=== PATIENT | female | born 1950 | race Caucasian/White ===

== ENCOUNTER 2019-11-20 08:30 | Outpatient (CLI) | payer MEDICARE, SELFPAY | END 2019-11-20 08:31 | disposition home or self-care (01) | PROVIDERS: PCP Internal Medicine; Visit Provider Internal Medicine Gastroenterology | DX: Z01.818 Encounter for other preprocedural examination (principal); Z53.8 Procedure and treatment not carried out for other reasons | CPT/HCPCS: 87635; U0003 ==

== ENCOUNTER 2019-11-28 00:18 | Outpatient (CLI) | payer MEDICARE, SELFPAY ==
[2019-11-28 17:31] LABS: SARS-CoV-2 RNA PCR Negative
== END 2019-11-28 00:19 | disposition home or self-care (01) ==
LOC: ANHCOVIDDT 00:19
PROVIDERS: PCP Internal Medicine; Visit Provider Internal Medicine Gastroenterology
DX: Z01.818 Encounter for other preprocedural examination (principal); Z11.59 Encounter for screening for other viral diseases
CPT/HCPCS: 87635; C9803; U0003

== ENCOUNTER 2019-11-30 00:54 | Day surgery (SDC) | payer MEDICARE, SELFPAY ==
[2019-11-20 09:09] VITALS: BMI 40.8
[2019-11-30 08:16] VITALS: BP 135/81; PULSE 76; RESP 12; TEMP 36.5; O2SAT 98
--- NOTE | 2019-11-30 08:28 | WPDANESEPPF ---
Anes - Initial Pre Proc Eval Procedure: Operation Date: 11/30/19 09:00 Proposed Procedures p Screening Colonoscopy - Gerardo Fontanez MD Date/Time: 11/30/19 08:28 Surgeon: Gerardo Fontanez MD Pre Op Diagnosis: Hx of Colon Polyps Patient Data Age: 69 Gender: F Height: 5 ft 3 in Weight: 105.8 kg Last Vital Signs Temp 36.5 C 11/30/19 08:16 Pulse 76 11/30/19 08:16 Resp 12 11/30/19 08:16 BP 135/81 11/30/19 08:16 Pulse Ox 98 11/30/19 08:16 Allergies Allergy/AdvReac Type Severity Reaction Status Date / Time No Known Allergies Allergy Verified 11/30/19 07:52 Home Medications Medication Instructions Recorded Confirmed Type alprazolam 0.5 mg PO TID PRN 11/20/19 11/20/19 History cyclobenzaprine 10 mg PO TID PRN 11/20/19 11/20/19 History duloxetine 60 mg PO DAILY 11/20/19 11/20/19 History ergocalciferol (vitamin D2) 50,000 unit PO WEEKLY 11/20/19 11/20/19 History esomeprazole magnesium 40 mg PO DAILY 11/20/19 11/20/19 History fentanyl 50 mcg TRANSDERMAL DIRECTED 11/20/19 11/30/19 History ferrous sulfate 325 mg PO DAILY 11/20/19 11/20/19 History folic acid 1 mg PO DAILY 11/20/19 11/20/19 History hydrocodone-acetaminophen 1 tablet PO USEASDIRECTD PRN 11/20/19 11/20/19 History hydroxychloroquine 200 mg PO DAILY 11/20/19 11/20/19 History hyoscyamine sulfate 0.125 mg PO DAILY 11/20/19 11/20/19 History ketoconazole 1 applic TOPICAL DIRECTED 11/20/19 11/20/19 History levothyroxine 300 mcg PO DAILY 11/20/19 11/20/19 History lisinopril 2.5 mg PO DAILY 11/20/19 11/20/19 History sulfasalazine 500 mg PO DAILY 11/20/19 11/30/19 History Patient hx anesthesia problems: none Family hx anesthesia problems: none PMFSH Past Medical History Medical History (Updated 11/30/19 @ 08:32 by Mich Winter MD) Charcot ankle Fibromyalgia HTN (hypertension) Hyperlipidemia Hypothyroidism Obesity Surgical History Surgical History (Updated 11/30/19 @ 08:32 by Mich Winter MD) H/O gastric bypass Anes - Eval Final PreProcedure Day of Procedure 11/30/19 08:28 Patient weight: morbidly obese Heart: regular rate and rhythm Lungs: clear to auscultation Airway: Mallampati scale class II Neurological: alert and oriented Last oral intake: >/= 8 hours ASA classification: III Emergent: no Anesthetic plan: proceed Anesthesia type and monitoring: general GIVS and standard monitoring Informed Consent: The patient's anesthetic plan and its attendant risks and benefits were discussed with the patient/family/POA. Questions were solicited and answers provided to the satisfaction of the patient/family/POA.
[2019-11-30] MEDS: LACTATED RINGERS 1,000 ML 150 ML IV CONT (08:31)
--- NOTE | 2019-11-30 08:33 | WPDGICN ---
Assessment and Plan Assessment and plan (1) History of colon polyps: Code(s): Z86.010 - Personal history of colonic polyps Status: Acute Assessment and Plan: Because of prior colon polyp surveillance colonoscopy is recommended now and should be considered at 5 year intervals. Particularly with family history of colon polyps in her father. (2) Family history of colonic polyps: Code(s): Z83.71 - Family history of colonic polyps Status: Acute (3) Charcot ankle: Code(s): M14.679 - Charcot's joint, unspecified ankle and foot Status: Acute GI Consult Note Consult date/time: 11/30/19 08:33 HPI: Priscilla Hollins is a 69 year old female Seen in evaluation at the request of Dr. Negrete. Patient presents for surveillance colonoscopy. Patient does report a prior history of colon polyps in 2012. Her current weight appetite bowel movements are normal. She denies abdominal pain. She denies bleeding. She denies any change in bowel habits. Family history is significant that her father had colon polyps. Patient reports having had a perianal fistula requiring surgical repair more than 20 years ago. Review of Systems Review of Systems: All systems reviewed & are unremarkable except as noted in HPI and below PMFSH Past Medical History Medical History Charcot ankle Fibromyalgia HTN (hypertension) Hyperlipidemia Hypothyroidism Obesity Surgical History Surgical History H/O gastric bypass Meds Home Medications and Allergies Home Medications Medication Instructions Recorded Confirmed Type alprazolam 0.5 mg PO TID PRN 11/20/19 11/20/19 History cyclobenzaprine 10 mg PO TID PRN 11/20/19 11/20/19 History duloxetine 60 mg PO DAILY 11/20/19 11/20/19 History ergocalciferol (vitamin D2) 50,000 unit PO WEEKLY 11/20/19 11/20/19 History esomeprazole magnesium 40 mg PO DAILY 11/20/19 11/20/19 History fentanyl 50 mcg TRANSDERMAL DIRECTED 11/20/19 11/30/19 History ferrous sulfate 325 mg PO DAILY 11/20/19 11/20/19 History folic acid 1 mg PO DAILY 11/20/19 11/20/19 History hydrocodone-acetaminophen 1 tablet PO USEASDIRECTD PRN 11/20/19 11/20/19 History hydroxychloroquine 200 mg PO DAILY 11/20/19 11/20/19 History hyoscyamine sulfate 0.125 mg PO DAILY 11/20/19 11/20/19 History ketoconazole 1 applic TOPICAL DIRECTED 11/20/19 11/20/19 History levothyroxine 300 mcg PO DAILY 11/20/19 11/20/19 History lisinopril 2.5 mg PO DAILY 11/20/19 11/20/19 History sulfasalazine 500 mg PO DAILY 11/20/19 11/30/19 History Allergies Allergy/AdvReac Type Severity Reaction Status Date / Time No Known Allergies Allergy Verified 11/30/19 07:52 Vital Signs Vital Signs - 24 hr 11/30/19 08:16 Temperature 36.5 C Pulse Rate 76 Respiratory Rate 12 Blood Pressure 135/81 Pulse Oximetry 98 Exam Narrative: Exam Narrative: Physical exam reveals patient to be alert. Vital signs stable. HEENT exam unremarkable. She is anicteric. Lungs are clear to auscultation and percussion. Heart is without murmur or extra sounds. Abdominal exam somewhat obese. Bowel sounds are present soft nontender with no organomegaly. Digital external rectal exam is normal.
[2019-11-30 09:30] VITALS: BP 125/69; PULSE 68; RESP 16; O2SAT 98
[2019-11-30 09:40] VITALS: BP 132/78; PULSE 71; RESP 16; O2SAT 98
[2019-11-30 09:50] VITALS: BP 131/72; PULSE 73; RESP 18; O2SAT 98
== END 2019-11-30 10:10 | disposition home or self-care (01) ==
PROVIDERS: PCP Internal Medicine; Visit Provider Internal Medicine Gastroenterology
PROC: 0DJD8ZZ Inspection of Lower Intestinal Tract, Via Natural or Artificial Opening Endoscopic (ICD-10-PCS; CPT 45378; principal; 2019-11-30 09:00)
DX: Z12.11 Encounter for screening for malignant neoplasm of colon (principal); K64.8 Other hemorrhoids; Z86.010 Personal history of colon polyps; Z83.71 Family history of colonic polyps; M14.679 Charcot's joint, unspecified ankle and foot; I10 Essential (primary) hypertension; E78.5 Hyperlipidemia, unspecified; E03.9 Hypothyroidism, unspecified; M79.7 Fibromyalgia; E66.01 Morbid (severe) obesity due to excess calories; Z68.41 Body mass index [BMI] 40.0-44.9, adult; Z98.84 Bariatric surgery status
CPT/HCPCS: G0105; 87635; C9803; J2704; J7120; U0003

== ENCOUNTER 2020-06-12 10:44 | Outpatient (CLI) | payer MEDICARE, SELFPAY ==
--- NOTE | ~2020-06-12 | MM_ITS ---
EXAMINATION: MM screening [facility] BI w cathie HISTORY: Screening TECHNIQUE: Craniocaudal and mediolateral oblique 3-D tomosynthesis images were obtained and synthetic 2-D images were generated. CAD analysis was submitted and interpreted. COMPARISON: Comparison to multiple prior studies sequentially, with oldest reviewed study dated 12/22. BREAST PARENCHYMAL COMPOSITION: There are scattered areas of fibroglandular density. FINDINGS: There is no evidence of suspicious mass, calcification, or architectural distortion to sugg est malignancy in either breast. There has been no suspicious interval change. IMPRESSION: 1. No mammographic evidence of malignancy. 2. Recommend routine screening mammography in one year. BI-RADS Category 1: Negative Reviewed, dictated and finalized at location A. LE PRODUCERS
== END 2020-06-12 10:45 | disposition home or self-care (01) ==
LOC: CHSIMG 10:46
PROVIDERS: PCP Internal Medicine; Visit Provider Internal Medicine
DX: Z12.31 Encounter for screening mammogram for malignant neoplasm of breast (principal)
CPT/HCPCS: 77063; 77067

== ENCOUNTER 2020-06-18 12:07 | Outpatient (CLI) | payer MEDICARE, SELFPAY ==
[2020-06-18 13:13] LABS: SARS-CoV-2 Ag Negative (Negative)
== END 2020-06-18 12:08 | disposition home or self-care (01) ==
LOC: CHSLAB 12:09
PROVIDERS: PCP Internal Medicine; Visit Provider Internal Medicine
DX: Z20.828 Contact with and (suspected) exposure to other viral communicable diseases (principal)
CPT/HCPCS: 87426

== ENCOUNTER 2021-06-11 13:41 | Outpatient (CLI) | payer MEDICARE, SELFPAY ==
--- NOTE | ~2021-06-11 | XR_ITS ---
EXAMINATION: XR humerus LT EXAM DATE: 06/11/2021 14:09 INDICATION: L arm pain mid humerus. TECHNIQUE: 2 orthogonal projections left humerus. There is no prior study for comparison. FINDINGS: Subcentimeter sclerotic focus in the left humeral head likely bone island. There are no ac [facility] cro[facility] fractures or dislocations identified. There is no subcutaneous gas. The soft tissue is unremar kable. There are no radiopaque foreign bodies. IMPRESSION: No acute osseous findings. Reviewed, dictated and finalized at location A. H CUTTING INSPECTOR IMPRESSION: No acute osseous findings.
== END 2021-06-11 13:42 | disposition home or self-care (01) ==
LOC: CHSIMG 13:42
PROVIDERS: PCP Internal Medicine; Visit Provider Internal Medicine
DX: M79.602 Pain in left arm (principal)
CPT/HCPCS: 73060

== ENCOUNTER 2021-07-12 11:34 | Emergency (ER) | payer MEDICARE, SELFPAY ==
--- NOTE | ~2021-07-12 | XR_ITS ---
EXAMINATION: XR shoulder LT min 2V DATE: 07/12/2021 12:50 INDICATION: Left shoulder pain. TECHNIQUE: 4 views of left shoulder were obtained. COMPARISON: Left humerus radiograph 06/11/2021 FINDINGS: Bone alignment is normal. No fracture. There is a benign bone island in left humeral head. There is mild osteoarthritis of glenohumeral joint and severe osteoarthritis of acromioclavicular meme nt. IMPRESSION: 1. Polyarticular osteoarthritis. Reviewed, dictated and finalized at location A. MAKER
--- NOTE | ~2021-07-12 | XR_ITS ---
EXAMINATION: XR ribs LT 2V DATE: 07/12/2021 12:50 INDICATION: Left rib pain. TECHNIQUE: 2 views of the left ribs on 3 radiographs were obtained. COMPARISON: Chest 2 views 12/23/2012 FINDINGS: There is no left-sided pneumonia, pleural effusion, or pneumothorax. The heart size is norm al. Surgical clips in the right upper quadrant are likely from cholecystectomy. IMPRESSION: 1. No rib fracture. Reviewed, dictated and finalized at location A. NT SERVICES COORDINATOR IMPRESSION: 1. No rib fracture.
--- NOTE | 2021-07-12 12:22 | ECG_ITS ---
Measurements Intervals Hendrix Rate: 83 P: 67 NH: 135 QRS: 41 QRSD: 85 T: 58 QT: 371 QTc: 438 Interpretive Statements SINUS RHYTHM ATRIAL COUPLET BASELINE ARTIFACT- I, II, III, AVL, AVF, V1-V2, V4-V6 BORDERLINE ECG Electronically Signed On 07-14-2021 11:47:10 COFFEE GRINDER by Villa Santana D.O.
[2021-07-12 12:26] VITALS: BP 160/78; PULSE 88; RESP 20; TEMP 36.7; O2SAT 97
[2021-07-12 12:34] VITALS: PULSE 88
--- NOTE | 2021-07-12 13:14 | ED.GENADULT ---
HPI - General Adult General Chief complaint: Unspecified Stated complaint: L upper arm pain, occasional pain in L abd/nipple Source: patient Mode of arrival: wheelchair Limitations: no limitations History of Present Illness HPI narrative: this is a 70-year-old female that has a history of Charcot disease and has a boot on her right foot, apparently trying to maneuver up some steps had to grab on to hold her balance with her left arm causing shoulder discomfort and left rib area discomfort and pain, with no shortness of breath no chest pain no abdominal pain there is no bruising or swelling, has reduced range of motion in her left arm and shoulder. Onset (ago): day(s) Location: left ( rib area and left shoulder area) Radiation: non-radiation Severity: moderate Severity scale (1-10): 6 Quality: sharp and dull Pain Consistency: intermittent Related Data Home Medications Medication Instructions Recorded Confirmed alprazolam 0.5 mg PO TID PRN 11/20/19 11/20/19 cyclobenzaprine 10 mg PO TID PRN 11/20/19 11/20/19 duloxetine 60 mg PO DAILY 11/20/19 11/20/19 ergocalciferol (vitamin D2) 50,000 unit PO WEEKLY 11/20/19 11/20/19 esomeprazole magnesium 40 mg PO DAILY 11/20/19 11/20/19 fentanyl 50 mcg TRANSDERMAL DIRECTED 11/20/19 11/30/19 ferrous sulfate 325 mg PO DAILY 11/20/19 11/20/19 folic acid 1 mg PO DAILY 11/20/19 11/20/19 hydrocodone-acetaminophen 1 tablet PO USEASDIRECTD PRN 11/20/19 11/20/19 hydroxychloroquine 200 mg PO DAILY 11/20/19 11/20/19 hyoscyamine sulfate 0.125 mg PO DAILY 11/20/19 11/20/19 ketoconazole 1 applic TOPICAL DIRECTED 11/20/19 11/20/19 levothyroxine 300 mcg PO DAILY 11/20/19 11/20/19 lisinopril 2.5 mg PO DAILY 11/20/19 11/20/19 sulfasalazine 500 mg PO DAILY 11/20/19 11/30/19 Allergies Allergy/AdvReac Type Severity Reaction Status Date / Time aspirin AdvReac Gastrointestinal Verified 07/12/21 12:36 Upset [id number] Reductase AdvReac Anxiety Verified 07/12/21 12:36 Inhibitor Review of Systems Review of Systems: All systems reviewed & are unremarkable except as noted in HPI and below PMFSH Past Medical History Medical History (Updated 07/12/21 @ 13:19 by Elan Novoa MD) Charcot ankle Fibromyalgia HTN (hypertension) Hyperlipidemia Hypothyroidism Obesity Surgical History Surgical History H/O gastric bypass Exam Const: General: cooperative, healthy appearing, comfortable and no acute distress HENMT: Head: normal to inspection Ears: hearing grossly normal bilaterally General nose exam: Normal external nose present Face and sinus: normal facial exam Mouth: Yes Normal oral and palatal mucosa present Eyes: General: appearance normal, both eyes and all related structures EOM: EOMs intact bilaterally Neck: Neck: normal visual inspection Chest: Chest palpation & inspection: normal inspection of the chest and normal palpation of entire chest wall Breast/axilla palpation: normal palpation of the breasts Resp: Effort & Inspection: normal respiratory effort and able to speak in complete sentences Cardio: Jugular venous distension: no JVD Palpation: normal PMI Rate: regular rate Rhythm: regular rhythm GI: Inspection: normal to inspection Percussion: Yes normal to percussion Urinary Catheter: Urinary Catheter: patent and draining Back/Spine/Pelvis: Back: no CVA tenderness Cervical Spine: normal cervical lordosis and cervical ROM normal Skin: General skin exam: normal color and no rashes or lesions noted Neuro: General: oriented to person and oriented to place Extrem: Other: Pain with movement of her left shoulder with bicipital tenderness Psych: Appearance: grossly normal and well kempt Course Course Emergency Course: x-rays reviewed with patient advised to continue her Tylenol as needed and follow up with her primary care physician for further evaluation and treatment of her left shoulder. Patti
[2021-07-12] MEDS: KETOROLAC 30 MG/ML VIAL (*BKC) IM (14:00)
[2021-07-12 14:31] VITALS: BP 141/87; PULSE 91; RESP 20; TEMP 36.8; O2SAT 94
== END 2021-07-12 14:33 | disposition home or self-care (01) ==
PROVIDERS: Emergency Provider Emergency Medicine; PCP Internal Medicine
DX: S46.912A Strain of unspecified muscle, fascia and tendon at shoulder and upper arm level, left arm, initial encounter (principal); I10 Essential (primary) hypertension; E78.5 Hyperlipidemia, unspecified; E03.9 Hypothyroidism, unspecified
CPT/HCPCS: 71100; 73030; 93005; 96372; 99283; 99284; J1885

== ENCOUNTER 2022-08-11 11:59 | Outpatient (CLI) | payer MEDICARE, SELFPAY ==
--- NOTE | ~2022-08-11 | CT_ITS ---
EXAMINATION: CTA chest PE protocol DATE: 08/11/2022 14:13 INDICATION: Shortness of breath. TECHNIQUE: Computed tomography angiography (CTA) of the chest was performed with 100 mL Omnipaque-350 intravenous contrast timed to evaluate the pulmonary arteries. Coronal maximum intensity projection 3D-reconstructions were created by the technologist. Automated exposure control and iterative reconst ruction technique were employed. The dose-length product was 639.10 mGy-cm. COMPARISON: Chest CT 05/23/2007 FINDINGS: There is minimal atelectasis versus scarring in paraspinal right lower lobe. There is a sma ll groundglass opacity in right middle lobe. No pleural effusion. The heart size is normal. There are coronary artery calcifications. No pericardial effusion. There is no pulmonary embolus. There are navarro rgical changes of the stomach. There are changes of cholecystectomy. There is thoracic dextroscoliosi s, kyphosis, and severe spondylosis. There is mild chronic anterior wedging of multiple thoracic vert ebral bodies. IMPRESSION: 1. No pulmonary embolus. Reviewed, dictated and finalized at location A. REPLACEMENT ORDERER IMPRESSION: 1. No pulmonary embolus.
--- NOTE | ~2022-08-11 | XR_ITS ---
Clinical Indication: Shortness of breath, Covid 19 positive PA and lateral views of the chest: Comparison: 07/12/2021 Findings: The lungs are clear, without evidence of focal consolidation or pleural effusion. Cardiome diastinal silhouette is within normal limits. Bones and soft tissues are unremarkable. Impression: Normal chest. Reviewed, dictated and finalized at location . ING TANK WORKER Impression: Normal chest.
[2022-08-11 12:19] LABS: Add Urine Microscopic? YES; Appearance Urine Clear (Clear); Basophils Absolute Auto 0.03 K/mm3 (0.00-0.10); Basophils Percent Auto 0.7 % (0.0-1.0); Bilirubin Urine Negative (Negative); Blood Urine Negative (Negative); Color Urine Yellow (Yellow); Eosinophils Absolute Auto 0.11 K/mm3 (0.02-0.50); Eosinophils Percent Auto 2.6 % (1.0-6.0); Glucose Urine UA Negative (Negative); Hematocrit 39.3 % (35.0-42.0); Hemoglobin 12.6 g/dL (11.7-13.8); Immature Granulocyte Absolute 0.02 K/mm3 (0.00-0.00); Immature Granulocyte Percent A 0.5 % (0.0-0.0); Ketones Urine Negative (Negative); Leukocyte Esterase Ur Trace (Negative); Lymphocytes Absolute Auto 1.56 K/mm3 (1.10-4.50); Lymphocytes Percent Auto 37.2 % (18.0-42.0); Mean Corpuscular HGB Conc 32.1 g/dL (32.0-36.0); Mean Corpuscular Volume 96.6 fL (78.0-102.0); Monocytes Percent Auto 9.5 % (2.0-11.0); Neutrophils Absolute Auto 2.1 K/mm3 (1.7-7.2); Neutrophils Percent Auto 49.5 % (50.0-70.0); Nitrate Urine Negative (Negative); Platelet Count Result 240 K/mm3 (150-420); Protein Urine Negative (Negative); Red Blood Count 4.07 M/mm3 (4.20-5.40); Red Cell Distribution Width 12.5 % (11.6-14.4); Specific Grav Ur 1.025 (1.010-1.020); Urobilinogen Urine 0.2 mg/dL (0.2-1.0); White Blood Count 4.2 K/mm3 (4.8-10.8)
[2022-08-11 12:23] LABS: Bacteria Urine Trace /hpf; RBC Urine None seen /hpf (0-2); Squamous Epithelial Cell Urine Occasional /hpf (Few); WBC Urine 0-3 /hpf (0-3)
[2022-08-11 12:33] LABS: Alanine Aminotransferase 16 U/L (14-59); Albumin Level 3.7 g/dL (3.4-5.0); Alkaline Phosphatase 145 U/L (46-116); Anion Gap 5 mmol/L (8-16); Aspartate Amino Transferase 12 U/L (15-37); Bilirubin,Total 0.2 mg/dL (0.00-1.00); Blood Urea Nitrogen 19 mg/dL (7-18); Calcium 9.2 mg/dL (8.5-10.1); Carbon Dioxide 30 mmol/L (21-32); Chloride 107 mmol/L (98-108); Estimated Glomerular Filt Rate 53; Glucose 111 mg/dL (70-99); Osmolality Calculated 297 mOsm/kg (285-295); Potassium 4.9 mmol/L (3.5-5.1); Sodium 142 mmol/L (136-145); Total Protein 7.4 g/dL (6.4-8.2)
[2022-08-11 12:44] LABS: D Dimer 0.86 mg/L (0.19-0.50)
== END 2022-08-11 12:00 | disposition home or self-care (01) ==
PROVIDERS: PCP Internal Medicine; Visit Provider Nurse Practitioner Family
DX: J06.9 Acute upper respiratory infection, unspecified (principal); U07.1 COVID-19; R06.02 Shortness of breath; R79.1 Abnormal coagulation profile; R82.90 Unspecified abnormal findings in urine
CPT/HCPCS: 36415; 71046; 71275; 80053; 81001; 85025; 85380; 87086; 87088; Q9967

== ENCOUNTER 2022-09-24 11:26 | Outpatient (CLI) | payer MEDICARE, SELFPAY ==
--- NOTE | ~2022-09-24 | XR_ITS ---
Lumbosacral Spine: AP and lateral views Clinical History: Pain Findings: The normal lordotic curve is maintained. No fracture evident. 9 mm anterolisthesis of L4 ov er L5 present. There is moderate degenerative disc narrowing at L4-L5. There is facet arthropathy at L4-L5 and L5-S1. The sacroiliac joints are normally outlined. Impression: 9 mm anterolisthesis of L4 over L5. Mild to moderate degenerative spondylosis at the lower lumbar spine, as detailed above. Reviewed, dictated and finalized at location M. Impression: 9 mm anterolisthesis of L4 over L5. Mild to moderate degenerative spondylosis at the lower lumbar spine, as detaile d above.
== END 2022-09-24 11:27 | disposition home or self-care (01) ==
LOC: CHSIMG 11:31
PROVIDERS: PCP Internal Medicine; Visit Provider Nurse Practitioner Family
DX: M54.50 Low back pain, unspecified (principal); M43.16 Spondylolisthesis, lumbar region
CPT/HCPCS: 72100

== ENCOUNTER 2022-10-07 15:48 | Outpatient (RCR) | payer MEDICARE, SELFPAY ==
--- NOTE | 2022-10-07 16:48 | PTOPEVAL1 ---
Assessment and note entered by JT File, PT Evaluation Information Assessment Status Evaluation Diagnosis lumbar radiculopathy L Onset 10/06/22 Subjective Information patient reports she has been having difficulty sleeping due to pain in the L leg and hip. she reports she has less pain when up and active. she reports she has been having pain/symptoms for the past 4-5 weeks. she reports she has burning and pain down the L LE. she reports the pain runs down the L LE into the calf. she reports she has increased pain with sleeping, being up and standing too long, and doing chores around the house. Reported Pain Level Pain Score 2: Self Report Additional Pain Score Comments patient is woken up every night due to pain in the lower back and L LE. Assessment PT Clinical Summary mrs. hong presents to skilled PT services for evaluation and treatment of lower back and L LE pain. she presents this date with signs and symptoms of L side lumbar radiculopathy of L3-5. she presents with decreased strength, altered sensation, and pain down to the L LE. she would benefit from skilled PT to address these deficits and improve her functional activity performance to return to her PLOF/QOL. Plan of Care Interventions Electrical Stimulation,Gait Training,Hot Pack/Cold Pack,Manual Therapy,Neuro Re-education,Patient/ Caregiver Educati,Therapeutic Activities, Therapeutic Exercise PT Services Indicated Yes Treatment Frequency and 3x weekly for 12 visits Duration These treatments will address the objective and functional deficits as defined above. The patient will be advanced safely and appropriately in order for the patient to progress towards his/her prior level of function. Additional exercises will be introduced and as well as a comprehensive home exercise program upon discharge, if needed, ?to ensure carryover of functional gains achieved in the clinic. This treatment plan has been reviewed and agreement upon by the patient.
== END 2022-10-29 16:06 | disposition home or self-care (01) ==
LOC: CHSPT 15:48
PROVIDERS: PCP Internal Medicine; Visit Provider Internal Medicine
DX: M54.16 Radiculopathy, lumbar region (principal)
CPT/HCPCS: 97014; 97110; 97161; G0283

== ENCOUNTER → 2022-10-15 08:42 | Outpatient (CLI) | payer MEDICARE, SELFPAY ==
--- NOTE | ~2022-10-15 | MR_ITS ---
EXAMINATION: MR lumbar spine wo con DATE: 10/15/2022 09:26 INDICATION: Low back pain. TECHNIQUE: Magnetic resonance imaging (MRI) of the lumbar spine was performed without intravenous con trast. Sequences included sagittal T2-weighted FSE, sagittal T2-weighted FS FSE, sagittal T1-weighted FSE, and axial T2-weighted FSE. COMPARISON: Lumbar spine radiographs 09/24/2022 FINDINGS: There is 4 mm anterolisthesis of L4 on L5. Vertebral body heights are normal. There is mild ly decreased disc height at L3-L4 and L4-L5 and severely decreased disc height at L5-S1. Epidural lip omatosis is noted. The distal spinal cord signal intensity is normal. The conus medullaris is at L1. The following disc levels are specifically discussed: L1-L2: The disc does not extend beyond the endplate margin. There is mild bilateral facet joint osteo arthritis. There is no neural foraminal stenosis. There is no central canal stenosis. L2-L3: There is a left foraminal protrusion. There is moderate and mild left facet joint osteoarthrit is. There is mild left neural foraminal stenosis. There is no central canal stenosis. L3-L4: The disc is bulging. There is severe bilateral facet joint osteoarthritis. There is mild bilat eral neural foraminal stenosis. There is mild central canal stenosis. L4-L5: The disc is bulging. There is severe bilateral facet joint osteoarthritis. There is moderate r ight and mild left neural foraminal stenosis. There is mild central canal stenosis. L5-S1: The disc is bulging. There is ankylosis of the facet joints with severe hypertrophy. There is mild bilateral neural foraminal stenosis. There is mild central canal stenosis. IMPRESSION: 1. Moderate lumbar spondylosis. Reviewed, dictated and finalized at location A.
== END ==
PROVIDERS: PCP Internal Medicine; Visit Provider Internal Medicine
DX: M54.50 Low back pain, unspecified (principal); M43.06 Spondylolysis, lumbar region
CPT/HCPCS: 72148

== ENCOUNTER 2022-11-26 08:01 | Outpatient (CLI) | payer MEDICARE, SELFPAY ==
--- NOTE | ~2022-11-26 | MM_ITS ---
EXAMINATION: MM screening [facility] BI w cathie HISTORY: Screening mammogram TECHNIQUE: Craniocaudal and mediolateral oblique 3-D tomosynthesis images were obtained and synthetic 2-D images were generated. CAD analysis was submitted and interpreted. COMPARISON: 06/12/2020, 08/30/2018, 05/19/2017 BREAST PARENCHYMAL COMPOSITION: The breasts are almost entirely fatty. FINDINGS: Scattered benign-appearing calcifications are present. No suspicious mass, calcification, o r architectural distortion are identified in either breast to suggest malignancy. There has been no s uspicious interval change. IMPRESSION: 1. No mammographic evidence of malignancy. 2. Recommend routine screening mammography in one year. BI-RADS Category 2: Benign finding(s). Reviewed, dictated and finalized at location A.
== END 2022-11-26 08:02 | disposition home or self-care (01) ==
LOC: CHSIMG 08:03
PROVIDERS: PCP Internal Medicine; Visit Provider Internal Medicine
DX: Z12.31 Encounter for screening mammogram for malignant neoplasm of breast (principal)
CPT/HCPCS: 77063; 77067

== ENCOUNTER 2023-03-22 07:36 | Day surgery (SDC) | payer MEDICARE, SELFPAY ==
[2023-02-05 08:26] VITALS: BMI 39.3
[2023-03-02 09:47] VITALS: BMI 40.1
[2023-03-22 09:45] VITALS: BP 152/84; PULSE 69; RESP 16; TEMP 36.8; O2SAT 98
[2023-03-22] MEDS: LACTATED RINGERS 1,000 ML 150 ML IV CONT (09:45)
--- NOTE | 2023-03-22 09:46 | PM.HPGS ---
History of Present Illness History of Present Illness Consent: Risks, benefits, and alternatives have been discussed and questions answered. Patient agrees to proceed with procedure. Chief complaint: Bariatric Surgery Status Z98.84 Narrative: Priscilla Hollins is a 72 year old female Presents for EGD. Patient recently found to have anemia. Follow-up CBC available to me shows this has improved. Patient presents for EGD because more than 10 years ago had gastric bypass surgery. She has remained on iron replacement therapy. She presents today to assess and exclude any organic disease. She has felt to have iron malabsorption from previous gastric bypass surgery. Patient denies abdominal pain. She has had no bleeding. Family history noncontributory. Review of Systems Review of Systems: Review of systems noncontributory. [facility] Past Medical History Medical History (Updated 01/13/23 @ 15:48 by Gerardo Fontanez MD) Charcot ankle Fibromyalgia HTN (hypertension) Hyperlipidemia Hypothyroidism Obesity Surgical History Surgical History (Updated 01/13/23 @ 15:48 by Gerardo Fontanez MD) H/O gastric bypass Social History Social History Smoking status: Never smoker Alcohol intake: never Substance use: never Substance use type: does not use Living arrangements: with family Spiritual care concerns: No Meds Home Medications and Allergies Home Medications Medication Instructions Recorded Confirmed Type duloxetine 60 mg capsule,delayed 60 mg PO DAILY 11/20/19 03/02/23 History release ergocalciferol (vitamin D2) 1,250 50,000 unit PO WEEKLY 11/20/19 03/02/23 History mcg (50,000 unit) capsule esomeprazole magnesium 40 mg 40 mg PO DAILY 11/20/19 03/02/23 History capsule,delayed release fentanyl 50 mcg/hr transdermal 50 mcg transdermal DIRECTED 11/20/19 03/02/23 History patch ferrous sulfate 325 mg (65 mg 325 mg PO DAILY 11/20/19 03/02/23 History iron) tablet folic acid 1 mg tablet 1 mg PO DAILY 11/20/19 03/02/23 History hydrocodone 10 mg-acetaminophen 1 tablet PO USEASDIRECTD PRN Pain, 11/20/19 03/02/23 History 325 mg tablet Moderate hydroxychloroquine 200 mg tablet 200 mg PO DAILY 11/20/19 03/02/23 History hyoscyamine sulfate 0.125 mg tablet 0.125 mg PO DAILY 11/20/19 03/02/23 History ketoconazole 2 % topical cream 1 applic topical DIRECTED 11/20/19 03/02/23 History levothyroxine 300 mcg tablet 300 mcg PO DAILY 11/20/19 03/02/23 History lisinopril 2.5 mg tablet 2.5 mg PO DAILY 11/20/19 03/02/23 History alirocumab 75 mg/mL subcutaneous 75 mg subcut PER PKG DIR 03/02/23 03/02/23 History pen injector (Praluent Pen) gabapentin 300 mg capsule 300 mg PO HS 03/02/23 03/02/23 History Allergies Allergy/AdvReac Type Severity Reaction Status Date / Time aspirin AdvReac Gastrointestinal Verified 03/22/23 09:32 Upset [id number]-[id number] Reductase AdvReac Flushing Verified 03/22/23 09:32 Inhibitor Exam Narrative: Physical exam reveals patient to be alert. Vital signs stable. HEENT exam is unremarkable. Patient is an S are clear to auscultation and is without murmur or extra sounds. Abdomen bowel sounds are present soft nontender with no organomegaly. Rectal exam deferred at this time. Assessment and Plan Assessment and plan (1) H/O gastric bypass: Code(s): Z98.84 - Bariatric surgery status Status: Acute Assessment and Plan: Patient has a history of gastric bypass. EGD is requested to assess the status of this bypass. Her anemia appears resolved. She likely will have a tendency towards iron malabsorption given her gastric bypass. Chronic iron replacement and monitoring iron and CBC is encourage long-term. Further recommendations may be given after in scan be.
--- NOTE | 2023-03-22 10:45 | WPDANESEPPF ---
Anes - Initial Pre Proc Eval Procedure: Operation Date: 03/22/23 11:30 Proposed Procedures p Esophagogastroduodenoscopy - Gerardo Fontanez MD Date/Time: 03/22/23 10:45 Surgeon: Gerardo Fontanez MD Pre Op Diagnosis: Bariatric Surgery Status Z98.84 Patient Data Age: 72 Gender: F Height: 1.6 m Weight: 102.9 kg Allergies Allergy/AdvReac Type Severity Reaction Status Date / Time aspirin AdvReac Gastrointestinal Verified 03/22/23 09:32 Upset [id number]-[id number] Reductase AdvReac Flushing Verified 03/22/23 09:32 Inhibitor Home Medications Medication Instructions Recorded Confirmed Type duloxetine 60 mg capsule,delayed 60 mg PO DAILY 11/20/19 03/02/23 History release ergocalciferol (vitamin D2) 1,250 50,000 unit PO WEEKLY 11/20/19 03/02/23 History mcg (50,000 unit) capsule esomeprazole magnesium 40 mg 40 mg PO DAILY 11/20/19 03/02/23 History capsule,delayed release fentanyl 50 mcg/hr transdermal 50 mcg transdermal DIRECTED 11/20/19 03/02/23 History patch ferrous sulfate 325 mg (65 mg 325 mg PO DAILY 11/20/19 03/02/23 History iron) tablet folic acid 1 mg tablet 1 mg PO DAILY 11/20/19 03/02/23 History hydrocodone 10 mg-acetaminophen 1 tablet PO USEASDIRECTD PRN Pain, 11/20/19 03/02/23 History 325 mg tablet Moderate hydroxychloroquine 200 mg tablet 200 mg PO DAILY 11/20/19 03/02/23 History hyoscyamine sulfate 0.125 mg tablet 0.125 mg PO DAILY 11/20/19 03/02/23 History ketoconazole 2 % topical cream 1 applic topical DIRECTED 11/20/19 03/02/23 History levothyroxine 300 mcg tablet 300 mcg PO DAILY 11/20/19 03/02/23 History lisinopril 2.5 mg tablet 2.5 mg PO DAILY 11/20/19 03/02/23 History alirocumab 75 mg/mL subcutaneous 75 mg subcut PER PKG DIR 03/02/23 03/02/23 History pen injector (Praluent Pen) gabapentin 300 mg capsule 300 mg PO HS 03/02/23 03/02/23 History Patient hx anesthesia problems: none Family hx anesthesia problems: none Results Review: All pre-operative results and documents have been reviewed as part of the pre-operative evaluation. FORMERLY [facility] Past Medical History Medical History Charcot ankle Fibromyalgia HTN (hypertension) Hyperlipidemia Hypothyroidism Obesity Surgical History Surgical History H/O gastric bypass Social History Social History Smoking status: Never smoker Alcohol intake: never Substance use: never Substance use type: does not use Living arrangements: with family Spiritual care concerns: No Anes - Eval Final PreProcedure Day of Procedure 03/22/23 10:45 Patient weight: morbidly obese Heart: regular rate and rhythm Lungs: clear to auscultation Airway: Mallampati scale class II Neurological: alert and oriented Last oral intake: >/= 8 hours ASA classification: III Emergent: no Anesthetic plan: proceed Anesthesia type and monitoring: general GIVS and standard monitoring Results Review: All pre-operative results and documents have been reviewed as part of the pre-operative evaluation. Informed Consent: The patient's anesthetic plan and its attendant risks and benefits were discussed with the patient/family/POA. Questions were solicited and answers provided to the satisfaction of the patient/family/POA.
[2023-03-22 11:16] VITALS: BP 145/75; PULSE 62; RESP 16; O2SAT 96
[2023-03-22 11:26] VITALS: BP 146/79; PULSE 59; RESP 18; O2SAT 98
[2023-03-22 11:36] VITALS: BP 160/81; PULSE 63; RESP 16; O2SAT 100
--- NOTE | 2023-03-22 12:12 | WPDANESPN ---
Anes - Prog Note Post-Op Date/Time: 03/22/23 12:12 Cardiovascular status: normal Respiratory status: normal Airway patency: baseline Mental status: baseline Post-Op hydration status: normal Vital Signs: Last Vital Signs Temp 36.8 C 03/22/23 09:45 Pulse 63 03/22/23 11:36 Resp 16 03/22/23 11:36 BP 160/81 H 03/22/23 11:36 Pulse Ox 100 03/22/23 11:36 O2 Del Method Room Air 03/22/23 11:36 Pain Score (VAS): 0 I/O: Intake & Output 03/21/23 03/22/23 03/22/23 23:59 07:59 15:59 Intake Total 500 Balance 500 Patient Feedback: Patient satisfied with anesthetic care.
== END 2023-03-22 11:52 | disposition home or self-care (01) ==
PROVIDERS: PCP Internal Medicine; Visit Provider Internal Medicine Gastroenterology
PROC: 0DJ08ZZ Inspection of Upper Intestinal Tract, Via Natural or Artificial Opening Endoscopic (ICD-10-PCS; CPT 43235; principal; 2023-03-22 11:30)
DX: K31.89 Other diseases of stomach and duodenum (principal)
CPT/HCPCS: 43235

== ENCOUNTER 2023-04-28 15:19 | Outpatient (CLI) | payer MEDICARE, SELFPAY ==
--- NOTE | ~2023-04-28 | MR_ITS ---
EXAMINATION: MR cervical spine wo con DATE: 04/28/2023 16:24 INDICATION: Cervical spondylosis. TECHNIQUE: Magnetic resonance imaging (MRI) of the cervical spine was performed without intravenous c ontrast. COMPARISON: None FINDINGS: Partially visualized is thoracic dextroscoliosis. There is 2 mm anterolisthesis of C4 on C5 and C7 on T1. There is mildly decreased disc height at C3-C4 and C4-C5 and severely decreased disc h eight at C5-C6 and C6-C7. The spinal cord signal intensity is normal, but motion artifact decreases s ensitivity. The following disc levels are specifically discussed: C2-C3: The disc does not extend beyond the endplate margin. There is mild right uncovertebral joint o steoarthritis. There is severe bilateral facet joint osteoarthritis. There is no neural foraminal conrad nosis. There is no central canal stenosis. C3-C4: There is a right central protrusion. There is severe right and mild left uncovertebral joint o steoarthritis. There is severe right and moderate left facet joint osteoarthritis. There is moderate right and mild left neural foraminal stenosis. There is mild central canal stenosis. C4-C5: The disc is bulging. There is moderate bilateral uncovertebral joint osteoarthritis. There is severe bilateral facet joint osteoarthritis. There is mild bilateral neural foraminal stenosis. There is mild central canal stenosis. C5-C6: The disc is bulging. There is severe bilateral uncovertebral joint osteoarthritis. There is se ernie right and mild left facet joint osteoarthritis. There is severe right and moderate left neural f oraminal stenosis. There is mild central canal stenosis with ventral indentation of the spinal cord. C6-C7: The disc is bulging. There is moderate bilateral uncovertebral joint osteoarthritis. There is mild bilateral facet joint osteoarthritis. There is mild right and moderate left neural foraminal conrad nosis. There is mild central canal stenosis and ventral indentation of the spinal cord. C7-T1: The disc does not extend beyond the endplate margin. There is no uncovertebral joint osteoarth ritis. There is severe right and moderate left facet joint osteoarthritis. There is mild bilateral ne ural foraminal stenosis. There is no central canal stenosis. IMPRESSION: 1. Severe cervical spondylosis. Reviewed, dictated and finalized at location E.
== END 2023-04-28 15:20 | disposition home or self-care (01) ==
PROVIDERS: PCP Internal Medicine; Visit Provider Nurse Practitioner Family
DX: M47.812 Spondylosis without myelopathy or radiculopathy, cervical region (principal)
CPT/HCPCS: 72141

== ENCOUNTER 2023-05-31 13:10 | Outpatient (CLI) | payer MEDICARE, SELFPAY ==
--- NOTE | 2023-05-31 13:15 | ECHO_ITS ---
Patient Info Name: Priscilla Hollins Age: 72 years : 1950 Gender: Female Ht: 63 in Wt: 198 lbs BSA: 2.04 m2 HR: 80 bpm BP: 130 / 65 mmHg Heart Rhythm: Sinus Rhythm Technical Quality: Good Exam Date: 05/31/2023 2:04 PM Exam Location: Echo Lab Patient Status: Outpatient Admit Date: 05/31/2023 Staff Ordering Physician: ChristySander MD Manager Market Intelligence: Roque Lawrence RDCS Attending Provider: Christy, Sander Webster MD Referring Physician: Austin TAPIA; Exam Type: CA echo doppler color flow Study Info Indications - limited scleroderma/pulmonary hypertension Complete two-dimensional, color flow and Doppler transthoracic echocardiogram is performed. Summary 1. Complete two-dimensional, color flow and Doppler transthoracic echocardiogram is performed. 2. Left ventricular chamber dimension is normal. 3. Left ventricular systolic function is normal, estimated at 60-65%. 4. There is mild concentric increased left ventricular wall thickness. 5. The left ventricular diastolic function is grade I diastolic dysfunction. 6. E/e' 9 is minimally elevated. 7. There is moderate aortic valve sclerosis. 8. The mitral valve has mildly calcified annulus. 9. There is trace tricuspid valve regurgitation. 10. No pulmonary hypertension, estimated pulmonary arterial systolic pressure is 31 mmHg. 11. There is trace pulmonic regurgitation. Left Ventricle E/e' 9 is minimally elevated. Left ventricular chamber dimension is normal. Left ventricular systolic function is normal, estimated at 60-65%. There is mild concentric increased left ventricular wall thickness. The left ventricular diastolic function is grade I diastolic dysfunction. Right Ventricle Right ventricular systolic function is normal and with normal TAPSE 2.8 cm. Right ventricular chamber dimension is normal. Left Atria Left atrial chamber dimension is normal. Right Atria Right atrial chamber dimension is normal. Aortic Valve The aortic valve is trileaflet. There is moderate aortic valve sclerosis. There is no aortic valve stenosis. There is no aortic valve regurgitation. Pulmonic Valve There is trace pulmonic regurgitation. Mitral Valve The mitral valve has mildly calcified annulus. There is no mitral valve stenosis. There is no mitral valve regurgitation. Tricuspid Valve There is trace tricuspid valve regurgitation. No pulmonary hypertension, estimated pulmonary arterial systolic pressure is 31 mmHg. Pericardium/Pleural There is no pericardial effusion. Inferior Vena Cava Normal inferior vena cava with >50% collapse upon inspiration consistent with normal right atrial pressure, 5 mmHg. Aorta The aortic root size at the sinus of Valsalva is normal. Left Ventricular Outflow Tract Name Value Normal LVOT 2D LVOT Diameter 1.7 cm LVOT Doppler LVOT Peak Velocity 131 cm/s LVOT Peak Gradient 7 mmHg LVOT Mean Gradient 3 mmHg LVOT VTI 40 cm LVOT VTI/AV VTI Ratio 1.1 LVOT Stroke Volume 97 ml Pulmonic Valve
== END 2023-05-31 13:11 | disposition home or self-care (01) ==
LOC: CHSIMG 13:11
PROVIDERS: PCP Internal Medicine; Visit Provider Internal Medicine Rheumatology
DX: M34.9 Systemic sclerosis, unspecified (principal); I27.20 Pulmonary hypertension, unspecified
CPT/HCPCS: 93306

== ENCOUNTER 2024-03-24 07:24 | Outpatient (CLI) | payer MEDICARE, SELFPAY ==
--- NOTE | ~2024-03-24 | US_ITS ---
EXAMINATION: US venous doppler LE RT DATE: 03/24/2024 07:58 INDICATION: Right lower limb swelling and erythema TECHNIQUE: Grayscale ultrasound images without and with compression and Doppler ultrasound images of the right lower extremity veins were obtained. COMPARISON: None. FINDINGS: The visualized portions of right common femoral vein, profunda (deep) femoral vein, femoral vein, pop liteal vein, peroneal trunk, posterior tibial veins, peroneal veins, gastrocnemius vein and greater s aphenous vein outflow are patent. IMPRESSION: 1. No deep venous thrombosis in the right lower limb. Reviewed, dictated and finalized at location B.
== END 2024-03-24 07:25 | disposition home or self-care (01) ==
LOC: CHSIMG 07:25
PROVIDERS: PCP Internal Medicine; Visit Provider Internal Medicine
DX: M79.89 Other specified soft tissue disorders (principal)
CPT/HCPCS: 93971

== ENCOUNTER 2024-04-01 07:53 | Outpatient (CLI) | payer MEDICARE, SELFPAY ==
--- NOTE | ~2024-04-01 | MR_ITS ---
MRI of the brain Clinical History: Memory loss Technique: Axial and sagittal T1-weighted images were acquired. These were followed by axial T2-weigh sidney, diffusion weighted, gradient, and FLAIR images. Findings: There is no acute infarct, intracranial hemorrhage, or mass lesion. There are mild chronic microvascular ischemic changes in the periventricular white matter bilaterally. Ventricles and subarachnoid spaces are mildly dilated. Orbits are unremarkable. Paranasal sinuses and mastoid air cells are clear. Major intracranial flow voids are intact. Sagittal midline structures are intact. IMPRESSION: No acute infarct, intracranial hemorrhage, or mass lesion. Mild chronic microvascular ischemic changes and mild generalized atrophy. Reviewed, dictated and finalized at [facility].
== END 2024-04-01 07:54 | disposition home or self-care (01) ==
LOC: CHSIMG 07:53
PROVIDERS: PCP Internal Medicine; Visit Provider Internal Medicine
DX: R41.3 Other amnesia (principal)
CPT/HCPCS: 70551

== ENCOUNTER 2024-06-21 11:47 | Outpatient (CLI) | payer MEDICARE, SELFPAY ==
--- NOTE | ~2024-06-21 | MM_ITS ---
EXAMINATION: MM screening roger BI w cathie HISTORY: Screening TECHNIQUE: Craniocaudal and mediolateral oblique 3-D tomosynthesis images were obtained and synthetic 2-D images were generated. CAD analysis was submitted and interpreted. COMPARISON: Comparison to multiple prior studies sequentially, with oldest reviewed study dated 12/24. BREAST PARENCHYMAL COMPOSITION: Not dense: There are scattered areas of fibroglandular density. FINDINGS: There is no evidence of suspicious mass, calcification, or architectural distortion to sugg est malignancy in either breast. There has been no suspicious interval change. IMPRESSION: 1. No mammographic evidence of malignancy. 2. Recommend routine screening mammography in one year. BI-RADS Category 1: Negative Reviewed, dictated and finalized at location B. 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
== END 2024-06-21 11:48 | disposition home or self-care (01) ==
PROVIDERS: PCP Internal Medicine; Visit Provider Internal Medicine
DX: Z12.31 Encounter for screening mammogram for malignant neoplasm of breast (principal)
CPT/HCPCS: 77063; 77067

== ENCOUNTER 2024-07-31 12:23 | Outpatient (CLI) | payer MEDICARE, SELFPAY ==
--- NOTE | ~2024-07-31 | DEXA_ITS ---
Bone Density Report Name: MARTA ALEMAN Age: 73 Sex: Female Ethnicity: White Date of : 1950 Indication: hyperparathyroidism; height loss; hysterectomy; rheumatoid arthritis; Referring Provider: Vishal Negrete Study: Bone densitometry was performed. Exam Date: July 31, 2024 Accession number: [id number] Bone Density: Region BMD T-score Z-score Classification AP Spine(L1-L4) 0.881 -1.5 0.9 Osteopenia Femoral Neck (Left) 0.621 -2.1 0.1 Osteopenia Total Hip (Left) 0.799 -1.2 0.6 Osteopenia Femoral Neck (Right) 0.587 -2.4 -0.2 Osteopenia Total Hip (Right) 0.792 -1.2 0.6 Osteopenia Femoral Neck Mean 0.604 -2.2 -0.1 Osteopenia Total Hip Mean 0.795 -1.2 0.6 Osteopenia World Health Organization criteria for BMD impression classify patients as: Normal (T-score at or above -1.0), Osteopenia (T-score between -1.0 and -2.5), or Osteoporosis (T-score at or below -2.5). 10-year Fracture Risk(1): Major Osteoporotic Fracture 19% Hip Fracture 5.9% Reported Risk Factors: [place] (), Neck BMD=0.587, BMI=34.6, rheumatoid arthritis (1) FRAX(R) Version 3.08. Fracture probability calculated for an untreated patient. Fracture probability may be lower if the patient has received treatment. Clinical Information Provided by Patient: Has rheumatoid arthritis Has used the following medications: Vitamin D Has the following medical conditions: Hyperparathyroidism, Hysterectomy Patient maximum height was 65 Menopause Age: 34 No regular weight bearing exercise Does not regularly consume dairy products Drinks caffeinated beverages Onset of menses at age 13 Number of children 3 Impression: The patient has low bone mass, based on the Right Femoral Neck T-score. Discussion: BONE DENSITY IS LOW AT ONE OR MORE SKELETAL SITES. This patient's lowest T-score is low at one or more skeletal sites. It meets the World Health Organization's (WHO) criteria for ?low bone mass? (T-score between -1.0 and -2.5). The patient's 10-year risk of fracture as calculated by FRAX is less than the threshold where pharmacological therapy is recommended by the National Osteoporosis Foundation (NOF). However, all treatment decisions require clinical judgment and consideration of individual patient factors, including patient preferences, comorbidities, previous drug use, risk factors not captured in the FRAX model (e.g., frailty, falls, vitamin D deficiency, increased bone turnover, interval significant decline in bone density) and possible under or overestimation of fracture risk by FRAX. The patient should follow a healthful lifestyle (good nutrition with adequate calcium and vitamin D, and appropriate weight-bearing exercise). Follow-Up: Consider repeating this study in 2 to 3 years to reassess this patient's status, or sooner if there is some new clinical indication. Reported by: DENA on 07/31/2024 12:52:00 PM. Reviewed, dictated and finalized at location A.
--- OUTSIDE RECORDS SUMMARY | 2024-07-31 13:00 | XMS_ITS | Data Portability ---
Author Organization [facility], [address] [place] [address] ([place]) Address [address] [place] [address] Care Team Providers Care Livestock Trucker Name Role Phone CHASE CANO Primary Care Provider Assessment Encounter Date Assessment Date Assessment LastModified by Organization Details LastModified Time 10/14/2023 10/14/2023 IMPRESSION: 1. Right hand recurrent carpal tunnel syndrome. 2. Right shoulder subacromial bursitis/impingement syndrome. 3. 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 4. Osteoarthritis. 5. High risk medication use. nv PLAN: 1. Labs on January 13, 2024, as scheduled. 2. Offered the patient referral to [facility] regarding her right hand carpal tunnel symptoms. She does not want to pursue this referral at this time, but will call us when she is ready to do so. She would prefer to see a hand orthopedist outside the clinic. 3. [id number] carpal tunnel splint to be worn at h.s., off during the day on the right hand. 4. Right shoulder subacromial bursa cortisone injection today. The indications, risks, benefits and potential side effects of this procedure are discussed with the patient today in detail. She is seated at the end of the exam table and the right shoulder is exposed with landmarks identified and the injection site marked. The injection site is cleaned with Betadine and while maintaining sterile technique, ethyl chloride spray is used to anesthetize the skin while a 25-gauge needle attached to a syringe containing a mixture of 60 mg of Depo-Medrol and 2 cc of 1% lidocaine is introduced into the subacromial space. The contents of the syringe are injected, and the needle is removed. The area is cleaned and covered with a sterile bandage. There are no complications or blood loss. The patient is discharged home in stable condition. I performed this procedure myself with the assistance of my nursing staff. 5. Continue current hydroxychloroquine, methotrexate and folate therapy. 6. Plaquenil screening eye exams once yearly. 7. Followup visit in 4 months. lg Not available 10/15/2023 12:23:24 03/27/2024 03/27/2024 IMPRESSION: 1. Right shoulder impingement syndrome. 2. CIRO associated inflammatory polyarthritis. 3. Osteoarthritis. PLAN: 1. Right shoulder subacromial bursa cortisone injection today. The indications, risks, benefits and potential side effects of this procedure are discussed with the patient today in detail. She is seated at the end of the exam table and the right shoulder is exposed with landmarks identified and the injection site marked. The injection site is cleaned with Betadine and while maintaining sterile technique, ethyl chloride spray is used to anesthetize the skin while a 25-gauge needle attached to a syringe containing a mixture of 60 mg of Depo-Medrol and 2 cc of 1% lidocaine is introduced into the subacromial space. The contents of the syringe are injected, and the needle is removed. The area is cleaned and covered with a sterile bandage. There are no complications or blood loss. The patient is discharged home in stable condition. I performed this procedure myself with the assistance of my nursing staff. 2. Continue current arthritic pharmacotherapeutic regimen. 3. DMARD labs to continue every 3 months as ordered. 4. Followup visit in 4 months. linnea Not available 03/28/2024 09:08:37 07/27/2024 07/27/2024 IMPRESSION: 1. CIRO associated inflammatory polyarthritis. 2. Osteoarthritis. 3. Right shoulder pain, management per Pain Management. PLAN: 1. SLE labs and vitamin D level. 2. Continue current arthritic pharmacotherapeutic regimen. 3. We will obtain a copy of the MRI of the right shoulder performed at [facility]/ 4. Followup visit in 4 months for recheck. We will obtain labs at that time as well. linnea Not available 07/27/2024 21:45:19 Plan of Treatment Reminders Order Date Submit Date Provider Last Modified By Organization Details Last Modified Time Details Appointments Establish ed Patient 15.EST 2024 02:00P Yusuf Avila Not available Not available Not available Lab CBC 2023 [facility], [address] [place] [address], [id number], 07/17/2024 04:12:31 CMP, serum or plasma 2023 [facility], [address] [place] [address], [id number], 07/17/2024 04:12:32 ESR (erythroc yte sedimenta tion rate), blood 2023 [facility], [address] [place] [address], 89601, 07/17/2024 04:12:32 C-reactiv e protein, quantitat nolberto, serum or plasma 2023 [facility], [address] [place] [address], [id number], 07/17/2024 04:12:32 Referral None recorded. Procedures None recorded. Surgeries None recorded. Imaging None recorded. Medication Orders Depo-Medr ol 80 mg/mL suspensio n for injection 2023 024 vián Not available 10/15/2023 10:57:26 Depo-Medr ol 80 mg/mL suspensio n for injection 2023 024 [id number], [address] [place], [place], [id number], 03/27/2024 18:32:04 Patient TargetsNo targets recorded. Patient InstructionsNo instructions recorded. Reason for Referral None Reported. Results Created Date Observation Date Name Description Value Unit Range Abnormal Flag Note LastModifiedBy Organization Detail LastModifiedTime 09/13/19 24 09/14/2023 C-lei ctive prote in, quant itati ve, serum or plasm a CRP Not Available [facility] [address] [place] [address], 51839, 09/14/2023 14:51:50 09/13/19 24 09/14/2023 C-lei ctive prote in, quant itati ve, serum or plasm a CRP <0.4 mg/dL <0.4-0 .5 Not Available [facility] [address] [place] [address], 65417, 09/14/2023 14:51:50 09/13/19 24 09/14/2023 ESR (eryt hrocy te sedim entat ion rate) , blood sed rate 12 mm/HR 0 - 30 Not Available [facility] [address] [place] [address], 92107, 09/14/2023 15:05:17 09/13/19 24 09/14/2023 CMP, serum or plasm a comp. met. panel Not Available [facility] [address] [place] [address], 55351, 09/14/2023 14:51:52 09/13/19 24 09/14/2023 CMP, serum or plasm a sodium 142 mmol/ L 136-14 6 Not Available [facility] [address] [place] [address], 98592, 09/14/2023 14:51:52 09/13/19 24 09/14/2023 CMP, serum or plasm a potassium 4.9 mmol/ L 3.5-5. 1 Not Available [facility] [address] [place] [address], 81786, 09/14/2023 14:51:52 09/13/19 24 09/14/2023 CMP, serum or plasm a chloride 109 mmol/ L 98-110 Not Available [facility] [address] [place] [address], 93168, 09/14/2023 14:51:52 09/13/19 24 09/14/2023 CMP, serum or plasm a CO2 28 mEq/L 20-32 Not Available [facility] [address] [place] [address], 36043, 09/14/2023 14:51:52 09/13/19 24 09/14/2023 CMP, serum or plasm a anion gap 10 mmol/ L 10-22 Not Available [facility] [address] [place] [address], 64171, 09/14/2023 14:51:52 09/13/19 24 09/14/2023 CMP, serum or plasm a glucose 102 mg/dL 70-100 high Not Available [facility] [address] [place] [address], 18608, 09/14/2023 14:51:52 09/13/19 24 09/14/2023 CMP, serum or plasm a calcium 9.7 mg/dL 8.4-10 .4 Not Available [facility] [address] [place] [address], 90336, 09/14/2023 14:51:52 09/13/19 24 09/14/2023 CMP, serum or plasm a total protein 6.3 g/dL 6.4-8. 3 low Not Available [facility] [address] [place] [address], 23891, 09/14/2023 14:51:52 09/13/19 24 09/14/2023 CMP, serum or plasm a albumin 4.3 g/dL 3.5-5. 3 Not Available [facility] [address] [place] [address], 04227, 09/14/2023 14:51:52 09/13/19 24 09/14/2023 CMP, serum or plasm a ALP 118 U/L 44 - 127 Not Available [facility] [address] [place] [address], 47343, 09/14/2023 14:51:52 09/13/19 24 09/14/2023 CMP, serum or plasm a AST (SGOT) 19 U/L 10-40 Not Available [facility] [address] [place] [address], 12387, 09/14/2023 14:51:52 09/13/19 24 09/14/2023 CMP, serum or plasm a total bilirubin 0.3 mg/dL 0.2-1. 0 Not Available [facility] [address] [place] [address], 35045, 09/14/2023 14:51:52 09/13/19 24 09/14/2023 CMP, serum or plasm a ALT (SGPT) 14 U/L 8-35 Not Available [facility] [address] [place] [address], 79099, 09/14/2023 14:51:52 09/13/19 24 09/14/2023 CMP, serum or plasm a BUN 27 mg/dL 7-21 high Not Available [facility] [address] [place] [address], 55157, 09/14/2023 14:51:52 09/13/19 24 09/14/2023 CMP, serum or plasm a creatinine 1.1 mg/dL 0.7-1. 3 Not Available [facility] [address] [place] [address], 16609, 09/14/2023 14:51:52 09/13/19 24 09/14/2023 CMP, serum or plasm a GFR(non-afri can honduran) 52 Not Available [facility] [address] [place] [address], 27292, 09/14/2023 14:51:52 09/13/19 24 09/14/2023 CMP, serum or plasm a GFR() 62 (GEOTECHNICIAN ZACH KIDNE Y DISEA SE HAS A GFR LESS THAN 60 ML/WI N/1.7 3 MM FOR A PERIO D OF THREE MONTH S OR MORE. ) Not Available [facility] [address] [place] [address], 95156, 09/14/2023 14:51:52 09/13/19 24 09/14/2023 CBC w/ auto diff CBC with differential Not Available [facility] [address] [place] [address], 70048, 09/14/2023 14:27:36 09/13/19 24 09/14/2023 CBC w/ auto diff WBC 7.7 K/uL 3.8-11 .2 Not Available [facility] [address] [place] [address], 90718, 09/14/2023 14:27:36 09/13/19 24 09/14/2023 CBC w/ auto diff RBC 3.81 M/uL 3.92-5 .10 low Not Available [facility] [address] [place] [address], 89496, 09/14/2023 14:27:36 09/13/19 24 09/14/2023 CBC w/ auto diff HGB 11.3 g/dL 11.8-1 5.3 low Not Available [facility] [address] [place] [address], 08576, 09/14/2023 14:27:36 09/13/19 24 09/14/2023 CBC w/ auto diff HCT 35.2 % 36.5-4 4.8 low Not Available [facility] [address] [place] [address], 56267, 09/14/2023 14:27:36 09/13/19 24 09/14/2023 CBC w/ auto diff MCV 92.4 fL 80.0-9 9.0 Not Available [facility] [address] [place] [address], 80069, 09/14/2023 14:27:36 09/13/19 24 09/14/2023 CBC w/ auto diff MCH 29.7 pg 25.5-3 3.6 Not Available [facility] [address] [place] [address], 89176, 09/14/2023 14:27:36 09/13/19 24 09/14/2023 CBC w/ auto diff MCHC 32.1 g/dL 32.0-3 6.0 Not Available [facility] [address] [place] [address], 97531, 09/14/2023 14:27:36 09/13/19 24 09/14/2023 CBC w/ auto diff RDW-SD 49.3 fL 35.1 - 46.3 high Not Available [facility] [address] [place] [address], 06072, 09/14/2023 14:27:36 09/13/19 24 09/14/2023 CBC w/ auto diff plt 243 K/uL 130-40 0 Not Available [facility] [address] [place] [address], 13519, 09/14/2023 14:27:36 09/13/19 24 09/14/2023 CBC w/ auto diff MPV 10.3 fL 9.3-12 .8 Not Available [facility] [address] [place] [address], 03396, 09/14/2023 14:27:36 09/13/19 24 09/14/2023 CBC w/ auto diff brady% 58.5 % 39.8-7 1.3 Not Available [facility] [address] [place] [address], 75040, 09/14/2023 14:27:36 09/13/19 24 09/14/2023 CBC w/ auto diff lym% 32.2 % 19.2-4 7.1 Not Available [facility] [address] [place] [address], 87745, 09/14/2023 14:27:36 09/13/19 24 09/14/2023 CBC w/ auto diff mono% 6.3 % 1.7-12 .0 Not Available [facility] [address] [place] [address], 29373, 09/14/2023 14:27:36 09/13/19 24 09/14/2023 CBC w/ auto diff eos% 1.8 % 0.0-12 .0 Not Available [facility] [address] [place] [address], 55116, 09/14/2023 14:27:36 09/13/19 24 09/14/2023 CBC w/ auto diff baso% 0.9 % 0.0-3. 0 Not Available [facility] [address] [place] [address], 17539, 09/14/2023 14:27:36 09/13/19 24 09/14/2023 CBC w/ auto diff abs brady 4.5 K/uL 1.8-7. 5 Not Available [facility] [address] [place] [address], 43307, 09/14/2023 14:27:36 09/13/19 24 09/14/2023 CBC w/ auto diff abs lym 2.5 K/uL 1.1-3. 3 Not Available [facility] [address] [place] [address], 45003, 09/14/2023 14:27:36 09/13/19 24 09/14/2023 CBC w/ auto diff abs mono 0.5 K/uL 0.1-1. 0 Not Available [facility] [address] [place] [address], 61416, 09/14/2023 14:27:36 09/13/19 24 09/14/2023 CBC w/ auto diff abs eos 0.1 K/uL 0.0-0. 7 Not Available [facility] [address] [place] [address], 35399, 09/14/2023 14:27:36 09/13/19 24 09/14/2023 CBC w/ auto diff abs baso 0.1 K/uL 0.0-0. 2 Not Available [facility] [address] [place] [address], 97368, 09/14/2023 14:27:36 09/13/19 24 09/14/2023 CBC w/ auto diff imm. gran % 0.3 % 0.0-3. 0 Not Available [facility] [address] [place] [address], 24299, 09/14/2023 14:27:36 09/13/19 24 09/14/2023 CBC w/ auto diff NRBC % 0.0 % 0.0-0. 2 Not Available [facility] [address] [place] [address], 10011, 09/14/2023 14:27:36 09/13/19 24 09/13/2023 ESR (eryt hrocy te sedim entat ion rate) , blood sed rate 12 mm/HR 0 - 30 Not Available [facility] - [address], [place], [address], 06/30/2024 21:18:20 09/13/19 24 09/13/2023 C-lei ctive prote in, quant itati ve, serum or plasm a CRP Not Available [facility] [place] [address], [place], [address], 06/30/2024 21:18:19 09/13/19 24 09/13/2023 C-lei ctive prote in, quant itati ve, serum or plasm a CRP <0.4 mg/dL <0.4-0 .5 Not Available [facility] [place] [address], [place], [address], 06/30/2024 21:18:19 09/13/19 24 09/13/2023 CBC w/ auto diff WBC 7.7 K/uL 3.8-11 .2 Not Available [facility] [address] [place] [address], [place], [address], 06/30/2024 21:18:14 09/13/19 24 09/13/2023 CBC w/ auto diff RBC 3.81 M/uL 3.92-5 .10 low Not Available [facility] [address] [place], [address], 06/30/2024 21:18:14 09/13/19 24 09/13/2023 CBC w/ auto diff hemoglobin (HGB) 11.3 g/dL 11.8-1 5.3 low Not Available [facility] [address] [place], [address], 06/30/2024 21:18:14 09/13/19 24 09/13/2023 CBC w/ auto diff hematocrit (HCT) 35.2 % 36.5-4 4.8 low Not Available [facility] [address] [place], [address], 06/30/2024 21:18:14 09/13/19 24 09/13/2023 CBC w/ auto diff MCV 92.4 fL 80.0-9 9.0 Not Available [facility] [address] [place], [address], 06/30/2024 21:18:14 09/13/19 24 09/13/2023 CBC w/ auto diff MCH 29.7 pg 25.5-3 3.6 Not Available [facility] [address] [place], [address], 06/30/2024 21:18:14 09/13/19 24 09/13/2023 CBC w/ auto diff MCHC 32.1 g/dL 32.0-3 6.0 Not Available [facility] [address] [place], [address], 06/30/2024 21:18:14 09/13/19 24 09/13/2023 CBC w/ auto diff RDW-SD 49.3 fL 35.1 - 46.3 high Not Available [facility] [address] [place], [address], 06/30/2024 21:18:14 09/13/19 24 09/13/2023 CBC w/ auto diff plt 243 K/uL 130-40 0 Not Available [facility] [address] [place], [address], 06/30/2024 21:18:14 09/13/19 24 09/13/2023 CBC w/ auto diff MPV 10.3 fL 9.3-12 .8 Not Available [facility] [address] [place], [address], 06/30/2024 21:18:14 09/13/19 24 09/13/2023 CBC w/ auto diff brady% 58.5 % 39.8-7 1.3 Not Available [facility] [address] [place], [address], 06/30/2024 21:18:14 09/13/19 24 09/13/2023 CBC w/ auto diff lym% 32.2 % 19.2-4 7.1 Not Available [facility] [address] [place], [address], 06/30/2024 21:18:14 09/13/19 24 09/13/2023 CBC w/ auto diff mono% 6.3 % 1.7-12 .0 Not Available [facility] [address] [place], [address], 06/30/2024 21:18:14 09/13/19 24 09/13/2023 CBC w/ auto diff eos% 1.8 % 0.0-12 .0 Not Available [facility] [address] [place], [address], 06/30/2024 21:18:14 09/13/19 24 09/13/2023 CBC w/ auto diff baso% 0.9 % 0.0-3. 0 Not Available [facility] [address] [place], [address], 06/30/2024 21:18:14 09/13/19 24 09/13/2023 CBC w/ auto diff abs brady 4.5 K/uL 1.8-7. 5 Not Available [facility] [address] [place], [address], 06/30/2024 21:18:14 09/13/19 24 09/13/2023 CBC w/ auto diff abs lym 2.5 K/uL 1.1-3. 3 Not Available [facility] [address] [place], [address], 06/30/2024 21:18:14 09/13/19 24 09/13/2023 CBC w/ auto diff abs mono 0.5 K/uL 0.1-1. 0 Not Available [facility] [address] [place], [address], 06/30/2024 21:18:14 09/13/19 24 09/13/2023 CBC w/ auto diff abs eos 0.1 K/uL 0.0-0. 7 Not Available [facility] [address] [place], [address], 06/30/2024 21:18:14 09/13/19 24 09/13/2023 CBC w/ auto diff abs baso 0.1 K/uL 0.0-0. 2 Not Available [facility] [address] [place], [address], 06/30/2024 21:18:14 09/13/19 24 09/13/2023 CBC w/ auto diff imm. gran % 0.3 % 0.0-3. 0 Not Available [facility] [address] [place], [address], 06/30/2024 21:18:14 09/13/19 24 09/13/2023 CBC w/ auto diff NRBC % 0.0 % 0.0-0. 2 Not Available [facility] [address] [place], [address], 06/30/2024 21:18:14 09/13/19 24 09/13/2023 CBC w/ auto diff CBC with differential Not Available [facility] [address] [place], [address], 06/30/2024 21:18:14 09/13/19 24 09/13/2023 CMP, serum or plasm a comp. met. panel Not Available Not Available 06/05 21:18:11 09/13/19 24 09/13/2023 CMP, serum or plasm a sodium 142 mmol/ L 136-14 6 Not Available Not Available 06/30/2024 21:18:11 09/13/19 24 09/13/2023 CMP, serum or plasm a potassium 4.9 mmol/ L 3.5-5. 1 Not Available Not Available 06/30/2024 21:18:11 09/13/19 24 09/13/2023 CMP, serum or plasm a chloride 109 mmol/ L 98-110 Not Available Not Available 06/30/20 21:18:11 09/13/19 24 09/13/2023 CMP, serum or plasm a CO2 28 mEq/L 20-32 Not Available Not Availa ble 06/30/2024 21:18:11 09/13/19 24 09/13/2023 CMP, serum or plasm a anion gap 10 mmol/ L 10-22 Not Available Not Available 06/30/20 21:18:11 09/13/19 24 09/13/2023 CMP, serum or plasm a glucose 102 mg/dL 70-100 high Not Available Not Availa ble 06/30/2024 21:18:11 09/13/19 24 09/13/2023 CMP, serum or plasm a BUN 27 mg/dL 7-21 high Not Available Not Availa ble 06/30/2024 21:18:11 09/13/19 24 09/13/2023 CMP, serum or plasm a creatinine 1.1 mg/dL 0.7-1. 3 Not Available Not Available 06/30/2024 21:18:11 09/13/19 24 09/13/2023 CMP, serum or plasm a calcium 9.7 mg/dL 8.4-10 .4 Not Available Not Available 06/30/2024 21:18:11 09/13/19 24 09/13/2023 CMP, serum or plasm a total protein 6.3 g/dL 6.4-8. 3 low Not Available Not Available 06/30/2024 21:18:11 09/13/19 24 09/13/2023 CMP, serum or plasm a albumin 4.3 g/dL 3.5-5. 3 Not Available Not Available 06/30/2024 21:18:11 09/13/19 24 09/13/2023 CMP, serum or plasm a ALP 118 U/L 44 - 127 Not Available Not Available 06/30/2024 21:18:11 09/13/19 24 09/13/2023 CMP, serum or plasm a AST/SGOT 19 U/L 10-40 Not Available Not Avail able 06/30/2024 21:18:11 09/13/19 24 09/13/2023 CMP, serum or plasm a total bili 0.3 mg/dL 0.2-1. 0 Not Available Not Available 06/30/2024 21:18:11 09/13/19 24 09/13/2023 CMP, serum or plasm a ALT/SGPT 14 U/L 8-35 Not Available Not Avail able 06/30/2024 21:18:11 09/13/19 24 09/13/2023 CMP, serum or plasm a GFR;non-afri can honduran 52 Not Available Not Available 06/30/2024 21:18:11 09/13/19 24 09/13/2023 CMP, serum or plasm a GFR; 62 (framer zach kidne y disea se has A GFR less than 60 mL/mi n/1.7 3 mm for A perio d of three month s or more. ) ----- 62 Not Available Not Available 06/30/2024 21:18:11 03/22/2003/22/2024 vitam in D, 25-hy droxy , total , serum vitamin D 25-hydroxy totl 42.0 NG/mL 30.0-8 0.0 Less than 20 ng/mL Defic iency 20-29 ng/mL Insuf ficie ncy 30-80 ng/mL Optim al Great er than 80 ng/mL Possi ble toxic ity Not Available [facility] [address] [place] [address], 42324, 03/22/2024 15:29:59 03/22/20 24 03/22/2024 C-lei ctive prote in, quant itati ve, serum or plasm a CRP high Not Available [facility] [address] [place] [address], 02671, 03/22/2024 15:31:37 03/22/20 24 03/22/2024 C-lei ctive prote in, quant itati ve, serum or plasm a CRP 1.0 mg/dL <0.4-0 .5 high Not Available [facility] [address] [place] [address], 22505, 03/22/2024 15:31:37 03/22/20 24 03/22/2024 CMP, serum or plasm a comp. met. panel Not Available [facility] [address] [place] [address], 24374, 03/22/2024 15:31:39 03/22/20 24 03/22/2024 CMP, serum or plasm a sodium 142 mmol/ L 136-14 6 Not Available [facility] [address] [place] [address], 38702, 03/22/2024 15:31:39 03/22/20 24 03/22/2024 CMP, serum or plasm a potassium 4.2 mmol/ L 3.5-5. 1 Not Available [facility] [address] [place] [address], 17646, 03/22/2024 15:31:39 03/22/20 24 03/22/2024 CMP, serum or plasm a chloride 106 mmol/ L 98-110 Not Available [facility] [address] [place] [address], 88977, 03/22/2024 15:31:39 03/22/20 24 03/22/2024 CMP, serum or plasm a CO2 29 mEq/L 20-32 Not Available [facility] [address] [place] [address], 12914, 03/22/2024 15:31:39 03/22/20 24 03/22/2024 CMP, serum or plasm a anion gap 11 mmol/ L 10-22 Not Available [facility] [address] [place] [address], 03207, 03/22/2024 15:31:39 03/22/20 24 03/22/2024 CMP, serum or plasm a glucose 124 mg/dL 70-100 high Not Available [facility] [address] [place] [address], 45974, 03/22/2024 15:31:39 03/22/20 24 03/22/2024 CMP, serum or plasm a calcium 9.6 mg/dL 8.4-10 .4 Not Available [facility] [address] [place] [address], 04272, 03/22/2024 15:31:39 03/22/20 24 03/22/2024 CMP, serum or plasm a total protein 6.0 g/dL 6.4-8. 3 low Not Available [facility] [address] [place] [address], 39037, 03/22/2024 15:31:39 03/22/20 24 03/22/2024 CMP, serum or plasm a albumin 4.0 g/dL 3.5-5. 3 Not Available [facility] [address] [place] [address], 32687, 03/22/2024 15:31:39 03/22/20 24 03/22/2024 CMP, serum or plasm a ALP 113 U/L 44 - 127 Not Available [facility] [address] [place] [address], 40620, 03/22/2024 15:31:39 03/22/20 24 03/22/2024 CMP, serum or plasm a AST (SGOT) 14 U/L 10-40 Not Available [facility] [address] [place] [address], 60728, 03/22/2024 15:31:39 03/22/20 24 03/22/2024 CMP, serum or plasm a total bilirubin 0.2 mg/dL 0.2-1. 0 Not Available [facility] [address] [place] [address], 41108, 03/22/2024 15:31:39 03/22/20 24 03/22/2024 CMP, serum or plasm a ALT (SGPT) 11 U/L 8-35 Not Available [facility] [address] [place] [address], 20457, 03/22/2024 15:31:39 03/22/20 24 03/22/2024 CMP, serum or plasm a BUN 20 mg/dL 7-21 Not Available [facility] [address] [place] [address], 29253, 03/22/2024 15:31:39 03/22/20 24 03/22/2024 CMP, serum or plasm a creatinine 1.0 mg/dL 0.7-1. 3 Not Available [facility] [address] [place] [address], 60324, 03/22/2024 15:31:39 03/22/20 24 03/22/2024 CMP, serum or plasm a GFR(non-afri can honduran) 57 Not Available [facility] [address] [place] [address], 65484, 03/22/2024 15:31:39 03/22/20 24 03/22/2024 CMP, serum or plasm a GFR() 69 (GEOTECHNICIAN ZACH KIDNE Y DISEA SE HAS A GFR LESS THAN 60 ML/WI N/1.7 3 MM FOR A PERIO D OF THREE MONTH S OR MORE. ) Not Available [facility] [address] [place] [address], [id number], 03/22/2024 15:31:39 03/22/20 24 03/22/2024 CBC CBC Not Available [facility] [address] [place] [address], [id number], 03/22/2024 15:42:17 03/22/20 24 03/22/2024 CBC WBC 4.7 K/uL 3.8-11 .2 Not Available [facility] [address] [place], [place] [address], [id number], 03/22/2024 15:42:17 03/22/20 24 03/22/2024 CBC RBC 3.74 M/uL 3.92-5 .10 low Not Available [facility] [address] [place] [address], [id number], 03/22/2024 15:42:17 03/22/20 24 03/22/2024 CBC HGB 11.7 g/dL 11.8-1 5.3 low Not Available [facility] [address] [place] [address], [id number], 03/22/2024 15:42:17 03/22/20 24 03/22/2024 CBC HCT 34.9 % 36.5-4 4.8 low Not Available [facility] [address] [place] [address], [id number], 03/22/2024 15:42:17 03/22/20 24 03/22/2024 CBC MCV 93.3 fL 80.0-9 9.0 Not Available [facility] [address] [place] [address], [id number], 03/22/2024 15:42:17 03/22/20 24 03/22/2024 CBC MCH 31.3 pg 25.5-3 3.6 Not Available [facility] [address] [place] [address], [id number], 03/22/2024 15:42:17 03/22/20 24 03/22/2024 CBC MCHC 33.5 g/dL 32.0-3 6.0 Not Available [facility] [address] [place] [address], [id number], 03/22/2024 15:42:17 03/22/20 24 03/22/2024 CBC RDW-SD 46.5 fL 35.1 - 46.3 high Not Available [facility] [address] [place] [address], [id number], 03/22/2024 15:42:17 03/22/20 24 03/22/2024 CBC plt 275 K/uL 130-40 0 Not Available [facility] [address] [place] [address], [id number], 03/22/2024 15:42:17 03/22/20 24 03/22/2024 CBC MPV 9.5 fL 9.3-12 .8 Not Available [facility] [address] [place] [address], [id number], 03/22/2024 15:42:17 03/22/20 24 03/22/2024 ESR (eryt hrocy te sedim entat ion rate) , blood sed rate 19 mm/HR 0 - 30 Not Available [facility] [address] [place] [address], [id number], 03/22/2024 17:02:42 04/25/20 24 04/27/2024 C3 (comp lemen t), serum or plasm a complement C3 116 mg/dL 82-167 Not Available [facility] [address] [place] [address], [id number], 04/27/2024 03:40:09 04/25/20 24 04/27/2024 C4 (comp lemen t), serum or plasm a complement C4 32 mg/dL 12-38 Not Available [facility] [address] [place] [address], [id number], 04/27/2024 03:40:10 Result Notes None recorded. Problems Name Problem SNOMED Code Status Onset Date Resolution Date Notes Provider Name and Address Organization Details Recorded Time Anti-nuclea r factor detected 228479336 Active 2023 Shikha Castillo [facility] 17:59:58 Osteoarthri tis 236708741 Active 2023 Shikha Castillo [facility] 4 18:00:10 High risk drug monitoring [facility] Inflammator y polyarthrop athy 998929257 Active 2023 Shikha Castillo [facility] 4 18:07:02 Pulmonary hypertensio n 32230055 Active 2023 Shikha Castillo [facility] 4 18:07:17 Vitamin D deficiency 76050940 Active 2023 José Luis Curran [facility] 5 11:36:24 Chronic kidney disease stage 3 456449132 Active 2023 Shikhagonzalo Castillo [facility] 4 18:07:47 Cervical radiculopat hy 42228545 Active 2023 Shikha Castillo [facility] 4 18:08:11 Pain of right shoulder joint 5377308021247 9100 Active 2023 José Luis Curran [facility] 4 10:03:28 Problem Notes None recorded. Procedures Surgical History Date Name Laterality Status Provider Name and Address Organization Details Recorded Time 06/25/20 21 Carpal tunnel surgery completed [facility] 10/12/2023 18:10:15 procedure on gallbladder completed Shikha [facility] 10/12/2023 18:10:38 Gastric bypass for obesity completed [facility] 10/12/2023 18:10:56 hysterectomy completed [facility] 10/12/2023 18:11:04 Imaging Results None recorded. Procedure Notes None recorded. Medical Equipment None Reported. Allergies Allergen ID Allergen Name Allergen Category Reaction Reaction Severity Criticality Documentation Date Start Date Code Code System Note Provider Name and Address Organization Details Recorded Time [id number] d6566 Product containin g 3-hydroxy -3-methyl glutaryl- coenzyme A reductase inhibitor (product) medicatio n dizziness Not available Not available 08/04/20232014 77827 009 SNOMED React ion: Dizzi ness; Other : falls ; Not Available Not Available Not Available [id number] 2824e pregabali n medicatio n Not available Not available Not available 08/02/20232014 79285 2 RxNorm Not Available Not Available Not Available [id number] 2824e aspirin medicatio n Not available Not available Not available 08/02/20232014 1191 RxNorm Not Available Not Available Not Available Medications Name Sig Start Date Stop Date Status Note LastModified by Organization Details LastModified Time fentanyl 50 mcg/hr transderm al patch APPLY 1 PATCH EVERY 72 HOURS 07/27 completed Not Available Not Available Not Available sulfasala zine 500 mg tablet TAKE 1 TABLET BY MOUTH TWICE DAILY 10/11 completed Not Available Not Available Not Available tizanidin e 4 mg tablet TAKE 2 CAPSULES EVERY 6 - 8 HOURS NEEDED active Not Available Not Available No t Available levothyro xine 300 mcg tablet TAKE 1/2 TABLET ON M, W, F ; 1 TAB ON , active Not Available Not Available No t Available Nystop 100,000 unit/gram topical powder APPLY POWDER TO AFFECTED AREA FOUR TIMES DAILY 02/22 completed d/c date unknown Not Available Not Available Not Available sulfameth oxazole 800 mg-trimet hoprim 160 mg tablet TAKE 1 TABLET BY MOUTH EVERY 12 HOURS 10/13 completed Not Available Not Available Not Available hydrocodo ne 10 mg-acetam inophen 325 mg tablet TAKE 1 TABLET BY MOUTH EVERY 8 HOURS active Not Available Not Available No t Available triamcino lone acetonide 0.1 % topical cream APPLY THIN LAYER TOPICALL Y TO THE AFFECTED AREA TWICE DAILY active Not Available Not Available No t Available Depo-Medr ol 80 mg/mL suspensio n for injection Take 60 mg by injectio n route. 2023 active Not Available Not Available Not Avai lable alprazola m 0.25 mg tablet TAKE 1 TABLET BY MOUTH 30 MINUTES PRIOR TO HER MRI APPOINTM ENT FOR 1 DAY 10/11 completed Not Available Not Available Not Available methotrex ate sodium 2.5 mg tablet TAKE 6 TABLETS BY MOUTH 1 TIME WEEKLY. SPLIT DOSE 3 TABLETS IN AM. AND 3 TABLETS IN PM active Not Available Not Available No t Available gabapenti n 800 mg tablet TAKE 1 TABLET BY MOUTH AT BEDTIME active Not Available Not Available No t Available doxycycli ne monohydra te 100 mg capsule 10/11 completed Not Available Not Available Not Available cephalexi n 500 mg capsule TAKE 1 CAPSULE BY MOUTH TWICE DAILY active Not Available Not Available No t Available hyoscyami ne sulfate 0.125 mg tablet TAKE 1 TO 2 TABLETS BY MOUTH EVERY 6 HOURS NEEDED FOR ABDOMINA L PAIN active Not Available Not Available No t Available esomepraz ole magnesium 40 mg capsule,d elayed release TAKE 1 CAPSULE BY MOUTH TWICE DAILY active Not Available Not Available No t Available gabapenti n 300 mg capsule TAKE 2 CAPSULES BY MOUTH DAILY AT BEDTIME active Not Available Not Available No t Available folic acid 1 mg tablet TAKE 1 TABLET BY MOUTH EVERY DAY active Not Available Not Available No t Available hydroxych loroquine 200 mg tablet TAKE 1 TABLET BY MOUTH TWICE DAILY active Not Available Not Available No t Available fentanyl 25 mcg/hr transderm al patch APPLY 1 PATCH TO INTACT SKIN BY TRANSDER MAL ROUTE EVERY 72 HOURS active Not Available Not Available No t Available methylpre dnisolone 4 mg tablets in a dose pack FOLLOW PACKAGE DIRECTIO NS 03/27 completed Not Available Not Available Not Available ketoconaz ole 2 % topical cream APPLY TO THE AFFECTED AREA(S) BY TOPICAL ROUTE ONCE DAILY active Not Available Not Available No t Available cefdinir 300 mg capsule 10/13 completed Not Available Not Available Not Available lisinopri l 2.5 mg tablet TAKE 1 TABLET BY MOUTH DAILY active Not Available Not Available No t Available amoxicill in 875 mg-potass ium clavulana te 125 mg tablet TAKE 1 TABLET BY MOUTH EVERY 12 HOURS 03/27 completed Not Available Not Available Not Available duloxetin e 60 mg capsule,d elayed release TAKE 2 CAPSULES BY MOUTH DAILY active Not Available Not Available No t Available fentanyl 12 mcg/hr transderm al patch APPLY 1 PATCH TO SKIN EVERY 72 HOURS active Not Available Not Available No t Available cholecalc iferol (vitamin D3) 25 mcg (1,000 unit) tablet TAKE 1 TABLET BY MOUTH DAILY active Not Available Not Available No t Available FeroSul 325 mg (65 mg iron) tablet active Not Available Not Available Not Available fentanyl 37.5 mcg/hour transderm al patch APPLY 1 PATCH TO SKIN EVERY 72 HOURS active Not Available Not Available No t Available Praluent Pen 75 mg/mL subcutane ous pen injector 07/27 completed Not Available Not Available Not Available Vitals Date Recorded Body height Provider Name an d Address Organization Details Last Updated DateTime 10/14/2023 160.02 cm Shikha [facility] 10/14/2023 09:47:54 Date Recorded Body mass index (BMI) Body weight Provider Name and Address Organization Details Last Updated DateTime 10/14/2023 35.3 kg/m2 00962.88 g Shikha [facility] 10/14/2023 09:47:58 Date Recorded Heart rate Provider Name an d Address Organization Details Last Updated DateTime 10/14/2023 82 /min Shikha [facility] 10/14/2023 09:48:06 Date Recorded Oxygen saturation Oxygen saturation in Arterial blood by Pulse oximetry Provider Name and Address Organization Details Last Updated DateTime 10/14/2023 98 % 98 % Shikha [facility] 10/14/2023 09:48:07 Date Recorded Pain severity - 0-10 verbal numeric rating [Score] - Reported Provider Name and Address Organization Details Last Updated DateTime 10/14/2023 7 Shikha [facility] 10/14/2023 09:48:10 Date Recorded Body height Provider Name an d Address Organization Details Last Updated DateTime 03/27/2024 160.02 cm Lian [facility] 03/27/2024 15:13:36 Date Recorded Body mass index (BMI) Body weight Provider Name and Address Organization Details Last Updated DateTime 03/27/2024 33 kg/m2 08000.9 g Lian Lopezwilliams [facility] 03/27/2024 15:13:42 Date Recorded Heart rate Provider Name an d Address Organization Details Last Updated DateTime 03/27/2024 68 /min Lianjennifer Tillman [facility] 03/27/2024 15:13:58 Date Recorded Oxygen saturation Oxygen saturation in Arterial blood by Pulse oximetry Provider Name and Address Organization Details Last Updated DateTime 03/27/2024 97 % 97 % Lian Tillman [facility] 03/27/2024 15:14:01 Date Recorded Pain severity - 0-10 verbal numeric rating [Score] - Reported Provider Name and Address Organization Details Last Updated DateTime 03/27/2024 4 [facility] 15:14:06 Date Recorded Body height Provider Name an d Address Organization Details Last Updated DateTime 07/27/2024 160.02 cm Pallavi Duffy [facility] 07/27/2024 10:59:52 Date Recorded Body mass index (BMI) Body weight Provider Name and Address Organization Details Last Updated DateTime 07/27/2024 33.7 kg/m2 48493.55 g Pallavi Duffy [facility] 07/27/2024 11:00:05 Date Recorded Oxygen saturation Oxygen saturation in Arterial blood by Pulse oximetry Provider Name and Address Organization Details Last Updated DateTime 07/27/2024 100 % 100 % Pallavi Duffy [facility] 07/27/2024 11:00:19 Date Recorded Heart rate Provider Name an d Address Organization Details Last Updated DateTime 07/27/2024 86 /min Pallavi Duffy [facility] 07/27/2024 11:00:21 Date Recorded Systolic blood pressure Diastolic blood pressure Provider Name and Address Organization Details Last Updated DateTime 10/14/2023 134 mm[Hg] 76 mm[Hg] Shikha Castillo [facility] 10/14/2023 09:48:03 Date Recorded Systolic blood pressure Diastolic blood pressure Provider Name and Address Organization Details Last Updated DateTime 03/27/2024 112 mm[Hg] 56 mm[Hg] [facility]/27/[facility]24 15:13:53 Date Recorded Systolic blood pressure Diastolic blood pressure Provider Name and Address Organization Details Last Updated DateTime 07/27/2024 128 mm[Hg] 68 mm[Hg] Pallavi Duffy [facility] 07/27/2024 11:01:42 Social History None recorded. Functional Status None recorded. Mental Status None recorded. Family History Relationship Description Onset Age of this Age Resolved Age Notes LastModified by Organization Details LastModified Time Father Heart disease [email or web address] Not available 2023 18:08:29 Father Cerebrovascu lar accident [email or web address] Not available 03/2024 18:08:37 Father Diabetes mellitus Not available 2023 18:08:44 Father Hypertensive disorder [email or web address] Not available 2023 18:08:54 Father Leukemia [email or web address] Not availabl e 10/12/2023 18:09:02 Mother Heart disease Not available 2023 18:08:29 Mother Hypertensive disorder [email or web address] Not available 2023 18:08:54 Mother Multiple congenital cysts of kidney [email or web address] Not available 2023 18:09:49 Maternal Grandmother Multiple congenital cysts of kidney [email or web address] Not available 2023 18:09:49 Sister Multiple congenital cysts of kidney Not available 2023 18:09:49 Medical History No medical history recorded. Gynecological HistoryNo gynecological history recorded. 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 [address] 07/27/2024 10:52:24 07/29/2024 15:23:34 Inflammatory polyarthropathy 833043644 M06.4 Osteoarthritis 064469716 M19.90 Pain of ri ght shoulder joint 3856625792 5727974 M25.511 Vitamin D deficiency 347 07888 E55.9 Health Concerns Section Related Observation LastModified by Organization Detai ls LastModified Time None Recorded Concern Status LastModified by Organization Details LastModified Time None Recorded Advance Directives Directive None Recorded Payers Encounter Date Sequence Insurance Name Policy Number Policy Ramos Covered Member ID Ramos Member ID Guarantor Name 10/14/2023 1 [facility] (MEDICARE REPLACEMENT/A DVANTAGE - PPO) [id number] Priscilla Hollins [id number] Priscilla Hollins 03/27/2024 1 [facility] (MEDICARE REPLACEMENT/A DVANTAGE - PPO) [id number] Priscilla Hollins [id number] Priscilla Hollins 07/27/2024 1 [facility] (MEDICARE REPLACEMENT/A DVANTAGE - PPO) [id number] Priscilla Hollins [id number] Priscilla Hollins Notes Date Note Type Note Provider Name and Address Organization Details Recorded Time 10/14/2023 text/html The patient is a 72-year-old postmenopausal white female with CIRO associated undifferentiated inflammatory polyarthritis and osteoarthritis, who is here today for a followup visit.She reports today a flare of right shoulder pain with impingement symptoms with difficulties performing reaching and overhead activities, as well as lying on her right shoulder at night, which will awaken her from sleep with a dull toothache pain that remains localized to the deltoid and posterior aspect of the shoulder. It is partially relieved with the use of Voltaren gel, but has been causing increased pain lately, reaching a 7/10 on a scale. Currently her morning stiffness is lasting 15-20 minutes in duration. She continues on her hydroxychloroquine and methotrexate therapy. She attends Plaquenil screening eye exams once yearly. She tolerates her medications, without postdosing side effects. Today she reports she has been noticing a return of right hand numbness and tingling. 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 Of note, she has had a right carpal tunnel release by Dr. Davis in 2020. The patient reports a return of her symptoms over the past couple of months. She has had no injury to the right wrist or hand. She is right hand dominant. She continues to remain active and perform all of her ADLs, but reports just last night she was cooking and accidentally burned her right hand as she had difficulties sensing where she was gripping the pain when she was removing some items from an oven. I did caution her today about using her right dominant hand for cooking purposes.I did review with the patient today her labs from September 13, 2023, demonstrating a stable anemia of chronic disease, but otherwise normal parameters.lg Avila MD [address] [place] [address], [phone], [facility] 10/15/2023 14:54:27 03/27/2024 text/html The patient is a 73-year-old female with a history of osteoarthritis, inflammatory polyarthritis and recurrent right shoulder subacromial bursitis, who is here today for a followup visit. The patient continues on a combination of moderate dose methotrexate therapy along with her hydroxychloroquine and Tylenol therapy. The patient does notice some flares of swelling, pain and stiffness in the hands after periods of overuse such as when she is working out in the garden for a couple of hours. She currently experiences 30 minutes of morning stiffness. The patient does not describe any synovitis type symptoms. She does rate her pain a 4/10 on a scale. She does report that her right shoulder has been flaring for the past 4 weeks with pain over the deltoid aspect of the shoulder radiating towards the elbow. The pain is exacerbated with reaching and overhead activities, as well as lying on her right side at night. It will occasionally awaken her from sleep. It is not associated with any numbness or tingling in the hands or loss of brickmason apprentice strength. The patient continues to morel some right foot and ankle pain related to indwelling hardware from a Charcot joint surgery previously. She has to wear compression hose as the leg tends to swell. The patient has been seeing an forestry crew chief once a year for routine checkups. She denies any fever or chills. No skin rash or Raynaud? s symptoms, aphthous ulcers, neck swelling, lymph node swelling, inflammatory eye symptoms, cough or pleurisy, shortness of breath, chest pain or palpitations, GERD, melena or hematochezia, diarrhea or constipation, anorexia or early satiety. The patient denies any Raynaud? s symptoms. She does avoid oral NSAIDs in light of her underlying health problems.linnea Avila MD [facility] [address], [phone], [facility] 03/28/2024 21:56:48 07/27/2024 text/html The patient is a 73-year-old white female with CIRO associated inflammatory polyarthropathy, osteoarthritis and right shoulder impingement syndrome, who is here for a followup visit today. She reports tolerating her hydroxychloroquine therapy along with her methotrexate and folic acid and vitamin D3 supplementation. She reports overall the recent cold weather has led to a flare of her joint pain, stiffness and swelling. She rates her pain a 7/10 on a scale with 30 minutes of morning stiffness. She tries to keep as active as possible and does not require the use of an assistive device for ambulation. She has noticed some occasional locking in her hands, mainly consisting of cramps. She has been seeing Dr. Krueger of pain management clinic in [place], [place] and recently had a right shoulder cortisone injection after an MRI of the shoulder showed ? arthritis? in the shoulder joint. The results of the shoulder MRI are not available to me at this time, but we will obtain these. The patient reports that the cortisone shot in the shoulder has led to some mild improvement. She is currently trying to do some home exercises. On further review, she has had no fever or chills, skin rash, Raynaud? s symptoms, aphthous ulcers, cough, pleurisy, shortness of breath, chest pain or palpitations, GERD, melena or hematochezia, diarrhea or constipation, anorexia or early satiety, dysuria or gross hematuria or bleeding from the nares or gums. The patient does avoid oral NSAIDs in light of her chronic kidney disease stage 3.linnea Sander Avila MD [address] [place] [address], [phone], [facility] 07/29/2024 15:23:32 OBGyn Episode No OBEpisode recorded.
== END 2024-07-31 12:24 | disposition home or self-care (01) ==
LOC: CHSIMG 12:27
PROVIDERS: PCP Internal Medicine; Visit Provider Internal Medicine
DX: Z78.0 Asymptomatic menopausal state (principal); M85.89 Other specified disorders of bone density and structure, multiple sites
CPT/HCPCS: 77080

== ENCOUNTER 2024-09-01 10:42 | Outpatient (CLI) | payer MEDICARE, SELFPAY ==
[2024-09-01] MEDS: ZOLEDRONIC ACID 5 MG/100 ML 100 ML 400 MG IVPB (11:00)
[2024-09-01 11:01] VITALS: BP 123/64; PULSE 78; RESP 14; TEMP 36.7; O2SAT 100; BMI 32.3
[2024-09-01 11:25] VITALS: BP 125/70; PULSE 80; RESP 14; O2SAT 98
--- NOTE | 2024-09-01 11:57 | PC.NURSE ---
Patient here for Reclast infusion. Education given. All concerns voiced answered. Infusion administered. SEE MAR/ Patient care notes. Tolerated well.
== END 2024-09-01 10:43 | disposition home or self-care (01) ==
PROVIDERS: PCP Internal Medicine; Visit Provider Internal Medicine
DX: M81.0 Age-related osteoporosis without current pathological fracture (principal)
CPT/HCPCS: 96374; J3489

== ENCOUNTER 2024-09-14 15:26 | Outpatient (CLI) | payer MEDICARE, SELFPAY ==
[2024-09-14 15:40] LABS: Hematocrit 35.5 % (35.0-42.0); Immature Reticulocyte Fraction 19.6 % (2.0-16.52); Mean Corpuscular Hemoglobin 30.2 pg (27.0-31.0); Mean Corpuscular Volume 97.5 fL (78.0-102.0); Mean Platelet Volume 8.6 fl (9.2-11.8); Platelet Count Result 274 K/mm3 (150-420); Red Blood Count 3.64 M/mm3 (4.20-5.40); Red Cell Distribution Width 15.1 % (11.6-14.4); Reticulocyte Hemoglobin Conten 39.4 pg (28.0-35.0); Reticulocyte Percent 1.68 % (0.50-1.50); Reticulocytes Absolute 0.06 M/mm3 (0.02-0.10); White Blood Count 6.6 K/mm3 (4.8-10.8)
[2024-09-14 15:50] LABS: Add Urine Microscopic? NO; Appearance Urine Clear (Clear); Bilirubin Urine Negative (Negative); Blood Urine Negative (Negative); Color Urine Yellow (Yellow); Glucose Urine UA Negative (Negative); Ketones Urine Negative (Negative); Leukocyte Esterase Ur Negative LEU/UL (Negative); Nitrate Urine Negative (Negative); Protein Urine Negative (Negative); Specific Grav Ur >= 1.030 (1.010-1.020); pH Urine 5.5 (5.0-8.0)
[2024-09-14 16:59] LABS: Alanine Aminotransferase 25 U/L (14-59); Albumin Level 3.7 g/dL (3.4-5.0); Alkaline Phosphatase 120 U/L (46-116); Anion Gap 8 mmol/L (4-12); Aspartate Amino Transferase 16 U/L (15-37); Bilirubin,Total 0.2 mg/dL (0.00-1.00); Blood Urea Nitrogen 25 mg/dL (7-18); Calcium 8.3 mg/dL (8.5-10.1); Carbon Dioxide 28 mmol/L (21-32); Chloride 106 mmol/L (98-108); Estimated Glomerular Filt Rate 46; Ferritin 78 ng/mL (8-252); Glucose 103 mg/dL (70-99); Iron 40 ug/dL (50-170); Osmolality Calculated 298 mOsm/kg (285-295); Sodium 142 mmol/L (136-145); Total Protein 6.6 g/dL (6.4-8.2)
--- OUTSIDE RECORDS SUMMARY | 2024-09-14 17:13 | XMS_ITS | Referral Summary ---
Author Organization [facility] Address [address] [facility] [place] [address] Care Team Providers Care Plate Worker Name Role Phone Viola Turpin MD Unavailable [phone] Cristobal Gage DO Unavailable [phone] Vishal Negrete MD Primary Care Provider [phone] Bob LittleC Unavailable Source Comments [facility],non-owned Affiliates and Associated Physician Practices is amultiple site organization consisting of ambulatory clinics and hospital sitesin [place], [place], [place] and [place]. This disclosure is being madepursuant to the Care Everywhere program and may not contain all information available regarding this patient. Last updated 18.[facility] Allergies Active Allergy Reactions Criticality Noted Date Comments Aspirin Other Low 01/16/2014 ulcers Nsaids Other,Dizziness Low 05/16/2015 PUD Hmg-Coa-R Inhibitors Myalgias Low 04/05/2014 Medications * Be aware that medications may not be up to date on this document. Alwaysverify current medications with the patient. Medication Sig Dispensed Refills Start Date End Date Status [place]-3 Fatty Acids (OMEGA 3 PO) Take 1 Tab by mouth once daily Active triamcinolone acetonide (KENALOG) 0.1 % lotion Apply to affected area 3 times daily as needed Active vitamin B-12 (CYANOCOBALAMIN) 1000 MCG tablet Take 1,000 mcg by mouth once daily. Active DULoxetine (CYMBALTA) 60 MG capsuleIndications:My algia and myositis, unspecified,Thoracic spondylosis without myelopathy,Thoracic neuritis,Chronic scapular pain,Gait difficulty Take 60 mg by mouth 2 times daily Active fentaNYL (DURAGESIC) 50 MCG/HR patch 1 Patch every 3 days 0 02/21/2015 Active levothyroxine (SYNTHROID) 300 MCG tablet Take 300 mcg by mouth daily before breakfast 1/2 tab mon-fri, 1 tab sat-sun 1 02/28/2015 Active Nystatin (NYSTOP) 496599 UNIT/GM POWD Take 100,000 Units by mouth once daily as needed 2 02/09/2015 Active esomeprazole (NEXIUM) 40 MG capsule Take 40 mg by mouth daily before breakfast Active cyclobenzaprine (FLEXERIL) 10 MG tablet Take 1 Tab by mouth 3 times daily as needed 1 06/11/2016 Active rosuvastatin (CRESTOR) 5 MG tablet Take 2.5 mg by mouth 2 times daily Active multivitamins (ONE A DAY) capsule Take 1 Cap by mouth once daily Active Ferrous Sulfate (IRON) 325 (65 FE) MG Take 650 mg by mouth once daily Active vitamin D, ergocalciferol, (DRISDOL) 57871 UNITS capsule Take 50,000 Units by mouth every 7 days Active silver sulfADIAZINE (SILVADENE) 1 % creamIndications:Derm al Ulcer Apply 1 g to affected area 2 times daily Reasons: Skin Ulcer Active HYDROcodone-acetamino phen (NORCO) 10-325 MG tabletIndications:Pos t-operative state TK 1 T PO Q 6 HOURS PRN 0 10/28/2016 Active betamethasone dipropionate augmented (DIPROLENE) 0.05 % ointment APPLY THIN FILM TO AREA TID FOR 10 DAYS THEN TWICE A DAY UNTIL RASH CLEARS 0 12/05/2016 Active hydroxychloroquine (PLAQUENIL) 200 MG tablet TK 1 T PO BID 2 10/27/2017 Active meloxicam (MOBIC) 15 MG tablet Take 7.5 mg by mouth once daily Active ondansetron, disintegrating, (ZOFRAN ODT) 4 MG tablet Take 1 tablet by mouth every 6 hours as needed for Nausea/Vomiting Allow tablet to dissolve on the tongue 28 tablet 04/19/2018 Active Active Problems Problem Noted Date Diagnosed Date Foot ulcer, left, limited to breakdown of skin 0 07/21/2019 Post-operative state, I&D Right Foot dos 8 05/11/2018 Postoperative infection 04/27/2018 POV right triple arthrodesis DOS 10-01-2016 04/0 11/2016 Charcot foot due to diabetes mellitus 09/02/2016 Post-operative state, Left Sesamoidectomy dos 07/01/2016 Sesamoiditis 06/23/2016 Post-operative state, right foot hardware removal dos 05-16-15 05/22/2015 S/P ankle arthrodesis, Right Foot Medial Column Reconstruction dos 06/26/15 12/26/2014 DM (diabetes mellitus) type II, controlled, with peripheral vascular disorder 06/26/2014 Overview (10/02/2017): IMO update 10 03 2017 Navicular fracture, foot 03/14/2014 Social History Tobacco Use Types Packs/Day Years Used Date Smoking Tobacco: Never Smokeless Tobacco: Never Tobacco Cessation:Counseling Given: No Alcohol Use Standard Drinks/Week Comments No 0 (1 standard drink = 0.6 oz pur e alcohol) Sex and Gender Information Value Date Recorded Sex Assigned at Not on file Gender Identity Not on file Sexual Orientation Not on file Last Filed Vital Signs Vital Sign Reading Time Taken Comments Blood Pressure 145/71 05/03/2018 4:08 PM CDT Pulse 82 05/03/2018 4:08 PM CDT Temperature 36.5 C (97.7 F) 05/03/2018 3:58 PM CDT Respiratory Rate 18 05/03/2018 3:58 PM CDT Oxygen Saturation 97% 05/03/2018 3:58 PM CDT Inhaled Oxygen Concentration - - Weight 102.9 kg (226 lb 14.4 oz) 2017 12:39 PM CDT Height 160 cm (5' 3 ) 04/27/2018 12:39 PM CDT Body Mass Index 40.19 04/27/2018 12:39 PM CDT Functional Status Functional Status Response Date of Assess ment Is person deaf or have serious hearing difficult y? No 04/27/2018 Is person blind or have serious difficulty seein g? No 04/27/2018 Does person have serious dif ficulty walking/climbing stairs? Yes 04/27/2018 Does person have difficulty dressing/bathing? No 04/27/2018 Does person have difficulty doing errands alone? No 04/27/2018 Cognitive Status Response Date of Assessm ent Does person have difficulty concentrating/remembering/making decisions? No 04/27/2018 Plan of Treatment Not on file Medical Devices Implanted Type Area Assistant Case Manager Device Identifier Shelf Expiration Date Model / Serial / Lot Fusion [place] Implanted:Qty: 1 on 06/26/2014 by Cristobal Gage DO at [facility] Foot [employer] [id number] / / Bone Crush Can 30cc - [id number] Implanted:Qty: 1 on 06/26/2014 by Cristobal Gage DO at [facility] Foot [employer]ource 09/04/2018 [id number] / [id number] / Screw Hdlss 4.3 X 40mm Implanted:Qty: 1 on 10/01/2016 by Cristobal Gage DO at [facility] Right: Foot Ar[employer] [id number] / / Scrw Hdless Comp 6.5 X 85 Implanted:Qty: 1 on 10/01/2016 by Cristobal Gage DO at [facility] Right: Foot [employer] [id number] / / Scrw Hdless Comp 6.5 X 75 Implanted:Qty: 1 on 10/01/2016 by Cristobal Gage DO at [facility] Right: Foot Ar[employer] Inc [id number] / / Screw 6.5mm 80mm Comp Viviana Hdls Arthx Implanted:Qty: 1 on 10/01/2016 by Cristobal Gage DO at [facility] Right: Foot Ar[employer] [id number] / / Screw Hdlss 4.3 X 70mm Screw Implanted:Qty: 2 on 10/01/2016 by Cristobal Gage DO at [facility] Right: Foot Ar[employer] [id number] / / Graft Bone Accell Evo3 Dbm 10ml Ptty - [id number] Implanted:Qty: 1 on 10/01/2016 by Cristobal Gage DO at [facility] Right: Foot Integra [employer]sciences 01/29/2017- / [id number] / [id number] Graft Bone Canc 30ml Frzdr Crsh 1-4mm Implanted:Qty: 1 on 10/01/2016 by Cristobal Gage DO at [facility] Right: Foot [employer] 03/02/2021 [id number] / / [id number] Explanted Type Area Assistant Case Manager Device Identifier Shelf Expiration Date Model / Serial / Lot K-Wire 9.0in X .062in Explanted:Qty: 2 on 10/01/2016 by Cristobal Gage DO at [facility] Right: Foot [employer] 05/14/2019 [id number] / / [id number] Procedures Procedure Name Priority Date/Time Associated Diagnosis Comments RENAL FUNCTION PANEL AM Draw 04/30/2018 4:39 AM CDT HEMOGLOBIN A1C Routine 04/28/2018 4:08 AM CDT from Last 3 Months or Most Recently Relevant to Health Maintenance Results * (ABNORMAL) RENAL FUNCTION PANEL (04/30/2018 4:39 AM CDT) Glucose 104 74 - 106 mg/dL 04/30/2018 7:12 AM CDT [facility] Sodium 142 136 - 145 mmol/L 04/30/2018 7:12 AM CDT [facility] Potassium 3.8 3.5 - 5.1 mmol/L 04/30/2018 7:12 AM CDT [facility] Chloride 109(H) 98 - 107 mmol/L 04/30/2018 7:12 AM CDT [facility] CO2 29 22 - 31 mmol/L 04/30/2018 7:12 AM CDT [facility] Calcium 9.1 8.5 - 10.1 mg/dL 04/30/2018 7:12 AM T [facility] Anion Gap 4(L) 8 - 16 mmol/L 04/30/2018 7:12 AM CDT [facility] BUN 10 7 - 21 mg/dL 04/30/2018 7:12 AM CDT [facility] Creatinine 0.87 0.50 - 1.30 mg/dL 04/30/2018 7:12 AM CDT [facility] Albumin 2.7(L) 3.4 - 5.0 gm/dL 04/30/2018 7:12 AM CDT [facility] Phosphorus 3.8 2.5 - 4.9 mg/dL 04/30/2018 7:12 AM CDT [facility] eGFR by MDRD >60 >60 mL/min/1.7 3m2 04/30/2018 7:12 AM CDT [facility] eGFR by MDRD >60 >60 mL/min/1.7 3m2 04/30/2018 7:12 AM CDT [facility] Blood BLOOD SPECIMEN / Unknown Lab Venipuncture / Unknown 04/30/2018 4:39 AM CDT 04/30/2018 4:52 AM CDT Lee De Leon OCEANOGRAPHY PROFESSOR-SHIP WIRER LAB - CHEMISTR Y ORDERABLES [facility] [address] [place] [address] * (ABNORMAL) HEMOGLOBIN A1C (04/28/2018 4:08 AM CDT) [facility] Hemoglobin A1c 6.9(H) 4.2 - 6.3 % 04/28/2018 7:23 AM CDT [facility] Estimated Average Glucose 151 mg/dL 04/28/2018 7:23 AM CDT [facility] Blood BLOOD SPECIMEN / Unknown Lab Venipuncture / Unknown 04/28/2018 4:08 AM CDT 04/28/2018 4:21 AM CDT Ambar Rodas OCEANOGRAPHY PROFESSOR-SHIP WIRER LAB - CHEMISTR Y ORDERABLES [facility] [address] [place] [address] from Last 3 Months or Most Recently Relevant to Health Maintenance Administered Medications Advance Directives * Full Code (Latest Code Status on File) Date Activated Date Inactivated Comments 04/28/2018 6:28 PM 05/03/2018 7:01 PM * Full Code Date Activated Date Inactivated Comments 04/27/2018 12:28 PM 04/28/2018 6:28 PM * Full Code Date Activated Date Inactivated Comments 10/01/2016 5:30 PM 10/03/2016 2:57 PM * Full Code Date Activated Date Inactivated Comments 06/26/2014 5:47 PM 06/27/2014 3:34 PM Care Teams Plate Worker Relationship Specialty Start Date End Date Vishal Negrete MD PCP - General Internal Medicine 06/08/14 Viola Turpin MD Orthopedic Surgery 01/16/14 Cristobal Gage DO Orthopedic Surgery 01/31/14 Bob Little, PAEloC [address] [place] [address] [address] Physician Child Welfare Director Physician Child Welfare Director 03/04/15
--- OUTSIDE RECORDS SUMMARY | 2024-09-14 17:13 | XMS_ITS | Encounter Summary ---
Author Organization [facility] Health Address [address] [facility] [place] [address] Care Team Providers Care Applications Programmer Name Role Phone Viola Turpin MD Unavailable Cristobal Gage DO Unavailable [phone] Vishal Negrete MD Primary Care Provider [phone] Bob Little PA-C Unavailable [phone] Encounter Details Date Type Department Care Team (Late st Contact Info) Description 03/25/2015 Therapy Visit EXTERNAL NON-[facility] [place] [place] [address] [address] Social History Tobacco Use Types Packs/Day Years Used Date Smoking Tobacco: Never Alcohol Use Standard Drinks/Week Comments No 0 (1 standard drink = 0.6 oz pur e alcohol) Sex and Gender Information Value Date Recorded Sex Assigned at Not on file Gender Identity Not on file Sexual Orientation Not on file documented as of this encounter Functional Status Functional Status Response Date of Assess ment Is person deaf or have serious hearing difficult y? No 06/26/2014 Is person blind or have serious difficulty seein g? No 06/26/2014 Does person have serious dif ficulty walking/climbing stairs? No 06/26/2014 Does person have difficulty dressing/bathing? No 06/26/2014 Does person have difficulty doing errands alone? No 06/26/2014 Cognitive Status Response Date of Assessm ent Does person have difficulty concentrating/remembering/making decisions? No 06/26/2014 documented as of this encounter Plan of Treatment Not on file documented as of this encounter Visit Diagnoses Not on filedocumented in this encounter Care Teams Applications Programmer Relationship Specialty Start Date End Date Vishal Negrete MD PCP - General Internal Medicine 06/08/14 Viola Turpin MD Orthopedic Surgery 01/16/14 Cristobal Gage DO Orthopedic Surgery 01/31/14 Bob Little PA-C [address] [address] Physician Print Line Feeder Physician Print Line Feeder 03/04/15 documented as of this encounter
--- OUTSIDE RECORDS SUMMARY | 2024-09-14 17:13 | XMS_ITS | Encounter Summary ---
Author Organization [facility] Address [address] [facility] [place] [address] Care Team Providers Care Metrology Specialist Name Role Phone Viola Turpin MD Unavailable Cristobal Gage DO Unavailable Vishal Negrete MD Primary Care Provider Bob Little PA-C Unavailable [phone] Encounter Details Date Type Department Care Team (Late st Contact Info) Description 05/22/2016 [facility] Outpatient Visit [facility] Orthopedics - Radiology [address] [place] [address] Cristobal Gage DO [facility] [address] [address] Social History Tobacco Use Types Packs/Day Years [...] or have serious hearing difficult y? No 05/16/2015 Is person blind or have serious difficulty seein g? No 05/16/2015 Does person have serious dif ficulty walking/climbing stairs? No 05/16/2015 Does person have difficulty dressing/bathing? No 05/16/2015 Does person have difficulty doing errands alone? No 05/16/2015 Cognitive Status Response Date of Assessm ent Does person have difficulty concentrating/remembering/making decisions? No 05/16/2015 documented as of this encounter Plan of Treatment Not on file documented as of this encounter Visit Diagnoses Not on filedocumented in this encounter Care Teams Metrology Specialist Relationship Specialty Start Date End Date Vishal Negrete MD PCP - General Internal Medicine 06/08/14 Viola Turpin MD Orthopedic Surgery 01/16/14 Cristobal Gage DO Orthopedic Surgery 01/31/14 Bob Little, PAEloC [address] [address] Physician Hoop Maker Physician Hoop Maker 03/04/15 documented as of this encounter
--- OUTSIDE RECORDS SUMMARY | 2024-09-14 17:13 | XMS_ITS | Clinical Summary ---
Author Organization [facility] Address [address] [facility] [place] [address] Care Team Providers Care Knobber Name Role Phone Viola Turpin MD Unavailable Cristobal Gage DO Unavailable [phone] Vishal Negrete MD Primary Care Provider [phone] Bob LittleC Unavailable [phone] Source Comments [facility],non-owned Affiliates and Associated Physician Practices is amultiple site organization consisting of ambulatory clinics and hospital sitesin [place], [place], [place] and [place]. This disclosure is being madepursuant to the Care Everywhere program and may not contain all information available regarding this patient. Last updated 18.[facility] Allergies Active Allergy Reactions Criticality Noted Date Comments Aspirin Other Low 01/16/2014 ulcers Nsaids Other,Dizziness Low 05/16/2015 PUD Hmg-Coa-R Inhibitors Myalgias Low 04/05/2014 Medications * Be aware that medications may not be up to date on this document. Alwaysverify current medications with the patient. Medication Sig Dispensed Refills Start Date End Date Status [place]-3 Fatty Acids (OMEGA 3 PO) Take 1 [...] tab sat-sun 1 02/28/2015 Active Nystatin (NYSTOP) 350662 UNIT/GM POWD Take 100,000 Units by mouth [...] once daily Active vitamin D, ergocalciferol, (DRISDOL) 32268 UNITS capsule Take 50,000 Units by mouth [...] Mass Index 40.19 04/27/2018 12:39 PM CDT Plan of Treatment Health Maintenance Due Date Last Done Comments BONE DENSITY TESTING 1948 COLOGUARD (AGES 45-75) - COLON CA SCREENING 1948 COLON MONITORING 1948 COLONOSCOPY - COLON CA SCREENING 1948 CT COLONOGRAPHY - COLON CA SCREENING 1948 Colorectal Cancer Screening 1948 FIT - COLON CA SCREENING 1948 FLEX SIG - COLON CA SCREENING 1948 MAMMOGRAM 1948 HEPATITIS C SCREENING 11/20/1966 DTAP/TDAP/TD VACCINES (1 - Tdap) 11/25/1967 PNEUMOCOCCAL VACCINE 50+ (1 of 2 - PCV) 11/25/1967 ZOSTER VACCINE (1 of 2) 1998 DIABETES RETINOPATHY SCREENING 08/17/2018 DIABETES-FOOT EXAM WITH MONOFILAMENT 08/17/2018 DIABETES-HGB A1C 10/27/2018 04/28/2018, 06/27/2014 DIABETES-SERUM CREATININE 05/24/20192017, 05/24/2018, 04/30/2018, Additional history exists Respiratory Syncytial Virus (RSV) Vaccine Pt: or over 60 yrs (1 - 1-dose 75+ series) 11/25/2023 COVID-19 VACCINE ( - 2023- season) 2024 INFLUENZA VACCINE (#1) 2024 04/10/2016 DEPRESSION SCREENING 07/05/2024 DIABETES - URINE PROTEIN SCREENING 07/05/2024 MEDICARE AWV CALENDAR YEAR 2024 HEPATITIS B VACCINE Aged Out No longe r eligible based on patient's age to complete this topic HIB VACCINE Aged Out No longer eligi ble based on patient's age to complete this topic HPV VACCINE Aged Out No longer eligi ble based on patient's age to complete this topic MENINGOCOCCAL (Group B) VACCINE SHARED DECISION-MAKING Aged Out No longer eligible based on patient's age to complete this topic MENINGOCOCCAL GROUPS A/C/Y/W VACCINE Aged Out No longer eligible based on patient's age to complete this topic Medical Devices Implanted Type Area Coring Machine Operator Device Identifier Shelf Expiration Date Model / Serial / Lot Fusion [place] Implanted:Qty: 1 on 06/26/2014 by Cristobal Gage DO at [facility] [employer] [id number] / / Bone Crush Can 30cc - [id number] Implanted:Qty: 1 on 06/26/2014 by Cristobal Gage DO at [facility] [employer] 09/04/2018 [id number] / [id number] / Screw Hdlss 4.3 X 40mm Implanted:Qty: 1 on 10/01/2016 by Cristobal Gage DO at [facility] Right: Foot [employer] [id number] / / Scrw Hdless Comp 6.5 X 85 Implanted:Qty: 1 on 10/01/2016 by Cristobal Gage DO at [facility] Right: Foot [employer] [id number] / / Scrw Hdless Comp 6.5 X 75 Implanted:Qty: 1 on 10/01/2016 by Cristobal Gage DO at [facility] Right: Foot [employer] [id number] / / Screw 6.5mm 80mm Comp Viviana Hdls Arthx Implanted:Qty: 1 on 10/01/2016 by Cristobal Gage DO at [facility] Right: Foot [employer] [id number] / / Screw Hdlss 4.3 X 70mm Screw Implanted:Qty: 2 on 10/01/2016 by Cristobal Gage DO at [facility] Right: Foot [employer] AR-8643-70 / / Graft Bone Accell Evo3 Dbm 10ml Ptty - [id number] Implanted:Qty: 1 on 10/01/2016 by Cristobal Gage DO at [facility] Right: Foot [employer] 01/29/2017 [id number] / [id number] / [id number] Graft Bone Canc 30ml Frzdr Crsh 1-4mm Implanted:Qty: 1 on 10/01/2016 by Cristobal Gage DO at [facility] Right: Foot [employer] 03/02/2021 [id number] / / [id number] Explanted Type Area Coring Machine Operator Device Identifier Shelf Expiration Date Model / Serial / Lot K-Wire 9.0in X .062in Explanted:Qty: 2 on 10/01/2016 by Cristobal Gage DO at [facility] Right: Foot [employer] 05/14/2019 [id number] / / [id number] Procedures Procedure Name Priority Date/Time Associated Diagnosis Comments RENAL FUNCTION PANEL AM Draw 04/30/2018 4:39 AM CDT HEMOGLOBIN A1C Routine 04/28/2018 4:08 AM CDT from Last 3 Months or Most Recently Relevant to Health Maintenance Results * (ABNORMAL) RENAL FUNCTION PANEL (04/30/2018 4:39 AM CDT) Glucose 104 74 - 106 mg/dL 04/30/2018 7:12 AM [facility] Sodium 142 136 - 145 mmol/L 04/30/2018 7:12 AM [facility] Potassium 3.8 3.5 - 5.1 mmol/L 04/30/2018 7:12 AM [facility] Chloride 109(H) 98 - 107 mmol/L 04/30/2018 7:12 AM [facility] CO2 29 22 - 31 mmol/L 04/30/2018 7:12 AM [facility] Calcium 9.1 8.5 - 10.1 mg/dL 04/30/2018 7:12 AM [facility] Anion Gap 4(L) 8 - 16 mmol/L 04/30/2018 7:12 AM [facility] BUN 10 7 - 21 mg/dL 04/30/2018 7:12 AM [facility] Creatinine 0.87 0.50 - 1.30 mg/dL 04/30/2018 7:12 AM [facility] Albumin 2.7(L) 3.4 - 5.0 gm/dL 04/30/2018 7:12 AM [facility] Phosphorus 3.8 2.5 - 4.9 mg/dL 04/30/2018 7:12 AM [facility] eGFR by MDRD >60 >60 mL/min/1.7 3m2 04/30/2018 7:12 AM [facility] eGFR by MDRD >60 >60 mL/min/1.7 3m2 04/30/2018 7:12 AM [facility] Blood BLOOD SPECIMEN / Unknown Lab Venipuncture / Unknown 04/30/2018 4:39 AM CDT 04/30/2018 4:52 AM CDT Lee De Leon FERMENTING CELLARS RECEIVER-SHANK ARCHER LAB - CHEMISTR Y ORDERABLES [facility] [address] [place] [address] * (ABNORMAL) HEMOGLOBIN A1C (04/28/2018 4:08 AM CDT) Hemoglobin A1c 6.9(H) 4.2 - 6.3 % 04/28/2018 7:23 AM CDT [facility] Estimated Average Glucose 151 mg/dL 04/28/2018 7:23 AM CDT [facility] Blood BLOOD SPECIMEN / Unknown Lab Venipuncture / Unknown 04/28/2018 4:08 AM CDT 04/28/2018 4:21 AM CDT Ambar Clint Rodas FERMENTING CELLARS RECEIVER-SHANK ARCHER LAB - CHEMISTR Y ORDERABLES [facility] [address] [place] [address] from Last 3 Months or Most Recently Relevant to Health Maintenance Advance Directives * Full Code (Latest Code [...] 5:47 PM 06/27/2014 3:34 PM Care Teams Knobber Relationship Specialty Start Date End Date Vishal Negrete MD PCP - General Internal Medicine 06/08/14 Viola Turpin MD Orthopedic Surgery 01/16/14 Cristobal Gage DO Orthopedic Surgery 01/31/14 Bob Little PA-C [address] [place] [address] Physician Psychiatric Arnp Physician Psychiatric Arnp 03/04/15
--- OUTSIDE RECORDS SUMMARY | 2024-09-14 17:13 | XMS_ITS | Encounter Summary ---
Author Organization [facility] Health Address [address] [facility] [place] [address] Care Team Providers Care Confidential Investigator Name Role Phone Viola Turpin MD Unavailable [phone] Cristobal Gage DO Unavailable [phone] Vishal Negrete MD Primary Care Provider [phone] Bob Little PA-C Unavailable [phone] Encounter Details Date Type Department Care Team (Late st Contact Info) Description 04/22/2015 Therapy Visit EXTERNAL NON-[facility] [place] [address] [address] Social History Tobacco Use Types [...] on filedocumented in this encounter Care Teams Confidential Investigator Relationship Specialty Start Date End Date Vishal Negrete MD PCP - General Internal Medicine 06/08/14 Viola Turpin MD Orthopedic Surgery 01/16/14 Cristobal Gage DO Orthopedic Surgery 01/31/14 Bob Little PA-C [address] [address] Physician Formulation Scientist Physician Formulation Scientist 03/04/15 documented as of this encounter
--- OUTSIDE RECORDS SUMMARY | 2024-09-14 17:13 | XMS_ITS | Encounter Summary ---
Author Organization [facility] Address [address] [place] [address] Care Team Providers Care Apparel Pattern Maker Name Role Phone Zen Negrete MD Primary Care Provider Viola Turpin MD Unavailable [phone] Cristobal Gage DO Unavailable [phone] Vishal Negrete MD Primary Care Provider [phone] Bob Little PA-C Unavailable [phone] Encounter Details Date Type Department Care Team (Late st Contact Info) Description 04/02/2014 [facility] Outpatient Visit [facility] Orthopedics - Radiology [address] [place] [address] Cristobal Gage DO [facility] Medical [address] [address] Social History Tobacco Use Types Packs/Day Years Used Date Smoking Tobacco: Never Alcohol Use Standard Drinks/Week Comments Not Asked 0 (1 standard drink = 0.6 oz pur e alcohol) Sex and Gender Information Value Date Recorded Sex Assigned at Not on file Gender Identity Not on file Sexual Orientation Not on file documented as of this encounter Plan of Treatment Not on file documented as of this encounter Visit Diagnoses Not on filedocumented in this encounter Care Teams Apparel Pattern Maker Relationship Specialty Start Date End Date Zen Negrete MD [address] [place] [address] PCP - General Pediatric Gastroenterology 01/16/14 06/07/14 Vishal Negrete MD [address] [place] [address] PCP - General Internal Medicine 06/08/14 Viola Turpin MD [address] [place] [address] Orthopedic Surgery 01/16/14 Cristobal Gage DO [address] [place] [id number] Orthopedic Surgery 01/31/14 Bob Little PAEloC [address] [place] [address] Physician Wheel Adjuster Physician Wheel Adjuster 03/04/15 documented as of this encounter
--- OUTSIDE RECORDS SUMMARY | 2024-09-14 17:13 | XMS_ITS | Encounter Summary ---
Author Organization [facility] Address [address] [place] [address] Care Team Providers Care Cross Cut Sawyer Name Role Phone Vishal Negrete MD Primary Care Provider + Encounter Details Date Type Department Care Team (Late st Contact Info) Description 10/19/[address] [facility] Emelia Chong MD [address] [facility] [address] [place] [id number] Social History Tobacco Use Types Packs/Day Years Used Date Smoking Tobacco: Never Assessed Comments Unknown Sex and Gender Information Value Date Recorded Sex Assigned at Not on file Legal Sex Female 4:56 AM PSYCH SOCIAL WORKER Gender Identity Not on file Sexual Orientation Not on file documented as of this encounter Plan of Treatment Not on file documented as of this encounter Visit Diagnoses Not on filedocumented in this encounter Care Teams Cross Cut Sawyer Relationship Specialty Start Date End Date Vishal Negrete MD [address] [place] [address] PCP - General Internal Medicine 08/12/16 documented as of this encounter
--- OUTSIDE RECORDS SUMMARY | 2024-09-14 17:13 | XMS_ITS | Encounter Summary ---
Author Organization [facility] Address [address] [place] [address] Care Team Providers Care Journeyman Pipe Welder Name Role Phone Viola Turpin MD Unavailable [phone] Cristobal Gage DO Unavailable [phone] Vishal Negrete MD Primary Care Provider [phone] Bob Little PA-C Unavailable [phone] Encounter Details Date Type Department Care Team (Late st Contact Info) Description 02/26/2015 Therapy Visit EXTERNAL NON-[facility] [address] [address] Social History Tobacco Use Types [...] on filedocumented in this encounter Care Teams Journeyman Pipe Welder Relationship Specialty Start Date End Date Vishal eNgrete MD PCP - General Internal Medicine 06/08/14 Viola Turpin MD Orthopedic Surgery 01/16/14 Cristobal Gage DO Orthopedic Surgery 01/31/14 Bob Little PA-C [address] [address] [facility] Medical And Lab Director [facility] Medical And Lab Director 03/04/15 documented as of this encounter
--- OUTSIDE RECORDS SUMMARY | 2024-09-14 17:13 | XMS_ITS | Encounter Summary ---
Author Organization [facility] Address [address] [facility] [place] [address] Care Team Providers Care Tar Processing Technician Name Role Phone Viola Turpin MD Unavailable Cristobal Gage DO Unavailable Vishal Negrete MD Primary Care Provider [phone] Bob Little PA-C Unavailable Encounter Details Date Type Department Care Team (Late st Contact Info) Description 02/13/2015 [facility] Outpatient Visit [facility] Orthopedics - Radiology [address] [place] [address] Cristobal Gage DO [facility] Medical [address] [address] Social History Tobacco Use Types [...] on filedocumented in this encounter Care Teams Tar Processing Technician Relationship Specialty Start Date End Date Vishal Negrete MD PCP - General Internal Medicine 06/08/14 Viola Turpin MD Orthopedic Surgery 01/16/14 Cristobal Gage DO Orthopedic Surgery 01/31/14 Bob Little, PAEloC [address] [address] Physician Director Of Financial Planning Physician Director Of Financial Planning 03/04/15 documented as of this encounter
--- OUTSIDE RECORDS SUMMARY | 2024-09-14 17:13 | XMS_ITS | Encounter Summary ---
Author Organization [facility] Address [address] [place] [address] Care Team Providers Care Therapeutic Assistant Name Role Phone Viola Turpin MD Unavailable Cristobal Gage DO Unavailable [phone] Vishal Negrete MD Primary Care Provider Bob Little PA-C Unavailable Encounter Details Date Type Department Care Team (Late st Contact Info) Description 06/08/2014 [facility] Outpatient Visit [facility] Orthopedics - Radiology [address] [place] [address] Cristobal Gage DO [facility] Medical [address] [address] Social History Tobacco Use Types [...] or have serious hearing difficult y? No 04/05/2014 Is person blind or have serious difficulty seein g? No 04/05/2014 Does person have serious dif ficulty walking/climbing stairs? No 04/05/2014 Does person have difficulty dressing/bathing? No 04/05/2014 Does person have difficulty doing errands alone? No 04/05/2014 Cognitive Status Response Date of Assessm ent Does person have difficulty concentrating/remembering/making decisions? No 04/05/2014 documented as of this encounter Plan of Treatment Not on file documented as of this encounter Visit Diagnoses Not on filedocumented in this encounter Care Teams Therapeutic Assistant Relationship Specialty Start Date End Date Vishal Negrete MD PCP - General Internal Medicine 06/08/14 Viola Turpin MD Orthopedic Surgery 01/16/14 Cristobal Gage DO Orthopedic Surgery 01/31/14 Bob Little, PAEloC [address] [address] Physician Forest Economics Professor Physician Forest Economics Professor 03/04/15 documented as of this encounter
--- OUTSIDE RECORDS SUMMARY | 2024-09-14 17:13 | XMS_ITS | Clinical Summary ---
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 Gender Identity Not on file Sexual Orientation Not on file Plan of Treatment Health Maintenance Due Date Last Done Comments Colorectal Cancer Screening Colonoscopy (10 Years) 1950 Hepatitis C 1968 Annual Medicare Wellness Visit 2013 Dexa Scan (General) 2013 RSV Immunization or 60+ Years (1 - 1-dose 75+ series) 11/25/2023 COVID-19 Vaccine ( season) 2024 05/06/2021, 08/28/2020, 08/07/2020 Influenza Adult (#1) 2024 04/11/2021, 04/11/2019, 04/05/2018, Additional history exists DTaP, Tdap and Td Vaccines (2 - Td or Tdap) 01/21/2026 01/22/2016, 12/06/2013 Pneumococcal Vaccine: 65+ Years Completed 04/06/2018, 04/04/2015, 02/09/2015, Additional history exists Zoster Vaccines Completed 09/20/2018, 08/2017, 03/18/2015, Additional history exists Meningococcal B Vaccine Aged Out No l onger eligible based on patient's age to complete this topic Meningococcal Vaccine Aged Out No mukesh shirley eligible based on patient's age to complete this topic RSV Immunizations Under 20 Months Aged Out No longer eligible based on patient's age to complete this topic Insurance [facility] Care Teams Rock Worker Relationship Specialty Start Date End Date Non-Staff, Provider PCP - General 06/22/21
--- OUTSIDE RECORDS SUMMARY | 2024-09-14 17:13 | XMS_ITS | Data Portability ---
Author Organization [facility], [address] [place] [address] ([place]) Address [address] [place] [address] Care Team Providers Care Supervisor Backfilling Name Role Phone CHASE CANO Primary Care [...] a hand orthopedist outside the clinic. 3. Lyyy-gzk-gxfobzg carpal tunnel splint to be worn at [...] 7. Followup visit in 4 months. [email or web address] Not available 10/15/2023 12:23:24 03/27/2024 03/27/2024 IMPRESSION: [...] MRI of the right shoulder performed at [facility]/ 4. Followup visit in 4 months for recheck. We will obtain labs at that time as well. [email or web address] Not available 07/27/2024 21:45:19 Plan of Treatment Reminders Order Date Submit Date Provider Last Modified By Organization Details Last Modified Time Details Appointments Establish ed Patient 15.EST 2024 02:00P Yusuf Avila Not available Not available Not available Lab CBC 2023 [email or web address], [address] [place] [address], [id number], 08/04/2024 14:41:48 CMP, serum or plasma [email or web address], [address] [place] [address], [id number], 08/04/2024 14:41:49 ESR (erythroc yte sedimenta tion rate), blood 2023 [email or web address], [address] [place] [address], [id number], 08/04/2024 14:41:49 C-reactiv e protein, quantitat nolberto, serum or plasma 2023 024 [email or web address], [address] [place] [address], [id number], 08/04/2024 14:41:49 Referral None recorded. Procedures None recorded. Surgeries None recorded. Imaging None recorded. Medication Orders Depo-Medr ol 80 mg/mL suspensio n for injection 2023 [id number], [address], [place], [id number], 03/27/2024 18:32:04 Depo-Medr ol 80 mg/mL suspensio n for injection 2023 024 [email or web address] Not available 10/15/2023 10:57:26 Patient TargetsNo targets recorded. Patient InstructionsNo instructions recorded. Reason for Referral None Reported. Results Created Date Observation Date Name Description Value Unit Range Abnormal Flag Note LastModifiedBy Organization Detail LastModifiedTime 09/13/19 24 09/14/2023 C-lei ctive prote in, quant itati ve, serum or plasm a CRP Not Available [facility] [address] [place] [address], [id number], 09/14/2023 14:51:50 09/13/19 24 09/14/2023 C-lei ctive prote in, quant itati ve, serum or plasm a CRP <0.4 mg/dL <0.4-0 .5 Not Available [facility] [address] [place] [address], 35061, 09/14/2023 14:51:50 09/13/19 24 09/14/2023 ESR (eryt hrocy te sedim entat ion rate) , blood sed rate 12 mm/HR 0 - 30 Not Available [facility] [address] [place] [address], [id number], 09/14/2023 15:05:17 09/13/19 24 09/14/2023 CMP, serum or plasm a comp. met. panel Not Available [facility] [address] [place] [address], [id number], 09/14/2023 14:51:52 09/13/19 24 09/14/2023 CMP, serum or plasm a sodium 142 mmol/ L 136-14 6 Not Available [facility] [address] [place] [address], 08195, 09/14/2023 14:51:52 09/13/19 24 09/14/2023 CMP, serum or plasm a potassium 4.9 mmol/ L 3.5-5. 1 Not Available [facility] [address] [place] [address], 58277, 09/14/2023 14:51:52 09/13/19 24 09/14/2023 CMP, serum or plasm a chloride 109 mmol/ L 98-110 Not Available [facility] [address] [place] [address], 77620, 09/14/2023 14:51:52 09/13/19 24 09/14/2023 CMP, serum or plasm a CO2 28 mEq/L 20-32 Not Available [facility] [address] [place] [address], 29503, 09/14/2023 14:51:52 09/13/19 24 09/14/2023 CMP, serum or plasm a anion gap 10 mmol/ L 10-22 Not Available [facility] [address] [place] [address], 04316, 09/14/2023 14:51:52 09/13/19 24 09/14/2023 CMP, serum or plasm a glucose 102 mg/dL 70-100 high Not Available [facility] [address] [place] [address], [id number], 09/14/2023 14:51:52 09/13/19 24 09/14/2023 CMP, serum or plasm a calcium 9.7 mg/dL 8.4-10 .4 Not Available [facility] [address] [place] [address], 08513, 09/14/2023 14:51:52 09/13/19 24 09/14/2023 CMP, serum or plasm a total protein 6.3 g/dL 6.4-8. 3 low Not Available [facility] [address] [place] [address], 17128, 09/14/2023 14:51:52 09/13/19 24 09/14/2023 CMP, serum or plasm a albumin 4.3 g/dL 3.5-5. 3 Not Available [facility] [address] [place] [address], [id number], 09/14/2023 14:51:52 09/13/19 24 09/14/2023 CMP, serum or plasm a ALP 118 U/L 44 - 127 Not Available [facility] [address] [place] [address], 79680, 09/14/2023 14:51:52 09/13/19 24 09/14/2023 CMP, serum or plasm a AST (SGOT) 19 U/L 10-40 Not Available [facility] [address] [place] [address], 75467, 09/14/2023 14:51:52 09/13/19 24 09/14/2023 CMP, serum or plasm a total bilirubin 0.3 mg/dL 0.2-1. 0 Not Available [facility] [address] [place] [address], 49800, 09/14/2023 14:51:52 09/13/19 24 09/14/2023 CMP, serum or plasm a ALT (SGPT) 14 U/L 8-35 Not Available [facility] [address] [place] [address], 03716, 09/14/2023 14:51:52 09/13/19 24 09/14/2023 CMP, serum or plasm a BUN 27 mg/dL 7-21 high Not Available [facility] [address] [place] [address], 87107, 09/14/2023 14:51:52 09/13/19 24 09/14/2023 CMP, serum or plasm a creatinine 1.1 mg/dL 0.7-1. 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 ) Not Available [facility] [address] [place] [address], [id number], 09/14/2023 14:51:52 09/13/19 24 09/14/2023 CBC w/ auto diff CBC with differential Not Available [facility] [address] [place] [address], 16953, 09/14/2023 14:27:36 09/13/19 24 09/14/2023 CBC w/ auto diff WBC 7.7 K/uL 3.8-11 .2 Not Available [facility] [address] [place] [address], [id number], 09/14/2023 14:27:36 09/13/19 24 09/14/2023 CBC w/ auto diff RBC 3.81 M/uL 3.92-5 .10 low Not Available [facility] [address] [place] [address], 88468, 09/14/2023 14:27:36 09/13/19 24 09/14/2023 CBC w/ auto diff HGB 11.3 g/dL 11.8-1 5.3 low Not Available [facility] [address] [place] [address], 74537, 09/14/2023 14:27:36 09/13/19 24 09/14/2023 CBC w/ auto diff HCT 35.2 % 36.5-4 4.8 low Not Available [facility] [address] [place] [address], 40050, 09/14/2023 14:27:36 09/13/19 24 09/14/2023 CBC w/ auto diff MCV 92.4 fL 80.0-9 9.0 Not Available [facility] [address] [place] [address], 30459, 09/14/2023 14:27:36 09/13/19 24 09/14/2023 CBC w/ auto diff MCH 29.7 pg 25.5-3 3.6 Not Available [facility] [address] [place] [address], 91032, 09/14/2023 14:27:36 09/13/19 24 09/14/2023 CBC w/ auto diff MCHC 32.1 g/dL 32.0-3 6.0 Not Available [facility] [address] [place] [address], 54101, 09/14/2023 14:27:36 09/13/19 24 09/14/2023 CBC w/ auto diff RDW-SD 49.3 fL 35.1 - 46.3 high Not Available [facility] [address] [place] [address], 60235, 09/14/2023 14:27:36 09/13/19 24 09/14/2023 CBC w/ auto diff plt 243 K/uL 130-40 0 Not Available [facility] [address] [place] [address], 78449, 09/14/2023 14:27:36 09/13/19 24 09/14/2023 CBC w/ auto diff MPV 10.3 fL 9.3-12 .8 Not Available [facility] [address] [place] [address], 50305, 09/14/2023 14:27:36 09/13/19 24 09/14/2023 CBC w/ auto diff brady% 58.5 % 39.8-7 1.3 Not Available [facility] [address] [place] [address], 97388, 09/14/2023 14:27:36 09/13/19 24 09/14/2023 CBC w/ auto diff lym% 32.2 % 19.2-4 7.1 Not Available [facility] [address] [place] [address], 79941, 09/14/2023 14:27:36 09/13/19 24 09/14/2023 CBC w/ auto diff mono% 6.3 % 1.7-12 .0 Not Available [facility] [address] [place] [address], 76477, 09/14/2023 14:27:36 09/13/19 24 09/14/2023 CBC w/ auto diff eos% 1.8 % 0.0-12 .0 Not Available [facility] [address] [place] [address], 81967, 09/14/2023 14:27:36 09/13/19 24 09/14/2023 CBC w/ auto diff baso% 0.9 % 0.0-3. 0 Not Available [facility] [address] [place] [address], 54501, 09/14/2023 14:27:36 09/13/19 24 09/14/2023 CBC w/ auto diff abs brady 4.5 K/uL 1.8-7. 5 Not Available [facility] [address] [place] [address], 27225, 09/14/2023 14:27:36 09/13/19 24 09/14/2023 CBC w/ auto diff abs lym 2.5 K/uL 1.1-3. 3 Not Available [facility] [address] [place] [address], 38129, 09/14/2023 14:27:36 09/13/19 24 09/14/2023 CBC w/ auto diff abs mono 0.5 K/uL 0.1-1. 0 Not Available [facility] [address] [place] [address], 55483, 09/14/2023 14:27:36 09/13/19 24 09/14/2023 CBC w/ auto diff abs eos 0.1 K/uL 0.0-0. 7 Not Available [facility] [address] [place] [address], 39768, 09/14/2023 14:27:36 09/13/19 24 09/14/2023 CBC w/ auto diff abs baso 0.1 K/uL 0.0-0. 2 Not Available [facility] [address] [place] [address], 19522, 09/14/2023 14:27:36 09/13/19 24 09/14/2023 CBC w/ auto diff imm. gran % 0.3 % 0.0-3. 0 Not Available [facility] [address] [place] [address], 35222, 09/14/2023 14:27:36 09/13/19 24 09/14/2023 CBC w/ auto diff NRBC % 0.0 % 0.0-0. 2 Not Available [facility] [address] [place] [address], 35296, 09/14/2023 14:27:36 09/13/19 24 09/13/2023 ESR (eryt hrocy te sedim entat ion rate) , blood sed rate 12 mm/HR 0 - 30 Not Available [facility] - [address], [place], [address], 06/30/2024 21:18:20 09/13/19 24 09/13/2023 C-lei ctive prote in, quant itati ve, serum or plasm a CRP Not Available [facility] [place] [address], [place], [address], 06/30/2024 21:18:19 09/13/19 24 09/13/2023 C-lei ctive prote in, quant itati ve, serum or plasm a CRP <0.4 mg/dL <0.4-0 .5 Not Available [facility] [place] [address], [place], [address], 06/30/2024 21:18:19 09/13/19 24 09/13/2023 CBC w/ auto diff WBC 7.7 K/uL 3.8-11 .2 Not Available [facility] [address] [place] [address], [place], [address], 06/30/2024 21:18:14 09/13/19 24 09/13/2023 CBC w/ auto diff RBC 3.81 M/uL 3.92-5 .10 low Not Available [facility] [address] [place], [address], 06/30/2024 21:18:14 09/13/19 24 09/13/2023 CBC w/ auto diff hemoglobin (HGB) 11.3 g/dL 11.8-1 5.3 low Not Available [facility] [address] [place], [address], 06/30/2024 21:18:14 09/13/19 24 09/13/2023 CBC w/ auto diff hematocrit (HCT) 35.2 % 36.5-4 4.8 low Not Available [facility] [address] [place], [address], 06/30/2024 21:18:14 09/13/19 24 09/13/2023 CBC w/ auto diff MCV 92.4 fL 80.0-9 9.0 Not Available [facility] [address] [place], [address], 06/30/2024 21:18:14 09/13/19 24 09/13/2023 CBC w/ auto diff MCH 29.7 pg 25.5-3 3.6 Not Available [facility] [address] [place], [address], 06/30/2024 21:18:14 09/13/19 24 09/13/2023 CBC w/ auto diff MCHC 32.1 g/dL 32.0-3 6.0 Not Available [facility] [address] [place], [address], 06/30/2024 21:18:14 09/13/19 24 09/13/2023 CBC w/ auto diff RDW-SD 49.3 fL 35.1 - 46.3 high Not Available [facility] [address] [place], [address], 06/30/2024 21:18:14 09/13/19 24 09/13/2023 CBC w/ auto diff plt 243 K/uL 130-40 0 Not Available [facility] [address] [place], [address], 06/30/2024 21:18:14 09/13/19 24 09/13/2023 CBC w/ auto diff MPV 10.3 fL 9.3-12 .8 Not Available [facility] [address] [place], [address], 06/30/2024 21:18:14 09/13/19 24 09/13/2023 CBC w/ auto diff brady% 58.5 % 39.8-7 1.3 Not Available [facility] [address] [place], [address], 06/30/2024 21:18:14 09/13/19 24 09/13/2023 CBC w/ auto diff lym% 32.2 % 19.2-4 7.1 Not Available [facility] [address] [place], [address], 06/30/2024 21:18:14 09/13/19 24 09/13/2023 CBC w/ auto diff mono% 6.3 % 1.7-12 .0 Not Available [facility] [address] [place], [address], 06/30/2024 21:18:14 09/13/19 24 09/13/2023 CBC w/ auto diff eos% 1.8 % 0.0-12 .0 Not Available [facility] [address] [place], [address], 06/30/2024 21:18:14 09/13/19 24 09/13/2023 CBC w/ auto diff baso% 0.9 % 0.0-3. 0 Not Available [facility] [address] [place], [address], 06/30/2024 21:18:14 09/13/19 24 09/13/2023 CBC w/ auto diff abs brady 4.5 K/uL 1.8-7. 5 Not Available [facility] [address] [place], [address], 06/30/2024 21:18:14 09/13/19 24 09/13/2023 CBC w/ auto diff abs lym 2.5 K/uL 1.1-3. 3 Not Available [facility] [address] [place], [address], 06/30/2024 21:18:14 09/13/19 24 09/13/2023 CBC w/ auto diff abs mono 0.5 K/uL 0.1-1. 0 Not Available [facility] [address] [place], [address], 06/30/2024 21:18:14 09/13/19 24 09/13/2023 CBC w/ auto diff abs eos 0.1 K/uL 0.0-0. 7 Not Available [facility] [address] [place], [address], 06/30/2024 21:18:14 09/13/19 24 09/13/2023 CBC w/ auto diff abs baso 0.1 K/uL 0.0-0. 2 Not Available [facility] [address] [place], [address], 06/30/2024 21:18:14 09/13/19 24 09/13/2023 CBC w/ auto diff imm. gran % 0.3 % 0.0-3. 0 Not Available [facility] [address] [place], [address], 06/30/2024 21:18:14 09/13/19 24 09/13/2023 CBC w/ auto diff NRBC % 0.0 % 0.0-0. 2 Not Available [facility] [address] [place], [address], 06/30/2024 21:18:14 09/13/19 24 09/13/2023 CBC w/ auto diff CBC with differential Not Available 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 ) ----- 62 Not Available Not Available 06/30/2024 21:18:11 03/22/20 24 03/22/2024 vitam in D, 25-hy droxy , total , serum vitamin D 25-hydroxy totl 42.0 NG/mL 30.0-8 0.0 Less than 20 ng/mL Defic iency 20-29 ng/mL Insuf ficie ncy 30-80 ng/mL Optim al Great er than 80 ng/mL Possi ble toxic ity Not Available [facility] [address] [place] [address], 05365, 03/22/2024 15:29:59 03/22/20 24 03/22/2024 C-lei ctive prote in, quant itati ve, serum or plasm a CRP high Not Available [facility] [address] [place] [address], 73907, 03/22/2024 15:31:37 03/22/20 24 03/22/2024 C-lei ctive prote in, quant itati ve, serum or plasm a CRP 1.0 mg/dL <0.4-0 .5 high Not Available [facility] [address] [place] [address], 52785, 03/22/2024 15:31:37 03/22/20 24 03/22/2024 CMP, serum or plasm a comp. met. panel Not Available [facility] [address] [place] [address], 71612, 03/22/2024 15:31:39 03/22/20 24 03/22/2024 CMP, serum or plasm a sodium 142 mmol/ L 136-14 6 Not Available [facility] [address] [place] [address], 76213, 03/22/2024 15:31:39 03/22/20 24 03/22/2024 CMP, serum or plasm a potassium 4.2 mmol/ L 3.5-5. 1 Not Available [facility] [address] [place] [address], 31868, 03/22/2024 15:31:39 03/22/20 24 03/22/2024 CMP, serum or plasm a chloride 106 mmol/ L 98-110 Not Available [facility] [address] [place] [address], 34043, 03/22/2024 15:31:39 03/22/20 24 03/22/2024 CMP, serum or plasm a CO2 29 mEq/L 20-32 Not Available [facility] [address] [place] [address], 21809, 03/22/2024 15:31:39 03/22/20 24 03/22/2024 CMP, serum or plasm a anion gap 11 mmol/ L 10-22 Not Available [facility] [address] [place] [address], 68791, 03/22/2024 15:31:39 03/22/20 24 03/22/2024 CMP, serum or plasm a glucose 124 mg/dL 70-100 high Not Available [facility] [address] [place] [address], 06276, 03/22/2024 15:31:39 03/22/20 24 03/22/2024 CMP, serum or plasm a calcium 9.6 mg/dL 8.4-10 .4 Not Available [facility] [address] [place] [address], 77461, 03/22/2024 15:31:39 03/22/20 24 03/22/2024 CMP, serum or plasm a total protein 6.0 g/dL 6.4-8. 3 low Not Available [facility] [address] [place] [address], 46401, 03/22/2024 15:31:39 03/22/20 24 03/22/2024 CMP, serum or plasm a albumin 4.0 g/dL 3.5-5. 3 Not Available [facility] [address] [place] [address], 51059, 03/22/2024 15:31:39 03/22/20 24 03/22/2024 CMP, serum or plasm a ALP 113 U/L 44 - 127 Not Available [facility] [address] [place] [address], 88944, 03/22/2024 15:31:39 03/22/20 24 03/22/2024 CMP, serum or plasm a AST (SGOT) 14 U/L 10-40 Not Available [facility] [address] [place] [address], 40919, 03/22/2024 15:31:39 03/22/20 24 03/22/2024 CMP, serum or plasm a total bilirubin 0.2 mg/dL 0.2-1. 0 Not Available [facility] [address] [place] [address], 22892, 03/22/2024 15:31:39 03/22/20 24 03/22/2024 CMP, serum or plasm a ALT (SGPT) 11 U/L 8-35 Not Available [facility] [address] [place] [address], 96002, 03/22/2024 15:31:39 03/22/20 24 03/22/2024 CMP, serum or plasm a BUN 20 mg/dL 7-21 Not Available [facility] [address] [place] [address], 09673, 03/22/2024 15:31:39 03/22/20 24 03/22/2024 CMP, serum or plasm a creatinine 1.0 mg/dL 0.7-1. 3 Not Available [facility] [address] [place] [address], 24416, 03/22/2024 15:31:39 03/22/20 24 03/22/2024 CMP, serum or plasm a GFR(non-afri can [place]ong konger) 57 Not Available [facility] [address] [place] [address], 03442, 03/22/2024 15:31:39 03/22/20 24 03/22/2024 CMP, serum or plasm a GFR() 69 (CUT FILE CLERK ZACH KIDNE Y DISEA SE HAS A GFR LESS THAN 60 ML/VA N/1.7 3 MM FOR A PERIO D OF THREE MONTH S OR MORE. ) Not Available [facility] [address] [place] [address], 32991, 03/22/2024 15:31:39 03/22/20 24 03/22/2024 CBC CBC Not Available [facility] [address] [place] [address], 67112, 03/22/2024 15:42:17 03/22/20 24 03/22/2024 CBC WBC 4.7 K/uL 3.8-11 .2 Not Available [facility] [address] [place] [address], 81147, 03/22/2024 15:42:17 03/22/20 24 03/22/2024 CBC RBC 3.74 M/uL 3.92-5 .10 low Not Available [facility] [address] [place] [address], 92465, 03/22/2024 15:42:17 03/22/20 24 03/22/2024 CBC HGB 11.7 g/dL 11.8-1 5.3 low Not Available [facility] [address] [place] [address], 27199, 03/22/2024 15:42:17 03/22/20 24 03/22/2024 CBC HCT 34.9 % 36.5-4 4.8 low Not Available [facility] [address] [place] [address], 34757, 03/22/2024 15:42:17 03/22/20 24 03/22/2024 CBC MCV 93.3 fL 80.0-9 9.0 Not Available [facility] [address] [place] [address], 82592, 03/22/2024 15:42:17 03/22/20 24 03/22/2024 CBC MCH 31.3 pg 25.5-3 3.6 Not Available [facility] [address] [place] [address], 62880, 03/22/2024 15:42:17 03/22/20 24 03/22/2024 CBC MCHC 33.5 g/dL 32.0-3 6.0 Not Available [facility] [address] [place] [address], 95404, 03/22/2024 15:42:17 03/22/20 24 03/22/2024 CBC RDW-SD 46.5 fL 35.1 - 46.3 high Not Available [facility] [address] [place] [address], 16069, 03/22/2024 15:42:17 03/22/20 24 03/22/2024 CBC plt 275 K/uL 130-40 0 Not Available [facility] [address] [place] [address], 23964, 03/22/2024 15:42:17 03/22/20 24 03/22/2024 CBC MPV 9.5 fL 9.3-12 .8 Not Available [facility] [address] [place] [address], 94209, 03/22/2024 15:42:17 03/22/20 24 03/22/2024 ESR (eryt hrocy te sedim entat ion rate) , blood sed rate 19 mm/HR 0 - 30 Not Available [facility] [address] [place] [address], 77413, 03/22/2024 17:02:42 04/25/20 24 04/27/2024 C3 (comp lemen t), serum or plasm a complement C3 116 mg/dL 82-167 Not Available [facility] [address] [place] [address], 90716, 04/27/2024 03:40:09 04/25/20 24 04/27/2024 C4 (comp lemen t), serum or plasm a complement C4 32 mg/dL 12-38 Not Available [facility] [address] [place] [address], 75035, 04/27/2024 03:40:10 08/03/19 25 08/04/2024 dangelo Ab + cnc cutting operator Ab, serum sm/cnc cutting operator antibodies Not Available [facility] [address] [place] [address], 69135, 08/04/2024 11:38:31 08/03/19 25 08/04/2024 dangelo Ab + cnc cutting operator Ab, serum sm antibodies <0.2 ai 0.0-0. 9 Not Available [facility] [address] [place] [address], 66965, 08/04/2024 11:38:31 08/03/19 25 08/04/2024 dangelo Ab + cnc cutting operator Ab, serum cnc cutting operator antibody. <0.2 ai 0.0-0. 9 Not Available [facility] [address] [place] [address], 51604, 08/04/2024 11:38:31 08/03/1908/04/2024 CBC CBC Not Available [facility] [address] [place] [address], 32211, 08/04/2024 15:39:09 08/03/1908/04/2024 CBC WBC 4.3 K/uL 3.8-11 .2 Not Available [facility] [address] [place] [address], [id number], 08/04/2024 15:39:09 08/03/1908/04/2024 CBC RBC 3.91 M/uL 3.92-5 .10 low Not Available [facility] [address] [place] [address], [id number], 08/04/2024 15:39:09 08/03/1908/04/2024 CBC HGB 12.0 g/dL 11.8-1 5.3 Not Available [facility] [address] [place] [address], [id number], 08/04/2024 15:39:09 08/03/1908/04/2024 CBC HCT 36.7 % 36.5-4 4.8 Not Available [facility] [address] [place] [address], [id number], 08/04/2024 15:39:09 08/03/1908/04/2024 CBC MCV 93.9 fL 80.0-9 9.0 Not Available [facility] [address] [place] [address], [id number], 08/04/2024 15:39:08/03/1908/04/2024 CBC MCH 30.7 pg 25.5-3 3.6 Not Available [facility] [address] [place] [address], [id number], 08/04/2024 15:39:08/03/1908/04/2024 CBC MCHC 32.7 g/dL 32.0-3 6.0 Not Available [facility] [address] [place] [address], [id number], 08/04/2024 15:39:08/03/1908/04/2024 CBC RDW-SD 47.3 fL 35.1 - 46.3 high Not Available [facility] [address] [place] [address], [id number], 08/04/2024 15:39:08/03/1908/04/2024 CBC plt 219 K/uL 130-40 0 Not Available [facility] [address] [place] [address], [id number], 08/04/2024 15:39:08/03/1908/04/2024 CBC MPV 9.8 fL 9.3-12 .8 Not Available [facility] [address] [place] [address], [id number], 08/04/2024 15:39:08/03/1908/04/2024 compl ement , total , CH50, serum or plasm a ch50 >60 U/mL >41 Age Male Femal e 1 - 30 days Not Estab . Not Estab . 31 days - 6 month s >32 >20 7 month s - 17 years >39 >39 >17 years >41 >41 NOT E: The adult ( >17 years ) refer ence inter joe range is used to flag abnor mals on this repor t. If the patie nt is 17 years old or young er, use the table above to deter mine out of range value s. Not Available [facility] [address] [place] [address], [id number], 08/04/2024 15:39:11 08/03/19 25 08/04/2024 ESR (eryt hrocy te sedim entat ion rate) , blood sed rate 12 mm/HR 0 - 30 Not Available [facility] [address] [place] [address], [id number], 08/04/2024 15:51:14 08/03/19 25 08/04/2024 vitam in D, 25-hy droxy , total , serum vitamin D 25-hydroxy totl 35.0 NG/mL 30.0-8 0.0 Less than 20 ng/mL Defic iency 20-29 ng/mL Insuf ficie ncy 30-80 ng/mL Optim al Great er than 80 ng/mL Possi ble toxic ity Not Available [facility] [address] [place] [address], [id number], 08/04/2024 16:16:45 08/03/19 25 08/04/2024 C-lei ctive prote in, quant itati ve, serum or plasm a CRP high Not Available [facility] [address] [place] [address], [id number], 08/04/2024 16:18:59 08/03/19 25 08/04/2024 C-lei ctive prote in, quant itati ve, serum or plasm a CRP 0.8 mg/dL <0.4-0 .5 high Not Available [facility] [address] [place] [address], [id number], 08/04/2024 16:18:59 08/03/19 25 08/04/2024 CK (crea demetrius kinas e), total , serum CPK- Not Available [facility] [address] [place] [address], [id number], 08/04/2024 16:19:01 08/03/19 25 08/04/2024 CK (crea demetrius kinas e), total , serum CPK 58 U/L 30-200 Not Available [facility] [address] [place] [address], [id number], 08/04/2024 16:19:01 08/03/19 25 08/04/2024 CMP, serum or plasm a comp. met. panel Not Available [facility] [address] [place] [address], [id number], 08/04/2024 16:21:49 08/03/1908/04/2024 CMP, serum or plasm a sodium 144 mmol/ L 136-14 6 Not Available [facility] [address] [place] [address], [id number], 08/04/2024 16:21:49 08/03/19 25 08/04/2024 CMP, serum or plasm a potassium 4.7 mmol/ L 3.5-5. 1 Not Available [facility] [address] [place] [address], [id number], 08/04/2024 16:21:49 08/03/19 25 08/04/2024 CMP, serum or plasm a chloride 109 mmol/ L 98-110 Not Available [facility] [address] [place] [address], [id number], 08/04/2024 16:21:49 08/03/1908/04/2024 CMP, serum or plasm a CO2 28 mEq/L 20-32 Not Available [facility] [address] [place] [address], [id number], 08/04/2024 16:21:49 08/03/1908/04/2024 CMP, serum or plasm a anion gap 12 mmol/ L 10-22 Not Available [facility] [address] [place] [address], [id number], 08/04/2024 16:21:49 08/03/19 25 08/04/2024 CMP, serum or plasm a glucose 95 mg/dL 70-100 Not Available [facility] [address] [place] [address], [id number], 08/04/2024 16:21:49 08/03/19 25 08/04/2024 CMP, serum or plasm a calcium 9.3 mg/dL 8.4-10 .4 Not Available [facility] [address] [place] [address], [id number], 08/04/2024 16:21:49 08/03/1908/04/2024 CMP, serum or plasm a total protein 6.0 g/dL 6.4-8. 3 low Not Available [facility] [address] [place] [address], [id number], 08/04/2024 16:21:49 08/03/1908/04/2024 CMP, serum or plasm a albumin 3.9 g/dL 3.5-5. 3 Not Available [facility] [address] [place] [address], [id number], 08/04/2024 16:21:49 08/03/1908/04/2024 CMP, serum or plasm a ALP 124 U/L 44 - 127 Not Available [facility] [address] [place] [address], [id number], 08/04/2024 16:21:49 08/03/1908/04/2024 CMP, serum or plasm a AST (SGOT) 15 U/L 10-40 Not Available [facility] [address] [place] [address], [id number], 08/04/2024 16:21:49 08/03/1908/04/2024 CMP, serum or plasm a total bilirubin 0.4 mg/dL 0.2-1. 0 Not Available [facility] [address] [place] [address], [id number], 08/04/2024 16:21:49 08/03/19 25 08/04/2024 CMP, serum or plasm a ALT (SGPT) 11 U/L 8-35 Not Available [facility] [address] [place] [address], [id number], 08/04/2024 16:21:49 08/03/19 25 08/04/2024 CMP, serum or plasm a BUN 24 mg/dL 7-21 high Not Available [facility] [address] [place] [address], [id number], 08/04/2024 16:21:49 08/03/19 25 08/04/2024 CMP, serum or plasm a creatinine 1.0 mg/dL 0.7-1. 3 Not Available [facility] [address] [place] [address], [id number], 08/04/2024 16:21:49 08/03/19 25 08/04/2024 CMP, serum or plasm a CKD-epi GFR 58 low eGFR was calcu lated using the 2020 CKD-E PI equat ion. (Hot Kettle Tender zach Kidne y Disea se has an eGFR less than 60 mL/mi n/1.7 3mm for a perio d of three month s or more. ) This calcu latio n has not been valid ated for patie nt ages <18 or >90 years old. Not Available [facility] [address] [place] [address], [id number], 08/04/2024 16:21:49 08/03/19 25 08/05/2024 C3 (comp lemen t), serum or plasm a complement C3 125 mg/dL 82-167 Not Available [facility] [address] [place] [address], [id number], 08/05/2024 09:37:17 08/03/19 25 08/06/2024 C4 (comp lemen t), serum or plasm a complement C4 33 mg/dL 12-38 Not Available [facility] [address] [place] [address], [id number], 08/06/2024 07:37:15 08/03/19 25 08/07/2024 DNA doubl e stran d Ab, QL, serum DNA Ab; double stranded NEGATI VE negati ve Not Available [facility] [address] [place] [address], [id number], 08/07/2024 15:03:05 08/21/19 25 06/05/2024 XR, shoul dariana No observ ation record ed. [facility] Not Available 2024 10:37:32 Result Notes None recorded. 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 Procedures Surgical History Date Name Laterality Status Provider Name and Address Organization Details Recorded Time 06/25/20 21 Carpal tunnel surgery completed [facility] 10/12/2023 18:10:15 procedure on gallbladder completed [facility] 10/12/2023 18:10:38 Gastric bypass for obesity completed [facility] 10/12/2023 18:10:56 hysterectomy completed [facility] 10/12/2023 18:11:04 Imaging Results Imaging Date Name Status LastModified by Organiz ation Details LastModified Time 06/05/2024 XR, shoulder completed [facility] Information not available 08/21/2024 10:37:32 Procedure Notes None recorded. Medical Equipment None Reported. Allergies Allergen ID Allergen Name Allergen Category Reaction Reaction Severity Criticality Documentation Date Start Date Code Code System Note Provider Name and Address Organization Details Recorded Time 0889909 Product containin g 3-hydroxy -3-methyl glutaryl- coenzyme A reductase inhibitor (product) medicatio n dizziness Not available Not available 08/04/20232014 20341 009 SNOMED React ion: Dizzi ness; Other : falls ; Not Available Not Available Not Available 104335 pregabali n medicatio n Not available Not available Not available 08/02/20232014 17830 2 RxNorm Not Available Not Available Not Available 765795 aspirin medicatio n Not available Not available [...] M, W, F ; 1 TAB ON TUES, THRS active Not Available Not Available No t [...] Not Available Vitals Date Recorded Body height Body mass index (BMI) Body weight Heart rate Oxygen saturation Oxygen saturation in Arterial blood by Pulse oximetry Pain severity - 0-10 verbal numeric rating [Score] - Reported Systolic blood pressure Diastolic blood pressure Provider Name and Address Organization Details Last Updated DateTime 4 160.02 cm 35.3 kg/m2 70572.8 8 g 82 /min 98 % 98 % 7 134 mm[Hg] 76 mm[Hg] Shikha Castillo [facility] 4 09:48:03 Date Recorded Body height Body mass index (BMI) Body weight Heart rate Oxygen saturation Oxygen saturation in Arterial blood by Pulse oximetry Pain severity - 0-10 verbal numeric rating [Score] - Reported Systolic blood pressure Diastolic blood pressure Provider Name and Address Organization Details Last Updated DateTime 4 160.02 cm 33 kg/m2 19152.9 g 68 /min 97 % 97 % 4 112 mm[Hg] 56 mm[Hg] Lian Tillman [facility] 4 15:13:53 Date Recorded Body height Body mass index (BMI) Body weight Oxygen saturation Oxygen saturation in Arterial blood by Pulse oximetry Heart rate Systolic blood pressure Diastolic blood pressure Provider Name and Address Organization Details Last Updated DateTime 5 160.02 cm 33.7 kg/m2 76566.5 5 g 100 % 100 % 86 /min 128 mm[Hg] 68 mm[Hg] Pallavi Duffy [facility] 5 11:01:42 Social History None recorded. Functional Status None recorded. Mental Status None recorded. Family History Relationship Description Onset Age of this Age Resolved Age Notes LastModified by Organization Details LastModified Time Father Heart disease Not available 2023 18:08:29 Father Cerebrovascu lar accident [email or web address] Not available 03/2024 18:08:37 Father Diabetes mellitus [email or web address] Not available 2023 18:08:44 Father Hypertensive disorder Not available 2023 18:08:54 Father Leukemia [email or web address] Not availabl e 10/12/2023 18:09:02 Mother Heart disease [email or web address] Not available 2023 18:08:29 Mother Hypertensive disorder Not available 2023 18:08:54 Mother Multiple congenital cysts of kidney [email or web address] Not available 2023 18:09:49 Maternal Grandmother Multiple congenital cysts of kidney Not available 2023 18:09:49 Sister Multiple congenital cysts of kidney [email or web address] Not available 2023 18:09:49 Medical History No medical history recorded. Gynecological HistoryNo gynecological history recorded. Obstetrics History GPAL:G 0 P 0 0 0 0 Past Encounters Encounter ID Performer Location Encounter Start Date Encounter Closed Date Diagnosis/Indication Diagnosis SNOMED-CT Code Diagnosis ICD10 Code Diagnosis Note [id number] Sander Avila MD [facility] ([place]) [address] [facility] 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 6593643977 00 Z79.631 Long-term drug therapy 295985242 Z79.083 [id number] Sander Avila MD [address] [place] [address] Rheumatol [place]gy ([place]) [address] [address] 03/27/2024 14:34:00 03/27/2024 18:15:44 Pain of right shoulder joint 0289176370 1278299 M25.511 Inflammato ry polyarthropathy 882638677 M06.4 Impingemen t syndrome of right shoulder region 2653647595 71762 M75.41 [id number] Sander Avila MD [facility] [place]) [address] [place] [address] 07/27/2024 10:52:24 07/31/2024 17:37:04 Inflammatory polyarthropathy 631286530 M06.4 Osteoarthritis 437449713 M19.90 Pain of ri ght shoulder joint 8138737971 6693312 M25.511 Vitamin D deficiency 347 99362 E55.9 Health Concerns Section Related Observation LastModified by Organization Detai ls LastModified Time None Recorded Concern Status LastModified by Organization Details LastModified Time None Recorded Advance Directives Directive None Recorded Payers Encounter Date Sequence Insurance Name Policy Number Policy Ramos Covered Member ID Ramos Member ID Guarantor Name 10/14/2023 1 [facility] (MEDICARE REPLACEMENT/A DVANTAGE - PPO) [id number] Priscilla Hollins [id number] Priscilla Hollins 03/27/2024 1 [facility] (MEDICARE REPLACEMENT/A DVANTAGE - PPO) [id number] Priscilla Hollins [id number] Priscilla Hollins 07/27/2024 1 [facility] (MEDICARE REPLACEMENT/A DVANTAGE - PPO) [id number] Priscilla Tessie Hollins [id number] Priscilla Hollins Notes Date Note Type Note [...] hand numbness and tingling. She complains of hoop maker machine weakness on the right side. Of note, [...] disease, but otherwise normal parameters.lg Avila MD [address] [facility], [place], [address], [facility] 10/15/2023 14:54:27 03/27/2024 text/html The patient [...] tingling in the hands or loss of hoop maker machine strength. The patient continues to morel some right foot and ankle pain related to indwelling hardware from a Charcot joint surgery previously. She has to wear compression hose as the leg tends to swell. The patient has been seeing an lining maker once a year for routine checkups. She denies any fever or chills. No skin rash or Raynaud s symptoms, aphthous ulcers, neck swelling, lymph node swelling, inflammatory eye symptoms, cough or pleurisy, shortness of breath, chest pain or palpitations, GERD, melena or hematochezia, diarrhea or constipation, anorexia or early satiety. The patient denies any Raynaud s symptoms. She does avoid oral NSAIDs in light of her underlying health problems.linnea Avila MD [facility], [address], [facility] 03/28/2024 21:56:48 07/27/2024 text/html The patient [...] Dr. Krueger of pain management clinic in [place], [place] and recently had a right shoulder cortisone injection after an MRI of the shoulder showed arthritis in the shoulder joint. The results of the shoulder MRI are not available to me at this time, but we will obtain these. The patient reports that the cortisone shot in the shoulder has led to some mild improvement. She is currently trying to do some home exercises. On further review, she has had no fever or chills, skin rash, Raynaud s symptoms, aphthous ulcers, cough, pleurisy, shortness of breath, chest pain or palpitations, GERD, melena or hematochezia, diarrhea or constipation, anorexia or early satiety, dysuria or gross hematuria or bleeding from the nares or gums. The patient does avoid oral NSAIDs in light of her chronic kidney disease stage 3.linnea Avila MD [address] [place] [address], [address], [facility] 07/29/2024 15:23:32 OBGyn Episode No OBEpisode recorded.
--- OUTSIDE RECORDS SUMMARY | 2024-09-14 17:13 | XMS_ITS | Patient Health Summary ---
Author Organization [facility] Address [address] [place] [address] Care Team Providers Care Scoop Driver Name Role Phone Viola Turpin MD Unavailable [phone] Cristobal Gage DO Unavailable [phone] Vishal Negrete MD Primary Care Provider [phone] Bob Little PA-C Unavailable [phone] Note from [facility],non-owned Affiliates and Associated Physician Practices is amultiple site organization consisting of ambulatory clinics and hospital sitesin [place], [place], [place] and [place]. This disclosure is being madepursuant to the Care Everywhere program and may not contain all information available regarding this patient. Last updated 18.[facility] Allergies * Aspirin(Other) -Low Criticality * Nsaids(Other,Dizziness) -Low Criticality * Hmg-Coa-R Inhibitors(Myalgias) -Low Criticality Medications * Be aware that medications may not be up to date on this document. Alwaysverify current medications with the patient. * [place]-3 Fatty Acids (OMEGA 3 PO) Take 1 Tab by mouth once daily * triamcinolone acetonide (KENALOG) 0.1 % lotion Apply to affected area 3 times daily as needed * vitamin B-12 (CYANOCOBALAMIN) 1000 MCG tablet Take 1,000 mcg by mouth once daily. * DULoxetine (CYMBALTA) 60 MG capsule Take 60 mg by mouth 2 times daily * fentaNYL (DURAGESIC) 50 MCG/HR patch(Started 02/21/2015) 1 Patch every 3 days * levothyroxine (SYNTHROID) 300 MCG tablet(Started 02/28/2015) Take 300 mcg by mouth daily before breakfast 1/2 tab mon-fri, 1 tab sat-sun 1 refill left * Nystatin (NYSTOP) 307512 UNIT/GM POWD(Started 02/09/2015) Take 100,000 Units by mouth once daily as needed 2 refills left * esomeprazole (NEXIUM) 40 MG capsule Take 40 mg by mouth daily before breakfast * cyclobenzaprine (FLEXERIL) 10 MG tablet(Started 06/11/2016) Take 1 Tab by mouth 3 times daily as needed 1 refill left * rosuvastatin (CRESTOR) 5 MG tablet Take 2.5 mg by mouth 2 times daily * multivitamins (ONE A DAY) capsule Take 1 Cap by mouth once daily * Ferrous Sulfate (IRON) 325 (65 FE) MG Take 650 mg by mouth once daily * vitamin D, ergocalciferol, (DRISDOL) 63864 UNITS capsule Take 50,000 Units by mouth every 7 days * silver sulfADIAZINE (SILVADENE) 1 % cream Apply 1 g to affected area 2 times daily Reasons: Skin Ulcer * HYDROcodone-acetaminophen (NORCO) 10-325 MG tablet(Started 10/28/2016) TK 1 T PO Q 6 HOURS PRN * betamethasone dipropionate augmented (DIPROLENE) 0.05 % ointment(Started 12/05/2016) APPLY THIN FILM TO AREA TID FOR 10 DAYS THEN TWICE A DAY UNTIL RASH CLEARS * hydroxychloroquine (PLAQUENIL) 200 MG tablet(Started 10/27/2017) TK 1 T PO BID 2 refills left * meloxicam (MOBIC) 15 MG tablet Take 7.5 mg by mouth once daily * ondansetron, disintegrating, (ZOFRAN ODT) 4 MG tablet(Started 04/19/2018) Take 1 tablet by mouth every 6 hours as needed for Nausea/Vomiting Allow tablet to dissolve on the tongue Active Problems Problem Noted Date Diagnosed Date Foot ulcer, left, limited to breakdown of skin 0 07/21/2019 Post-operative state, I&D Right Foot dos 8 05/11/2018 Postoperative infection 04/27/2018 POV right triple arthrodesis DOS 10-01-201611/2016 Charcot foot due to diabetes mellitus 09/02/2016 Post-operative state, Left Sesamoidectomy dos 07/01/2016 Sesamoiditis 06/23/2016 Post-operative state, right foot hardware removal dos 05-16-15 05/22/2015 S/P ankle arthrodesis, Right Foot Medial Column Reconstruction dos 06/26/15 12/26/2014 DM (diabetes mellitus) type II, controlled, with peripheral vascular disorder 06/26/2014 Navicular fracture, foot 03/14/2014 Social History Tobacco [...] Mass Index 40.19 04/27/2018 12:39 PM CDT Medical Devices Implanted Type Area Field Secretary Device Identifier Shelf Expiration Date Model / Serial / Lot Fusion Ames Implanted:Qty: 1 on 06/26/2014 by Cristobal Gage DO at [facility] Foot [employer] [id number] / / Bone Crush Can 30cc - [id number] Implanted:Qty: 1 on 06/26/2014 by Cristobal Gage DO at [facility] Foot [employer] 09/04/2018 [id number] / [id number] / Screw Hdlss 4.3 X 40mm Implanted:Qty: 1 on 10/01/2016 by Cristobal Gage DO at [facility] Right: Foot [employer] [id number] / / Scrw Hdless Comp 6.5 X 85 Implanted:Qty: 1 on 10/01/2016 by Cristobal Gage DO at [facility] Right: Foot [employer] [id number] / / Scrw Hdless Comp 6.5 X 75 Implanted:Qty: 1 on 10/01/2016 by Cristobal Gage DO at [facility] Right: Foot [employer] [id number] / / Screw 6.5mm 80mm Comp Viviana Hdls Arthx Implanted:Qty: 1 on 10/01/2016 by Cristobal Gage DO at [facility] Right: Foot [employer] [id number] / / Screw Hdlss 4.3 X 70mm Screw Implanted:Qty: 2 on 10/01/2016 by Cristobal Gage DO at [facility] Right: Foot [employer] Inc [id number] / / Graft Bone Accell Evo3 Dbm 10ml Ptty - [id number] Implanted:Qty: 1 on 10/01/2016 by Cristobal Gage DO at [facility] Right: Foot [employer] 01/29/2017 [id number] / [id number] / [id number] Graft Bone Canc 30ml Frzdr Crsh 1-4mm Implanted:Qty: 1 on 10/01/2016 by Cristobal Gage DO at [facility] Right: Foot [employer] 03/02/2021 [id number] / / [id number] Explanted Type Area Field Secretary Device Identifier Shelf Expiration Date Model / Serial / Lot K-Wire 9.0in X .062in Explanted:Qty: 2 on 10/01/2016 by Cristobal Gage DO at [facility] Right: Foot [employer] 05/14/2019 [id number] / / [id number] Procedures * XR FOOT RIGHT 3VW OR MORE(Performed 07/19/2019) Performed for S/P ankle arthrodesis, Right Foot Medial Column Reconstruction dos 06/26/15 * XR FOOT RIGHT 3VW OR MORE(Performed 01/18/2019) Performed for POV right triple arthrodesis DOS 10-01-2016 * XR FOOT RIGHT 3VW OR MORE(Performed 08/17/2018) Performed for Post-operative state, right foot hardware removal dos 05-16-15, POV right triple arthrodesis DOS 10-01-2016 * XR FOOT RIGHT 3VW OR MORE(Performed 06/15/2018) Performed for Post-operative state, I&D Right Foot dos 04/28/18 * GLUCOSE - POINT OF CARE(Performed 05/03/2018) * GLUCOSE - POINT OF CARE(Performed 05/03/2018) * GLUCOSE - POINT OF CARE(Performed 05/03/2018) * GLUCOSE - POINT OF CARE(Performed 05/02/2018) * GLUCOSE - POINT OF CARE(Performed 05/02/2018) * GLUCOSE - POINT OF CARE(Performed 05/02/2018) * GLUCOSE - POINT OF CARE(Performed 05/02/2018) * GLUCOSE - POINT OF CARE(Performed 05/01/2018) * GLUCOSE - POINT OF CARE(Performed 05/01/2018) * GLUCOSE - POINT OF CARE(Performed 05/01/2018) * HGB HCT PANEL(Performed 05/01/2018) * GLUCOSE - POINT OF CARE(Performed 05/01/2018) * GLUCOSE - POINT OF CARE(Performed 04/30/2018) * GLUCOSE - POINT OF CARE(Performed 04/30/2018) * GLUCOSE - POINT OF CARE(Performed 04/30/2018) * GLUCOSE - POINT OF CARE(Performed 04/30/2018) * CBC W AUTO DIFFERENTIAL(Performed 04/30/2018) * RENAL FUNCTION PANEL(Performed 04/30/2018) * GLUCOSE - POINT OF CARE(Performed 04/29/2018) * GLUCOSE - POINT OF CARE(Performed 04/29/2018) * GLUCOSE - POINT OF CARE(Performed 04/29/2018) * IR PICC LINE INSERT(Performed 04/29/2018) Performed for Infection of superficial incisional surgical site after procedure, initial encounter,Infection of deep incisional surgical site after procedure, initial encounter * GLUCOSE - POINT OF CARE(Performed 04/29/2018) * VANCOMYCIN LEVEL RANDOM(Performed 04/29/2018) * GLUCOSE - POINT OF CARE(Performed 04/28/2018) * GLUCOSE - POINT OF CARE(Performed 04/28/2018) * PT EVAL AND TREAT(Performed 04/28/2018) * OT EVAL AND TREAT(Performed 04/28/2018) * CULTURE WOUND+GRAM STAIN(Performed 04/28/2018) Performed for Penetrating wound of right foot, sequela * CULTURE ANAEROBE(Performed 04/28/2018) Performed for Penetrating wound of right foot, sequela * IRRIGATION/DEBRIDEMENT FOOT/ANKLE(Performed 04/28/2018) Performed for Penetrating wound of right foot, sequela * GLUCOSE - POINT OF CARE(Performed 04/28/2018) * GLUCOSE - POINT OF CARE(Performed 04/28/2018) * GLUCOSE - POINT OF CARE(Performed 04/28/2018) * HEMOGLOBIN A1C(Performed 04/28/2018) * PT PTT PANEL(Performed 04/28/2018) * BASIC METABOLIC PANEL (CALCIUM TOTAL)(Performed 04/28/2018) * CBC W AUTO DIFFERENTIAL(Performed 04/28/2018) * MRI FOOT RIGHT WWO CONTRAST(Performed 04/27/2018) Performed for Infection of superficial incisional surgical site after procedure, initial encounter * GLUCOSE - POINT OF CARE(Performed 04/27/2018) * GLUCOSE - POINT OF CARE(Performed 04/27/2018) * C-REACTIVE PROTEIN(Performed 04/27/2018) Performed for Infection of superficial incisional surgical site after procedure, initial encounter * CBC W AUTO DIFFERENTIAL(Performed 04/27/2018) Performed for Infection of superficial incisional surgical site after procedure, initial encounter * COMPREHENSIVE METABOLIC PANEL(Performed 04/27/2018) Performed for Infection of superficial incisional surgical site after procedure, initial encounter * ERYTHROCYTE SEDIMENTATION RATE(Performed 04/27/2018) Performed for Infection of superficial incisional surgical site after procedure, initial encounter * CULTURE WOUND+GRAM STAIN(Performed 04/27/2018) * PT EVAL AND TREAT(Performed 04/27/2018) * OT EVAL AND TREAT(Performed 04/27/2018) * GLUCOSE - POINT OF CARE(Performed 04/19/2018) * PATHOLOGY TISSUE EXAM (STL)(Performed 04/19/2018) Performed for Sesamoiditis * EXCISION SESAMOID TOE(Performed 04/19/2018) Performed for Sesamoiditis * GLUCOSE - POINT OF CARE(Performed 04/19/2018) * XR FOOT RIGHT 3VW OR MORE(Performed 03/30/2018) Performed for POV right triple arthrodesis DOS 10-01-2016 * XR CALCANEUS RIGHT 1VW(Performed 03/30/2018) Performed for POV right triple arthrodesis DOS 10-01-2016 * XR CALCANEUS RIGHT 1VW(Performed 12/08/2017) Performed for POV right triple arthrodesis DOS 10-01-2016 * XR FOOT RIGHT 3VW OR MORE(Performed 12/08/2017) Performed for POV right triple arthrodesis DOS 10-01-2016 * XR CALCANEUS RIGHT 1VW(Performed 10/13/2017) Performed for POV right triple arthrodesis DOS 10-01-2016 * XR FOOT RIGHT 3VW OR MORE(Performed 10/13/2017) Performed for POV right triple arthrodesis DOS 10-01-2016 * XR FOOT RIGHT 2VW(Performed 08/11/2017) Performed for POV right triple arthrodesis DOS 10-01-2016 * XR CALCANEUS RIGHT 2VW OR MORE(Performed 08/11/2017) Performed for POV right triple arthrodesis DOS 10-01-2016 * XR FOOT RIGHT 2VW(Performed 06/16/2017) Performed for POV right triple arthrodesis DOS 10-01-2016 * XR CALCANEUS RIGHT 2VW OR MORE(Performed 06/16/2017) Performed for POV right triple arthrodesis DOS 10-01-2016 * XR CALCANEUS RIGHT 2VW OR MORE(Performed 04/14/2017) Performed for POV right triple arthrodesis DOS 10-01-2016 * XR FOOT RIGHT 2VW(Performed 04/14/2017) Performed for POV right triple arthrodesis DOS 10-01-2016 * XR CALCANEUS RIGHT 2VW OR MORE(Performed 03/17/2017) Performed for POV right triple arthrodesis DOS 10-01-2016 * XR FOOT RIGHT 2VW(Performed 03/17/2017) Performed for POV right triple arthrodesis DOS 10-01-2016 * XR CALCANEUS RIGHT 2VW OR MORE(Performed 02/10/2017) Performed for POV right triple arthrodesis DOS 10-01-2016 * XR FOOT RIGHT 2VW(Performed 02/10/2017) Performed for POV right triple arthrodesis DOS 10-01-2016 * XR CALCANEUS RIGHT 2VW OR MORE(Performed 01/20/2017) Performed for POV right triple arthrodesis DOS 10-01-2016 * XR FOOT RIGHT 2VW(Performed 01/20/2017) Performed for POV right triple arthrodesis DOS 10-01-2016 * XR CALCANEUS RIGHT 2VW OR MORE(Performed 01/06/2017) Performed for POV right triple arthrodesis DOS 10-01-2016 * XR FOOT BILAT 3VW OR MORE(Performed 01/06/2017) Performed for POV right triple arthrodesis DOS 10-01-2016 * XR FOOT LEFT 3VW OR MORE(Performed 12/23/2016) Performed for POV right triple arthrodesis DOS 10-01-2016, Foot ulcer, left, limited to breakdown of skin (HCC) * XR CALCANEUS RIGHT 2VW OR MORE(Performed 12/23/2016) Performed for POV right triple arthrodesis DOS 10-01-2016 * XR FOOT RIGHT 2VW(Performed 12/23/2016) Performed for POV right triple arthrodesis DOS 10-01-2016 * XR ANKLE RIGHT 3VW OR MORE(Performed 11/18/2016) Performed for POV right triple arthrodesis DOS 10-01-2016 * CARDIAC EKG ORDER(Performed 11/18/2016) * C-REACTIVE PROTEIN(Performed 10/21/2016) Performed for Wound infection after surgery, initial encounter * ERYTHROCYTE SEDIMENTATION RATE(Performed 10/21/2016) Performed for Wound infection after surgery, initial encounter * CBC W AUTO DIFFERENTIAL(Performed 10/21/2016) Performed for Wound infection after surgery, initial encounter * XR CALCANEUS RIGHT 1VW(Performed 10/21/2016) Performed for POV right triple arthrodesis DOS 10-01-2016 * XR FOOT RIGHT 3VW OR MORE(Performed 10/21/2016) Performed for POV right triple arthrodesis DOS 10-01-2016 * XR FOOT RIGHT 3VW OR MORE(Performed 10/14/2016) Performed for Post-operative state, Left Sesamoidectomy dos 06/23/16 * IMAGING/RADIOLOGY/XRAY RESULTS ORDER(Performed 10/06/2016) * LAB RESULTS ORDER(Performed 10/05/2016) * BASIC METABOLIC PANEL (CALCIUM TOTAL)(Performed 10/03/2016) Performed for Charcot ankle, right * HGB HCT PANEL(Performed 10/03/2016) Performed for Charcot ankle, right * XR FOOT RIGHT 3VW OR MORE(Performed 10/01/2016) Performed for Right foot pain * CULTURE WOUND+GRAM STAIN(Performed 10/01/2016) Performed for Charcot ankle, right * CULTURE ANAEROBE(Performed 10/01/2016) Performed for Charcot ankle, right * ARTHRODESIS/FUSION HINDFOOT (TRIPLE)(Performed 10/01/2016) Performed for CHARCOT E11.610 * PERIPHERAL BLOCK(Performed 10/01/2016) * PERIPHERAL BLOCK(Performed 10/01/2016) * ERYTHROCYTE SEDIMENTATION RATE(Performed 10/01/2016) Performed for Preoperative examination * CBC W AUTO DIFFERENTIAL(Performed 10/01/2016) Performed for Preoperative examination * GLUCOSE - POINT OF CARE(Performed 10/01/2016) * EKG 12-LEAD(Performed 10/01/2016) Performed for Preoperative examination * URINALYSIS REFLEX TO MICROSCOPIC NO CULTURE(Performed 09/23/2016) Performed for Preop examination * CULTURE MSSA/MRSA(Performed 09/23/2016) Performed for Preop examination * CT LOWER EXT RIGHT WO CONTRAST(Performed 09/07/2016) Performed for Charcot foot due to diabetes mellitus (HCC) * LAB RESULTS ORDER(Performed 09/05/2016) * XR FOOT LEFT 3VW OR MORE(Performed 08/05/2016) Performed for Post-operative state, Left Sesamoidectomy dos 06/23/16 * LAB RESULTS ORDER(Performed 07/29/2016) * PATHOLOGY TISSUE EXAM (STL)(Performed 06/23/2016) Performed for Sesamoiditis, Gastrocnemius equinus, left, DM (diabetes mellitus) type II controlled peripheral vascular disorder, S/P ankle arthrodesis, Right Foot Medial Column Reconstruction dos 06/26/15, Post-operative state, right foot hardware removal dos 05-16-15 * GASTROCNEMIUS RECESSION(Performed 06/23/2016) Performed for Sesamoiditis, Gastrocnemius equinus, left * EXCISION SESAMOID TOE(Performed 06/23/2016) Performed for Sesamoiditis, Gastrocnemius equinus, left * GLUCOSE - POINT OF CARE(Performed 06/23/2016) * IMAGING/RADIOLOGY/XRAY RESULTS ORDER(Performed 05/07/2016) * XR ANKLE RIGHT 3VW OR MORE(Performed 05/06/2016) Performed for Charcot's joint of foot, right * XR FOOT LEFT 3VW OR MORE(Performed 05/06/2016) Performed for Neuropathic ulcer of left foot, with necrosis of muscle (HCC) * XR FOOT RIGHT 2VW(Performed 05/06/2016) Performed for Charcot's joint of foot, right * XR FOOT RIGHT 3VW OR MORE(Performed 09/18/2015) Performed for Charcot foot due to diabetes mellitus (HCC) * XR ANKLE RIGHT 2VW(Performed 06/26/2015) Performed for Charcot ankle, right * XR FOOT RIGHT 2VW(Performed 06/26/2015) Performed for Charcot ankle, right * XR FOOT RIGHT 3VW OR MORE(Performed 05/29/2015) Performed for Post-operative state, right foot hardware removal dos 05-16-15 * LAB RESULTS ORDER(Performed 05/18/2015) * GLUCOSE - POINT OF CARE(Performed 05/16/2015) * XR FOOT RIGHT 2VW(Performed 05/16/2015) Performed for Closed fracture of navicular bone of right foot, initial encounter * CULTURE WOUND+GRAM STAIN(Performed 05/16/2015) Performed for Retained orthopedic hardware * CULTURE ANAEROBE(Performed 05/16/2015) Performed for Retained orthopedic hardware * REMOVAL HARDWARE FOOT(Performed 05/16/2015) Performed for RIGHT FOOT CHARCOT WITH MIDFOOT/HINDFOOT NON UNION Z98.1 * GLUCOSE - POINT OF CARE(Performed 05/16/2015) * CBC W AUTO DIFFERENTIAL(Performed 04/24/2015) Performed for Pain in joint, ankle and foot, right * ERYTHROCYTE SEDIMENTATION RATE(Performed 04/24/2015) Performed for Pain in joint, ankle and foot, right * C-REACTIVE PROTEIN(Performed 04/24/2015) Performed for Pain in joint, ankle and foot, right * XR FOOT RIGHT 3VW OR MORE(Performed 04/24/2015) Performed for Pain in joint, ankle and foot, right * XR ANKLE RIGHT 2VW(Performed 04/24/2015) Performed for Pain in joint, ankle and foot, right * XR FOOT RIGHT 3VW OR MORE(Performed 03/27/2015) Performed for Navicular fracture, foot, right, sequela * CBC W AUTO DIFFERENTIAL(Performed 03/20/2015) Performed for S/P ankle arthrodesis, Right Foot Medial Column Reconstruction dos 06/26/15, Tooth abscess * ERYTHROCYTE SEDIMENTATION RATE(Performed 03/20/2015) Performed for S/P ankle arthrodesis, Right Foot Medial Column Reconstruction dos 06/26/15, Tooth abscess * C-REACTIVE PROTEIN(Performed 03/20/2015) Performed for S/P ankle arthrodesis, Right Foot Medial Column Reconstruction dos 06/26/15, Tooth abscess * XR FOOT RIGHT 3VW OR MORE(Performed 03/20/2015) Performed for S/P ankle arthrodesis, Right Foot Medial Column Reconstruction dos 06/26/15 * XR FOOT RIGHT 2VW(Performed 03/04/2015) Performed for S/P ankle arthrodesis, Right Foot Medial Column Reconstruction dos 06/26/15 * XR ANKLE RIGHT 3VW OR MORE(Performed 03/04/2015) Performed for S/P ankle arthrodesis, Right Foot Medial Column Reconstruction dos 06/26/15 * XR FOOT RIGHT 3VW OR MORE(Performed 12/26/2014) Performed for After care * XR FOOT RIGHT 3VW OR MORE(Performed 12/12/2014) Performed for Post-operative state * XR FOOT RIGHT 3VW OR MORE(Performed 11/28/2014) Performed for Aftercare * XR FOOT RIGHT 3VW OR MORE(Performed 11/02/2014) Performed for Arthritis, midfoot * XR FINGER(S) LEFT(Performed 10/12/2014) Performed for Thumb pain, left * XR FOOT RIGHT 3VW OR MORE(Performed 10/12/2014) Performed for Arthrodesis status * XR FOOT RIGHT 3VW OR MORE(Performed 09/19/2014) Performed for Post-operative state, 06/26/2014 for medial column reconstruction * XR FOOT RIGHT 3VW OR MORE(Performed 08/22/2014) Performed for Navicular fracture, foot, right, closed, initial encounter * XR FOOT RIGHT 3VW OR MORE(Performed 07/18/2014) Performed for Post-operative pain * LAB RESULTS ORDER(Performed 06/30/2014) * IMAGING/RADIOLOGY/XRAY RESULTS ORDER(Performed 06/29/2014) * GLUCOSE - POINT OF CARE(Performed 06/27/2014) * HEMOGLOBIN A1C(Performed 06/27/2014) Performed for DM (diabetes mellitus) type II controlled peripheral vascular disorder * CBC W AUTO DIFFERENTIAL(Performed 06/27/2014) Performed for Navicular fracture, foot, right, closed, initial encounter * BASIC METABOLIC PANEL (CALCIUM TOTAL)(Performed 06/27/2014) Performed for Navicular fracture, foot, right, closed, initial encounter * GLUCOSE - POINT OF CARE(Performed 06/26/2014) * PT EVAL AND TREAT(Performed 06/26/2014) Performed for Navicular fracture, foot, right, closed, initial encounter * OT EVAL AND TREAT(Performed 06/26/2014) Performed for Navicular fracture, foot, right, closed, initial encounter * XR FOOT RIGHT 3VW OR MORE(Performed 06/26/2014) Performed for Type Ii Or Unspecified Type Diabetes Mellitus With Neurological Manifestations, Not Stated As Uncontrolled(250.60) ([facility]) * GASTROCNEMIUS RECESSION(Performed 06/26/2014) Performed for Type Ii Or Unspecified Type Diabetes Mellitus With Neurological Manifestations, Not Stated As Uncontrolled(250.60) ([facility]) * BASIC METABOLIC PANEL (CALCIUM TOTAL)(Performed 06/20/2014) Performed for Other specified pre-operative examination * CBC W AUTO DIFFERENTIAL(Performed 06/20/2014) Performed for Other specified pre-operative examination * EKG 12-LEAD(Performed 06/20/2014) Performed for Other specified pre-operative examination * URINE MICROSCOPIC ONLY(Performed 06/20/2014) Performed for Other specified pre-operative examination * URINALYSIS REFLEX TO MICROSCOPIC NO CULTURE(Performed 06/20/2014) Performed for Other specified pre-operative examination * CULTURE MSSA/MRSA(Performed 06/20/2014) Performed for Other specified pre-operative examination * EMG WITH NERVE CONDUCTION STUDY(Performed 05/29/2014) Performed for Fracture of right foot, sequela, Numbness and tingling of both legs * CT LOWER EXT RIGHT WO CONTRAST(Performed 05/16/2014) Performed for Fracture of right foot, sequela * XR ANKLE RIGHT 3VW OR MORE(Performed 05/16/2014) Performed for Ankle pain, right * XR FOOT RIGHT 2VW(Performed 04/05/2014) Performed for Pain, foot, right, chronic * ARTHROCENTESIS/BLOCK SMALL JOINT(Performed 04/05/2014) Performed for Unspecified arthropathy, ankle and foot * CT LOWER EXT RIGHT WO CONTRAST(Performed 03/14/2014) Performed for Pain in joint, ankle and foot, right * XR FOOT RIGHT 3VW OR MORE(Performed 03/14/2014) Performed for Pain in joint, ankle and foot, right * XR FOOT RIGHT 2VW(Performed 01/31/2014) Performed for Pain in joint, ankle and foot, right * XR FOOT RIGHT 3VW OR MORE(Performed 01/16/2014) Performed for Pain in joint, ankle and foot, right Results * XR FOOT RIGHT 3VW OR MORE (07/19/2019 10:30 AM POST FRAMER) Only the most recent of26 resultswithin the time period is included. Anatomical Region Laterality Modality Ankle / Foot Radiographic Belkis ging Narrative 07/19/2019 10:32 AM POST FRAMER Nesha Tracy 07/21/2019 2:01 PM See progress notes for results Cristobal Gage DO DIAGNOSTIC IMAGING O RDERABLES * GLUCOSE - POINT OF CARE (05/03/2018 3:54 PM CDT) Only the most recent of35 resultswithin the time period is included. Pathologist [facility] Glucose WB/POC 96 70 - 106 mg/dL 05/03/2018 3:58 PM CDT [facility] Specimen Type CAPILLARY BLOOD 05/03/2018 3:58 PM CDT [facility] Blood BLOOD SPECIMEN / Unknown 05/03/2018 3:54 PM CDT 05/03/2018 3:58 PM CDT Cristobal Gage DO LAB - POINT OF CARE ORDERABLES [facility] [address] [place] [address] * (ABNORMAL) HGB HCT PANEL (05/01/2018 11:39 AM CDT) Only the most recent of2 resultswithin the time period is included. Hemoglobin 10.4(L) 12.0 - 15.6 gm/dL 05/01/2018 11:52 AM CDT [facility] Hematocrit 32.8(L) 35.9 - 45.5 % 05/01/2018 11:52 AM CDT [facility] Blood BLOOD SPECIMEN / Unknown Venipuncture / Unknown 05/01/2018 11:39 AM CDT 05/01/2018 11:49 AM CDT Lee Goldberg Haley J[employer] TRAINING SUPERVISOR-PRODUCT TESTER LAB - HEMATOLO GY ORDERABLES [facility] [address] [place] [address] * (ABNORMAL) CBC W AUTO DIFFERENTIAL (04/30/2018 4:39 AM CDT) Only the most recent of9 resultswithin the time period is included. WBC 6.9 4.4 - 10.7 x10E9/L 04/30/2018 5:07 AM CDT [facility] WBC Corrected x10E9/L 04/30/2018 5:07 AM CDT [facility] RBC 3.63(L) 3.80 - 5.20 x10E12/L 04/30/2018 5:07 AM CDT [facility] Hemoglobin 9.8(L) 12.0 - 15.6 gm/dL 04/30/2018 5:07 AM CDT [facility] Hematocrit 31.8(L) 35.9 - 45.5 % 04/30/2018 5:07 AM CDT [facility] MCV 87.6 80.7 - 98.3 fl 04/30/2018 5:07 AM CDT [facility] MCH 27.0 26.7 - 34.0 pg 04/30/2018 5:07 AM CDT [facility] MCHC 30.8 30.8 - 35.9 gm/dL 04/30/2018 5:07 AM CDT [facility] Platelet Count 279 153 - 416 x10E9/L 04/30/2018 5:07 AM CDT [facility] RDW-CV 13.6 12.1 - 14.9 % 04/30/2018 5:07 AM CDT [facility] MPV 9.4 9.4 - 12.9 fl 04/30/2018 5:07 AM CDT [facility] Neutrophils % 58.1 44.0 - 73.0 % 04/30/2018 5:07 AM CDT [facility] Lymphocytes % 31.5 20.0 - 43.0 % 04/30/2018 5:07 AM CDT [facility] Monocytes % 7.9 5.0 - 13.0 % 04/30/2018 5:07 AM CDT [facility] Eosinophils % 1.5 0.0 - 6.0 % 04/30/2018 5:07 AM CDT [facility] Basophils % 0.7 0.0 - 2.0 % 04/30/2018 5:07 AM CDT [facility] Immature Granulocytes 0.3 0 - 1 % 04/30/2018 5:07 AM CDT [facility] Neutrophil Absolute 3.98 2.01 - 7.14 x10E9/L 04/30/2018 5:07 AM CDT [facility] Lymphocytes Absolute 2.16 1.07 - 3.94 x10E9/L 04/30/2018 5:07 AM CDT [facility] Monocytes Absolute 0.54 0.26 - 1.07 x10E9/L 04/30/2018 5:07 AM T [facility] Eosinophils Absolute 0.10 0 - 0.47 x10E9/L 04/30/2018 5:07 AM T [facility] Basophils Absolute 0.05 0 - 0.08 x10E9/L 04/30/2018 5:07 AM T [facility] Immature Granulocytes Absolute 0.02 0.00 - 0.06 x10E9/L 04/30/2018 5:07 AM T [facility] nRBC Auto 0 /100 WBC 04/30/2018 5:07 AM T [facility] Blood BLOOD SPECIMEN / Unknown Lab Venipuncture / Unknown 04/30/2018 4:39 AM CDT 04/30/2018 4:52 AM CDT Lee De Leon JOB TRAINING SUPERVISOR-PRODUCT TESTER LAB - HEMATOLO GY ORDERABLES [facility] [address] [place] [address] * (ABNORMAL) RENAL FUNCTION PANEL (04/30/2018 4:39 AM CDT) [facility] Glucose 104 74 - 106 mg/dL 04/30/2018 7:12 AM CDT [facility] Sodium 142 136 - 145 mmol/L 04/30/2018 7:12 AM CDT [facility] Potassium 3.8 3.5 - 5.1 mmol/L 04/30/2018 7:12 AM CDT [facility] Chloride 109(H) 98 - 107 mmol/L 04/30/2018 7:12 AM CDT [facility] CO2 29 22 - 31 mmol/L 04/30/2018 7:12 AM CDT [facility] Calcium 9.1 8.5 - 10.1 mg/dL 04/30/2018 7:12 AM T [facility] Anion Gap 4(L) 8 - 16 mmol/L 04/30/2018 7:12 AM CDT [facility] BUN 10 7 - 21 mg/dL 04/30/2018 7:12 AM T [facility] Creatinine 0.87 0.50 - 1.30 mg/dL 04/30/2018 7:12 AM CDT [facility] Albumin 2.7(L) 3.4 - 5.0 gm/dL 04/30/2018 7:12 AM CDT [facility] Phosphorus 3.8 2.5 - 4.9 mg/dL 04/30/2018 7:12 AM CDT [facility] eGFR by MDRD >60 >60 mL/min/1.7 3m2 04/30/2018 7:12 AM T [facility] eGFR by MDRD >60 >60 mL/min/1.7 3m2 04/30/2018 7:12 AM CDT [facility] Blood BLOOD SPECIMEN / Unknown Lab Venipuncture / Unknown 04/30/2018 4:39 AM CDT 04/30/2018 4:52 AM CDT Lee De Leon JOB TRAINING SUPERVISOR-PRODUCT TESTER LAB - CHEMISTR Y ORDERABLES [facility] [address] [place], [place] [id number] * IR PICC LINE INSERT([facility] STANDARD ORDER) (04/29/2018 10:10 AM CDT) Anatomical Region Laterality Modality X-Ray Angiograph y 04/29/2018 10:3 4 AM CDT Impressions 04/29/2018 10:34 AM CDT Successful placement of a Right single-lumen power PICC, placed via the basilic vein. Catheter is ready for immediate use. Reading Radiologist: Jovon Whitehead MD on 04/29/2018 at 10:34 AM Narrative 04/29/2018 10:34 AM CDT Exam: Right basilic vein PICC placement INDICATION: Need for central venous access for therapy COMPARISON: None Interventionalist: MD Ventura MEDICATIONS: 4 mL 1% lidocaine subcutaneous Blood loss: Negligible Contrast: None Complications: None immediate Fluoroscopy time: 0.3 minutes Findings and Technique: Prior to beginning the procedure, informed consent was obtained. A timeout was completed, including vital patient demographic information, procedure to be performed, as well as other standard information. The patient was placed supine on the fluoroscopy table. The right arm was prepped and draped in the standard sterile fashion. Initial sonographic evaluation of the right arm demonstrated a patent and compressible right basilic vein. An image was saved and sent to PACS. The overlying subcutaneous soft tissues were anesthetized with 1% lidocaine. Real-time ultrasound visualization of vascular needle entry was utilized. The basilic vein was accessed using a micropuncture needle. A microwire was advanced centrally to the level of the high right atrium. The appropriate catheter length was measured, and a Single lumen power PICC was cut to 40 cm. The micropuncture needle was removed and exchanged for a peel-away sheath. Over the wire and through the sheath, the PICC was inserted and advanced. The peel-away sheath was removed. The catheter tip was advanced, positioned at the level of the superior cavoatrial junction. The catheter flushed and aspirated freely with heparinized saline. All lumens were flushed with heparinized saline. The catheter was secured to the skin entry site using an adhesive device. Patient tolerated procedure well; no immediate postprocedural complications identified. Procedure Note Jovon Whitehead MD - 04/29/2018 Exam: Right basilic vein PICC placement INDICATION: Need for central venous access for therapy COMPARISON: None Interventionalist: MD Ventura MEDICATIONS: 4 mL 1% lidocaine subcutaneous Blood loss: Negligible Contrast: None Complications: None immediate Fluoroscopy time: 0.3 minutes Findings and Technique: Prior to beginning the procedure, informed consent was obtained. A timeout was completed, including vital patient demographic information, procedure to be performed, as well as other standard information. The patient was placed supine on the fluoroscopy table. The right arm was prepped and draped in the standard sterile fashion. Initial sonographic evaluation of the right arm demonstrated a patent and compressible right basilic vein. An image was saved and sent to PACS. The overlying subcutaneous soft tissues were anesthetized with 1% lidocaine. Real-time ultrasound visualization of vascular needle entry was utilized. The basilic vein was accessed using a micropuncture needle. A microwire was advanced centrally to the level of the high right atrium. The appropriate catheter length was measured, and a Single lumen power PICC was cut to 40 cm. The micropuncture needle was removed and exchanged for a peel-away sheath. Over the wire and through the sheath, the PICC was inserted and advanced. The peel-away sheath was removed. The catheter tip was advanced, positioned at the level of the superior cavoatrial junction. The catheter flushed and aspirated freely with heparinized saline. All lumens were flushed with heparinized saline. The catheter was secured to the skin entry site using an adhesive device. Patient tolerated procedure well; no immediate postprocedural complications identified. IMPRESSION Successful placement of a Right single-lumen power PICC, placed via the basilic vein. Catheter is ready for immediate use. Reading Radiologist: Jovon Whitehead MD on 04/29/2018 at 10:34 AM Jd Medina MD IR ORDERABLES * VANCOMYCIN LEVEL RANDOM (04/29/2018 6:00 AM CDT) Vancomycin Random 21.0 ug/mL 04/29/2018 6:56 AM CDT [facility] Blood BLOOD SPECIMEN / Unknown Lab Venipuncture / Unknown 04/29/2018 6:00 AM CDT 04/29/2018 6:37 AM CDT Narrative [facility] - 04/29/2018 6:56 AM CDT No reference range available for random Vancomycin levels. All results interpreted by ordering physician. Cristobal Gage DO LAB - CHEMISTRY BASILIO HASSAN [facility] [address] [place] [address] * (ABNORMAL) CULTURE WOUND+GRAM STAIN (04/28/2018 4:54 PM CDT) Only the most recent of4 resultswithin the time period is included. Culture Heavy Staphylococcus aureus(A) KIMMY 05/01/2018 6:15 AM T [facility] Culture Light Enterobacter cloacae complex(A) KIMMY 05/01/2018 6:15 AM T [facility] Gram Stain Heavy Red blood cells 05/01/2018 6:15 AM T [facility] Gram Stain Rare White blood cells 05/01/2018 6:15 AM T [facility] Gram Stain No organisms seen 018 6:15 AM T [facility] Microbiology ENTIRE FOOT / Unknown 04/28/2018 4:54 PM CDT 04/28/2018 10:00 PM CDT Narrative [facility] - 05/01/2018 6:15 AM CDT Enterobacter, Citrobacter, and Serratia may develop resistance during prolonged therapy with third-generation cephalosporins as a result of derepression of AmpC beta-lactamase. Therefore, isolates that are initially susceptible may become resistant within 3 or 4 days after initiation of therapy. Testing of repeat isolates may be warranted. Surgical Description: Right Foot Organism Antibiotic Method Susceptibility Staphylococcus aureus Ciprofloxacin KIMMY <=0.5 ug/mL: Susceptible Staphylococcus aureus Clindamycin KIMMY 0.25 ug/mL: Susceptible Staphylococcus aureus Doxycycline KIMMY <=0.5 ug/mL: Susceptible Staphylococcus aureus Erythromycin KIMMY <=0.25 ug/mL: Susceptible Staphylococcus aureus Gentamicin KIMMY <=0.5 ug/mL: Susceptible Staphylococcus aureus Inducible Clindamy jose ramon Resistance KIMMY NEG ug/mL: Neg Staphylococcus aureus Levofloxacin KIMMY 0.25 ug/mL: Susceptible Staphylococcus aureus Linezolid KIMMY 2 ug/mL: Susceptible Staphylococcus aureus Oxacillin KIMMY 0.5 ug/mL: Susceptible Staphylococcus aureus Tetracycline KIMMY <=1 ug/mL: Susceptible Staphylococcus aureus Trimethoprim-sulfa methoxa zole KIMMY <=10 ug/mL: Susceptible Staphylococcus aureus Vancomycin KIMMY <=0.5 ug/mL: Susceptible Comment:Methicillin-suscepti ble Staphylococci are susceptible to oxacillin, nafcillin, cloxacillin,dicloxacillin, beta lactam/betalactamase inhibitor combinations, cephalosporins including cefazolin and carbapenems. Enterobacter cloacae complex Amikacin KIMMY <=2 ug/mL: Susceptible Enterobacter cloacae complex Cefepime KIMMY <=1 ug/mL: Susceptible Enterobacter cloacae complex Ceftriaxone KIMMY <=1 ug/mL: Susceptible Enterobacter cloacae complex Ciprofloxacin KIMMY <=0.25 ug/mL: Susceptible Enterobacter cloacae complex Gentamicin KIMMY <=1 ug/mL: Susceptible Enterobacter cloacae complex Meropenem KIMMY <=0.25 ug/mL: Susceptible Enterobacter cloacae complex Tobramycin KIMMY <=1 ug/mL: Susceptible Enterobacter cloacae complex Trimethoprim-sulfamethoxa zole KIMMY <=20 ug/mL: Susceptible Cristobal Elijahema LAB - MICROBIOLOGY O KELVIN Performing Organization Address City/[facility] Co de Phone Number [facility] [address] [place] [address], [facility] [phone] * CULTURE ANAEROBE (04/28/2018 4:54 PM CDT) Only the most recent of3 resultswithin the time period is included. Culture No anaerobic organisms isolated KIMMY 05/04/2018 11:14 AM CDT [facility] Microbiology ENTIRE FOOT / Unknown 04/28/2018 4:54 PM CDT 04/28/2018 10:00 PM CDT Narrative [facility] - 05/04/2018 11:14 AM CDT Surgical Description: Right Foot Cristobal Elijahema LAB - MICROBIOLOGY O KELVIN Performing Organization Address City/[facility] Co de Phone Number [facility] [address] [place] [address], [facility] [phone] * (ABNORMAL) HEMOGLOBIN A1C (04/28/2018 4:08 AM CDT) Only the most recent of2 resultswithin the time period is included. Hemoglobin A1c 6.9(H) 4.2 - 6.3 % 04/28/2018 7:23 AM CDT [facility] Estimated Average Glucose 151 mg/dL 04/28/2018 7:23 AM CDT [facility] Blood BLOOD SPECIMEN / Unknown Lab Venipuncture / Unknown 04/28/2018 4:08 AM CDT 04/28/2018 4:21 AM CDT Ambar Rodas APRN-[facility] LAB - CHEMISTR Y ORDERABLES Performing Organization Address [facility] de Phone Number [facility] [address] [place] [phone] * PT PTT PANEL (04/28/2018 4:08 AM CDT) PT 10.4 9.5 - 11.6 sec 04/28/2018 6:02 AM T [facility] INR 1.0 0.9 - 1.1 04/28/2018 6:02 AM [facility] PTT 25.4 21.0 - 32.0 sec 04/28/2018 6:02 AM T [facility] Blood BLOOD SPECIMEN / Unknown Lab Venipuncture / Unknown 04/28/2018 4:08 AM CDT 04/28/2018 4:21 AM CDT Narrative [facility] - 04/28/2018 6:02 AM CDT Conventional Warfarin Anticoagulant Therapy: INR Reference Range: 2.0-3.0 Intensive Warfarin Anticoagulant Therapy: INR Reference Range: 2.5-3.5 Heparin Therapeutic Range for PTT: 47.7 - 68.6 seconds. Ambar Rodas APRN-[facility] LAB - COAGULAT ION ORDERABLES Performing Organization Address [facility] Phone Number [facility] [address] [place] [phone] * (ABNORMAL) BASIC METABOLIC PANEL (CALCIUM TOTAL) (04/28/2018 4:08 AM CDT) Only the most recent of4 resultswithin the time period is included. Glucose 107(H) 74 - 106 mg/dL 04/28/2018 6:21 AM T [facility] Sodium 142 136 - 145 mmol/L 04/28/2018 6:21 AM T [facility] Potassium 4.1 3.5 - 5.1 mmol/L 04/28/2018 6:21 AM [facility] Chloride 109(H) 98 - 107 mmol/L 04/28/2018 6:21 AM CDT [facility] CO2 26 22 - 31 mmol/L 04/28/2018 6:21 AM CDT [facility] Calcium 8.5 8.5 - 10.1 mg/dL 04/28/2018 6:21 AM CDT [facility] Anion Gap 7(L) 8 - 16 mmol/L 04/28/2018 6:21 AM CDT [facility] BUN 11 7 - 21 mg/dL 04/28/2018 6:21 AM CDT [facility] Creatinine 0.74 0.50 - 1.30 mg/dL 04/28/2018 6:21 AM CDT [facility] eGFR by MDRD >60 >60 mL/min/1.7 3m2 04/28/2018 6:21 AM T [facility] eGFR by MDRD >60 >60 mL/min/1.7 3m2 04/28/2018 6:21 AM CDT [facility] Blood BLOOD SPECIMEN / Unknown Lab Venipuncture / Unknown 04/28/2018 4:08 AM CDT 04/28/2018 4:21 AM CDT Ambar Rodas JOB TRAINING SUPERVISOR-PRODUCT TESTER LAB - CHEMISTR Y ORDERABLES [facility] [address] [place] [address] * MRI FOOT W WO CONTRAST RIGHT (04/27/2018 11:10 PM CDT) Anatomical Region Laterality Modality Magnetic Resonan ce 04/28/2018 7:41 AM CDT Impressions 04/28/2018 7:57 AM CDT 1. Postsurgical/inflammatory changes noted along the medial aspect of the first ray with skin thickening, feathery T2 signal hyperintensity, and postcontrast enhancement. There is no evidence of abscess. 2. Osteomyelitis involving the first metatarsal and second metatarsal head. 3. First MTP joint effusion. 4. 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 5. Tibiotalar osteoarthrosis and osteochondral abnormalities. Reading Radiologist: Mena Glass MD on 04/28/2018 at 7:57 AM Narrative 04/28/2018 7:57 AM CDT MRI right foot without and with contrast HISTORY: Postoperative right foot cellulitis. History of diabetic Charcot neuroarthropathy. COMPARISON: Right foot radiograph March 30, 2018 Technique: Multiplanar multisequence evaluation of the right foot prior to and following the administration of 20 cc gadolinium contrast. FINDINGS: Status post fusion of the midfoot and hindfoot. T1 hypointensity, T2 hyperintensity, and mild postcontrast enhancement is identified in the head of the second metatarsal T2 hyperintensity is identified in the more proximal metatarsal without T1 marrow replacement. T2 signal hyperintensity is identified throughout the first ray. Confluent T1 marrow replacement is identified in the head of the first metatarsal. More geographic signal abnormality [T2 hyperintensity T1 hypointensity and postcontrast enhancement] is noted in the more proximal metatarsal shaft and base. Disorganized appearance of the tarsometatarsal joints is noted, particularly the first through third with osseous fragmentation and signal abnormality. Soft tissue thickening is noted along the medial aspect of the first MTP joint with T2 signal hyperintensity and postcontrast enhancement. No defined fluid collections are identified. A first MTP joint effusion is identified with osteoarthrosis. Susceptibility artifact within the soft tissues medial to the first ray in keeping with prior surgical intervention. The medial hallux sesamoid has been resected. Fatty atrophy of the intrinsic foot musculature is identified with edema. Osteochondral abnormalities are identified along the medial aspect of the tibial plafond and talar dome. A tibiotalar joint effusion is identified. Subchondral cystic change and erosion is also noted about the posterior and lateral aspect of the talar dome. Thickening of the anterior tibialis tendon is identified. Heterogeneous appearance to the extensor digitorum longus tendon is identified. Posterior tibialis tendon appears grossly intact. Additional flexor tendons appear intact. Distal insertion of the peroneus brevis not well visualized. Peroneus longus appears intact. Procedure Note Mena Glass MD - 04/28/2018 MRI right foot without and with contrast HISTORY: Postoperative right foot cellulitis. History of diabetic Charcot neuroarthropathy. COMPARISON: Right foot radiograph March 30, 2018 Technique: Multiplanar multisequence evaluation of the right foot prior to and following the administration of 20 cc gadolinium contrast. FINDINGS: Status post fusion of the midfoot and hindfoot. T1 hypointensity, T2 hyperintensity, and mild postcontrast enhancement is identified in the head of the second metatarsal T2 hyperintensity is identified in the more proximal metatarsal without T1 marrow replacement. T2 signal hyperintensity is identified throughout the first ray. Confluent T1 marrow replacement is identified in the head of the first metatarsal. More geographic signal abnormality [T2 hyperintensity T1 hypointensity and postcontrast enhancement] is noted in the more proximal metatarsal shaft and base. Disorganized appearance of the tarsometatarsal joints is noted, particularly the first through third with osseous fragmentation and signal abnormality. Soft tissue thickening is noted along the medial aspect of the first MTP joint with T2 signal hyperintensity and postcontrast enhancement. No defined fluid collections are identified. A first MTP joint effusion is identified with osteoarthrosis. Susceptibility artifact within the soft tissues medial to the first ray in keeping with prior surgical intervention. The medial hallux sesamoid has been resected. Fatty atrophy of the intrinsic foot musculature is identified with edema. Osteochondral abnormalities are identified along the medial aspect of the tibial plafond and talar dome. A tibiotalar joint effusion is identified. Subchondral cystic change and erosion is also noted about the posterior and lateral aspect of the talar dome. Thickening of the anterior tibialis tendon is identified. Heterogeneous appearance to the extensor digitorum longus tendon is identified. Posterior tibialis tendon appears grossly intact. Additional flexor tendons appear intact. Distal insertion of the peroneus brevis not well visualized. Peroneus longus appears intact. IMPRESSION 1. Postsurgical/inflammatory changes noted along the medial aspect of the first ray with skin thickening, feathery T2 signal hyperintensity, and postcontrast enhancement. There is no evidence of abscess. 2. Osteomyelitis involving the first metatarsal and second metatarsal head. 3. First MTP joint effusion. 4. 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 5. Tibiotalar osteoarthrosis and osteochondral abnormalities. Reading Radiologist: Mena Glass MD on 04/28/2018 at 7:57 AM Cristobal Dalejaya [place] MR ORDERABLES * (ABNORMAL) C-REACTIVE PROTEIN (04/27/2018 2:48 PM CDT) Only the most recent of4 resultswithin the time period is included. [facility] C-Reactive Protein 13.20(H) <0.30 mg/dL 04/27/2018 3:23 PM CDT [facility] Blood BLOOD SPECIMEN / Unknown Lab Venipuncture / Unknown 04/27/2018 2:48 PM CDT 04/27/2018 2:51 PM CDT Cristobal Gage LAB - CHEMISTRY ORDE RABYUMIKO [facility] [address] [place] [phone] * (ABNORMAL) ERYTHROCYTE SEDIMENTATION RATE (04/27/2018 2:48 PM CDT) Only the most recent of5 resultswithin the time period is included. [facility] Erythrocyte Sedimentation Rate Automated 48(H) 0 - 30 MM/HR 04/27/2018 3:03 PM CDT [facility] Blood BLOOD SPECIMEN / Unknown Lab Venipuncture / Unknown 04/27/2018 2:48 PM CDT 04/27/2018 2:51 PM CDT [facility] - HEM[facility]OLOG[facility] ORD ERABLES Performing Organization Address [facility]/ZIP Co de Phone Number [facility] [address] [place] [phone] * (ABNORMAL) COMPREHENSIVE METABOLIC PANEL (04/27/2018 2:48 PM CDT) [facility] Glucose 98 74 - 106 mg/dL 04/27/2018 3:23 PM CDT [facility] Sodium 138 136 - 145 mmol/L 04/27/2018 3:23 PM CDT [facility] Potassium 4.0 3.5 - 5.1 mmol/L 04/27/2018 3:23 PM T [facility] Chloride 104 98 - 107 mmol/L 04/27/2018 3:23 PM CDT [facility] CO2 28 22 - 31 mmol/L 04/27/2018 3:23 PM CDT [facility] Calcium 8.5 8.5 - 10.1 mg/dL 04/27/2018 3:23 PM CDT [facility] Anion Gap 6(L) 8 - 16 mmol/L 04/27/2018 3:23 PM CDT [facility] BUN 10 7 - 21 mg/dL 04/27/2018 3:23 PM CDT [facility] Creatinine 0.87 0.50 - 1.30 mg/dL 04/27/2018 3:23 PM CDT [facility] Alkaline Phosphatase 128(H) 38 - 126 U/L 04/27/2018 3:23 PM CDT [facility] ALT 27 13 - 61 U/L 04/27/2018 3:23 PM CDT [facility] AST 20 5 - 40 U/L 04/27/2018 3:23 PM CDT [facility] Protein Total 7.4 6.4 - 8.2 gm/dL 04/27/2018 3:23 PM CDT [facility] Albumin 2.9(L) 3.4 - 5.0 gm/dL 04/27/2018 3:23 PM CDT [facility] Bilirubin Total 0.3 0.2 - 1.0 mg/dL 04/27/2018 3:23 PM CDT [facility] eGFR by MDRD >60 >60 mL/min/1.7 3m2 04/27/2018 3:23 PM CDT [facility] eGFR by MDRD >60 >60 mL/min/1.7 3m2 04/27/2018 3:23 PM CDT [facility] Blood BLOOD SPECIMEN / Unknown Lab Venipuncture / Unknown 04/27/2018 2:48 PM CDT 04/27/2018 2:51 PM CDT Cristobal Gage DO LAB - CHEMISTRY BASILIO HASSAN [facility] [address] [place], [place] [id number] * GROSS + MICRO EXAM (STL) (04/19/2018 10:14 AM CDT) Only the most recent of2 resultswithin the time period is included. Case Report Surgical Pathology Report Case: [id number] Authorizing Provider: Cristobal Gage DO Collected: 04/19/2018 10:14 AM Ordering Location: [facility] Received: 04/19/2018 02:49 PM Pathologist: Main Mendoza MD Specimen: Bone, Right foot Sesamoid Bone 04/21/2018 4:34 PM T [facility] Final Diagnosis Bone, right foot sesamoid, excision - No pathologic diagnosis No active inflammatory infiltrates /[facility] 04/21/18 04/21/2018 4:34 PM T [facility] Clinical History Preop dx - Sesamoiditis (M25.80) Postop dx - Same Clinical findings - Same 04/21/2018 4:34 PM T [facility] Gross Description One specimen received in a formalin filled container labeled right foot sesamoid bone consists of 1.6 x 1 x 0.8 cm portion of bone with smooth glistening articular surface. Sectioning reveals yellow-roland bone throughout. Phone Screener sections are submitted in A1 after decalcification. 04/21/2018 4:34 PM [facility] Microscopic Description Microscopic examination corroborates the diagnosis. /[facility] 04/21/2018 4:34 PM [facility] Disclaimer All histochemical and/or immunohistochemical results are interpreted with controls that demonstrate appropriate staining reactions before reporting results. Note on use of immunocytochemistry reagents: This test was developed and its performance characteristic determined by [facility], Department of Laboratory Medicine. It has not been cleared or approved by the U.S. Food and Drug Administration (FDA). The FDA has determined that such clearance or approval is not necessary. The test is used for clinical purpose. It should not be regarded as investigational or for research. This laboratory is certified to perform high complexity testing. 04/21/2018 4:34 PM [facility] Performed By [facility] at [facility], [address] [place] [address]. [id number] 04/21/2018 4:34 PM [facility] Embedded Images 04/21/2018 4:34 PM [facility] Pathology/Cytolo gy BONE SPECIMEN / Unknown 04/19/2018 10:14 AM CDT 04/19/2018 2:49 PM CDT Cristobal Gage DO LAB - PATHOLOGY/CYTO LOGY ORDERABLES [facility] [address] [place] [id number] * XR CALCANEUS RIGHT 1VW (03/30/2018 10:24 AM CDT) Only the most recent of4 resultswithin the time period is included. Anatomical Region Laterality Modality Ankle / Foot Radiographic Belkis ging Narrative 04/03/2018 8:13 AM CDT Brittany Manzano 04/03/2018 8:13 AM Please see progress notes for xray results Cristobal Gage DO DIAGNOSTIC IMAGING O RDERABLES * XR FOOT 2 VW RIGHT (08/11/2017 11:14 AM POST FRAMER) Only the most recent of13 resultswithin the time period is included. Anatomical Region Laterality Modality Ankle / Foot Radiographic Belkis ging Narrative 08/13/2017 10:30 AM POST FRAMER Nesha Tracy 08/13/2017 10:30 AM See progress notes for results Cristobal Gage DO DIAGNOSTIC IMAGING O RDERABLES * XR CALCANEUS 2+ VW RIGHT (08/11/2017 11:12 AM POST FRAMER) Only the most recent of8 resultswithin the time period is included. Anatomical Region Laterality Modality Ankle / Foot, Lower Extremity Ra diographic Imaging Narrative 08/13/2017 10:30 AM POST FRAMER Nesha Tracy 08/13/2017 10:30 AM See progress notes for results Cristobal Gage DO DIAGNOSTIC IMAGING O RDERABLES * XR FOOT BILAT MIN 3 VIEWS (01/06/2017 12:33 PM CDT) Anatomical Region Laterality Modality Ankle / Foot, Lower Extremity Ra diographic Imaging Narrative 01/11/2017 12:50 AM CDT Nesha Tracy 01/11/2017 12:50 AM See progress notes for results Bob Little PA-C DIAGNOSTIC IMAGING O RDERABLES * XR FOOT 3+ VW LEFT (12/23/2016 11:40 AM CDT) Only the most recent of3 resultswithin the time period is included. Anatomical Region Laterality Modality Ankle / Foot Radiographic Belkis ging Narrative 12/30/2016 12:15 PM CDT Nesha Tracy 12/30/2016 12:15 PM See progress notes for results Bob Little PA-C DIAGNOSTIC IMAGING O RDERABLES * XR ANKLE 3+ VW RIGHT (11/18/2016 11:21 AM CDT) Only the most recent of4 resultswithin the time period is included. Anatomical Region Laterality Modality Lower Extremity Radiographic Belkis ging Narrative 11/25/2016 8:12 AM CDT Nesha Tracy 11/25/2016 8:12 AM See progress notes for results Cristobal Elijahema [place] DIAGNOSTIC IMAGING O RDERABLES * CARDIAC EKG ORDER (11/18/2016 3:05 AM CDT) Narrative 11/18/2016 3:05 AM CDT Ordered by an unspecified provider. Scanned Document CARDIAC SERVICES ORD ERABLES * IMAGING/RADIOLOGY/XRAY RESULTS ORDER (10/06/2016 5:36 AM CDT) Only the most recent of3 resultswithin the time period is included. Anatomical Region Laterality Modality Other Narrative 10/06/2016 5:36 AM CDT Ordered by an unspecified provider. Scanned Document IMAGING * LAB RESULTS ORDER (10/05/2016 10:30 PM CDT) Only the most recent of5 resultswithin the time period is included. Narrative 10/05/2016 10:30 PM CDT Ordered by an unspecified provider. Scanned Document LAB - THERAPEUTIC DR UG MONITORING ORDERABLES * EKG 12-LEAD (10/01/2016 10:07 AM CDT) Only the most recent of2 resultswithin the time period is included. Ventricular Rate 76 BPM [facility] Atrial Rate 76 BPM [facility] P-R Interval 152 ms [facility] QRS Duration ms 64 ms [facility] Q-T Interval ms 362 ms [facility] QTC Calculation (Bezet) 407 ms [facility] Calculated P Rives 66 degrees [facility] Calculated R Rives 43 degrees [facility] Calculated T Rives 18 degrees [facility] Interpretation EKG Normal sinus rhythm Normal ECG When compared with ECG of 20-JUN-2014 12:02, No significant change was found Confirmed by LEIDY NICHOLS, ELLA ([id number]) on 10/02/2016 10:07:11 AM [facility] 10/01/2016 10:0 7 AM CDT 10/02/2016 10:07 AM CDT Aamir Briones MD ECG ORDERABLES Performing Organization Address [facility] Co de Phone Number [facility] * (ABNORMAL) CULTURE MSSA/MRSA (09/23/2016 10:44 AM CDT) Only the most recent of2 resultswithin the time period is included. Culture Negative for methicillin-resist ant Staphylococcus aureus (MRSA) KIMMY 09/25/2016 9:33 AM CDT [facility] Culture Growth of Staphylococcus aureus (MSSA)(A) KIMMY 09/25/2016 9:33 AM CDT [facility] Microbiology SPECIMEN FROM NASAL FOSSAE / Unknown Venipuncture / Unknown 09/23/2016 10:44 AM CDT 09/23/2016 11:59 AM CDT Narrative [facility] - 09/25/2016 9:33 AM CDT Methicillin-susceptible Staphylococci are susceptible to oxacillin, nafcillin, cloxacillin, dicloxacillin, flucloxacillin, beta-lactam/beta-lactamase inhibitor combinations, cephalosporins including cefazolin, and carbapenems. Cristobal Gage DO LAB - MICROBIOLOGY O RDERABLES [facility] [address] [place], [place] [facility], [facility] [phone] * URINALYSIS ROUTINE AUTO (09/23/2016 10:44 AM CDT) Only the most recent of2 resultswithin the time period is included. Color UA Yellow Straw, Yellow, Dark Yellow 09/23/2016 12:03 PM [facility] Clarity UA Clear 09/23/2016 12:03 PM [facility] Specific [place] UA <=1.005 1.005 - 1.030 09/23/2016 12:03 PM [facility] pH UA 6.0 5.0 - 8.0 pH 09/23/2016 12:03 PM [facility] Protein UA Negative Negative 09/23/2016 12:03 PM [facility] Blood UA Negative Negative 09/23/2016 12:03 PM [facility] Leukocyte UA Negative Negative 09/23/2016 12:03 PM [facility] Nitrite UA Negative Negative 09/23/2016 12:03 PM [facility] Glucose UA Negative Negative 09/23/2016 12:03 PM [facility] Ketone UA Negative Negative 09/23/2016 12:03 PM [facility] Bilirubin UA Negative Negative 09/23/2016 12:03 PM [facility] Urobilinogen UA 0.2 0.1 - 1.0 EU/dL 09/23/2016 12:03 PM [facility] Urine URINE SPECIMEN OBTAINED BY CLEAN CATCH PROCEDURE / Unknown Venipuncture / Unknown 09/23/2016 10:44 AM CDT 09/23/2016 11:59 AM CDT Cristobal Gage DO LAB - URINALYSIS ORD ERABLES [facility] [address] [place] [address] * CT LOWER EXTREMITY NON CONTRAST RIGHT (09/07/2016) Only the most recent of3 resultswithin the time period is included. Anatomical Region Laterality Modality Lower Extremity Other Cristobal Gage DO CT ORDERABLES * XR ANKLE 2 VW RIGHT (06/26/2015 11:37 AM POST FRAMER) Only the most recent of2 resultswithin the time period is included. Anatomical Region Laterality Modality Lower Extremity Radiographic Belkis ging Narrative 06/26/2015 12:37 PM POST FRAMER Candice Villasenor, RT(R) 06/26/2015 12:37 PM See office note for x-ray result. Cristobal Gage DIAGNOSTIC IMAGING O RDERABLES * XR FINGER(S) LEFT (10/12/2014 10:26 AM CDT) Anatomical Region Laterality Modality Upper Extremity, Wrist / Hand Ra diographic Imaging Narrative 10/12/2014 11:49 AM CDT Tati Clancy 10/12/2014 11:49 AM See Chart For Xray Report Cristobal Too DIAGNOSTIC IMAGING O RDERABLES * (ABNORMAL) URINALYSIS MICROSCOPIC ONLY (06/20/2014 12:00 PM POST FRAMER) RBC UA 0-2, 2-5 # /hpf 06/20/2014 3:09 PM [facility] WBC UA 5-10(A) 0-2, 2-5 # /hpf 06/20/2014 3:09 PM POST FRAMER [facility] Bacteria UA None Seen 06/20/2014 3:09 PM [facility] Epithelial Cell UA 0-2 0-2, 2-5 06/20/2014 3:09 PM [facility] Mucus UA Trace 06/20/2014 3:09 PM [facility] Urine URINE SPECIMEN OBTAINED BY CLEAN CATCH PROCEDURE / Unknown 06/20/2014 12:00 PM POST FRAMER 06/20/2014 2:30 PM POST FRAMER Cristobal Too LAB - URINALYSIS ORD ERABLES [facility] [address] [place] [address] * EMG WITH NERVE CONDUCTION STUDY (05/29/2014) Cristobal Elijahjaya NEUROLOGY ORDERABLES Care Teams Scoop Driver Relationship Specialty Start Date End Date Vishal Negrete MD PCP - General Internal Medicine 06/08/14 Viola Turpin MD Orthopedic Surgery 01/16/14 Cristobal Gage DO Orthopedic Surgery 01/31/14 Bob Little PA-C [address] [place] [address] Physician Distribution Superintendent Physician Distribution Superintendent 03/04/15
--- OUTSIDE RECORDS SUMMARY | 2024-09-14 17:13 | XMS_ITS | Clinical Summary ---
Author Organization [facility] Address [address] [facility] [address] [place] [address] Phone Care Team Providers Care Automatic Nailing Machine Operator Name Role Phone Vishal Negrete MD Primary Care Provider + Allergies Active Allergy Reactions Criticality Noted Date Comments Bapmipc-Itt-Imf Reductase Inhibitors Unknown 08/11/2016 Medications fentaNYL (DURAGESIC) 50 mcg/hr patch Apply 1 Patch to skin as directed every third day. Active hyoscyamine 0.125 mg Tablet, Sublingual Place 0.125 mg under tongue every 6 hours as needed for Spasm. Active HYDROcodone-johanna taminophen (NORCO) 10-325 mg Tablet Take 1 Tablet by mouth every 6 hours as needed for Pain, Moderate. Active diclofenac sodium (VOLTAREN) 1 % gel Apply to affected area 2 times daily. Active esomeprazole (NexIUM) 40 mg Capsule, Delayed Release(E.C.) Take 40 mg by mouth daily before breakfast. Active DULoxetine (CYMBALTA) 60 mg Capsule, Delayed Release(E.C.) Take 120 mg by mouth daily. Active levothyroxine 300 mcg tablet Take 300 mcg by mouth daily society reporter 1 tab daily mon-fri, 1/2 tab on sat and sun . Active nystatin (NYSTOP) 100,000 unit/gram powder Apply to affected area 4 times daily. Active triamcinolone acetonide (KENALOG) 0.1 % Cream Apply to affected area 2 times daily. Active Active Problems No known active problems Immunizations Immunization Administration Dates Next Due Influenza Seasonal Unspecified Formulation IM Social History Tobacco Use Types Packs/Day Years Used Date Smoking Tobacco: Never Alcohol Use Standard Drinks/Week Comments No 0 (1 standard drink = 0.6 oz pur e alcohol) Comments No Sex and Gender Information Value Date Recorded Sex Assigned at Not on file Legal Sex Female 4:56 AM ALARM FIELD TECHNICIAN Gender Identity Not on file Sexual Orientation Not on file Last Filed Vital Signs Vital Sign Reading Time Taken Comments Blood Pressure 144/85 08/12/2016 7:53 AM ALARM FIELD TECHNICIAN Pulse 70 08/12/2016 7:53 AM ALARM FIELD TECHNICIAN Temperature 36.4 C (97.6 F) 08/12/2016 7:53 AM ALARM FIELD TECHNICIAN Respiratory Rate 20 08/12/2016 7:53 AM ALARM FIELD TECHNICIAN Oxygen Saturation 98% 08/12/2016 7:53 AM ALARM FIELD TECHNICIAN Inhaled Oxygen Concentration - - Weight 93.4 kg (206 lb) 08/12/2016 6:42 AM ALARM FIELD TECHNICIAN Height 160 cm (5' 3 ) 08/11/2016 2:38 PM ALARM FIELD TECHNICIAN Body Mass Index 36.49 08/11/2016 2:38 PM ALARM FIELD TECHNICIAN Plan of Treatment Health Maintenance Due Date Last Done Comments DIABETES ANNUAL FOOT EXAM 1966 DIABETES ANNUAL RETINAL EXAM 1966 DIABETES MICROALBUMIN ANNUAL SCREEN 1966 LDL CHOLESTEROL ANNUAL 1966 DTAP/TDAP/TD VACCINES (1 - Tdap) 11/25/1967 PNEUMOCOCCAL VACCINE 50+ YEARS (1 of 2 - PCV) 11/24/18 68 COLORECTAL SCREENING 1993 Colorectal Cancer Screening 1993 FIT-DNA Q 3 years 1993 FIT/FOBT Q 1 year 1993 Flex Sig/CT Colonography Q 5 years 1993 ZOSTER VACCINE (1 of 2) 1998 OSTEOPOROSIS SCREENING 2013 DIABETES HBA1C Q 6 MONTHS 10/27/2018 04/28/2018 RSV VACCINE (60+ or ) (1 - 1-dose 75+ series) 11/25/2023 INFLUENZA VACCINE (#1) 2024 04/10/2016 Insurance MEDICARE PART A AND B [place] [id number] Advance Directives For more information, please contact: [phone] * Full Code (Latest Code Status on File) Date Activated Date Inactivated Comments 08/12/2016 5:39 AM 08/12/2016 10:28 AM Care Teams Automatic Nailing Machine Operator Relationship Specialty Start Date End Date Vishal Negrete MD [address] [place] [id number] PCP - General Internal Medicine 08/12/16
--- OUTSIDE RECORDS SUMMARY | 2024-09-14 17:13 | XMS_ITS | Encounter Summary ---
Author Organization [facility] Address [address] [facility] [place] [address] Care Team Providers Care Safety Investigator/Cause Analyst Name Role Phone Viola Turpin MD Unavailable Cristobal Gage DO Unavailable Vishal Negrete MD Primary Care Provider Bob Little PA-C Unavailable Encounter Details Date Type Department Care Team (Late st Contact Info) Description 09/15/2016 [facility] Outpatient Visit [facility] Orthopedics - Radiology [address] [place] [address] Cristobal Gage DO [facility] [address] [address] Social History Tobacco Use Types [...] or have serious hearing difficult y? No 06/23/2016 Is person blind or have serious difficulty seein g? No 06/23/2016 Does person have serious dif ficulty walking/climbing stairs? No 06/23/2016 Does person have difficulty dressing/bathing? No 06/23/2016 Does person have difficulty doing errands alone? No 06/23/2016 Cognitive Status Response Date of Assessm ent Does person have difficulty concentrating/remembering/making decisions? No 06/23/2016 documented as of this encounter Plan of Treatment Not on file documented as of this encounter Visit Diagnoses Not on filedocumented in this encounter Care Teams Safety Investigator/Cause Analyst Relationship Specialty Start Date End Date Vishal Negrete MD PCP - General Internal Medicine 06/08/14 Viola Turpin MD Orthopedic Surgery 01/16/14 Cristobal Gage DO Orthopedic Surgery 01/31/14 Bob Little, PAEloC [address] [address] Physician Hoe Runner Physician Hoe Runner 03/04/15 documented as of this encounter
--- OUTSIDE RECORDS SUMMARY | 2024-09-14 17:13 | XMS_ITS | Encounter Summary ---
Author Organization [facility] Address [address] [place] [place] [address] Care Team Providers Care Professor Of French Name Role Phone Viola Turpin MD Unavailable [phone] Cristobal Gage DO Unavailable [phone] Vishal Negrete MD Primary Care Provider [phone] Bob Little PA-C Unavailable [phone] Encounter Details Date Type Department Care Team (Late st Contact Info) Description 04/20/2018 [facility] Outpatient Visit [facility] Orthopedics - Radiology [address] [place] [address] [id number] Document, Scanned Social History Tobacco Use Types Packs/Day Years Used Date Smoking Tobacco: Never Smokeless Tobacco: Never Alcohol Use Standard Drinks/Week Comments [...] or have serious hearing difficult y? No 04/19/2018 Is person blind or have serious difficulty seein g? No 04/19/2018 Does person have serious dif ficulty walking/climbing stairs? Yes 04/19/2018 Does person have difficulty dressing/bathing? No 04/19/2018 Does person have difficulty doing errands alone? Yes 04/19/2018 Cognitive Status Response Date of Assessm ent Does person have difficulty concentrating/remembering/making decisions? No 04/19/2018 documented as of this encounter Plan of Treatment Not on file documented as of this encounter Visit Diagnoses Not on filedocumented in this encounter Care Teams Professor Of French Relationship Specialty Start Date End Date Vishal Negrete MD PCP - General Internal Medicine 06/08/14 Viola Turpin MD Orthopedic Surgery 01/16/14 Cristobal Gage DO Orthopedic Surgery 01/31/14 Bob Little, PAEloC [address] [address] Physician Project Developer Physician Project Developer 03/04/15 documented as of this encounter
== END 2024-09-14 15:27 | disposition home or self-care (01) ==
LOC: CHSLAB 15:27
PROVIDERS: PCP Internal Medicine; Visit Provider Internal Medicine
DX: D50.9 Iron deficiency anemia, unspecified (principal); I95.9 Hypotension, unspecified
CPT/HCPCS: 36415; 80053; 81003; 82728; 83540; 85027; 85046

== ENCOUNTER 2024-09-18 07:59 | Outpatient (CLI) | payer MEDICARE, SELFPAY ==
--- OUTSIDE RECORDS SUMMARY | 2024-09-18 08:09 | XMS_ITS | Encounter Summary ---
Author Organization [facility] Address [address] [facility] [place] [address] Care Team Providers Care Filling Station Laborer Name Role Phone Viola Turpin MD Unavailable [phone] Cristobal Gage DO Unavailable [phone] Vishal Negrete MD Primary Care Provider [phone] Bob Little PA-C Unavailable [phone] Encounter Details Date Type Department Care Team (Late st Contact Info) Description 04/22/2015 Therapy Visit EXTERNAL NON-[facility] [place] [address] [address] Social History Tobacco Use [...] on filedocumented in this encounter Care Teams Filling Station Laborer Relationship Specialty Start Date End Date Vishal Negrete MD PCP - General Internal Medicine 06/08/14 Viola Turpin MD Orthopedic Surgery 01/16/14 Cristobal Gage DO Orthopedic Surgery 01/31/14 Bob Little PA-C [address] [address] Physician Websphere Commerce Consultant Physician Websphere Commerce Consultant 03/04/15 documented as of this encounter
--- OUTSIDE RECORDS SUMMARY | 2024-09-18 08:09 | XMS_ITS | Encounter Summary ---
Author Organization [facility] Address [address] [facility] [place] [address] Care Team Providers Care Wound/Ostomy Nurse Name Role Phone Viola Turpin MD Unavailable [phone] rCistobal Gage DO Unavailable [phone] Vishal Negrete MD Primary Care Provider [phone] Bob Little PA-C Unavailable [phone] Encounter Details Date Type Department Care Team (Late st Contact Info) Description 02/26/2015 Therapy Visit EXTERNAL NON-[facility] [place] [address] [address] Social History Tobacco Use [...] on filedocumented in this encounter Care Teams Wound/Ostomy Nurse Relationship Specialty Start Date End Date Vishal Negrete MD PCP - General Internal Medicine 06/08/14 Viola Turpin MD Orthopedic Surgery 01/16/14 Cristobal Gage DO Orthopedic Surgery 01/31/14 Bob Little PA-C [address] [address] Physician Thread Checker Physician Thread Checker 03/04/15 documented as of this encounter
--- OUTSIDE RECORDS SUMMARY | 2024-09-18 08:09 | XMS_ITS | Clinical Summary ---
Author Organization [facility] Address [address] [facility] [place] [address] Care Team Providers Care Poiser Name Role Phone Viola Turpin MD Unavailable [phone] Cristobal Gage DO Unavailable [phone] Vishal Negrete MD Primary Care Provider [phone] Bob LittleC Unavailable [phone] Source Comments [facility],non-owned Affiliates and Associated Physician Practices is amultiple site organization consisting of ambulatory clinics and hospital sitesin [place], [place], [place] and [place]. This disclosure is being madepursuant to the Care Everywhere program and may not contain all information available regarding this patient. Last updated 18.[facility] Allergies Active Allergy Reactions Criticality Noted Date Comments Aspirin Other Low 01/16/2014 ulcers Nsaids Other,Dizziness Low 05/16/2015 PUD Hmg-Coa-R Inhibitors Myalgias Low 04/05/2014 Medications * Be aware that medications may not be up to date on this document. Alwaysverify current medications with the patient. Medication Sig Dispensed Refills Start Date End Date Status [place]-3 Fatty Acids (OMEGA 3 PO) Take 1 [...] tab sat-sun 1 02/28/2015 Active Nystatin (NYSTOP) 565236 UNIT/GM POWD Take 100,000 Units by mouth [...] once daily Active vitamin D, ergocalciferol, (DRISDOL) 87568 UNITS capsule Take 50,000 Units by mouth [...] this topic Medical Devices Implanted Type Area Insurance Representative Device Identifier Shelf Expiration Date Model / Serial / Lot Fusion [place] Implanted:Qty: 1 on 06/26/2014 by Cristobal Gage DO at [facility] [employer] [id number] / / Bone Crush Can 30cc - [id number] Implanted:Qty: 1 on 06/26/2014 by Cristobal Gage DO at [facility] [employer] 09/04/2018 [id number] / [id number] / Screw Hdlss 4.3 X 40mm Implanted:Qty: 1 on 10/01/2016 by Cristobal Gage DO at [facility] Right: Foot [employer] [id number] / / Scrw Hdless Comp 6.5 X 85 Implanted:Qty: 1 on 10/01/2016 by Cristobal Gage DO at [facility] Right: Foot [employer] [id number] / / Scrw Hdless Comp 6.5 X 75 Implanted:Qty: 1 on 10/01/2016 by Cristobal Gage DO at [facility] Right: Foot [employer] [id number] / / Screw 6.5mm 80mm Comp Viviana Hdls Arthx Implanted:Qty: 1 on 10/01/2016 by Cristobal Gage DO at [facility] Right: Foot [employer] [id number] / / Screw Hdlss 4.3 X 70mm Screw Implanted:Qty: 2 on 10/01/2016 by Cristobal Gage DO at [facility] Right: Foot [employer] [id number] / / Graft Bone Accell Evo3 Dbm 10ml Ptty - [id number] Implanted:Qty: 1 on 10/01/2016 by Cristobal Gage DO at [facility] Right: Foot [employer] 01/29/2017 [id number] / [id number] / [id number] Graft Bone Canc 30ml Frzdr Crsh 1-4mm Implanted:Qty: 1 on 10/01/2016 by Cristobal Gage DO at [facility] Right: Foot [employer] 03/02/2021 [id number] / / [id number] Explanted Type Area Insurance Representative Device Identifier Shelf Expiration Date Model / Serial / Lot K-Wire 9.0in X .062in Explanted:Qty: 2 on 10/01/2016 by Cristobal Gage DO at [facility] Right: Foot [employer] 05/14/2019 [id number] / / [id number] Procedures Procedure Name Priority Date/Time Associated Diagnosis Comments RENAL FUNCTION PANEL AM Draw 04/30/2018 4:39 AM CDT HEMOGLOBIN A1C Routine 04/28/2018 4:08 AM CDT from Last 3 Months or Most Recently Relevant to Health Maintenance Results * (ABNORMAL) RENAL FUNCTION PANEL (04/30/2018 4:39 AM CDT) Glucose 104 74 - 106 mg/dL [facility]/30/2018 [facility] Sodium 142 136 - 145 mmol/L 04/30/2018 7:12 AM [facility] Potassium 3.8 3.5 - 5.1 mmol/L 04/30/2018 7:12 AM [facility] Chloride 109(H) 98 - 107 mmol/L 04/30/2018 7:12 AM [facility] CO2 29 22 - 31 mmol/L 04/30/2018 7:12 AM [facility] Calcium 9.1 8.5 - 10.1 mg/dL 04/30/2018 7:12 AM [facility] Anion Gap 4(L) 8 - 16 mmol/L 04/30/2018 7:12 AM [facility] BUN 10 7 - 21 mg/dL 04/30/2018 7:12 AM [facility] Creatinine 0.87 0.50 - 1.30 mg/dL 04/30/2018 7:12 AM [facility] Albumin 2.7(L) 3.4 - 5.0 gm/dL 04/30/2018 7:12 AM [facility] Phosphorus 3.8 2.5 - 4.9 mg/dL 04/30/2018 7:12 AM [facility] eGFR by MDRD >60 >60 mL/min/1.7 3m2 04/30/2018 7:12 AM [facility] eGFR by MDRD >60 >60 mL/min/1.7 3m2 04/30/2018 7:12 AM [facility] Blood BLOOD SPECIMEN / Unknown Lab Venipuncture / Unknown 04/30/2018 4:39 AM CDT 04/30/2018 4:52 AM CDT Lee De Leon DIRECTOR OF ACADEMIC SUPPORT-COPPER PLATER LAB - CHEMISTR Y ORDERABLES [facility] [address] [place] [address] * (ABNORMAL) HEMOGLOBIN A1C (04/28/2018 4:08 AM CDT) Hemoglobin A1c 6.9(H) 4.2 - 6.3 % 04/28/2018 7:23 AM CDT [facility] Estimated Average Glucose 151 mg/dL 04/28/2018 7:23 AM CDT [facility] Blood BLOOD SPECIMEN / Unknown Lab Venipuncture / Unknown 04/28/2018 4:08 AM CDT 04/28/2018 4:21 AM CDT Ambar Clint Rodas DIRECTOR OF ACADEMIC SUPPORT-COPPER PLATER LAB - CHEMISTR Y ORDERABLES [facility] [address] [place] [address] from Last 3 Months or Most Recently [...] 5:47 PM 06/27/2014 3:34 PM Care Teams Poiser Relationship Specialty Start Date End Date Vishal Negrete MD PCP - General Internal Medicine 06/08/14 Viola Turpin MD Orthopedic Surgery 01/16/14 Cristobal Gage DO Orthopedic Surgery 01/31/14 Bob Little PA-C [address] [place] [address] Physician Rn Ccu Physician Rn Ccu 03/04/15
--- OUTSIDE RECORDS SUMMARY | 2024-09-18 08:09 | XMS_ITS | Encounter Summary ---
Author Organization [facility] Address [address] [place] [address] Care Team Providers Care Opto Mechanical Engineer Name Role Phone Viola Turpin MD Unavailable Cristobal Gage DO Unavailable [phone] Vishal Negrete MD Primary Care Provider Bob Little PA-C Unavailable Encounter Details Date Type Department Care Team (Late st Contact Info) Description 06/08/2014 [facility] Outpatient Visit [facility] Orthopedics - Radiology [address] [place] [id number] Cristobal Gage DO [facility] [address] [id number] Social History Tobacco Use Types [...] on filedocumented in this encounter Care Teams Opto Mechanical Engineer Relationship Specialty Start Date End Date Vishal Negrete MD PCP - General Internal Medicine 06/08/14 Viola Turpin MD Orthopedic Surgery 01/16/14 Cristobal Gage DO Orthopedic Surgery 01/31/14 Bob Little, PAEloC [address] [address] Physician Coat Padder Physician Coat Padder 03/04/15 documented as of this encounter
--- OUTSIDE RECORDS SUMMARY | 2024-09-18 08:09 | XMS_ITS | Referral Summary ---
Author Organization [facility] Address [address] [place] [address] Care Team Providers Care Joy Loading Machine Operator Name Role Phone Viola Turpin MD Unavailable Cristobal Gage DO Unavailable [phone] Vishal Negrete MD Primary Care Provider [phone] Bob LittleC Unavailable [phone] Source Comments [facility],non-owned Affiliates and Associated Physician Practices is amultiple site organization consisting of ambulatory clinics and hospital sitesin [place], [place], [place]. This disclosure is being madepursuant to the Care Everywhere program and may not contain all information available regarding this patient. Last updated 18.[facility] Allergies Active Allergy Reactions Criticality Noted Date Comments Aspirin Other Low 01/16/2014 ulcers Nsaids Other,Dizziness Low 05/16/2015 PUD Hmg-Coa-R Inhibitors Myalgias Low 04/05/2014 Medications * Be aware that medications may not be up to date on this document. Alwaysverify current medications with the patient. Medication Sig Dispensed Refills Start Date End Date Status [place]-3 Fatty Acids (OMEGA 3 PO) Take 1 [...] tab sat-sun 1 02/28/2015 Active Nystatin (NYSTOP) 542368 UNIT/GM POWD Take 100,000 Units by mouth [...] once daily Active vitamin D, ergocalciferol, (DRISDOL) 96576 UNITS capsule Take 50,000 Units by mouth [...] on file Medical Devices Implanted Type Area Repairer Sash And Door Device Identifier Shelf Expiration Date Model / Serial / Lot Fusion [place] Implanted:Qty: 1 on 06/26/2014 by Cristobal Gage DO at [facility] Foot [employer] [id number] / / Bone Crush Can 30cc - [id number] Implanted:Qty: 1 on 06/26/2014 by Cristobal Gage DO at [facility] Foot [employer] 09/04/2018 [id number] / [id number] / Screw Hdlss 4.3 X 40mm Implanted:Qty: 1 on 10/01/2016 by Cristobal Gage DO at [facility] Right: Foot [employer] AR-8643-40 / / Scrw Hdless Comp 6.5 X 85 Implanted:Qty: 1 on 10/01/2016 by Cristobal Gage DO at [facility] Right: Foot [employer] [id number] / / Scrw Hdless Comp 6.5 X 75 Implanted:Qty: 1 on 10/01/2016 by Cristobal Gage DO at [facility] Right: Foot [employer] [id number] / / Screw 6.5mm 80mm Comp Viviana Hdls Arthx Implanted:Qty: 1 on 10/01/2016 by Cristobal Gage DO at [facility] Right: Foot [employer] [id number] / / Screw Hdlss 4.3 X 70mm Screw Implanted:Qty: 2 on 10/01/2016 by Cristobal Gage DO at [facility] Right: Foot [employer] AR-8643-70 / / Graft Bone Accell Evo3 Dbm 10ml Ptty - [id number] Implanted:Qty: 1 on 10/01/2016 by Cristobal Gage DO at [facility] Right: Foot [employer] 01/29/2017- / [id number] / [id number] Graft Bone Canc 30ml Frzdr Crsh 1-4mm Implanted:Qty: 1 on 10/01/2016 by Cristobal Gage DO at [facility] Right: Foot [employer] 03/02/2021 [id number] / / [id number] Explanted Type Area Repairer Sash And Door Device Identifier Shelf Expiration Date Model / Serial / Lot K-Wire 9.0in X .062in Explanted:Qty: 2 on 10/01/2016 by Cristobal Gage DO at [facility] Right: Foot [employer] 05/14/2019 [id number] / / [id number] Procedures Procedure Name Priority Date/Time Associated Diagnosis Comments RENAL FUNCTION PANEL AM Draw 04/30/2018 4:39 AM CDT HEMOGLOBIN A1C Routine 04/28/2018 4:08 AM CDT from Last 3 Months or Most Recently Relevant to Health Maintenance Results * (ABNORMAL) RENAL FUNCTION PANEL (04/30/2018 4:39 AM CDT) Glucose 104 74 - 106 mg/dL 04/30/2018 7:12 AM CDT [facility] Sodium 142 136 - 145 mmol/L 04/30/2018 7:12 AM CDT [facility] Potassium 3.8 3.5 - 5.1 mmol/L 04/30/2018 7:12 AM CDT [facility] Chloride 109(H) 98 - 107 mmol/L 04/30/2018 7:12 AM CDT [facility] CO2 29 22 - 31 mmol/L 04/30/2018 7:12 AM CDT [facility] Calcium 9.1 8.5 - 10.1 mg/dL 04/30/2018 7:12 AM T [facility] Anion Gap 4(L) 8 - 16 mmol/L 04/30/2018 7:12 AM CDT [facility] BUN 10 7 - 21 mg/dL 04/30/2018 7:12 AM CDT [facility] Creatinine 0.87 0.50 - 1.30 mg/dL 04/30/2018 7:12 AM CDT [facility] Albumin 2.7(L) 3.4 - 5.0 gm/dL 04/30/2018 7:12 AM CDT [facility] Phosphorus 3.8 2.5 - 4.9 mg/dL 04/30/2018 7:12 AM CDT [facility] eGFR by MDRD >60 >60 mL/min/1.7 3m2 04/30/2018 7:12 AM CDT [facility] eGFR by MDRD >60 >60 mL/min/1.7 3m2 04/30/2018 7:12 AM CDT [facility] Blood BLOOD SPECIMEN / Unknown Lab Venipuncture / Unknown 04/30/2018 4:39 AM CDT 04/30/2018 4:52 AM CDT Lee De Leon BOIL OFF WORKER-SPIRITUAL CARE COORDINATOR LAB - CHEMISTR Y ORDERABLES [facility] [address] [place] [address] * (ABNORMAL) HEMOGLOBIN A1C (04/28/2018 4:08 AM CDT) [facility] [address] Hemoglobin A1c 6.9(H) 4.2 - 6.3 % 04/28/2018 7:23 AM CDT [facility] Estimated Average Glucose 151 mg/dL 04/28/2018 7:23 AM CDT [facility] Blood BLOOD SPECIMEN / Unknown Lab Venipuncture / Unknown 04/28/2018 4:08 AM CDT 04/28/2018 4:21 AM CDT Ambar Rodas BOIL OFF WORKER-SPIRITUAL CARE COORDINATOR LAB - CHEMISTR Y ORDERABLES [facility] [address] [place] [address] from Last 3 Months or Most Recently [...] 5:47 PM 06/27/2014 3:34 PM Care Teams Joy Loading Machine Operator Relationship Specialty Start Date End Date Vishal Negrete MD PCP - General Internal Medicine 06/08/14 Viola Turpin MD Orthopedic Surgery 01/16/14 Cristobal Gage DO Orthopedic Surgery 01/31/14 Bob Little, PAEloC [address] [place] [address] [address] Physician Enterprise Business Architect Physician Enterprise Business Architect 03/04/15
--- OUTSIDE RECORDS SUMMARY | 2024-09-18 08:09 | XMS_ITS | Patient Health Summary ---
Author Organization [facility] Address [address] [place] [address] Care Team Providers Care Sanitation Manager Name Role Phone Viola Turpin MD Unavailable [phone] Cristobal Gage DO Unavailable [phone] Vishal Negrete MD Primary Care Provider [phone] Bob Little PA-C Unavailable [phone] Note from [facility],non-owned Affiliates and Associated Physician Practices is amultiple site organization consisting of ambulatory clinics and hospital sitesin [place], [place], [place] and [place]. This disclosure is being madepursuant to the Care Everywhere program and may not contain all information available regarding this patient. Last updated 18.[facility] Allergies * Aspirin(Other) -Low Criticality * Nsaids(Other,Dizziness) -Low Criticality * Hmg-Coa-R Inhibitors(Myalgias) -Low Criticality Medications * Be aware that medications may not be up to date on this document. Alwaysverify current medications with the patient. * [place]-3 Fatty Acids (OMEGA 3 PO) Take 1 [...] sat-sun 1 refill left * Nystatin (NYSTOP) 750452 UNIT/GM POWD(Started 02/09/2015) Take 100,000 Units by [...] once daily * vitamin D, ergocalciferol, (DRISDOL) 64164 UNITS capsule Take 50,000 Units by mouth [...] PM CDT Medical Devices Implanted Type Area Barkeep Device Identifier Shelf Expiration Date Model / Serial / Lot Fusion Hephzibah Implanted:Qty: 1 on 06/26/2014 by Cristobal Gage DO at [facility] Foot [employer] [id number] / / Bone Crush Can 30cc - [id number] Implanted:Qty: 1 on 06/26/2014 by Cristobal Gage DO at [facility] Foot [employer]ource 09/04/2018 [id number] / [id number] / Screw Hdlss 4.3 X 40mm Implanted:Qty: 1 on 10/01/2016 by Cristobal Gage DO at [facility] Right: Foot Arthrex Inc [id number] / / Scrw Hdless Comp 6.5 X 85 Implanted:Qty: 1 on 10/01/2016 by Cristobal Gage DO at [facility] Right: Foot [employer] [id number] / / Scrw Hdless Comp 6.5 X 75 Implanted:Qty: 1 on 10/01/2016 by Cristobal Gage DO at [facility] Right: Foot [employer] [id number] / / Screw 6.5mm 80mm Comp Viviana Hdls Arthx Implanted:Qty: 1 on 10/01/2016 by Cristobal Gage DO at [facility] Right: Foot [employer] [id number] / / Screw Hdlss 4.3 X 70mm Screw Implanted:Qty: 2 on 10/01/2016 by Cristobal Gage DO at [facility] Right: Foot [employer] [id number] / / Graft Bone Accell Evo3 Dbm 10ml Ptty - [id number] Implanted:Qty: 1 on 10/01/2016 by Cristobal Gage DO at [facility] Right: Foot Inte[employer] 01/29/2017 [id number] / [id number] / [id number] Graft Bone Canc 30ml Frzdr Crsh 1-4mm Implanted:Qty: 1 on 10/01/2016 by Cristobal Gage DO at [facility] Right: Foot [employer] 03/02/2021 [id number] / / [id number] Explanted Type Area Barkeep Device Identifier Shelf Expiration Date Model / Serial / Lot K-Wire 9.0in X .062in Explanted:Qty: 2 on 10/01/2016 by Cristobal Gage DO at [facility] Right: Foot [employer] 05/14/2019 [id number] / / [id number] Procedures * XR FOOT RIGHT 3VW OR [...] With Neurological Manifestations, Not Stated As Uncontrolled(250.60) ([facility]) * GASTROCNEMIUS RECESSION(Performed 06/26/2014) Performed for Type Ii Or Unspecified Type Diabetes Mellitus With Neurological Manifestations, Not Stated As Uncontrolled(250.60) ([facility]) * BASIC METABOLIC PANEL (CALCIUM TOTAL)(Performed 06/20/2014) [...] RIGHT 3VW OR MORE (07/19/2019 10:30 AM WATER MAIN INSTALLER HELPER) Only the most recent of26 resultswithin the time period is included. Anatomical Region Laterality Modality Ankle / Foot Radiographic Belkis ging Narrative 07/19/2019 10:32 AM WATER MAIN INSTALLER HELPER Nesha Tracy 07/21/2019 2:01 PM See progress notes for results Cristobal Gage DO DIAGNOSTIC IMAGING O RDERABLES * GLUCOSE - POINT OF CARE (05/03/2018 3:54 PM CDT) Only the most recent of35 resultswithin the time period is included. Pathologist [facility] Glucose WB/POC 96 70 - 106 mg/dL 05/03/2018 3:58 PM CDT [facility] Specimen Type CAPILLARY BLOOD 05/03/2018 3:58 PM CDT [facility] Blood BLOOD SPECIMEN / Unknown 05/03/2018 3:54 PM CDT 05/03/2018 3:58 PM CDT Cristobal Gage DO LAB - POINT OF CARE ORDERABLES [facility] [address] [place] [address] * (ABNORMAL) HGB HCT PANEL [...] 05/01/2018 11:49 AM CDT Lee Goldberg Haley MEDICAL BILLER-INSTRUCTOR ADJUNCT SURGICAL TECHNICIAN LAB - HEMATOLO GY ORDERABLES [facility] [address] [place] [address] * (ABNORMAL) CBC W AUTO DIFFERENTIAL (04/30/2018 4:39 AM CDT) Only the most recent of9 resultswithin the time period is included. WBC 6.9 4.4 - 10.7 x10E9/L 04/30/2018 5:07 AM CDT [facility] WBC Corrected x10E9/L 04/30/2018 5:07 AM CDT [facility] RBC 3.63(L) 3.80 - 5.20 x10E12/L 04/30/2018 5:07 AM CDT [facility] Hemoglobin 9.8(L) 12.0 - 15.6 gm/dL 04/30/2018 5:07 AM CDT [facility] Hematocrit 31.8(L) 35.9 - 45.5 % 04/30/2018 5:07 AM CDT [facility] MCV 87.6 80.7 - 98.3 fl 04/30/2018 5:07 AM CDT [facility] MCH 27.0 26.7 - 34.0 pg 04/30/2018 5:07 AM CDT [facility] MCHC 30.8 30.8 - 35.9 gm/dL 04/30/2018 5:07 AM CDT [facility] Platelet Count 279 153 - 416 x10E9/L 04/30/2018 5:07 AM CDT [facility] RDW-CV 13.6 12.1 - 14.9 % 04/30/2018 5:07 AM CDT [facility] MPV 9.4 9.4 - 12.9 fl 04/30/2018 5:07 AM CDT [facility] Neutrophils % 58.1 44.0 - 73.0 % 04/30/2018 5:07 AM CDT [facility] Lymphocytes % 31.5 20.0 - 43.0 [...] 04/30/2018 4:52 AM CDT Lee De Leon MEDICAL BILLER-INSTRUCTOR ADJUNCT SURGICAL TECHNICIAN LAB - HEMATOLO GY ORDERABLES [facility] [address] [place] [address] * (ABNORMAL) RENAL FUNCTION PANEL (04/30/2018 4:39 AM CDT) [facility] Glucose 104 74 - 106 mg/dL 04/30/2018 7:12 AM CDT [facility] Sodium 142 136 - 145 mmol/L 04/30/2018 7:12 AM CDT [facility] Potassium 3.8 3.5 - 5.1 mmol/L 04/30/2018 7:12 AM CDT [facility] Chloride 109(H) 98 - 107 mmol/L 04/30/2018 7:12 AM CDT [facility] CO2 29 22 - 31 mmol/L 04/30/2018 7:12 AM CDT [facility] Calcium 9.1 8.5 - 10.1 mg/dL 04/30/2018 7:12 AM T [facility] Anion Gap 4(L) 8 - 16 mmol/L 04/30/2018 7:12 AM CDT [facility] BUN 10 7 - 21 mg/dL 04/30/2018 7:12 AM T [facility] Creatinine 0.87 0.50 - 1.30 mg/dL 04/30/2018 7:12 AM CDT [facility] Albumin 2.7(L) 3.4 - 5.0 gm/dL 04/30/2018 7:12 AM CDT [facility] Phosphorus 3.8 2.5 - 4.9 mg/dL 04/30/2018 7:12 AM CDT [facility] eGFR by MDRD >60 >60 mL/min/1.7 3m2 04/30/2018 7:12 AM T [facility] eGFR by MDRD >60 >60 mL/min/1.7 3m2 04/30/2018 7:12 AM CDT [facility] Blood BLOOD SPECIMEN / Unknown Lab Venipuncture / Unknown 04/30/2018 4:39 AM CDT 04/30/2018 4:52 AM CDT Lee De Leon MEDICAL BILLER-INSTRUCTOR ADJUNCT SURGICAL TECHNICIAN LAB - CHEMISTR Y ORDERABLES [facility] [address] [place], [place] [id number] * IR PICC LINE INSERT([facility] [...] BASILIO HASSAN [facility] [address] [place] [address] * (ABNORMAL) CULTURE WOUND+GRAM STAIN (04/28/2018 4:54 PM CDT) Only the most recent of4 resultswithin the time period is included. Culture Heavy Staphylococcus aureus(A) KIMMY 05/01/2018 6:15 AM T [facility] Culture Light Enterobacter cloacae complex(A) KIMMY 05/01/2018 6:15 AM T [facility] Gram Stain Heavy Red blood cells 05/01/2018 6:15 AM T [facility] Gram Stain Rare White blood cells 05/01/2018 6:15 AM T [facility] Gram Stain No organisms seen 018 6:15 AM T [facility] Microbiology ENTIRE FOOT / Unknown 04/28/2018 4:54 PM CDT 04/28/2018 10:00 PM CDT Narrative [facility] - 05/01/2018 6:15 AM CDT [...] - MICROBIOLOGY O KELVIN Performing Organization Address City/[facility] Co de Phone Number [facility] [address] [place] [address], [facility] [phone] * CULTURE ANAEROBE (04/28/2018 4:54 PM CDT) Only the most recent of3 resultswithin the time period is included. Culture No anaerobic organisms isolated KIMMY 05/04/2018 11:14 AM CDT [facility] Microbiology ENTIRE FOOT / Unknown 04/28/2018 4:54 PM CDT 04/28/2018 10:00 PM CDT Narrative [facility] - 05/04/2018 11:14 AM CDT Surgical Description: Right Foot Cristobal Elijahema LAB - MICROBIOLOGY O KELVIN Performing Organization Address City/[facility] Co de Phone Number [facility] [address] [place] [address], [facility] [phone] * (ABNORMAL) HEMOGLOBIN A1C (04/28/2018 4:08 AM [...] CDT 04/28/2018 4:21 AM CDT Ambar Rodas APRN-[facility] LAB - CHEMISTR Y ORDERABLES Performing Organization Address [facility] de Phone Number [facility] [address] [place] [phone] * PT PTT PANEL (04/28/2018 4:08 AM CDT) PT 10.4 9.5 - 11.6 sec 04/28/2018 6:02 AM T [facility] INR 1.0 0.9 - 1.1 04/28/2018 6:02 AM [facility] PTT 25.4 21.0 - 32.0 sec [...] PTT: 47.7 - 68.6 seconds. Ambar Rodas APRN-[facility] LAB - COAGULAT ION ORDERABLES Performing Organization Address [facility] Phone Number [facility] [address] [place] [phone] * (ABNORMAL) BASIC METABOLIC PANEL (CALCIUM TOTAL) (04/28/2018 4:08 AM CDT) Only the most recent of4 resultswithin the time period is included. Glucose 107(H) 74 - 106 mg/dL 04/28/2018 6:21 AM T [facility] Sodium 142 136 - 145 mmol/L 04/28/2018 6:21 AM T [facility] Potassium 4.1 3.5 - 5.1 mmol/L 04/28/2018 6:21 AM [facility] Chloride 109(H) 98 - 107 mmol/L [...] CDT 04/28/2018 4:21 AM CDT Ambar Rodas MEDICAL BILLER-INSTRUCTOR ADJUNCT SURGICAL TECHNICIAN LAB - CHEMISTR Y ORDERABLES [facility] [address] [place] [address] * MRI FOOT W WO CONTRAST RIGHT [...] of4 resultswithin the time period is included. [facility] C-Reactive Protein 13.20(H) <0.30 mg/dL 04/27/2018 3:23 PM CDT [facility] Blood BLOOD SPECIMEN / Unknown Lab Venipuncture / Unknown 04/27/2018 2:48 PM CDT 04/27/2018 2:51 PM CDT Cristobal Gage LAB - CHEMISTRY ORDE RABYUMIKO [facility] [address] [place] [address] * (ABNORMAL) ERYTHROCYTE SEDIMENTATION RATE (04/27/2018 2:48 PM CDT) Only the most recent of5 resultswithin the time period is included. [facility] Erythrocyte Sedimentation Rate Automated 48(H) 0 - 30 MM/HR 04/27/2018 3:03 PM CDT [facility] Blood BLOOD SPECIMEN / Unknown Lab Venipuncture / Unknown 04/27/2018 2:48 PM CDT 04/27/2018 2:51 PM CDT [facility] - HEMATOLOGY ORD ERABLES Performing Organization Address [facility]/ZIP Co de Phone Number [facility] [address] [place] [phone] * (ABNORMAL) COMPREHENSIVE METABOLIC PANEL (04/27/2018 2:48 PM CDT) [facility] Glucose 98 74 - 106 mg/dL 04/27/2018 [...] - 10.1 mg/dL 04/27/2018 3:23 PM CDT [facility] Anion Gap 6(L) 8 - 16 mmol/L 04/27/2018 3:23 PM CDT [facility] BUN 10 7 - 21 mg/dL 04/27/2018 3:23 PM CDT [facility] Creatinine 0.87 0.50 - 1.30 mg/dL 04/27/2018 3:23 PM CDT [facility] Alkaline Phosphatase 128(H) 38 - 126 U/L 04/27/2018 3:23 PM CDT [facility] ALT 27 13 - 61 U/L 04/27/2018 3:23 PM CDT [facility] AST 20 5 - 40 U/L 04/27/2018 3:23 PM CDT [facility] Protein Total 7.4 6.4 - 8.2 gm/dL 04/27/2018 3:23 PM CDT [facility] Albumin 2.9(L) 3.4 - 5.0 gm/dL 04/27/2018 3:23 PM CDT [facility] Bilirubin Total 0.3 0.2 - 1.0 mg/dL 04/27/2018 3:23 PM CDT [facility] eGFR by MDRD >60 >60 mL/min/1.7 3m2 04/27/2018 3:23 PM CDT [facility] eGFR by MDRD >60 >60 mL/min/1.7 3m2 04/27/2018 3:23 PM CDT [facility] Blood BLOOD SPECIMEN / Unknown Lab Venipuncture / Unknown 04/27/2018 2:48 PM CDT 04/27/2018 2:51 PM CDT Cristobal Gage DO LAB - CHEMISTRY BASILIO HASSAN [facility] [address] [place], [place] [id number] * GROSS + MICRO EXAM (STL) (04/19/2018 10:14 AM CDT) Only the most recent of2 resultswithin the time period is included. Case Report Surgical Pathology Report Case: [id number] Authorizing Provider: Cristobal Gage DO Collected: 04/19/2018 10:14 AM Ordering Location: [facility] Received: 04/19/2018 02:49 PM Pathologist: Main Mendoza MD Specimen: Bone, Right foot Sesamoid Bone 04/21/2018 4:34 PM T [facility] Final Diagnosis Bone, right foot sesamoid, excision - No pathologic diagnosis No active inflammatory infiltrates /[facility] 04/21/18 04/21/2018 4:34 PM T [facility] [...] articular surface. Sectioning reveals yellow-roland bone throughout. Skein Winder sections are submitted in A1 after decalcification. 04/21/2018 4:34 PM [facility] Microscopic Description Microscopic examination corroborates the diagnosis. /[facility] 04/21/2018 4:34 PM [facility] Disclaimer All histochemical and/or immunohistochemical results are interpreted with controls that demonstrate appropriate staining reactions before reporting results. Note on use of immunocytochemistry reagents: This test was developed and its performance characteristic determined by [facility], Department of Laboratory Medicine. It has not [...] LABORATORY Performed By [facility] at [facility], [address] [place] [address]. [id number] 04/21/2018 4:34 PM T [facility] Embedded Images 04/21/2018 4:34 PM T [facility] Pathology/Cytolo gy BONE SPECIMEN / Unknown 04/19/2018 10:14 AM CDT 04/19/2018 2:49 PM CDT Cristobal Gage DO LAB - PATHOLOGY/CYTO LOGY ORDERABLES [facility] [address] [place] [address] * XR CALCANEUS RIGHT 1VW (03/30/2018 10:24 AM CDT) Only the most recent of4 resultswithin the time period is included. Anatomical Region Laterality Modality Ankle / Foot Radiographic Belkis ging Narrative 04/03/2018 8:13 AM CDT Brittany Manzano 04/03/2018 8:13 AM Please see progress notes for xray results Cristobal Gage DO DIAGNOSTIC IMAGING O RDERABLES * XR FOOT 2 VW RIGHT (08/11/2017 11:14 AM WATER MAIN INSTALLER HELPER) Only the most recent of13 resultswithin the time period is included. Anatomical Region Laterality Modality Ankle / Foot Radiographic Belkis ging Narrative 08/13/2017 10:30 AM WATER MAIN INSTALLER HELPER Nesha Tracy 08/13/2017 10:30 AM See progress notes for results Cristobal aGge DO DIAGNOSTIC IMAGING O RDERABLES * XR CALCANEUS 2+ VW RIGHT (08/11/2017 11:12 AM WATER MAIN INSTALLER HELPER) Only the most recent of8 resultswithin the time period is included. Anatomical Region Laterality Modality Ankle / Foot, Lower Extremity Ra diographic Imaging Narrative 08/13/2017 10:30 AM WATER MAIN INSTALLER HELPER Nesha Tracy 08/13/2017 10:30 AM See progress [...] AM See progress notes for results Cristobal Eliajhema [place] [facility] O RDERABLES * CARDIAC [...] (Bezet) 407 ms [facility] MUSE Calculated P [place] 66 degrees [facility] MUSE Calculated R [place] 43 degrees [facility] MUSE Calculated T [place] 18 degrees [facility] Interpretation EKG Normal sinus rhythm Normal ECG When compared with ECG of 20-JUN-2014 12:02, No significant change was found Confirmed by LEIDY NICHOLS, ELLA ([id number]) on 10/02/2016 10:07:11 AM [facility] 10/01/2016 10:0 7 AM CDT 10/02/2016 10:07 AM CDT Aamir Briones MD ECG ORDERABLES Performing Organization Address [facility] Co de Phone Number [facility] * (ABNORMAL) CULTURE MSSA/MRSA (09/23/2016 10:44 AM CDT) Only the most recent of2 resultswithin the time period is included. Culture Negative for methicillin-resist ant Staphylococcus aureus (MRSA) KIMMY 09/25/2016 9:33 AM CDT [facility] Culture Growth of Staphylococcus aureus (MSSA)(A) KIMMY 09/25/2016 9:33 AM CDT [facility] Microbiology SPECIMEN FROM NASAL FOSSAE / Unknown Venipuncture / Unknown 09/23/2016 10:44 AM CDT 09/23/2016 11:59 AM CDT Narrative [facility] - 09/25/2016 9:33 AM CDT Methicillin-susceptible Staphylococci are susceptible to oxacillin, nafcillin, cloxacillin, dicloxacillin, flucloxacillin, beta-lactam/beta-lactamase inhibitor combinations, cephalosporins including cefazolin, and carbapenems. Cristobal Gage DO LAB - MICROBIOLOGY O RDERABLES [facility] [address] [place], [place] [facility], [facility] [phone] * URINALYSIS ROUTINE AUTO (09/23/2016 10:44 AM CDT) Only the most recent of2 resultswithin the time period is included. Color UA Yellow Straw, Yellow, Dark Yellow 09/23/2016 12:03 PM [facility] Clarity UA Clear 09/23/2016 12:03 PM [facility] Specific [place] UA <=1.005 1.005 - 1.030 09/23/2016 12:03 PM [facility] pH UA 6.0 5.0 - 8.0 pH 09/23/2016 12:03 PM [facility] Protein UA Negative Negative 09/23/2016 12:03 PM [facility] Blood UA Negative Negative 09/23/2016 12:03 PM [facility] Leukocyte UA Negative Negative 09/23/2016 12:03 PM [facility] Nitrite UA Negative Negative 09/23/2016 12:03 PM [facility] Glucose UA Negative Negative 09/23/2016 12:03 PM [facility] Ketone UA Negative Negative 09/23/2016 12:03 PM [facility] Bilirubin UA Negative Negative 09/23/2016 12:03 PM [facility] Urobilinogen UA 0.2 0.1 - 1.0 EU/dL 09/23/2016 12:03 PM [facility] Urine URINE SPECIMEN OBTAINED BY CLEAN CATCH PROCEDURE / Unknown Venipuncture / Unknown 09/23/2016 10:44 AM CDT 09/23/2016 11:59 AM CDT Cristobal Gage DO LAB - URINALYSIS ORD ERABLES [facility] [address] [place] [address] * CT LOWER EXTREMITY NON CONTRAST RIGHT (09/07/2016) Only the most recent of3 resultswithin the time period is included. Anatomical Region Laterality Modality Lower Extremity Other Cristobal Gage DO CT ORDERABLES * XR ANKLE 2 VW RIGHT (06/26/2015 11:37 AM WATER MAIN INSTALLER HELPER) Only the most recent of2 resultswithin the time period is included. Anatomical Region Laterality Modality Lower Extremity Radiographic Belkis ging Narrative 06/26/2015 12:37 PM WATER MAIN INSTALLER HELPER Candice Villasenor, RT(R) 06/26/2015 12:37 PM See [...] (ABNORMAL) URINALYSIS MICROSCOPIC ONLY (06/20/2014 12:00 PM WATER MAIN INSTALLER HELPER) RBC UA 0-2, 2-5 # /hpf 06/20/2014 3:09 PM [facility] WBC UA 5-10(A) 0-2, 2-5 # /hpf 06/20/2014 3:09 PM WATER MAIN INSTALLER HELPER [facility] Bacteria UA None Seen 06/20/2014 3:09 PM [facility] Epithelial Cell UA 0-2 0-2, 2-5 06/20/2014 3:09 PM [facility] Mucus UA Trace 06/20/2014 3:09 PM [facility] Urine URINE SPECIMEN OBTAINED BY CLEAN CATCH PROCEDURE / Unknown 06/20/2014 12:00 PM WATER MAIN INSTALLER HELPER 06/20/2014 2:30 PM WATER MAIN INSTALLER HELPER Cristobal Too LAB - URINALYSIS ORD ERABLES [facility] [address] [place] [address] * EMG WITH NERVE CONDUCTION STUDY (05/29/2014) Cristobal Elijahjaya NEUROLOGY ORDERABLES Care Teams Sanitation Manager Relationship Specialty Start Date End Date Vishal Negrete MD PCP - General Internal Medicine 06/08/14 Viola Turpin MD Orthopedic Surgery 01/16/14 Cristobal Gage DO Orthopedic Surgery 01/31/14 Bob Little PA-C [address] [place] [address] Physician Chemical Laboratory Tester Physician Chemical Laboratory Tester 03/04/15
--- OUTSIDE RECORDS SUMMARY | 2024-09-18 08:09 | XMS_ITS | Encounter Summary ---
Author Organization [facility] Address [address] [facility] [place] [address] Care Team Providers Care Tax Specialist Name Role Phone Viola Turpin MD Unavailable Cristobal Gage DO Unavailable Vishal Negrete MD Primary Care Provider Bob Little PA-C Unavailable Encounter Details Date Type Department Care Team (Late st Contact Info) Description 09/15/2016 [facility] Outpatient Visit [facility] Orthopedics - Radiology [address] [place] [phone] Cristobal Gage DO [facility] Medical [address] [phone] Social History Tobacco Use Types [...] on filedocumented in this encounter Care Teams Tax Specialist Relationship Specialty Start Date End Date Vishal Negrete MD PCP - General Internal Medicine 06/08/14 Viola Turpin MD Orthopedic Surgery 01/16/14 Cristobal Gage DO Orthopedic Surgery 01/31/14 Bob Little, PAEloC [address] [address] Physician Baggage Agent Physician Baggage Agent 03/04/15 documented as of this encounter
--- OUTSIDE RECORDS SUMMARY | 2024-09-18 08:09 | XMS_ITS | Encounter Summary ---
Author Organization [facility] Address [address] [facility] [place] [address] Care Team Providers Care Casino Controller Name Role Phone Viola Turpin MD Unavailable Cristobal Gage DO Unavailable Vishal Negrete MD Primary Care Provider [phone] Bob Little PA-C Unavailable Encounter Details Date Type Department Care Team (Late st Contact Info) Description 02/13/2015 [facility] Outpatient Visit [facility] Orthopedics - Radiology [address] [place] [address] Cristobal Gage DO [facility] Medical [address] [phone] Social History Tobacco Use Types [...] on filedocumented in this encounter Care Teams Casino Controller Relationship Specialty Start Date End Date Vishal Negrete MD PCP - General Internal Medicine 06/08/14 Viola Turpin MD Orthopedic Surgery 01/16/14 Cristobal Gage DO Orthopedic Surgery 01/31/14 Bob Little, PAEloC [address] [address] Physician Clothes Ironer Physician Clothes Ironer 03/04/15 documented as of this encounter
--- OUTSIDE RECORDS SUMMARY | 2024-09-18 08:09 | XMS_ITS | Encounter Summary ---
Author Organization [facility] Address [address] [place] [address] Care Team Providers Care Trial Mgr Name Role Phone Zen Negrete MD Primary Care Provider [phone] Viola Turpin MD Unavailable [phone] Cristobal Gage DO Unavailable [phone] Vishal Negrete MD Primary Care Provider Bob Little PA-C Unavailable [phone] Encounter Details Date Type Department Care Team (Late st Contact Info) Description 04/02/2014 [facility] Outpatient Visit [facility] Orthopedics - Radiology [address] [place] [address] Cristobal Gage DO [facility] Medical [address] [address] Social History Tobacco Use Types [...] on filedocumented in this encounter Care Teams Trial Mgr Relationship Specialty Start Date End Date Zen Negrete MD [address] [place] [address] PCP - General Pediatric Gastroenterology 01/16/14 06/07/14 Vishal Negrete MD [address] [place] [address] PCP - General Internal Medicine 06/08/14 Viola Turpin MD [address] [place] [id number] Orthopedic Surgery 01/16/14 Cristobal Gage DO [address] [place] [address] Orthopedic Surgery 01/31/14 Bob Little PAEloC [address] [place] [address] Physician Qual Field Manager Physician Qual Field Manager 03/04/15 documented as of this encounter
--- OUTSIDE RECORDS SUMMARY | 2024-09-18 08:09 | XMS_ITS | Encounter Summary ---
Author Organization [facility] Address [address] [place] [address] Care Team Providers Care Farmworker Vegetable Name Role Phone Vishal Negrete MD Primary Care Provider + Encounter Details Date Type Department Care Team (Late st Contact Info) Description 10/19/[address] 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
--- OUTSIDE RECORDS SUMMARY | 2024-09-18 08:09 | XMS_ITS | Encounter Summary ---
Author Organization [facility] Health Address [address] [facility] [address] Care Team Providers Care Carpet Cutter Name Role Phone Viola Turpin MD Unavailable [phone] Cristobal Gage DO Unavailable [phone] Vishal Negrete MD Primary Care Provider [phone] Bob Little PA-C Unavailable [phone] Encounter Details Date Type Department Care Team (Late st Contact Info) Description 03/25/2015 Therapy Visit EXTERNAL NON-[facility] [place] [address] [address] Social History Tobacco Use Types [...] on filedocumented in this encounter Care Teams Carpet Cutter Relationship Specialty Start Date End Date Vishal Negrete MD PCP - General Internal Medicine 06/08/14 Viola Turpin MD Orthopedic Surgery 01/16/14 Cristobal Gage DO Orthopedic Surgery 01/31/14 Bob Little PA-C [address] [address] Physician Die Barber Physician Die Barber 03/04/15 documented as of this encounter
--- OUTSIDE RECORDS SUMMARY | 2024-09-18 08:09 | XMS_ITS | Data Portability ---
Author Organization [facility], [address] [place] [address] ([place]) Address [address] [place] [address] Care Team Providers Care Right Of Way Appraiser Name Role Phone CHASE CANO Primary Care [...] a hand orthopedist outside the clinic. 3. Kmve-ixl-nilhqyn carpal tunnel splint to be worn at [...] 7. Followup visit in 4 months. [email or web address] Not available 10/15/2023 12:23:24 03/27/2024 03/27/2024 IMPRESSION: [...] MRI of the right shoulder performed at [facility]/ 4. Followup visit in 4 months for recheck. We will obtain labs at that time as well. [email or web address] Not available 07/27/2024 21:45:19 Plan of Treatment Reminders Order Date Submit Date Provider Last Modified By Organization Details Last Modified Time Details Appointments Establish ed Patient 15.EST 2024 02:00P Yusuf Avila Not available Not available Not available Lab CBC 2023 [email or web address], [address] [place] [address], [id number], 08/04/2024 14:41:48 CMP, serum or plasma [email or web address], [address] [place] [address], [id number], 08/04/2024 14:41:49 ESR (erythroc yte sedimenta tion rate), blood 2023 [email or web address], [address] [place] [address], [id number], 08/04/2024 14:41:49 C-reactiv e protein, quantitat nolberto, serum or plasma 2023 024 [email or web address], [address] [place] [address], [id number], 08/04/2024 14:41:49 Referral None recorded. Procedures None recorded. Surgeries None recorded. Imaging None recorded. Medication Orders Depo-Medr ol 80 mg/mL suspensio n for injection 2023 [id number], [address], [place], [id number], 03/27/2024 18:32:04 Depo-Medr ol 80 mg/mL suspensio [...] Not Available [facility] [address] [place] [address], [id number], 09/14/2023 14:51:50 09/13/19 24 09/14/2023 C-lei ctive prote in, quant itati ve, serum or plasm a CRP <0.4 mg/dL <0.4-0 .5 Not Available [facility] [address] [place] [address], [id number], 09/14/2023 14:51:50 09/13/19 24 09/14/2023 ESR (eryt hrocy te sedim entat ion rate) , blood sed rate 12 mm/HR 0 - 30 Not Available [facility] [address] [place] [address], [id number], 09/14/2023 15:05:17 09/13/19 24 09/14/2023 CMP, serum or plasm a comp. met. panel Not Available [facility] [address] [place] [address], [id number], 09/14/2023 14:51:52 09/13/19 24 09/14/2023 CMP, serum or plasm a sodium 142 mmol/ L 136-14 6 Not Available [facility] [address] [place] [address], [id number], 09/14/2023 14:51:52 09/13/19 24 09/14/2023 CMP, serum or plasm a potassium 4.9 mmol/ L 3.5-5. 1 Not Available [facility] [address] [place] [address], [id number], 09/14/2023 14:51:52 09/13/19 24 09/14/2023 CMP, serum or plasm a chloride 109 mmol/ L 98-110 Not Available [facility] [address] [place] [address], [id number], 09/14/2023 14:51:52 09/13/19 24 09/14/2023 CMP, serum or plasm a CO2 28 mEq/L 20-32 Not Available [facility] [address] [place] [address], [id number], 09/14/2023 14:51:52 09/13/19 24 09/14/2023 CMP, serum or plasm a anion gap 10 mmol/ L 10-22 Not Available [facility] [address] [place] [address], [id number], 09/14/2023 14:51:52 09/13/19 24 09/14/2023 CMP, serum or plasm a glucose 102 mg/dL 70-100 high Not Available [facility] [address] [place] [address], [id number], 09/14/2023 14:51:52 09/13/19 24 09/14/2023 CMP, serum or plasm a calcium 9.7 mg/dL 8.4-10 .4 Not Available [facility] [address] [place] [address], [id number], 09/14/2023 14:51:52 09/13/19 24 09/14/2023 CMP, serum or plasm a total protein 6.3 g/dL 6.4-8. 3 low Not Available [facility] [address] [place] [address], [id number], 09/14/2023 14:51:52 09/13/19 24 09/14/2023 CMP, serum or plasm a albumin 4.3 g/dL 3.5-5. 3 Not Available [facility] [address] [place] [address], [id number], 09/14/2023 14:51:52 09/13/19 24 09/14/2023 CMP, serum or plasm a ALP 118 U/L 44 - 127 Not Available [facility] [address] [place] [address], [id number], 09/14/2023 14:51:52 09/13/19 24 09/14/2023 CMP, serum or plasm a AST (SGOT) 19 U/L 10-40 Not Available [facility] [address] [place] [address], [id number], 09/14/2023 14:51:52 09/13/19 24 09/14/2023 CMP, serum or plasm a total bilirubin 0.3 mg/dL 0.2-1. 0 Not Available [facility] [address] [place] [address], 72032, 09/14/2023 14:51:52 09/13/19 24 09/14/2023 CMP, serum or plasm a ALT (SGPT) 14 U/L 8-35 Not Available [facility] [address] [place] [address], [id number], 09/14/2023 14:51:52 09/13/19 24 09/14/2023 CMP, serum or plasm a BUN 27 mg/dL 7-21 high Not Available [facility] [address] [place] [address], [id number], 09/14/2023 14:51:52 09/13/19 24 09/14/2023 CMP, serum or plasm a creatinine 1.1 mg/dL 0.7-1. 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 ) Not Available [facility] [address] [place] [address], [id number], 09/14/2023 14:51:52 09/13/19 24 09/14/2023 CBC w/ auto diff CBC with differential Not Available [facility] [address] [place] [address], [id number], 09/14/2023 14:27:36 09/13/19 24 09/14/2023 CBC w/ auto diff WBC 7.7 K/uL 3.8-11 .2 Not Available [facility] [address] [place] [address], [id number], 09/14/2023 14:27:36 09/13/19 24 09/14/2023 CBC w/ auto diff RBC 3.81 M/uL 3.92-5 .10 low Not Available [facility] [address] [place] [address], 15389, 09/14/2023 14:27:36 09/13/19 24 09/14/2023 CBC w/ auto diff HGB 11.3 g/dL 11.8-1 5.3 low Not Available [facility] [address] [place] [address], [id number], 09/14/2023 14:27:36 09/13/19 24 09/14/2023 CBC w/ auto diff HCT 35.2 % 36.5-4 4.8 low Not Available [facility] [address] [place] [address], 25650, 09/14/2023 14:27:36 09/13/19 24 09/14/2023 CBC w/ auto diff MCV 92.4 fL 80.0-9 9.0 Not Available [facility] [address] [place] [address], [id number], 09/14/2023 14:27:36 09/13/19 24 09/14/2023 CBC w/ auto diff MCH 29.7 pg 25.5-3 3.6 Not Available [facility] [address] [place] [address], 13811, 09/14/2023 14:27:36 09/13/19 24 09/14/2023 CBC w/ auto diff MCHC 32.1 g/dL 32.0-3 6.0 Not Available [facility] [address] [place] [address], 25715, 09/14/2023 14:27:36 09/13/19 24 09/14/2023 CBC w/ auto diff RDW-SD 49.3 fL 35.1 - 46.3 high Not Available [facility] [address] [place] [address], 85139, 09/14/2023 14:27:36 09/13/19 24 09/14/2023 CBC w/ auto diff plt 243 K/uL 130-40 0 Not Available [facility] [address] [place] [address], [id number], 09/14/2023 14:27:36 09/13/19 24 09/14/2023 CBC w/ auto diff MPV 10.3 fL 9.3-12 .8 Not Available [facility] [address] [place] [address], 32840, 09/14/2023 14:27:36 09/13/19 24 09/14/2023 CBC w/ auto diff brady% 58.5 % 39.8-7 1.3 Not Available [facility] [address] [place] [address], 32443, 09/14/2023 14:27:36 09/13/19 24 09/14/2023 CBC w/ auto diff lym% 32.2 % 19.2-4 7.1 Not Available [facility] [address] [place] [address], [id number], 09/14/2023 14:27:36 09/13/19 24 09/14/2023 CBC w/ auto diff mono% 6.3 % 1.7-12 .0 Not Available [facility] [address] [place] [address], 13226, 09/14/2023 14:27:36 09/13/19 24 09/14/2023 CBC w/ auto diff eos% 1.8 % 0.0-12 .0 Not Available [facility] [address] [place] [address], [id number], 09/14/2023 14:27:36 09/13/19 24 09/14/2023 CBC w/ auto diff baso% 0.9 % 0.0-3. 0 Not Available [facility] [address] [place] [address], 72519, 09/14/2023 14:27:36 09/13/19 24 09/14/2023 CBC w/ auto diff abs brady 4.5 K/uL 1.8-7. 5 Not Available [facility] [address] [place] [address], [id number], 09/14/2023 14:27:36 09/13/19 24 09/14/2023 CBC w/ auto diff abs lym 2.5 K/uL 1.1-3. 3 Not Available [facility] [address] [place] [address], [id number], 09/14/2023 14:27:36 09/13/19 24 09/14/2023 CBC w/ auto diff abs mono 0.5 K/uL 0.1-1. 0 Not Available [facility] [address] [place] [address], [id number], 09/14/2023 14:27:36 09/13/19 24 09/14/2023 CBC w/ auto diff abs eos 0.1 K/uL 0.0-0. 7 Not Available [facility] [address] [place] [address], 89810, 09/14/2023 14:27:36 09/13/19 24 09/14/2023 CBC w/ auto diff abs baso 0.1 K/uL 0.0-0. 2 Not Available [facility] [address] [place] [address], 61611, 09/14/2023 14:27:36 09/13/19 24 09/14/2023 CBC w/ auto diff imm. gran % 0.3 % 0.0-3. 0 Not Available [facility] [address] [place] [address], [id number], 09/14/2023 14:27:36 09/13/19 24 09/14/2023 CBC w/ auto diff NRBC % 0.0 % 0.0-0. 2 Not Available [facility] [address] [place] [address], [id number], 09/14/2023 14:27:36 09/13/19 24 09/13/2023 ESR (eryt hrocy te sedim entat ion rate) , blood sed rate 12 mm/HR 0 - 30 Not Available [facility] [address], [place], [address], 06/30/2024 21:18:20 09/13/19 24 09/13/2023 C-lei ctive prote in, quant itati ve, serum or plasm a CRP Not Available [facility] [place] [address], [place], [address], 06/30/2024 21:18:19 09/13/19 24 09/13/2023 C-lei ctive prote in, quant itati ve, serum or plasm a CRP <0.4 mg/dL <0.4-0 .5 Not Available [facility] [place] [address], [place], [address], 06/30/2024 21:18:19 09/13/19 24 09/13/2023 CBC w/ auto diff WBC 7.7 K/uL 3.8-11 .2 Not Available [facility] [address] [place] [address], [place], [address], 06/30/2024 21:18:14 09/13/19 24 09/13/2023 CBC w/ auto diff RBC 3.81 M/uL 3.92-5 .10 low Not Available [facility] [address] [place], [address], 06/30/2024 21:18:14 09/13/19 24 09/13/2023 CBC w/ auto diff hemoglobin (HGB) 11.3 g/dL 11.8-1 5.3 low Not Available [facility] [address] [place], [address], 06/30/2024 21:18:14 09/13/19 24 09/13/2023 CBC w/ auto diff hematocrit (HCT) 35.2 % 36.5-4 4.8 low Not Available [facility] [address] [place], [address], 06/30/2024 21:18:14 09/13/19 24 09/13/2023 CBC w/ auto diff MCV 92.4 fL 80.0-9 9.0 Not Available [facility] [address] [place], [address], 06/30/2024 21:18:14 09/13/19 24 09/13/2023 CBC w/ auto diff MCH 29.7 pg 25.5-3 3.6 Not Available [facility] [address] [place], [address], 06/30/2024 21:18:14 09/13/19 24 09/13/2023 CBC w/ auto diff MCHC 32.1 g/dL 32.0-3 6.0 Not Available [facility] [address] [place], [address], 06/30/2024 21:18:14 09/13/19 24 09/13/2023 CBC w/ auto diff RDW-SD 49.3 fL 35.1 - 46.3 high Not Available [facility] [address] [place], [address], 06/30/2024 21:18:14 09/13/19 24 09/13/2023 CBC w/ auto diff plt 243 K/uL 130-40 0 Not Available [facility] [address] [place], [address], 06/30/2024 21:18:14 09/13/19 24 09/13/2023 CBC w/ auto diff MPV 10.3 fL 9.3-12 .8 Not Available [facility] [address] [place], [address], 06/30/2024 21:18:14 09/13/19 24 09/13/2023 CBC w/ auto diff brady% 58.5 % 39.8-7 1.3 Not Available [facility] [address] [place], [address], 06/30/2024 21:18:14 09/13/19 24 09/13/2023 CBC w/ auto diff lym% 32.2 % 19.2-4 7.1 Not Available [facility] [address] [place], [address], 06/30/2024 21:18:14 09/13/19 24 09/13/2023 CBC w/ auto diff mono% 6.3 % 1.7-12 .0 Not Available [facility] [address] [place], [address], 06/30/2024 21:18:14 09/13/19 24 09/13/2023 CBC w/ auto diff eos% 1.8 % 0.0-12 .0 Not Available [facility] [address] [place], [address], 06/30/2024 21:18:14 09/13/19 24 09/13/2023 CBC w/ auto diff baso% 0.9 % 0.0-3. 0 Not Available [facility] [address] [place], [address], 06/30/2024 21:18:14 09/13/19 24 09/13/2023 CBC w/ auto diff abs brady 4.5 K/uL 1.8-7. 5 Not Available [facility] [address] [place], [address], 06/30/2024 21:18:14 09/13/19 24 09/13/2023 CBC w/ auto diff abs lym 2.5 K/uL 1.1-3. 3 Not Available [facility] [address] [place], [address], 06/30/2024 21:18:14 09/13/19 24 09/13/2023 CBC w/ auto diff abs mono 0.5 K/uL 0.1-1. 0 Not Available [facility] [address] [place], [address], 06/30/2024 21:18:14 09/13/19 24 09/13/2023 CBC w/ auto diff abs eos 0.1 K/uL 0.0-0. 7 Not Available [facility] [address] [place], [address], 06/30/2024 21:18:14 09/13/19 24 09/13/2023 CBC w/ auto diff abs baso 0.1 K/uL 0.0-0. 2 Not Available [facility] [address] [place], [address], 06/30/2024 21:18:14 09/13/19 24 09/13/2023 CBC w/ auto diff imm. gran % 0.3 % 0.0-3. 0 Not Available [facility] [address] [place], [address], 06/30/2024 21:18:14 09/13/19 24 09/13/2023 CBC w/ auto diff NRBC % 0.0 % 0.0-0. 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 met. panel Not Available [facility] [address] [place] [address], [id number], 03/22/2024 15:31:39 03/22/20 24 03/22/2024 CMP, serum or plasm a sodium 142 mmol/ L 136-14 6 Not Available [facility] [address] [place] [address], 73697, 03/22/2024 15:31:39 03/22/20 24 03/22/2024 CMP, serum or plasm a potassium 4.2 mmol/ L 3.5-5. 1 Not Available [facility] [address] [place] [address], 33489, 03/22/2024 15:31:39 03/22/20 24 03/22/2024 CMP, serum or plasm a chloride 106 mmol/ L 98-110 Not Available [facility] [address] [place] [address], 15379, 03/22/2024 15:31:39 03/22/20 24 03/22/2024 CMP, serum or plasm a CO2 29 mEq/L 20-32 Not Available [facility] [address] [place] [address], 82475, 03/22/2024 15:31:39 03/22/20 24 03/22/2024 CMP, serum or plasm a anion gap 11 mmol/ L 10-22 Not Available [facility] [address] [place] [address], 75557, 03/22/2024 15:31:39 03/22/20 24 03/22/2024 CMP, serum or plasm a glucose 124 mg/dL 70-100 high Not Available [facility] [address] [place] [address], 48564, 03/22/2024 15:31:39 03/22/20 24 03/22/2024 CMP, serum or plasm a calcium 9.6 mg/dL 8.4-10 .4 Not Available [facility] [address] [place] [address], 04140, 03/22/2024 15:31:39 03/22/20 24 03/22/2024 CMP, serum or plasm a total protein 6.0 g/dL 6.4-8. 3 low Not Available [facility] [address] [place] [address], 03450, 03/22/2024 15:31:39 03/22/20 24 03/22/2024 CMP, serum or plasm a albumin 4.0 g/dL 3.5-5. 3 Not Available [facility] [address] [place] [address], 08108, 03/22/2024 15:31:39 03/22/20 24 03/22/2024 CMP, serum or plasm a ALP 113 U/L 44 - 127 Not Available [facility] [address] [place] [address], 70523, 03/22/2024 15:31:39 03/22/20 24 03/22/2024 CMP, serum or plasm a AST (SGOT) 14 U/L 10-40 Not Available [facility] [address] [place] [address], 83574, 03/22/2024 15:31:39 03/22/20 24 03/22/2024 CMP, serum or plasm a total bilirubin 0.2 mg/dL 0.2-1. 0 Not Available [facility] [address] [place] [address], 38138, 03/22/2024 15:31:39 03/22/20 24 03/22/2024 CMP, serum or plasm a ALT (SGPT) 11 U/L 8-35 Not Available [facility] [address] [place] [address], 65811, 03/22/2024 15:31:39 03/22/20 24 03/22/2024 CMP, serum or plasm a BUN 20 mg/dL 7-21 Not Available [facility] [address] [place] [address], [id number], 03/22/2024 15:31:39 03/22/20 24 03/22/2024 CMP, serum or plasm a creatinine 1.0 mg/dL 0.7-1. 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 ) Not Available [facility] [address] [place] [address], 42575, 03/22/2024 15:31:39 03/22/20 24 03/22/2024 CBC CBC Not Available [facility] [address] [place] [address], [id number], 03/22/2024 15:42:17 03/22/20 24 03/22/2024 CBC WBC 4.7 K/uL 3.8-11 .2 Not Available [facility] [address] [place] [address], 13337, 03/22/2024 15:42:17 03/22/20 24 03/22/2024 CBC RBC 3.74 M/uL 3.92-5 .10 low Not Available [facility] [address] [place] [address], 45584, 03/22/2024 15:42:17 03/22/20 24 03/22/2024 CBC HGB 11.7 g/dL 11.8-1 5.3 low Not Available [facility] [address] [place] [address], 46674, 03/22/2024 15:42:17 03/22/20 24 03/22/2024 CBC HCT 34.9 % 36.5-4 4.8 low Not Available [facility] [address] [place] [address], 46760, 03/22/2024 15:42:17 03/22/20 24 03/22/2024 CBC MCV 93.3 fL 80.0-9 9.0 Not Available [facility] [address] [place] [address], 34449, 03/22/2024 15:42:17 03/22/20 24 03/22/2024 CBC MCH 31.3 pg 25.5-3 3.6 Not Available [facility] [address] [place] [address], 04589, 03/22/2024 15:42:17 03/22/20 24 03/22/2024 CBC MCHC 33.5 g/dL 32.0-3 6.0 Not Available [facility] [address] [place] [address], 16509, 03/22/2024 15:42:17 03/22/20 24 03/22/2024 CBC RDW-SD 46.5 fL 35.1 - 46.3 high Not Available [facility] [address] [place] [address], 96786, 03/22/2024 15:42:17 03/22/20 24 03/22/2024 CBC plt 275 K/uL 130-40 0 Not Available [facility] [address] [place] [address], 07662, 03/22/2024 15:42:17 03/22/20 24 03/22/2024 CBC MPV 9.5 fL 9.3-12 .8 Not Available [facility] [address] [place] [address], 02573, 03/22/2024 15:42:17 03/22/20 24 03/22/2024 ESR (eryt hrocy te sedim entat ion rate) , blood sed rate 19 mm/HR 0 - 30 Not Available [facility] [address] [place] [address], 03456, 03/22/2024 17:02:42 04/25/20 24 04/27/2024 C3 (comp lemen t), serum or plasm a complement C3 116 mg/dL 82-167 Not Available [facility] [address] [place] [address], 14368, 04/27/2024 03:40:09 04/25/20 24 04/27/2024 C4 (comp lemen t), serum or plasm a complement C4 32 mg/dL 12-38 Not Available [facility] [address] [place] [address], 06962, 04/27/2024 03:40:10 08/03/19 25 08/04/2024 dangelo Ab + computer assembler Ab, serum sm/computer assembler antibodies Not Available [facility] [address] [place] [address], 69598, 08/04/2024 11:38:31 08/03/19 25 08/04/2024 dangelo Ab + computer assembler Ab, serum sm antibodies <0.2 ai 0.0-0. 9 Not Available [facility] [address] [place] [address], [id number], 08/04/2024 11:38:31 08/03/19 25 08/04/2024 dangelo Ab + computer assembler Ab, serum computer assembler antibody. <0.2 ai 0.0-0. 9 Not Available [facility] [address] [place] [address], 14880, 08/04/2024 11:38:31 08/03/1908/04/2024 CBC CBC Not Available [facility] [address] [place] [address], 08929, 08/04/2024 15:39:09 08/03/1908/04/2024 CBC WBC 4.3 K/uL 3.8-11 .2 Not Available [facility] [address] [place] [address], 62010, 08/04/2024 15:39:09 08/03/1908/04/2024 CBC RBC 3.91 M/uL 3.92-5 .10 low Not Available [facility] [address] [place] [address], 48481, 08/04/2024 15:39:09 08/03/1908/04/2024 CBC HGB 12.0 g/dL 11.8-1 5.3 Not Available [facility] [address] [place] [address], 27823, 08/04/2024 15:39:09 08/03/1908/04/2024 CBC HCT 36.7 % 36.5-4 4.8 Not Available [facility] [address] [place] [address], 40568, 08/04/2024 15:39:09 08/03/1908/04/2024 CBC MCV 93.9 fL 80.0-9 9.0 Not Available [facility] [address] [place] [address], [id number], 08/04/2024 15:39:08/03/1908/04/2024 CBC MCH 30.7 pg 25.5-3 3.6 Not Available [facility] [address] [place] [address], [id number], 08/04/2024 15:39:08/03/1908/04/2024 CBC MCHC 32.7 g/dL 32.0-3 6.0 Not Available [facility] [address] [place] [address], 53645, 08/04/2024 15:39:08/03/1908/04/2024 CBC RDW-SD 47.3 fL 35.1 - 46.3 high Not Available [facility] [address] [place] [address], 70908, 08/04/2024 15:39:08/03/1908/04/2024 CBC plt 219 K/uL 130-40 0 Not Available [facility] [address] [place] [address], 10415, 08/04/2024 15:39:08/03/1908/04/2024 CBC MPV 9.8 fL 9.3-12 .8 Not Available [facility] [address] [place] [address], [id number], 08/04/2024 15:39:08/03/1908/04/2024 compl ement , total , [...] out of range value s. Not Available [facility] [address] [place] [address], [id number], 08/04/2024 15:39:11 08/03/19 25 08/04/2024 ESR (eryt hrocy te sedim entat ion rate) , blood sed rate 12 mm/HR 0 - 30 Not Available [facility] [address] [place] [address], [id number], 08/04/2024 15:51:14 08/03/19 25 08/04/2024 vitam in D, 25-hy droxy , total , serum vitamin D 25-hydroxy totl 35.0 NG/mL 30.0-8 0.0 Less than 20 ng/mL Defic iency 20-29 ng/mL Insuf ficie ncy 30-80 ng/mL Optim al Great er than 80 ng/mL Possi ble toxic ity Not Available [facility] [address] [place] [address], [id number], 08/04/2024 16:16:45 08/03/19 25 08/04/2024 C-lei ctive prote in, quant itati ve, serum or plasm a CRP high Not Available [facility] [address] [place] [address], [id number], 08/04/2024 16:18:59 08/03/19 25 08/04/2024 C-lei ctive prote in, quant itati ve, serum or plasm a CRP 0.8 mg/dL <0.4-0 .5 high Not Available [facility] [address] [place] [address], [id number], 08/04/2024 16:18:59 08/03/19 25 08/04/2024 CK (crea demetrius kinas e), total , serum CPK- Not Available [facility] [address] [place] [address], [id number], 08/04/2024 16:19:01 08/03/19 25 08/04/2024 CK (crea demetrius kinas e), total , serum CPK 58 U/L 30-200 Not Available [facility] [address] [place] [address], [id number], 08/04/2024 16:19:01 08/03/19 25 08/04/2024 CMP, serum or plasm a comp. met. panel Not [facility] [address] [place] [address], [id number], 08/04/2024 16:21:49 08/03/1908/04/2024 CMP, serum or plasm a sodium 144 mmol/ L 136-14 6 Not Available [facility] [address] [place] [address], [id number], 08/04/2024 16:21:49 08/03/19 25 08/04/2024 CMP, serum or plasm a potassium 4.7 mmol/ L 3.5-5. 1 Not Available [facility] [address] [place] [address], [id number], 08/04/2024 16:21:49 08/03/19 25 08/04/2024 CMP, serum or plasm a chloride 109 mmol/ L 98-110 Not Available [facility] [address] [place] [address], [id number], 08/04/2024 16:21:49 08/03/1908/04/2024 CMP, serum or plasm a CO2 28 mEq/L 20-32 Not Available [facility] [address] [place] [address], [id number], 08/04/2024 16:21:49 08/03/1908/04/2024 CMP, serum or plasm a anion gap 12 mmol/ L 10-22 Not Available [facility] [address] [place] [address], [id number], 08/04/2024 16:21:49 08/03/19 25 08/04/2024 CMP, serum or plasm a glucose 95 mg/dL 70-100 Not Available [facility] [address] [place] [address], [id number], 08/04/2024 16:21:49 08/03/19 25 08/04/2024 CMP, serum or plasm a calcium 9.3 mg/dL 8.4-10 .4 Not Available [facility] [address] [place] [address], [id number], 08/04/2024 16:21:49 08/03/1908/04/2024 CMP, serum or plasm a total protein 6.0 g/dL 6.4-8. 3 low Not Available [facility] [address] [place] [address], [id number], 08/04/2024 16:21:49 08/03/1908/04/2024 CMP, serum or plasm a albumin 3.9 g/dL 3.5-5. 3 Not Available [facility] [address] [place] [address], [id number], 08/04/2024 16:21:49 08/03/1908/04/2024 CMP, serum or plasm a ALP 124 U/L 44 - 127 Not Available [facility] [address] [place] [address], [id number], 08/04/2024 16:21:49 08/03/1908/04/2024 CMP, serum or plasm a AST (SGOT) 15 U/L 10-40 Not Available [facility] [address] [place] [address], [id number], 08/04/2024 16:21:49 08/03/1908/04/2024 CMP, serum or plasm a total bilirubin 0.4 mg/dL 0.2-1. 0 Not Available [facility] [address] [place] [address], [id number], 08/04/2024 16:21:49 08/03/19 25 08/04/2024 CMP, serum or plasm a ALT (SGPT) 11 U/L 8-35 Not Available [facility] [address] [place] [address], [id number], 08/04/2024 16:21:49 08/03/19 25 08/04/2024 CMP, serum or plasm a BUN 24 mg/dL 7-21 high Not Available [facility] [address] [place] [address], [id number], 08/04/2024 16:21:49 08/03/19 25 08/04/2024 CMP, serum or plasm a creatinine 1.0 mg/dL 0.7-1. 3 Not Available [facility] [address] [place] [address], [id number], 08/04/2024 16:21:49 08/03/19 25 08/04/2024 CMP, serum or plasm a CKD-epi GFR 58 low eGFR was calcu lated using the 2020 CKD-E PI equat ion. (Pantograph Watcher zach Kidne y Disea se has an eGFR less than 60 mL/mi n/1.7 3mm for a perio d of three month s or more. ) This calcu latio n has not been valid ated for patie nt ages <18 or >90 years old. Not Available [facility] [address] [place] [address], [id number], 08/04/2024 16:21:49 08/03/19 25 08/05/2024 C3 (comp lemen t), serum or plasm a complement C3 125 mg/dL 82-167 Not Available [facility] [address] [place] [address], [id number], 08/05/2024 09:37:17 08/03/19 25 08/06/2024 C4 (comp lemen t), serum or plasm a complement C4 33 mg/dL 12-38 Not Available [facility] [address] [place] [address], [id number], 08/06/2024 07:37:15 08/03/19 25 08/07/2024 DNA doubl e stran d Ab, QL, serum DNA Ab; double stranded NEGATI VE negati ve Not Available [facility] [address] [place] [address], [id number], 08/07/2024 15:03:05 08/21/19 25 06/05/2024 XR, shoul dariana No observ ation record ed. BARCODE Not Available 2024 10:37:32 Result Notes None recorded. 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 2023 Shikha Castillo [facility] 4 18:07:02 Pulmonary hypertensio n 68017780 Active 2023 Shikha Castillo [facility] 4 18:07:17 Vitamin D deficiency 74661617 Active 2023 José Luis Curran [facility] 5 11:36:24 Chronic kidney disease stage 3 505877175 Active 2023 Shikha Castillo [facility] 4 18:07:47 Cervical radiculopat hy 15748239 Active 2023 Shikha Castillo [facility] 4 18:08:11 Pain of right shoulder joint 8774708573758 9100 Active 2023 José Luis Curran [facility] 10:03:28 Problem Notes None recorded. Procedures Surgical History Date Name Laterality Status Provider Name and Address Organization Details Recorded Time 06/25/20 21 Carpal tunnel surgery completed [facility] 10/12/2023 18:10:15 procedure on gallbladder completed [facility] 10/12/2023 18:10:38 Gastric bypass for obesity completed [facility] 10/12/2023 18:10:56 hysterectomy completed [facility] 10/12/2023 18:11:04 Imaging Results Imaging Date Name Status LastModified by Organiz ation Details LastModified Time 06/05/2024 XR, shoulder completed [facility] Information not available 08/21/2024 10:37:32 Procedure Notes None recorded. Medical Equipment None Reported. Allergies Allergen ID Allergen Name Allergen Category Reaction Reaction Severity Criticality Documentation Date Start Date Code Code System Note Provider Name and Address Organization Details Recorded Time 2650987 Product containin g 3-hydroxy -3-methyl glutaryl- coenzyme A reductase inhibitor (product) medicatio n dizziness Not available Not available 08/04/20232014 07953 009 SNOMED React ion: Dizzi ness; Other : falls ; Not Available Not Available Not Available 777622 pregabali n medicatio n Not available Not available Not available 08/02/20232014 14830 2 RxNorm Not Available Not Available Not Available 178468 aspirin medicatio n Not available Not available [...] Updated DateTime 4 160.02 cm 35.3 kg/m2 62714.8 8 g 82 /min 98 % 98 % 7 134 mm[Hg] 76 mm[Hg] Shikha Castillo [facility] 4 09:48:03 Date Recorded Body height Body mass index (BMI) Body weight Heart rate Oxygen saturation Oxygen saturation in Arterial blood by Pulse oximetry Pain severity - 0-10 verbal numeric rating [Score] - Reported Systolic blood pressure Diastolic blood pressure Provider Name and Address Organization Details Last Updated DateTime 4 160.02 cm 33 kg/m2 64549.9 g 68 /min 97 % 97 % 4 112 mm[Hg] 56 mm[Hg] Lian Tillman [facility] 4 15:13:53 Date Recorded Body height Body mass index (BMI) Body weight Oxygen saturation Oxygen saturation in Arterial blood by Pulse oximetry Heart rate Systolic blood pressure Diastolic blood pressure Provider Name and Address Organization Details Last Updated DateTime 5 160.02 cm 33.7 kg/m2 96325.5 5 g 100 % 100 % 86 /min 128 mm[Hg] 68 mm[Hg] Pallavi Duffy [facility] 5 11:01:42 Social History None recorded. Functional Status None recorded. Mental Status None recorded. Family History Relationship Description Onset Age of this Age Resolved Age Notes LastModified by Organization Details LastModified Time Father Heart disease [email or web address] Not available 2023 18:08:29 Father Cerebrovascu lar accident [email or web address] Not available 03/2024 18:08:37 Father Diabetes mellitus [email or web address] Not available 2023 18:08:44 Father Hypertensive disorder [email or web address] Not available 2023 18:08:54 Father Leukemia [email or web address] Not availabl e 10/12/2023 18:09:02 Mother Heart disease Not available 2023 18:08:29 Mother Hypertensive disorder [email or web address] Not available 2023 18:08:54 Mother Multiple congenital cysts of kidney Not available 2023 18:09:49 Maternal Grandmother Multiple [...] SNOMED-CT Code Diagnosis ICD10 Code Diagnosis Note [id number] Sander Avila MD [facility] [place] [address] [facility] [place] [address] 10/14/2023 09:39:51 11/19/2023 13:48:46 Pain of right shoulder joint 7806386982 1988159 M25.511 Inflammato ry polyarthropathy 326527439 M06.4 Osteoarthritis 595354359 M19.90 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 2681386341 68943 G56.01 Impingemen t syndrome of right shoulder region 8297867926 87926 M75.41 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 [id number] 00 Z79.631 Long-term drug therapy 715712984 Z79.626 [id number] Sander Avila MD [address] [place] [address] [place]) [address] [address] 03/27/2024 14:34:00 03/27/2024 18:15:44 Pain of right shoulder joint 4833931982 7149508 M25.511 Inflammato ry polyarthropathy 239996126 M06.4 Impingemen t syndrome of right shoulder region 9648232776 73403 M75.41 [id number] Sander Avila MD [facility] [place] [place] [address] [facility] [place] [address] 07/27/2024 10:52:24 07/31/2024 17:37:04 Inflammatory polyarthropathy 157042302 M06.4 Osteoarthritis 856926237 M19.90 Pain of ri ght shoulder joint 1078956627 3368320 M25.511 Vitamin D deficiency 347 35180 E55.9 Health Concerns Section Related Observation LastModified by Organization Detai ls LastModified Time None Recorded Concern Status LastModified by Organization Details LastModified Time None Recorded Advance Directives Directive None Recorded Payers Encounter Date Sequence Insurance Name Policy Number Policy Ramos Covered Member ID Ramos Member ID Guarantor Name 10/14/2023 1 [facility] (MEDICARE REPLACEMENT/A DVANTAGE - PPO) [id number] Priscilla Hollins [id number] Priscilla Hollins 03/27/2024 1 [facility] (MEDICARE REPLACEMENT/A DVANTAGE - PPO) [id number] Priscilla Hollins [id number] Priscilla Hollins 07/27/2024 1 [facility] (MEDICARE REPLACEMENT/A DVANTAGE - PPO) [id number] Priscilla Tessie Hollins [id number] Priscilla Hollins Notes Date Note Type Note [...] hand numbness and tingling. 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 Of note, [...] otherwise normal parameters.lg Avila MD [address] [facility], [place], [address], [facility] 10/15/2023 14:54:27 03/27/2024 text/html The patient [...] tingling in the hands or loss of senior librarian strength. The patient continues to morel some right foot and ankle pain related to indwelling hardware from a Charcot joint surgery previously. She has to wear compression hose as the leg tends to swell. The patient has been seeing an telecommunications network engineer once a year for routine checkups. She [...] of her underlying health problems.linnea Avila MD [facility] [address], [address], [facility] 03/28/2024 21:56:48 07/27/2024 text/html The patient [...] Dr. Krueger of pain management clinic in [place], [place] and recently had a right shoulder [...] disease stage 3.linnea Avila MD [address] [place] [address], [phone], [facility] 07/29/2024 15:23:32 OBGyn Episode No OBEpisode recorded.
--- OUTSIDE RECORDS SUMMARY | 2024-09-18 08:09 | XMS_ITS | Encounter Summary ---
Author Organization [facility] Address [address] [place] [address] Care Team Providers Care Handbag Operator Name Role Phone Viola Turpin MD Unavailable Cristobal Gage DO Unavailable Vishal Negrete MD Primary Care Provider [phone] Bob Little PA-C Unavailable Encounter Details Date Type Department Care Team (Late st Contact Info) Description 05/22/2016 [facility] Outpatient Visit [facility] Orthopedics - Radiology [address] [place] [address] Cristobal Gage DO [facility] Medical [address] [address] Social History Tobacco Use Types [...] on filedocumented in this encounter Care Teams Handbag Operator Relationship Specialty Start Date End Date Vishal Negrete MD PCP - General Internal Medicine 06/08/14 Viola Turpin MD Orthopedic Surgery 01/16/14 Cristobal Gage DO Orthopedic Surgery 01/31/14 Bob Little, PAEloC [address] [address] Physician Railroad Dispatcher Physician Railroad Dispatcher 03/04/15 documented as of this encounter
--- OUTSIDE RECORDS SUMMARY | 2024-09-18 08:09 | XMS_ITS | Encounter Summary ---
Author Organization [facility] Address [address] [facility] [address] Care Team Providers Care Mayonnaise Mixer Name Role Phone Viola Turpin MD Unavailable [phone] Cristobal Gage DO Unavailable [phone] Vishal Negrete MD Primary Care Provider [phone] Bob Little PA-C Unavailable [phone] Encounter Details Date Type Department Care Team (Late st Contact Info) Description 04/20/2018 [facility] Outpatient Visit [facility] Orthopedics - Radiology [address] [place] [address] [id number] Document, Scanned Social History Tobacco Use Types [...] on filedocumented in this encounter Care Teams Mayonnaise Mixer Relationship Specialty Start Date End Date Vishal Negrete MD PCP - General Internal Medicine 06/08/14 Viola Turpin MD Orthopedic Surgery 01/16/14 Cristobal Gage DO Orthopedic Surgery 01/31/14 Bob Little, PAEloC [address] [address] Physician Egg Tester Physician Egg Tester 03/04/15 documented as of this encounter
--- OUTSIDE RECORDS SUMMARY | 2024-09-18 08:09 | XMS_ITS | Clinical Summary ---
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 Gender Identity Not on file Sexual Orientation Not on file Last Filed Vital Signs Vital Sign Reading Time Taken Comments Blood Pressure 144/85 08/12/2016 7:53 AM WATER SERVICE DISPATCHER Pulse 70 08/12/2016 7:53 AM WATER SERVICE DISPATCHER Temperature 36.4 C (97.6 F) 08/12/2016 7:53 AM WATER SERVICE DISPATCHER Respiratory Rate 20 08/12/2016 7:53 AM WATER SERVICE DISPATCHER Oxygen Saturation 98% 08/12/2016 7:53 AM WATER SERVICE DISPATCHER Inhaled Oxygen Concentration - - Weight 93.4 kg (206 lb) 08/12/2016 6:42 AM WATER SERVICE DISPATCHER Height 160 cm (5' 3 ) 08/11/2016 2:38 PM WATER SERVICE DISPATCHER Body Mass Index 36.49 08/11/2016 2:38 PM WATER SERVICE DISPATCHER Plan of Treatment Health Maintenance Due Date [...] 04/10/2016 Insurance MEDICARE PART A AND B [place] [id number] Advance Directives For more information, please contact: [phone] * Full Code (Latest Code Status on File) Date Activated Date Inactivated Comments 08/12/2016 5:39 AM 08/12/2016 10:28 AM Care Teams Recreation Superintendent Relationship Specialty Start Date End Date Vishal Negrete MD [address] [place] [phone] PCP - General Internal Medicine 08/12/16
--- OUTSIDE RECORDS SUMMARY | 2024-09-18 08:10 | XMS_ITS | Clinical Summary ---
Author Organization [facility] Address [facility] [place] [address] Care Team Providers Care Design Printing Machine Setter Name Role Phone Non-Staff, Provider Primary Care Provider Wilder machado Social History Tobacco Use Types Packs/Day Years Used Date Smoking Tobacco: Never Assessed Comments Unknown Sex and Gender Information Value Date Recorded Sex Assigned at Not on file Legal Sex Female 5:57 PM PLATFORM SUPERVISOR Gender Identity Not on file Sexual Orientation [...] this topic Meningococcal Vaccine Aged Out No mueksh shirley eligible based on patient's age to complete this topic RSV Immunizations Under 20 Months Aged Out No longer eligible based on patient's age to complete this topic Insurance [facility] Care Teams Design Printing Machine Setter Relationship Specialty Start Date End Date Non-Staff, Provider PCP - General 06/22/21
[2024-09-18 08:17] LABS: Basophils Absolute Auto 0.06 K/mm3 (0.00-0.10); Eosinophils Absolute Auto 0.17 K/mm3 (0.02-0.50); Hematocrit 34.9 % (35.0-42.0); Hemoglobin 10.8 g/dL (11.7-13.8); Immature Granulocyte Absolute 0.02 K/mm3 (0.00-0.00); Immature Granulocyte Percent A 0.3 % (0.0-0.0); Lymphocytes Absolute Auto 1.87 K/mm3 (1.10-4.50); Lymphocytes Percent Auto 32.5 % (18.0-42.0); Mean Corpuscular HGB Conc 30.9 g/dL (32-36); Mean Corpuscular Hemoglobin 29.9 pg (27.0-31.0); Mean Corpuscular Volume 96.7 fL (78.0-102.0); Mean Platelet Volume 8.4 fl (9.2-11.8); Monocytes Percent Auto 6.9 % (2.0-11.0); Neutrophils Absolute Auto 3.24 K/mm3 (1.70-7.20); Neutrophils Percent Auto 56.3 % (50.0-70.0); Platelet Count Result 244 K/mm3 (150-420); Red Blood Count 3.61 M/mm3 (4.20-5.40); Red Cell Distribution Width 15.2 % (11.6-14.4); White Blood Count 5.8 K/mm3 (4.8-10.8)
[2024-09-18 09:03] LABS: Anion Gap 4 mmol/L (4-12); Blood Urea Nitrogen 22 mg/dL (7-18); Calcium 8.4 mg/dL (8.5-10.1); Carbon Dioxide 29 mmol/L (21-32); Chloride 109 mmol/L (98-108); Estimated Glomerular Filt Rate 53; Glucose 104 mg/dL (70-99); Osmolality Calculated 297 mOsm/kg (285-295); Potassium 5.7 mmol/L (3.5-5.1); Sodium 142 mmol/L (136-145)
== END 2024-09-18 08:00 | disposition home or self-care (01) ==
LOC: CHSLAB 08:01
PROVIDERS: PCP Internal Medicine; Visit Provider Internal Medicine
DX: I10 Essential (primary) hypertension (principal); D64.9 Anemia, unspecified
CPT/HCPCS: 36415; 80048; 85025

== ENCOUNTER 2024-10-03 02:19 | Day surgery (SDC) | payer MEDICARE, SELFPAY ==
[2024-09-25 11:09] VITALS: BMI 31.9
--- NOTE | 2024-10-02 13:34 | P.PNAN_ITS ---
Anes - Initial Pre Proc Eval Procedure: Operation Date: 10/03/24 08:30 Proposed Procedures p Esophagogastroduodenoscopy & Colonoscopy - Cristobal Ace DO Date/Time: 10/02/24 13:34 Surgeon: Cristobal Ace DO Pre Op Diagnosis: iron deficiency anemia Patient Data Age: 73 Gender: F Height: 1.6 m Weight: 81.8 kg Allergies Allergy/AdvReac Type Severity Reaction Status Date / Time aspirin AdvReac Gastrointestinal Verified 10/03/24 07:18 Upset Ngdhafj-CPE-EgB Reductase AdvReac Flushing Verified 10/03/24 07:18 Inhibitor Home Medications ?Medication ?Instructions ?Recorded ?Confirmed ?Type duloxetine 60 mg capsule,delayed 60 mg PO DAILY 11/20/19 10/03/24 History release ergocalciferol (vitamin D2) 1,250 50,000 unit PO WEEKLY 11/20/19 10/03/24 History mcg (50,000 unit) capsule esomeprazole magnesium 40 mg 40 mg PO DAILY 11/20/19 10/03/24 History capsule,delayed release ferrous sulfate 325 mg (65 mg 325 mg PO DAILY 11/20/19 10/03/24 History iron) tablet folic acid 1 mg tablet 1 mg PO DAILY 11/20/19 10/03/24 History hydrocodone 10 mg-acetaminophen 1 tablet PO USEASDIRECTD PRN Pain, 11/20/19 09/25/24 History 325 mg tablet Moderate hydroxychloroquine 200 mg tablet 200 mg PO DAILY 11/20/19 10/03/24 History hyoscyamine sulfate 0.125 mg tablet 0.125 mg PO DAILY 11/20/19 09/25/24 History ketoconazole 2 % topical cream 1 applic topical DIRECTED 11/20/19 09/25/24 History levothyroxine 300 mcg tablet 300 mcg PO DAILY 11/20/19 10/03/24 History lisinopril 2.5 mg tablet 2.5 mg PO DAILY 11/20/19 09/25/24 History cyanocobalamin (B12)-cobamamide 1 sridhar sublingual DAILY 09/25/24 10/03/24 History 5,000 mcg-100 mcg sublingual lozenge (B12) gabapentin 800 mg tablet 800 mg PO DAILY 09/25/24 10/03/24 History pravastatin 10 mg tablet 10 mg PO DAILY 09/25/24 10/03/24 History tizanidine 4 mg tablet 4 mg PO DAILY 09/25/24 10/03/24 History Patient hx anesthesia problems: none Family hx anesthesia problems: none Results Review: All pre-operative results and documents have been reviewed as part of the pre- operative evaluation. [facility] Past Medical History Medical History (Updated 10/02/24 @ 13:36 by Abner Guzman DO) Hydrocodone use disorder, mild Obesity Charcot ankle Hypothyroidism Fibromyalgia Hyperlipidemia HTN (hypertension) Surgical History Surgical History H/O gastric bypass Social History Social History Smoking status: Never smoker Alcohol intake: never Substance use: never Substance use type: does not use Living arrangements: with family Spiritual care concerns: No Anes - Eval Final PreProcedure Day of Procedure 10/02/24 13:34 Patient weight: obese Heart: regular rate and rhythm Lungs: clear to auscultation Airway: Mallampati scale class II Neurological: alert and oriented Last oral intake: >/= 8 hours ASA classification: III Emergent: no Anesthetic plan: proceed Anesthesia type and monitoring: general GIVS and standard monitoring Results Review: All pre-operative results and documents have been reviewed as part of the pre- operative evaluation. Informed Consent: The patient's anesthetic plan and its attendant risks and benefits were discussed with the patient/family/POA. Questions were solicited and answers provided to the satisfaction of the patient/family/POA.
--- OUTSIDE RECORDS SUMMARY | 2024-10-03 02:23 | XMS_ITS | Encounter Summary ---
Author Organization [facility] Address [address] [facility] [place] [address] Care Team Providers Care Return To Vendor Name Role Phone Viola Turpin MD Unavailable Cristobal Gage DO Unavailable Vishal Negrete MD Primary Care Provider Bob Little PA-C Unavailable [phone] Encounter Details Date Type Department Care Team (Late st Contact Info) Description 05/22/[address] [facility] Outpatient Visit [facility] Orthopedics - Radiology [address] [place] [address] Cristobal Gage DO [facility] Medical [address] [address] Social History Tobacco Use Types [...] on filedocumented in this encounter Care Teams Return To Vendor Relationship Specialty Start Date End Date Vishal Negrete MD PCP - General Internal Medicine 06/08/14 Viola Turpin MD Orthopedic Surgery 01/16/14 Cristobal Gage DO Orthopedic Surgery 01/31/14 Bob Little, PAEloC [address] [address] Physician Parts Counter Associate Physician Parts Counter Associate 03/04/15 documented as of this encounter
--- OUTSIDE RECORDS SUMMARY | 2024-10-03 02:23 | XMS_ITS | Encounter Summary ---
Author Organization [facility] Address [address] [place] [address] Care Team Providers Care Botanical Technical Officer Name Role Phone Viola Turpin MD Unavailable [phone] Cristobal Gage DO Unavailable [phone] Vishal Negrete MD Primary Care Provider [phone] Bob Little PA-C Unavailable [phone] Encounter Details Date Type Department Care Team (Late st Contact Info) Description 02/26/2015 Therapy Visit EXTERNAL NON-[facility] [place] [place] [address] [address] Social History Tobacco Use Types [...] on filedocumented in this encounter Care Teams Botanical Technical Officer Relationship Specialty Start Date End Date Vishal Negrete MD PCP - General Internal Medicine 06/08/14 Viola Turpin MD Orthopedic Surgery 01/16/14 Cristobal Gage DO Orthopedic Surgery 01/31/14 Bob Little PA-C [address] [address] Physician Refining Equipment Operator Physician Refining Equipment Operator 03/04/15 documented as of this encounter
--- OUTSIDE RECORDS SUMMARY | 2024-10-03 02:23 | XMS_ITS | Encounter Summary ---
Author Organization [facility] Address [address] [facility] [place] [address] Care Team Providers Care Corn Crop Supervisor Name Role Phone Viola Turpin MD Unavailable Cristobal Gage DO Unavailable Vishal Negrete MD Primary Care Provider Bob Little PA-C Unavailable Encounter Details Date Type Department Care Team (Late st Contact Info) Description 06/08/2014 [facility] Outpatient Visit [facility] Orthopedics - Radiology [address] [place] [address] Cristobal Gage DO [facility] Medical [address] [address] Social History Tobacco Use Types [...] on filedocumented in this encounter Care Teams Corn Crop Supervisor Relationship Specialty Start Date End Date Vishal Negrete MD PCP - General Internal Medicine 06/08/14 Viola Turpin MD Orthopedic Surgery 01/16/14 Cristobal Gage DO Orthopedic Surgery 01/31/14 Bob Little, PAEloC [address] [address] Physician Investigation Division Captain Physician Investigation Division Captain 03/04/15 documented as of this encounter
--- OUTSIDE RECORDS SUMMARY | 2024-10-03 02:23 | XMS_ITS | Encounter Summary ---
Author Organization [employer] Address 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
--- OUTSIDE RECORDS SUMMARY | 2024-10-03 02:23 | XMS_ITS | Clinical Summary ---
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 Gender Identity Not on file Sexual Orientation Not on file Plan of Treatment Health Maintenance Due Date Last Done Comments Colorectal Cancer Screening Colonoscopy (10 Years) 1948 Hepatitis C 1966 Annual Medicare Wellness Visit 2013 Dexa Scan (General) 2013 RSV Immunization or 60+ Years (1 - 1-dose 75+ series) 11/25/2023 COVID-19 Vaccine ( season) 2024 05/06/2021, 08/28/2020, 08/07/2020 DTaP, Tdap and Td Vaccines (2 - [...] patient's age to complete this topic Insurance [facility] Care Teams Photography And Prints Curator Relationship Specialty Start Date End Date Non-Staff, Provider PCP - General 06/22/21
--- OUTSIDE RECORDS SUMMARY | 2024-10-03 02:23 | XMS_ITS | Encounter Summary ---
Author Organization [facility] Address [address] [place] [address] Care Team Providers Care Supervisor Home Energy Consultant Name Role Phone Viola Turpin MD Unavailable [phone] Cristobal Gage DO Unavailable [phone] Vishal Negrete MD Primary Care Provider [phone] Bob Little PA-C Unavailable [phone] Encounter Details Date Type Department Care Team (Late st Contact Info) Description 04/22/2015 Therapy Visit EXTERNAL NON-[facility] [place] [address] [address] Social History Tobacco Use Types [...] on filedocumented in this encounter Care Teams Supervisor Home Energy Consultant Relationship Specialty Start Date End Date Vishal Negrete MD PCP - General Internal Medicine 06/08/14 Viola Turpin MD Orthopedic Surgery 01/16/14 Cristobal Gage DO Orthopedic Surgery 01/31/14 Bob Little PA-C [address] [address] Physician Auditor Tax Physician Auditor Tax 03/04/15 documented as of this encounter
--- OUTSIDE RECORDS SUMMARY | 2024-10-03 02:23 | XMS_ITS | Encounter Summary ---
Author Organization [facility] Address [address] [facility] [place] [address] Care Team Providers Care Automotive Maintenance Technician Name Role Phone Viola Turpin MD Unavailable [phone] Cristobal Gage DO Unavailable [phone] Vishal Negrete MD Primary Care Provider [phone] Bob Little PA-C Unavailable [phone] Encounter Details Date Type Department Care Team (Late st Contact Info) Description 04/20/2018 [facility] Outpatient Visit [facility] Orthopedics - Radiology [address] [place] [id number] Document, Scanned Social History Tobacco Use Types [...] on filedocumented in this encounter Care Teams Automotive Maintenance Technician Relationship Specialty Start Date End Date Vishal Negrete MD PCP - General Internal Medicine 06/08/14 Viola Turpin MD Orthopedic Surgery 01/16/14 Cristobal Gage DO Orthopedic Surgery 01/31/14 Bob Little, PAEloC [address] [address] Physician Professor Of Philosophy Physician Professor Of Philosophy 03/04/15 documented as of this encounter
--- OUTSIDE RECORDS SUMMARY | 2024-10-03 02:23 | XMS_ITS | Encounter Summary ---
Author Organization [facility] Address [address] [facility] [place] [address] Care Team Providers Care Zanjero Name Role Phone Viola Turpin MD Unavailable Cristobal Gage DO Unavailable [phone] Vishal Negrete MD Primary Care Provider Bob Little PA-C Unavailable Encounter Details Date Type Department Care Team (Late st Contact Info) Description 09/15/2016 [facility] Outpatient Visit [facility] Orthopedics - Radiology [address] [place] [address] Cristobal Gage DO [facility] Medical [address] [address] Social History Tobacco Use Types [...] on filedocumented in this encounter Care Teams Zanjero Relationship Specialty Start Date End Date Vishal Negrete MD PCP - General Internal Medicine 06/08/14 Viola Turpin MD Orthopedic Surgery 01/16/14 Cristobal Gage DO Orthopedic Surgery 01/31/14 Bob Little, PAEloC [address] [address] Physician Residential Energy Auditor Physician Residential Energy Auditor 03/04/15 documented as of this encounter
--- OUTSIDE RECORDS SUMMARY | 2024-10-03 02:23 | XMS_ITS | Encounter Summary ---
Author Organization [facility] Address [address] [facility] [place] [address] Care Team Providers Care Wastewater Engineer Name Role Phone Viola Turpin MD Unavailable [phone] Cristobal Gage DO Unavailable [phone] Vishal Negrete MD Primary Care Provider [phone] Bob Little PA-C Unavailable [phone] Encounter Details Date Type Department Care Team (Late st Contact Info) Description 03/25/2015 Therapy Visit EXTERNAL NON-[facility] [place] [place] [address] [address] Social History Tobacco Use Types [...] on filedocumented in this encounter Care Teams Wastewater Engineer Relationship Specialty Start Date End Date Vishal Negrete MD PCP - General Internal Medicine 06/08/14 Viola Turpin MD Orthopedic Surgery 01/16/14 Cristobal Gage DO Orthopedic Surgery 01/31/14 Bob Little PA-C [address] [address] Physician Special Skills Officer Physician Special Skills Officer 03/04/15 documented as of this encounter
--- OUTSIDE RECORDS SUMMARY | 2024-10-03 02:23 | XMS_ITS | Encounter Summary ---
Author Organization [facility] Address [address] [place] [address] Care Team Providers Care Occupational Health Professional Name Role Phone Zen Negrete MD Primary Care Provider [phone] Viola Turpin MD Unavailable [phone] Cristobal Gage DO Unavailable [phone] Vishal Negrete MD Primary Care Provider Bob Little PA-C Unavailable [phone] Encounter Details Date Type Department Care Team (Late st Contact Info) Description 04/02/[address] [facility] Outpatient Visit [facility] Orthopedics - Radiology [address] [place] [address] Cristobal Gage DO [facility] Medical [address] [address] Social History Tobacco Use Types [...] on filedocumented in this encounter Care Teams Occupational Health Professional Relationship Specialty Start Date End Date Zen Negrete MD [address] [place] [address] PCP - General Pediatric Gastroenterology 01/16/14 06/07/14 Vishal Negrete MD [address] [place] [address] PCP - General Internal Medicine 06/08/14 Viola Turpin MD [address] [place] [address] Orthopedic Surgery 01/16/14 Cristobal Gage DO [address] [place] [address] Orthopedic Surgery 01/31/14 Bob Little PAEloC [address] [place] [address] Physician Battery Tester And Repairer Physician Battery Tester And Repairer 03/04/15 documented as of this encounter
--- OUTSIDE RECORDS SUMMARY | 2024-10-03 02:23 | XMS_ITS | Encounter Summary ---
Author Organization [facility] Address [address] [facility] [place] [address] Care Team Providers Care Tool Radial Drill Press Set Up Operator Name Role Phone Viola Turpin MD Unavailable Cristobal Gage DO Unavailable Vishal Negrete MD Primary Care Provider [phone] Bob Little PA-C Unavailable Encounter Details Date Type Department Care Team (Late st Contact Info) Description 02/13/2015 [facility] Outpatient Visit [facility] Orthopedics - Radiology [address] [place] [address] Cristobal Gage DO [facility] Medical [address] [address] Social History Tobacco Use Types [...] on filedocumented in this encounter Care Teams Tool Radial Drill Press Set Up Operator Relationship Specialty Start Date End Date Vishal Negrete MD PCP - General Internal Medicine 06/08/14 Viola Turpin MD Orthopedic Surgery 01/16/14 Cristobal Gage DO Orthopedic Surgery 01/31/14 Bob Little, PAEloC [address] [address] Physician Test Technician Physician Test Technician 03/04/15 documented as of this encounter
--- OUTSIDE RECORDS SUMMARY | 2024-10-03 02:23 | XMS_ITS | Data Portability ---
Author Organization [facility], [address] [place] [address] ([place]) Address [address] [place] [address] Care Team Providers Care Endoscopy Tech Name Role Phone CHASE CANO Primary Care [...] a hand orthopedist outside the clinic. 3. Rkfp-[id number] carpal tunnel splint to be worn at [...] 7. Followup visit in 4 months. lg [email or web address] Not available 10/15/2023 12:23:24 03/27/2024 03/27/2024 IMPRESSION: [...] MRI of the right shoulder performed at [facility]/ 4. Followup visit in 4 months for recheck. We will obtain labs at that time as well. linnea Not available 07/27/2024 21:45:19 Plan of Treatment Reminders Order Date Submit Date Provider Last Modified By Organization Details Last Modified Time Details Appointments Establish ed Patient 15.EST 2024 02:00P Yusuf Avila Not available Not available Not available Lab CBC 2023 [email or web address], [address] [place] [address], [id number], 08/04/2024 14:41:48 CMP, serum or plasma 2023 [email or web address], [address] [place] [address], [id number], 08/04/2024 14:41:49 ESR (erythroc yte sedimenta tion rate), blood 2023 [email or web address], [address] [place] [address], [id number], 08/04/2024 14:41:49 C-reactiv e protein, quantitat nolbreto, serum or plasma 2023 024 [email or web address], [address] [place] [address], [id number], 08/04/2024 14:41:49 Referral None recorded. Procedures None recorded. Surgeries None recorded. Imaging None recorded. Medication Orders Depo-Medr ol 80 mg/mL suspensio n for injection 2023 [facility]24 [id number], [address], [place], [id number], 03/27/2024 18:32:04 Depo-Medr ol 80 mg/mL suspensio [...] Not Available [facility] [address] [place] [address], [id number], 09/14/2023 14:51:50 09/13/19 24 09/14/2023 C-lei ctive prote in, quant itati ve, serum or plasm a CRP <0.4 mg/dL <0.4-0 .5 Not Available [facility] [address] [place] [address], [id number], 09/14/2023 14:51:50 09/13/19 24 09/14/2023 ESR (eryt hrocy te sedim entat ion rate) , blood sed rate 12 mm/HR 0 - 30 Not Available [facility] [address] [place] [address], [id number], 09/14/2023 15:05:17 09/13/19 24 09/14/2023 CMP, serum or plasm a comp. met. panel Not Available [facility] [address] [place] [address], [id number], 09/14/2023 14:51:52 09/13/19 24 09/14/2023 CMP, serum or plasm a sodium 142 mmol/ L 136-14 6 Not Available [facility] [address] [place] [address], [id number], 09/14/2023 14:51:52 09/13/19 24 09/14/2023 CMP, serum or plasm a potassium 4.9 mmol/ L 3.5-5. 1 Not Available [facility] [address] [place] [address], [id number], 09/14/2023 14:51:52 09/13/19 24 09/14/2023 CMP, serum or plasm a chloride 109 mmol/ L 98-110 Not Available [facility] [address] [place] [address], 06261, 09/14/2023 14:51:52 09/13/19 24 09/14/2023 CMP, serum or plasm a CO2 28 mEq/L 20-32 Not Available [facility] [address] [place] [address], [id number], 09/14/2023 14:51:52 09/13/19 24 09/14/2023 CMP, serum or plasm a anion gap 10 mmol/ L 10-22 Not Available [facility] [address] [place] [address], 55035, 09/14/2023 14:51:52 09/13/19 24 09/14/2023 CMP, serum or plasm a glucose 102 mg/dL 70-100 high Not Available [facility] [address] [place] [address], [id number], 09/14/2023 14:51:52 09/13/19 24 09/14/2023 CMP, serum or plasm a calcium 9.7 mg/dL 8.4-10 .4 Not Available [facility] [address] [place] [address], [id number], 09/14/2023 14:51:52 09/13/19 24 09/14/2023 CMP, serum or plasm a total protein 6.3 g/dL 6.4-8. 3 low Not Available [facility] [address] [place] [address], [id number], 09/14/2023 14:51:52 09/13/19 24 09/14/2023 CMP, serum or plasm a albumin 4.3 g/dL 3.5-5. 3 Not Available [facility] [address] [place] [address], 65792, 09/14/2023 14:51:52 09/13/19 24 09/14/2023 CMP, serum or plasm a ALP 118 U/L 44 - 127 Not Available [facility] [address] [place] [address], [id number], 09/14/2023 14:51:52 09/13/19 24 09/14/2023 CMP, serum or plasm a AST (SGOT) 19 U/L 10-40 Not Available [facility] [address] [place] [address], 83934, 09/14/2023 14:51:52 09/13/19 24 09/14/2023 CMP, serum or plasm a total bilirubin 0.3 mg/dL 0.2-1. 0 Not Available [facility] [address] [place] [address], 65226, 09/14/2023 14:51:52 09/13/19 24 09/14/2023 CMP, serum or plasm a ALT (SGPT) 14 U/L 8-35 Not Available [facility] [address] [place] [address], 65722, 09/14/2023 14:51:52 09/13/19 24 09/14/2023 CMP, serum or plasm a BUN 27 mg/dL 7-21 high Not Available [facility] [address] [place] [address], 65050, 09/14/2023 14:51:52 09/13/19 24 09/14/2023 CMP, serum or plasm a creatinine 1.1 mg/dL 0.7-1. 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 ) Not Available [facility] [address] [place] [address], [id number], 09/14/2023 14:51:52 09/13/19 24 09/14/2023 CBC w/ auto diff CBC with differential Not Available [facility] [address] [place] [address], [id number], 09/14/2023 14:27:36 09/13/19 24 09/14/2023 CBC w/ auto diff WBC 7.7 K/uL 3.8-11 .2 Not Available [facility] [address] [place] [address], [id number], 09/14/2023 14:27:36 09/13/19 24 09/14/2023 CBC w/ auto diff RBC 3.81 M/uL 3.92-5 .10 low Not Available [facility] [address] [place] [address], [id number], 09/14/2023 14:27:36 09/13/19 24 09/14/2023 CBC w/ auto diff HGB 11.3 g/dL 11.8-1 5.3 low Not Available [facility] [address] [place] [address], 49919, 09/14/2023 14:27:36 09/13/19 24 09/14/2023 CBC w/ auto diff HCT 35.2 % 36.5-4 4.8 low Not Available [facility] [address] [place] [address], 67820, 09/14/2023 14:27:36 09/13/19 24 09/14/2023 CBC w/ auto diff MCV 92.4 fL 80.0-9 9.0 Not Available [facility] [address] [place] [address], [id number], 09/14/2023 14:27:36 09/13/19 24 09/14/2023 CBC w/ auto diff MCH 29.7 pg 25.5-3 3.6 Not Available [facility] [address] [place] [address], [id number], 09/14/2023 14:27:36 09/13/19 24 09/14/2023 CBC w/ auto diff MCHC 32.1 g/dL 32.0-3 6.0 Not Available [facility] [address] [place] [address], 44773, 09/14/2023 14:27:36 09/13/19 24 09/14/2023 CBC w/ auto diff RDW-SD 49.3 fL 35.1 - 46.3 high Not Available [facility] [address] [place] [address], 12141, 09/14/2023 14:27:36 09/13/19 24 09/14/2023 CBC w/ auto diff plt 243 K/uL 130-40 0 Not Available [facility] [address] [place] [address], 49130, 09/14/2023 14:27:36 09/13/19 24 09/14/2023 CBC w/ auto diff MPV 10.3 fL 9.3-12 .8 Not Available [facility] [address] [place] [address], 14578, 09/14/2023 14:27:36 09/13/19 24 09/14/2023 CBC w/ auto diff brady% 58.5 % 39.8-7 1.3 Not Available [facility] [address] [place] [address], 54865, 09/14/2023 14:27:36 09/13/19 24 09/14/2023 CBC w/ auto diff lym% 32.2 % 19.2-4 7.1 Not Available [facility] [address] [place] [address], 38795, 09/14/2023 14:27:36 09/13/19 24 09/14/2023 CBC w/ auto diff mono% 6.3 % 1.7-12 .0 Not Available [facility] [address] [place] [address], 56207, 09/14/2023 14:27:36 09/13/19 24 09/14/2023 CBC w/ auto diff eos% 1.8 % 0.0-12 .0 Not Available [facility] [address] [place] [address], 42909, 09/14/2023 14:27:36 09/13/19 24 09/14/2023 CBC w/ auto diff baso% 0.9 % 0.0-3. 0 Not Available [facility] [address] [place] [address], 19395, 09/14/2023 14:27:36 09/13/19 24 09/14/2023 CBC w/ auto diff abs brady 4.5 K/uL 1.8-7. 5 Not Available [facility] [address] [place] [address], 16822, 09/14/2023 14:27:36 09/13/19 24 09/14/2023 CBC w/ auto diff abs lym 2.5 K/uL 1.1-3. 3 Not Available [facility] [address] [place] [address], 95386, 09/14/2023 14:27:36 09/13/19 24 09/14/2023 CBC w/ auto diff abs mono 0.5 K/uL 0.1-1. 0 Not Available [facility] [address] [place] [address], 34623, 09/14/2023 14:27:36 09/13/19 24 09/14/2023 CBC w/ auto diff abs eos 0.1 K/uL 0.0-0. 7 Not Available [facility] [address] [place] [address], 03542, 09/14/2023 14:27:36 09/13/19 24 09/14/2023 CBC w/ auto diff abs baso 0.1 K/uL 0.0-0. 2 Not Available [facility] [address] [place] [address], 54286, 09/14/2023 14:27:36 09/13/19 24 09/14/2023 CBC w/ auto diff imm. gran % 0.3 % 0.0-3. 0 Not Available [facility] [address] [place] [address], 74764, 09/14/2023 14:27:36 09/13/19 24 09/14/2023 CBC w/ auto diff NRBC % 0.0 % 0.0-0. 2 Not Available [facility] [address] [place] [address], 27714, 09/14/2023 14:27:36 09/13/19 24 09/13/2023 ESR (eryt hrocy te sedim entat ion rate) , blood sed rate 12 mm/HR 0 - 30 Not Available [facility] - [address], [place], [address], 06/30/2024 21:18:20 09/13/19 24 09/13/2023 C-lei ctive prote in, quant itati ve, serum or plasm a CRP Not Available [facility] [place] [address], [place], [address], 06/30/2024 21:18:19 09/13/19 24 09/13/2023 C-lei ctive prote in, quant itati ve, serum or plasm a CRP <0.4 mg/dL <0.4-0 .5 Not Available [facility] [place] [address], [place], [address], 06/30/2024 21:18:19 09/13/19 24 09/13/2023 CBC w/ auto diff WBC 7.7 K/uL 3.8-11 .2 Not Available [facility] [address] [place] [address], [place], [address], 06/30/2024 21:18:14 09/13/19 24 09/13/2023 CBC w/ auto diff RBC 3.81 M/uL 3.92-5 .10 low Not Available [facility] [address] [place], [address], 06/30/2024 21:18:14 09/13/19 24 09/13/2023 CBC w/ auto diff hemoglobin (HGB) 11.3 g/dL 11.8-1 5.3 low Not Available [facility] [address] [place], [address], 06/30/2024 21:18:14 09/13/19 24 09/13/2023 CBC w/ auto diff hematocrit (HCT) 35.2 % 36.5-4 4.8 low Not Available [facility] [address] [place], [address], 06/30/2024 21:18:14 09/13/19 24 09/13/2023 CBC w/ auto diff MCV 92.4 fL 80.0-9 9.0 Not Available [facility] [address] [place], [address], 06/30/2024 21:18:14 09/13/19 24 09/13/2023 CBC w/ auto diff MCH 29.7 pg 25.5-3 3.6 Not Available [facility] [address] [place], [address], 06/30/2024 21:18:14 09/13/19 24 09/13/2023 CBC w/ auto diff MCHC 32.1 g/dL 32.0-3 6.0 Not Available [facility] [address] [place], [address], 06/30/2024 21:18:14 09/13/19 24 09/13/2023 CBC w/ auto diff RDW-SD 49.3 fL 35.1 - 46.3 high Not Available [facility] [address] [place], [address], 06/30/2024 21:18:14 09/13/19 24 09/13/2023 CBC w/ auto diff plt 243 K/uL 130-40 0 Not Available [facility] [address] [place], [address], 06/30/2024 21:18:14 09/13/19 24 09/13/2023 CBC w/ auto diff MPV 10.3 fL 9.3-12 .8 Not Available [facility] [address] [place], [address], 06/30/2024 21:18:14 09/13/19 24 09/13/2023 CBC w/ auto diff brady% 58.5 % 39.8-7 1.3 Not Available [facility] [address] [place], [address], 06/30/2024 21:18:14 09/13/19 24 09/13/2023 CBC w/ auto diff lym% 32.2 % 19.2-4 7.1 Not Available [facility] [address] [place], [address], 06/30/2024 21:18:14 09/13/19 24 09/13/2023 CBC w/ auto diff mono% 6.3 % 1.7-12 .0 Not Available [facility] [address] [place], [address], 06/30/2024 21:18:14 09/13/19 24 09/13/2023 CBC w/ auto diff eos% 1.8 % 0.0-12 .0 Not Available [facility] [address] [place], [address], 06/30/2024 21:18:14 09/13/19 24 09/13/2023 CBC w/ auto diff baso% 0.9 % 0.0-3. 0 Not Available [facility] [address] [place], [address], 06/30/2024 21:18:14 09/13/19 24 09/13/2023 CBC w/ auto diff abs brady 4.5 K/uL 1.8-7. 5 Not Available [facility] [address] [place], [address], 06/30/2024 21:18:14 09/13/19 24 09/13/2023 CBC w/ auto diff abs lym 2.5 K/uL 1.1-3. 3 Not Available [facility] [address] [place], [address], 06/30/2024 21:18:14 09/13/19 24 09/13/2023 CBC w/ auto diff abs mono 0.5 K/uL 0.1-1. 0 Not Available [facility] [address] [place], [address], 06/30/2024 21:18:14 09/13/19 24 09/13/2023 CBC w/ auto diff abs eos 0.1 K/uL 0.0-0. 7 Not Available [facility] [address] [place], [address], 06/30/2024 21:18:14 09/13/19 24 09/13/2023 CBC w/ auto diff abs baso 0.1 K/uL 0.0-0. 2 Not Available [facility] [address] [place], [address], 06/30/2024 21:18:14 09/13/19 24 09/13/2023 CBC w/ auto diff imm. gran % 0.3 % 0.0-3. 0 Not Available [facility] [address] [place], [address], 06/30/2024 21:18:14 09/13/19 24 09/13/2023 CBC w/ auto diff NRBC % 0.0 % 0.0-0. 2 Not Available [facility] [address] [place], [address], 06/30/2024 21:18:14 09/13/19 24 09/13/2023 CBC w/ auto diff CBC with differential Not Available [facility] [address] [place], [address], 06/30/2024 21:18:14 09/13/19 24 09/13/2023 CMP, serum [...] CMP, serum or plasm a GFR;non-afri can japanese 52 Not Available Not Available 06/30/2024 21:18:11 09/13/19 24 09/13/2023 CMP, serum or plasm a GFR; 62 (assayer zach kidne y disea se has A [...] ng/mL Possi ble toxic ity Not Available [facility] [address] [place] [address], 79618, 03/22/2024 15:29:59 03/22/20 24 03/22/2024 C-lei ctive prote in, quant itati ve, serum or plasm a CRP high Not Available [facility] [address] [place] [address], 87481, 03/22/2024 15:31:37 03/22/20 24 03/22/2024 C-lei ctive prote in, quant itati ve, serum or plasm a CRP 1.0 mg/dL <0.4-0 .5 high Not Available [facility] [address] [place] [address], 57899, 03/22/2024 15:31:37 03/22/20 24 03/22/2024 CMP, serum or plasm a comp. met. panel Not Available [facility] [address] [place] [address], 59902, 03/22/2024 15:31:39 03/22/20 24 03/22/2024 CMP, serum or plasm a sodium 142 mmol/ L 136-14 6 Not Available [facility] [address] [place] [address], 59873, 03/22/2024 15:31:39 03/22/20 24 03/22/2024 CMP, serum or plasm a potassium 4.2 mmol/ L 3.5-5. 1 Not Available [facility] [address] [place] [address], 63295, 03/22/2024 15:31:39 03/22/20 24 03/22/2024 CMP, serum or plasm a chloride 106 mmol/ L 98-110 Not Available [facility] [address] [place] [address], 48119, 03/22/2024 15:31:39 03/22/20 24 03/22/2024 CMP, serum or plasm a CO2 29 mEq/L 20-32 Not Available [facility] [address] [place] [address], 18368, 03/22/2024 15:31:39 03/22/20 24 03/22/2024 CMP, serum or plasm a anion gap 11 mmol/ L 10-22 Not Available [facility] [address] [place] [address], 59795, 03/22/2024 15:31:39 03/22/20 24 03/22/2024 CMP, serum or plasm a glucose 124 mg/dL 70-100 high Not Available [facility] [address] [place] [address], 16375, 03/22/2024 15:31:39 03/22/20 24 03/22/2024 CMP, serum or plasm a calcium 9.6 mg/dL 8.4-10 .4 Not Available [facility] [address] [place] [address], 09123, 03/22/2024 15:31:39 03/22/20 24 03/22/2024 CMP, serum or plasm a total protein 6.0 g/dL 6.4-8. 3 low Not Available [facility] [address] [place] [address], 35118, 03/22/2024 15:31:39 03/22/20 24 03/22/2024 CMP, serum or plasm a albumin 4.0 g/dL 3.5-5. 3 Not Available [facility] [address] [place] [address], 91990, 03/22/2024 15:31:39 03/22/20 24 03/22/2024 CMP, serum or plasm a ALP 113 U/L 44 - 127 Not Available [facility] [address] [place] [address], 17140, 03/22/2024 15:31:39 03/22/20 24 03/22/2024 CMP, serum or plasm a AST (SGOT) 14 U/L 10-40 Not Available [facility] [address] [place] [address], 38493, 03/22/2024 15:31:39 03/22/20 24 03/22/2024 CMP, serum or plasm a total bilirubin 0.2 mg/dL 0.2-1. 0 Not Available [facility] [address] [place] [address], 31106, 03/22/2024 15:31:39 03/22/20 24 03/22/2024 CMP, serum or plasm a ALT (SGPT) 11 U/L 8-35 Not Available [facility] [address] [place] [address], 64967, 03/22/2024 15:31:39 03/22/20 24 03/22/2024 CMP, serum or plasm a BUN 20 mg/dL 7-21 Not Available [facility] [address] [place] [address], 09887, 03/22/2024 15:31:39 03/22/20 24 03/22/2024 CMP, serum or plasm a creatinine 1.0 mg/dL 0.7-1. 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 ) Not Available [facility] [address] [place] [address], 79364, 03/22/2024 15:31:39 03/22/20 24 03/22/2024 CBC CBC Not Available [facility] [address] [place] [address], 73706, 03/22/2024 15:42:17 03/22/20 24 03/22/2024 CBC WBC 4.7 K/uL 3.8-11 .2 Not Available [facility] [address] [place] [address], 49570, 03/22/2024 15:42:17 03/22/20 24 03/22/2024 CBC RBC 3.74 M/uL 3.92-5 .10 low Not Available [facility] [address] [place] [address], 52810, 03/22/2024 15:42:17 03/22/20 24 03/22/2024 CBC HGB 11.7 g/dL 11.8-1 5.3 low Not Available [facility] [address] [place] [address], 96931, 03/22/2024 15:42:17 03/22/20 24 03/22/2024 CBC HCT 34.9 % 36.5-4 4.8 low Not Available [facility] [address] [place] [address], 75397, 03/22/2024 15:42:17 03/22/20 24 03/22/2024 CBC MCV 93.3 fL 80.0-9 9.0 Not Available [facility] [address] [place] [address], 67316, 03/22/2024 15:42:17 03/22/20 24 03/22/2024 CBC MCH 31.3 pg 25.5-3 3.6 Not Available [facility] [address] [place] [address], 95000, 03/22/2024 15:42:17 03/22/20 24 03/22/2024 CBC MCHC 33.5 g/dL 32.0-3 6.0 Not Available [facility] [address] [place] [address], 58951, 03/22/2024 15:42:17 03/22/20 24 03/22/2024 CBC RDW-SD 46.5 fL 35.1 - 46.3 high Not Available [facility] [address] [place] [address], 55722, 03/22/2024 15:42:17 03/22/20 24 03/22/2024 CBC plt 275 K/uL 130-40 0 Not Available [facility] [address] [place] [address], 51703, 03/22/2024 15:42:17 03/22/20 24 03/22/2024 CBC MPV 9.5 fL 9.3-12 .8 Not Available [facility] [address] [place] [address], 43356, 03/22/2024 15:42:17 03/22/20 24 03/22/2024 ESR (eryt hrocy te sedim entat ion rate) , blood sed rate 19 mm/HR 0 - 30 Not Available [facility] [address] [place] [address], 73612, 03/22/2024 17:02:42 04/25/20 24 04/27/2024 C3 (comp lemen t), serum or plasm a complement C3 116 mg/dL 82-167 Not Available [facility] [address] [place] [address], 41214, 04/27/2024 03:40:09 04/25/20 24 04/27/2024 C4 (comp lemen t), serum or plasm a complement C4 32 mg/dL 12-38 Not Available [facility] [address] [place] [address], 12326, 04/27/2024 03:40:10 08/03/19 25 08/04/2024 dangelo Ab + passenger train braker Ab, serum sm/passenger train braker antibodies Not Available [facility] [address] [place] [address], 97118, 08/04/2024 11:38:31 08/03/19 25 08/04/2024 dangelo Ab + passenger train braker Ab, serum sm antibodies <0.2 ai 0.0-0. 9 Not Available [facility] [address] [place] [address], 66315, 08/04/2024 11:38:31 08/03/19 25 08/04/2024 dangelo Ab + passenger train braker Ab, serum passenger train braker antibody. <0.2 ai 0.0-0. 9 Not Available [facility] [address] [place] [address], 45998, 08/04/2024 11:38:31 08/03/1908/04/2024 CBC CBC Not Available [facility] [address] [place] [address], 21750, 08/04/2024 15:39:09 08/03/1908/04/2024 CBC WBC 4.3 K/uL 3.8-11 .2 Not Available [facility] [address] [place] [address], 32130, 08/04/2024 15:39:09 08/03/1908/04/2024 CBC RBC 3.91 M/uL 3.92-5 .10 low Not Available [facility] [address] [place] [address], 43676, 08/04/2024 15:39:09 08/03/1908/04/2024 CBC HGB 12.0 g/dL 11.8-1 5.3 Not Available [facility] [address] [place] [address], 32811, 08/04/2024 15:39:09 08/03/1908/04/2024 CBC HCT 36.7 % 36.5-4 4.8 Not Available [facility] [address] [place] [address], 94818, 08/04/2024 15:39:09 08/03/1908/04/2024 CBC MCV 93.9 fL 80.0-9 9.0 Not Available [facility] [address] [place] [address], 29824, 08/04/2024 15:39:08/03/1908/04/2024 CBC MCH 30.7 pg 25.5-3 3.6 Not Available [facility] [address] [place] [address], 90330, 08/04/2024 15:39:08/03/1908/04/2024 CBC MCHC 32.7 g/dL 32.0-3 6.0 Not Available [facility] [address] [place] [address], 11877, 08/04/2024 15:39:08/03/1908/04/2024 CBC RDW-SD 47.3 fL 35.1 - 46.3 high Not Available [facility] [address] [place] [address], 65691, 08/04/2024 15:39:08/03/1908/04/2024 CBC plt 219 K/uL 130-40 0 Not Available [facility] [address] [place] [address], 91253, 08/04/2024 15:39:08/03/1908/04/2024 CBC MPV 9.8 fL 9.3-12 .8 Not Available [facility] [address] [place] [address], [id number], 08/04/2024 15:39:08/03/1908/04/2024 compl ement , total , [...] out of range value s. Not Available [facility] [address] [place] [address], [id number], 08/04/2024 15:39:11 08/03/19 25 08/04/2024 ESR (eryt hrocy te sedim entat ion rate) , blood sed rate 12 mm/HR 0 - 30 Not Available [facility] [address] [place] [address], [id number], 08/04/2024 15:51:14 08/03/19 25 08/04/2024 vitam in D, 25-hy droxy , total , serum vitamin D 25-hydroxy totl 35.0 NG/mL 30.0-8 0.0 Less than 20 ng/mL Defic iency 20-29 ng/mL Insuf ficie ncy 30-80 ng/mL Optim al Great er than 80 ng/mL Possi ble toxic ity Not Available [facility] [address] [place] [address], [id number], 08/04/2024 16:16:45 08/03/19 25 08/04/2024 C-lei ctive prote in, quant itati ve, serum or plasm a CRP high Not Available [facility] [address] [place] [address], [id number], 08/04/2024 16:18:59 08/03/19 25 08/04/2024 C-lei ctive prote in, quant itati ve, serum or plasm a CRP 0.8 mg/dL <0.4-0 .5 high Not Available [facility] [address] [place] [address], [id number], 08/04/2024 16:18:59 08/03/19 25 08/04/2024 CK (crea demetrius kinas e), total , serum CPK- Not Available [facility] [address] [place] [address], [id number], 08/04/2024 16:19:01 08/03/19 25 08/04/2024 CK (crea demetrius kinas e), total , serum CPK 58 U/L 30-200 Not Available [facility] [address] [place] [address], [id number], 08/04/2024 16:19:01 08/03/19 25 08/04/2024 CMP, serum or plasm a comp. met. panel Not Available [facility] [address] [place] [address], [id number], 08/04/2024 16:21:49 08/03/1908/04/2024 CMP, serum or plasm a sodium 144 mmol/ L 136-14 6 Not Available [facility] [address] [place] [address], [id number], 08/04/2024 16:21:49 08/03/19 25 08/04/2024 CMP, serum or plasm a potassium 4.7 mmol/ L 3.5-5. 1 Not Available [facility] [address] [place] [address], [id number], 08/04/2024 16:21:49 08/03/19 25 08/04/2024 CMP, serum or plasm a chloride 109 mmol/ L 98-110 Not Available [facility] [address] [place] [address], [id number], 08/04/2024 16:21:49 08/03/1908/04/2024 CMP, serum or plasm a CO2 28 mEq/L 20-32 Not Available [facility] [address] [place] [address], [id number], 08/04/2024 16:21:49 08/03/1908/04/2024 CMP, serum or plasm a anion gap 12 mmol/ L 10-22 Not Available [facility] [address] [place] [address], [id number], 08/04/2024 16:21:49 08/03/19 25 08/04/2024 CMP, serum or plasm a glucose 95 mg/dL 70-100 Not Available [facility] [address] [place] [address], [id number], 08/04/2024 16:21:49 08/03/19 25 08/04/2024 CMP, serum or plasm a calcium 9.3 mg/dL 8.4-10 .4 Not Available [facility] [address] [place] [address], [id number], 08/04/2024 16:21:49 08/03/1908/04/2024 CMP, serum or plasm a total protein 6.0 g/dL 6.4-8. 3 low Not Available [facility] [address] [place] [address], [id number], 08/04/2024 16:21:49 08/03/1908/04/2024 CMP, serum or plasm a albumin 3.9 g/dL 3.5-5. 3 Not Available [facility] [address] [place] [address], [id number], 08/04/2024 16:21:49 08/03/1908/04/2024 CMP, serum or plasm a ALP 124 U/L 44 - 127 Not Available [facility] [address] [place] [address], [id number], 08/04/2024 16:21:49 08/03/1908/04/2024 CMP, serum or plasm a AST (SGOT) 15 U/L 10-40 Not Available [facility] [address] [place] [address], [id number], 08/04/2024 16:21:49 08/03/1908/04/2024 CMP, serum or plasm a total bilirubin 0.4 mg/dL 0.2-1. 0 Not Available [facility] [address] [place] [address], [id number], 08/04/2024 16:21:49 08/03/19 25 08/04/2024 CMP, serum or plasm a ALT (SGPT) 11 U/L 8-35 Not Available [facility] [address] [place] [address], [id number], 08/04/2024 16:21:49 08/03/19 25 08/04/2024 CMP, serum or plasm a BUN 24 mg/dL 7-21 high Not Available [facility] [address] [place] [address], [id number], 08/04/2024 16:21:49 08/03/19 25 08/04/2024 CMP, serum or plasm a creatinine 1.0 mg/dL 0.7-1. 3 Not Available [facility] [address] [place] [address], [id number], 08/04/2024 16:21:49 08/03/19 25 08/04/2024 CMP, serum or plasm a CKD-epi GFR 58 low eGFR was calcu lated using the 2020 CKD-E PI equat ion. (Cotton Header zach Kidne y Disea se has an eGFR less than 60 mL/mi n/1.7 3mm for a perio d of three month s or more. ) This calcu latio n has not been valid ated for patie nt ages <18 or >90 years old. Not Available [facility] [address] [place] [address], [id number], 08/04/2024 16:21:49 08/03/19 25 08/05/2024 C3 (comp lemen t), serum or plasm a complement C3 125 mg/dL 82-167 Not Available [facility] [address] [place] [address], [id number], 08/05/2024 09:37:17 08/03/19 25 08/06/2024 C4 (comp lemen t), serum or plasm a complement C4 33 mg/dL 12-38 Not Available [facility] [address] [place] [address], [id number], 08/06/2024 07:37:15 08/03/19 25 08/07/2024 DNA doubl e stran d Ab, QL, serum DNA Ab; double stranded NEGATI VE negati ve Not Available [facility] [address] [place] [address], [id number], 08/07/2024 15:03:05 08/21/19 25 06/05/2024 XR, shoul dariana No observ ation record ed. BARCODE Not Available 2024 10:37:32 Result Notes None recorded. Problems Name Problem SNOMED Code Status Onset Date Resolution Date Notes Provider Name and Address Organization Details Recorded Time Anti-nuclea r factor detected 280232662 [facility] 17:59:58 Osteoarthri tis 262228538 Active 2023 Shikha Castillo [facility] 4 18:00:10 High risk drug monitoring Active 2023 Shikha Castillo [facility] 4 18:00:23 Inflammator y polyarthrop athy 278455562 Active 2023 Shikha Castillo [facility] 4 18:07:02 Pulmonary hypertensio n 11100539 Active 2023 Shikha Castillo [facility] 4 18:07:17 Vitamin D deficiency 24656553 Active 2023 José Luis Curran [facility] 5 11:36:24 Chronic kidney disease stage 3 863816225 Active 2023 Shikha Castillo [facility] 4 18:07:47 Cervical radiculopat hy 17200289 Active 2023 Shikha Castillo [facility] 4 18:08:11 Pain of right shoulder joint 5960855573819 9100 Active 2023 José Luis Curran [facility] 10:03:28 Problem Notes None recorded. Procedures Surgical History Date Name Laterality Status Provider Name and Address Organization Details Recorded Time 06/25/20 21 Carpal tunnel surgery completed [facility] 10/12/2023 18:10:15 procedure on gallbladder completed [facility] 10/12/2023 18:10:38 Gastric bypass for obesity completed [facility] 10/12/2023 18:10:56 hysterectomy completed [facility] 10/12/2023 18:11:04 Imaging Results Imaging Date Name Status LastModified by Organiz ation Details LastModified Time 06/05/2024 XR, shoulder completed [facility] Information not available 08/21/2024 10:37:32 Procedure Notes None recorded. Medical Equipment None Reported. Allergies Allergen ID Allergen Name Allergen Category Reaction Reaction Severity Criticality Documentation Date Start Date Code Code System Note Provider Name and Address Organization Details Recorded Time 7062389 Product containin g 3-hydroxy -3-methyl glutaryl- coenzyme A reductase inhibitor (product) medicatio n dizziness Not available Not available 08/04/20232014 08474 009 SNOMED React ion: Dizzi ness; Other : falls ; Not Available Not Available Not Available 028047 pregabali n medicatio n Not available Not available Not available 08/02/20232014 78546 2 RxNorm Not Available Not Available Not Available 430284 aspirin medicatio n Not available Not available [...] Updated DateTime 4 160.02 cm 35.3 kg/m2 15992.8 8 g 82 /min 98 % 98 % 7 134 mm[Hg] 76 mm[Hg] Shikha Castillo [facility] 4 09:48:03 Date Recorded Body height Body mass index (BMI) Body weight Heart rate Oxygen saturation Oxygen saturation in Arterial blood by Pulse oximetry Pain severity - 0-10 verbal numeric rating [Score] - Reported Systolic blood pressure Diastolic blood pressure Provider Name and Address Organization Details Last Updated DateTime 4 160.02 cm 33 kg/m2 43288.9 g 68 /min 97 % 97 % 4 112 mm[Hg] 56 mm[Hg] Lian Tillman [facility] 4 15:13:53 Date Recorded Body height Body mass index (BMI) Body weight Oxygen saturation Oxygen saturation in Arterial blood by Pulse oximetry Heart rate Systolic blood pressure Diastolic blood pressure Provider Name and Address Organization Details Last Updated DateTime 5 160.02 cm 33.7 kg/m2 82843.5 5 g 100 % 100 % 86 /min 128 mm[Hg] 68 mm[Hg] Pallavi Duffy [facility] 5 11:01:42 Social History None recorded. Functional Status None recorded. Mental Status None recorded. Family History Relationship Description Onset Age of this Age Resolved Age Notes LastModified by Organization Details LastModified Time Father Heart disease Not available 2023 18:08:29 Father Cerebrovascu lar accident [email or web address] Not available 03/2024 18:08:37 Father Diabetes mellitus [email or web address] Not available 2023 18:08:44 Father Hypertensive disorder [email or web address] Not available 2023 18:08:54 Father Leukemia [email or web address] Not availabl e 10/12/2023 18:09:02 Mother Heart disease Not available 2023 18:08:29 Mother Hypertensive disorder [email or web address] Not available 2023 18:08:54 Mother Multiple congenital cysts of kidney [email or web address] Not available 2023 18:09:49 Maternal Grandmother Multiple congenital cysts of kidney Not available 2023 18:09:49 Sister Multiple congenital cysts of kidney [email or web address] Not available 2023 18:09:49 Medical History No medical history recorded. Gynecological HistoryNo gynecological history recorded. 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 9785439684 60058 G56.01 Impingemen t syndrome of right shoulder region 1806042002 86601 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 0155047731 00 Z79.631 Long-term drug therapy 628329531 Z79.620 [id number] Sander Avila MD [address] [place] [address] Rheumat[place]gy ([place]) [address] [address] 03/27/2024 14:34:00 03/27/2024 18:15:44 Pain of right shoulder joint 0888491650 2603713 M25.511 Inflammato ry polyarthropathy 886837741 M06.4 Impingemen t syndrome of right shoulder region 5941510087 58738 M75.41 [id number] Sander Avila MD [facility] [place]) [address] [employer] [facility] [place] [address] 07/27/2024 10:52:24 07/31/2024 17:37:04 Inflammatory polyarthropathy 182536236 M06.4 Osteoarthritis 249033974 M19.90 Pain of ri ght shoulder joint 8918004020 4713647 M25.511 Vitamin D deficiency 347 49934 E55.9 Health Concerns Section Related Observation LastModified by Organization Detai ls LastModified Time None Recorded Concern Status LastModified by Organization Details LastModified Time None Recorded Advance Directives Directive None Recorded Payers Encounter Date Sequence Insurance Name Policy Number Policy Ramos Covered Member ID Ramos Member ID Guarantor Name 10/14/2023 1 [facility] (MEDICARE REPLACEMENT/A DVANTAGE - PPO) [id number] Priscilla Hollins [id number] Priscilla Hollins 03/27/2024 1 [facility] (MEDICARE REPLACEMENT/A DVANTAGE - PPO) [id number] Priscilla Hollins [id number] Priscilla Hollins 07/27/2024 1 [facility] (MEDICARE REPLACEMENT/A DVANTAGE - PPO) [id number] Priscilla Tessie Hollins [id number] Priscilla Hollins Notes Date Note Type Note [...] hand numbness and tingling. 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 Of note, [...] otherwise normal parameters.lg Avila MD [address] [facility], [place], [address], [facility] 10/15/2023 14:54:27 03/27/2024 text/html The patient is [...] tingling in the hands or loss of elementary classroom teacher strength. The patient continues to morel some right foot and ankle pain related to indwelling hardware from a Charcot joint surgery previously. She has to wear compression hose as the leg tends to swell. The patient has been seeing an roaster supervisor once a year for routine checkups. She [...] of her underlying health problems.linnea Avila MD [facility], [address], [facility] 03/28/2024 21:56:48 07/27/2024 text/html The patient is [...] Dr. Krueger of pain management clinic in [place], [place] and recently had a right shoulder [...] disease stage 3.linnea Avila MD [address] [place] [address], [phone], [facility] 07/29/2024 15:23:32 OBGyn Episode No OBEpisode recorded.
--- OUTSIDE RECORDS SUMMARY | 2024-10-03 02:23 | XMS_ITS | Clinical Summary ---
Author Organization [facility] Address [address] [facility] [place] [address] Care Team Providers Care Jump Iron Machine Presser Name Role Phone Viola Turpin MD Unavailable [phone] Cristobal Gage DO Unavailable [phone] Vishal Negrete MD Primary Care Provider [phone] Bob LittleC Unavailable [phone] Source Comments [facility],non-owned Affiliates and Associated Physician Practices is amultiple site organization consisting of ambulatory clinics and hospital sitesin [place], [place], [place] and [place]. This disclosure is being madepursuant to the Care Everywhere program and may not contain all information available regarding this patient. Last updated 18.[facility] Allergies Active Allergy Reactions Criticality Noted Date Comments Aspirin Other Low 01/16/2014 ulcers Nsaids Other,Dizziness Low 05/16/2015 PUD Hmg-Coa-R Inhibitors Myalgias Low 04/05/2014 Medications * Be aware that medications may not be up to date on this document. Alwaysverify current medications with the patient. Medication Sig Dispensed Refills Start Date End Date Status [place]-3 Fatty Acids (OMEGA 3 PO) Take 1 [...] tab sat-sun 1 02/28/2015 Active Nystatin (NYSTOP) 183143 UNIT/GM POWD Take 100,000 Units by mouth [...] once daily Active vitamin D, ergocalciferol, (DRISDOL) 77785 UNITS capsule Take 50,000 Units by mouth [...] this topic Medical Devices Implanted Type Area District Associate Judge Device Identifier Shelf Expiration Date Model / Serial / Lot Fusion Succ[place]na Implanted:Qty: 1 on 06/26/2014 by Cristobal Gage DO at [facility] [employer] [id number] / / Bone Crush Can 30cc - [id number] Implanted:Qty: 1 on 06/26/2014 by Cristobal Gage DO at [facility] [employer] 09/04/2018 [id number] / [id number] / Screw Hdlss 4.3 X 40mm Implanted:Qty: 1 on 10/01/2016 by Cristobal Gage DO at [facility] Right: Foot [employer] [id number] / / Scrw Hdless Comp 6.5 X 85 Implanted:Qty: 1 on 10/01/2016 by Cristobal Gage DO at [facility] Right: Foot [employer] [id number] / / Scrw Hdless Comp 6.5 X 75 Implanted:Qty: 1 on 10/01/2016 by Cristobal Gage DO at [facility] Right: Foot [employer] [id number] / / Screw 6.5mm 80mm Comp Viviana Hdls Arthx Implanted:Qty: 1 on 10/01/2016 by Cristobal Gage DO at [facility] Right: Foot [employer] [id number] / / Screw Hdlss 4.3 X 70mm Screw Implanted:Qty: 2 on 10/01/2016 by Cristobal Gage DO at [facility] Right: Foot [employer] [id number] / / Graft Bone Accell Evo3 Dbm 10ml Ptty - [id number] Implanted:Qty: 1 on 10/01/2016 by Cristobal Gage DO at [facility] Right: Foot [employer] 01/29/2017 [id number] / [id number] / [id number] Graft Bone Canc 30ml Frzdr Crsh 1-4mm Implanted:Qty: 1 on 10/01/2016 by Cristobal Gage DO at [facility] Right: Foot [employer] 03/02/2021 [id number] / / [id number] Explanted Type Area District Associate Judge Device Identifier Shelf Expiration Date Model / Serial / Lot K-Wire 9.0in X .062in Explanted:Qty: 2 on 10/01/2016 by Cristobal Gage DO at [facility] Right: Foot [employer] 05/14/2019 [id number] / / [id number] Procedures Procedure Name Priority Date/Time Associated Diagnosis Comments RENAL FUNCTION PANEL AM Draw 04/30/2018 4:39 AM CDT HEMOGLOBIN A1C Routine 04/28/2018 4:08 AM CDT from Last 3 Months or Most Recently Relevant to Health Maintenance Results * (ABNORMAL) RENAL FUNCTION PANEL (04/30/2018 4:39 AM CDT) Glucose 104 74 - 106 mg/dL 04/30/2018 7:[facility] Sodium 142 136 - 145 mmol/L 04/30/2018 7:12 AM [facility] Potassium 3.8 3.5 - 5.1 mmol/L 04/30/2018 7:12 AM [facility] Chloride 109(H) 98 - 107 mmol/L 04/30/2018 7:12 AM [facility] CO2 29 22 - 31 mmol/L 04/30/2018 7:12 AM [facility] Calcium 9.1 8.5 - 10.1 mg/dL 04/30/2018 7:12 AM [facility] Anion Gap 4(L) 8 - 16 mmol/L 04/30/2018 7:12 AM [facility] BUN 10 7 - 21 mg/dL 04/30/2018 7:12 AM [facility] Creatinine 0.87 0.50 - 1.30 mg/dL 04/30/2018 7:12 AM [facility] Albumin 2.7(L) 3.4 - 5.0 gm/dL 04/30/2018 7:12 AM [facility] Phosphorus 3.8 2.5 - 4.9 mg/dL 04/30/2018 7:12 AM [facility] eGFR by MDRD >60 >60 mL/min/1.7 3m2 04/30/2018 7:12 AM [facility] eGFR by MDRD >60 >60 mL/min/1.7 3m2 04/30/2018 7:12 AM [facility] Blood BLOOD SPECIMEN / Unknown Lab Venipuncture / Unknown 04/30/2018 4:39 AM CDT 04/30/2018 4:52 AM CDT [place] FORENSIC DNA ANALYST-RESIDENTIAL FEE APPRAISER LAB - CHEMISTR Y ORDERABLES [facility] [address] [place] [address] * (ABNORMAL) HEMOGLOBIN A1C (04/28/2018 4:08 AM CDT) Hemoglobin A1c 6.9(H) 4.2 - 6.3 % 04/28/2018 7:23 AM CDT [facility] Estimated Average Glucose 151 mg/dL 04/28/2018 7:23 AM CDT [facility] Blood BLOOD SPECIMEN / Unknown Lab Venipuncture / Unknown 04/28/2018 4:08 AM CDT 04/28/2018 4:21 AM CDT Ambar Clint Rodas FORENSIC DNA ANALYST-RESIDENTIAL FEE APPRAISER LAB - CHEMISTR Y ORDERABLES [facility] [address] [place] [address] from Last 3 Months or Most Recently [...] 5:47 PM 06/27/2014 3:34 PM Care Teams Jump Iron Machine Presser Relationship Specialty Start Date End Date Vishal Negrete MD PCP - General Internal Medicine 06/08/14 Viola Turpin MD Orthopedic Surgery 01/16/14 Cristobal Gage DO Orthopedic Surgery 01/31/14 Bob Little PA-C [address] [place] [address] Physician Advanced Se[employer] Delivery System Physician [facility] 03/04/15
--- OUTSIDE RECORDS SUMMARY | 2024-10-03 02:23 | XMS_ITS | Clinical Summary ---
Author Organization [facility] Address [address] [facility] [address] [place] [address] Phone Care Team Providers Care Shop Supervisor Name Role Phone Vishal Negrete MD Primary Care Provider + Allergies Active Allergy Reactions Criticality Noted Date Comments Wrqgpdv-Qvx-Pkr Reductase Inhibitors Unknown 08/11/2016 Medications fentaNYL (DURAGESIC) [...] tablet Take 300 mcg by mouth daily water pump installer 1 tab daily mon-fri, 1/2 tab on [...] on file Legal Sex Female 4:56 AM MORTGAGE LOAN COMPUTATION CLERK Gender Identity Not on file Sexual Orientation Not on file Last Filed Vital Signs Vital Sign Reading Time Taken Comments Blood Pressure 144/85 08/12/2016 7:53 AM MORTGAGE LOAN COMPUTATION CLERK Pulse 70 08/12/2016 7:53 AM MORTGAGE LOAN COMPUTATION CLERK Temperature 36.4 C (97.6 F) 08/12/2016 7:53 AM MORTGAGE LOAN COMPUTATION CLERK Respiratory Rate 20 08/12/2016 7:53 AM MORTGAGE LOAN COMPUTATION CLERK Oxygen Saturation 98% 08/12/2016 7:53 AM MORTGAGE LOAN COMPUTATION CLERK Inhaled Oxygen Concentration - - Weight 93.4 kg (206 lb) 08/12/2016 6:42 AM MORTGAGE LOAN COMPUTATION CLERK Height 160 cm (5' 3 ) 08/11/2016 2:38 PM MORTGAGE LOAN COMPUTATION CLERK Body Mass Index 36.49 08/11/2016 2:38 PM MORTGAGE LOAN COMPUTATION CLERK Plan of Treatment Health Maintenance Due Date [...] 04/10/2016 Insurance MEDICARE PART A AND B [place] [id number] Advance Directives For more information, please contact: [phone] * Full Code (Latest Code Status on File) Date Activated Date Inactivated Comments 08/12/2016 5:39 AM 08/12/2016 10:28 AM Care Teams Shop Supervisor Relationship Specialty Start Date End Date Vishal Negrete MD [address] [place] [phone] PCP - General Internal Medicine 08/12/16
[2024-10-03 07:20] VITALS: BP 186/91; PULSE 66; RESP 16; TEMP 36.4; O2SAT 100; BMI 34.4
[2024-10-03] MEDS: LACTATED RINGERS 1,000 ML 150 ML IV CONT (07:30)
--- NOTE | 2024-10-03 09:10 | P.HP_ITS ---
H&P: HPI History of Present Illness Date/Time: 10/03/24 09:10 Chief Complaint: Iron deficiency anemia Narrative: this is a 73-year-old woman who presents for EGD colonoscopy. She has iron deficiency anemia. She denies any hematochezia or melena. She does have a history of gastric bypass and routinely takes vitamin B12, folic acid, and ferrous sulfate. She had an EGD 2 years ago which was unremarkable and had a colonoscopy 5 years ago which was normal. She denies family history of colon cancer. Review of Systems Review of Systems: All systems reviewed & are unremarkable except as noted in HPI and below Constitutional: Constitutional: Denies chills, Denies fever(s), Denies headache(s) and Denies weight loss Eyes: Eyes: Denies change in vision ENT: Denies dizziness, Denies headache(s), Denies neck mass and Denies throat swelling Cardiovascular: Cardiovascular: Denies chest pain, Denies lightheadedness and Denies dyspnea Respiratory: Respiratory: Denies cough, Denies dyspnea and Denies wheezing Gastrointestinal: Gastrointestinal: Denies abdominal pain, Denies change in bowel habits, Denies nausea and Denies vomiting Genitourinary: Genitourinary: Denies hematuria and Denies dysuria Musculoskeletal: Musculoskeletal: Reports as per HPI Integumentary/Breasts: Skin/Breast: Reports as per HPI Neurologic: Denies dizziness and Denies headache(s) Allergic/Immunologic: Allergic/Immunologic: Denies throat swelling and Denies wheezing [facility] Past Medical History Medical History (Updated 10/03/24 @ 09:11 by Cristobal Ace DO) Hydrocodone use disorder, mild Obesity Charcot ankle Hypothyroidism Fibromyalgia Hyperlipidemia HTN (hypertension) Surgical History Surgical History H/O gastric bypass Social History Social History Smoking status: Never smoker Alcohol intake: never Substance use: never Substance use type: does not use Living arrangements: with family Spiritual care concerns: No Meds Home Medications and Allergies Home Medications ?Medication ?Instructions ?Recorded ?Confirmed ?Type duloxetine 60 mg capsule,delayed 60 mg PO DAILY 11/20/19 10/03/24 History release ergocalciferol (vitamin D2) 1,250 50,000 unit PO WEEKLY 11/20/19 10/03/24 History mcg (50,000 unit) capsule esomeprazole magnesium 40 mg 40 mg PO DAILY 11/20/19 10/03/24 History capsule,delayed release ferrous sulfate 325 mg (65 mg 325 mg PO DAILY 11/20/19 10/03/24 History iron) tablet folic acid 1 mg tablet 1 mg PO DAILY 11/20/19 10/03/24 History hydrocodone 10 mg-acetaminophen 1 tablet PO USEASDIRECTD PRN Pain, 11/20/19 0 09/25/24 History 325 mg tablet Moderate hydroxychloroquine 200 mg tablet 200 mg PO DAILY 11/20/19 10/03/24 History hyoscyamine sulfate 0.125 mg tablet 0.125 mg PO DAILY 11/20/19 09/25/24 History ketoconazole 2 % topical cream 1 applic topical DIRECTED 11/20/19 09/25/24 History levothyroxine 300 mcg tablet 300 mcg PO DAILY 11/20/19 10/03/24 History lisinopril 2.5 mg tablet 2.5 mg PO DAILY 11/20/19 09/25/24 History cyanocobalamin (B12)-cobamamide 1 sridhar sublingual DAILY 09/25/24 10/03/24 History 5,000 mcg-100 mcg sublingual lozenge (B12) gabapentin 800 mg tablet 800 mg PO DAILY 09/25/24 10/03/24 History pravastatin 10 mg tablet 10 mg PO DAILY 09/25/24 10/03/24 History tizanidine 4 mg tablet 4 mg PO DAILY 09/25/24 10/03/24 History Allergies Allergy/AdvReac Type Severity Reaction Status Date / Time aspirin AdvReac Gastrointestinal Verified 10/03/24 07:18 Upset Brzrbek-SLC-DdY Reductase AdvReac Flushing Verified 10/03/24 07:18 Inhibitor Vital Signs Vital Signs - 24 hr 10/03/24 07:20 Temperature 97.5 F L Pulse Rate 66 Respiratory Rate 16 Blood Pressure 186/91 H Pulse Oximetry 100 Oxygen Delivery Room Air Exam Const: General: no acute distress and alert Orientation/consciousness: patient oriented x3 HENMT: Head: normocephalic and atraumatic Ears: hearing grossly normal bilaterally Face/Nose/Sinus: Normal nares present Mouth: Yes Normal oral and palatal mucosa present Eyes: Periorbital: periorbital findings normal Sclera: sclerae normal EOM: EOMs intact bilaterally Neck: Neck: normal visual inspection, no lymphadenopathy and trachea midline Chest: Chest palpation & inspection: normal inspection of the chest Resp: Effort & Inspection: normal respiratory effort Auscultation: clear to auscultation bilaterally Cardio: Jugular venous distension: no JVD Rate: regular rate Rhythm: regular rhythm Heart sounds: S1 normal heart sound present and S2 normal heart sound present Peripheral pulses: Peripheral pulses 2+ throughout GI: Inspection: normal to inspection GI Palp: Yes Soft to palpation, No Tenderness to palpation present (GI), No Guarding due to palpation present (GI) and No Rebound tenderness present Percussion: Yes normal to percussion Auscultation: normal bowel sounds : General: Yes no CVA tenderness Back/Spine/Pelvis: Back: no CVA tenderness Neuro: General: patient oriented x3, no focal motor deficits and CN's II-XI intact bilaterally Cognition (Neuro): normal cognition Speech: normal speech Motor exam (neuro): 5/5 motor strength present throughout Extrem: General: capillary refill normal and no clubbing, cyanosis or edema Assessment and Plan Assessment and plan (1) Iron deficiency anemia: Code(s): D50.9 - Iron deficiency anemia, unspecified Status: Acute Assessment and Plan: I have recommended EGD and colonoscopy. I have discussed the procedure, risks, benefits, and alternatives. Questions were answered. Patient is agreeable to proceed.
--- NOTE | 2024-10-03 09:29 | SUR.OPER ---
EGD ended at 918, colon began at 926.
[2024-10-03] MEDS: SIMETHICONE ORAL SUSPENSION 20 MG/0.3 ML 30 ML BOTTLE 0.6 ML IRRIGATION (09:37)
[2024-10-03 09:52] VITALS: BP 154/89; PULSE 71; RESP 19; O2SAT 93
[2024-10-03 10:02] VITALS: BP 178/93; PULSE 64; RESP 21; O2SAT 96
[2024-10-03 10:12] VITALS: BP 183/99; PULSE 61; RESP 14; O2SAT 100
== END 2024-10-03 10:30 | disposition home or self-care (01) ==
PROVIDERS: PCP Internal Medicine; Visit Provider Surgery
PROC: 0DJ08ZZ Inspection of Upper Intestinal Tract, Via Natural or Artificial Opening Endoscopic (ICD-10-PCS; CPT 45378; principal; 2024-10-03 08:30)
DX: D50.9 Iron deficiency anemia, unspecified (principal); K63.5 Polyp of colon; K57.30 Diverticulosis of large intestine without perforation or abscess without bleeding; K29.30 Chronic superficial gastritis without bleeding; K31.89 Other diseases of stomach and duodenum; E78.5 Hyperlipidemia, unspecified; I10 Essential (primary) hypertension; E03.9 Hypothyroidism, unspecified; M79.7 Fibromyalgia; E66.9 Obesity, unspecified; Z68.34 Body mass index [BMI] 34.0-34.9, adult; Z79.891 Long term (current) use of opiate analgesic; Z98.890 Other specified postprocedural states; Z98.84 Bariatric surgery status
CPT/HCPCS: 43239; 45380; 88305; J2003; J2704; J7120

== ENCOUNTER 2024-12-01 15:35 | Outpatient (CLI) | payer MEDICARE, SELFPAY ==
--- NOTE | ~2024-12-01 | XR_ITS ---
XR shoulder RT min 2V 12/01/2024 15:51 Indication: Right shoulder pain Procedure: 4 views right shoulder Comparison: No prior studies for comparison. Findings: There is severe glenohumeral joint osteoarthritis. No fracture or traumatic malalignment. N o soft tissue abnormality. No foreign bodies. Impression: 1: Severe right glenohumeral joint osteoarthritis. Reviewed, dictated and finalized at location A. Impression: 1: Severe right glenohumeral joint osteoarthritis.
--- OUTSIDE RECORDS SUMMARY | 2024-12-01 15:39 | XMS_ITS | Clinical Summary ---
Author Organization [facility] Address [address] [place] [address] Care Team Providers Care Chip Loft Worker Name Role Phone Viola Turpin MD Unavailable [phone] Cristobal Gage DO Unavailable [phone] Vishal Negrete MD Primary Care Provider [phone] Bob LittleC Unavailable Source Comments [facility],non-owned Affiliates and Associated Physician Practices is amultiple site organization consisting of ambulatory clinics and hospital sitesin [place], [place], [place] and [place]. This disclosure is being madepursuant to the Care Everywhere program and may not contain all information available regarding this patient. Last updated 18.[facility] Allergies Active Allergy Reactions Criticality Noted Date Comments Aspirin Other Low 01/16/2014 ulcers Nsaids Other,Dizziness Low 05/16/2015 PUD Hmg-Coa-R Inhibitors Myalgias Low 04/05/2014 Medications * Be aware that medications may not be up to date on this document. Alwaysverify current medications with the patient. [place]-3 Fatty Acids (OMEGA 3 PO) Take 1 Tab by mouth once daily Active triamcinolone acetonide (KENALOG) 0.1 % lotion Apply to affected area 3 times daily as needed Active vitamin B-12 (CYANOCOBALAMIN) 1000 MCG tablet Take 1,000 mcg by mouth once daily. 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,Thorac ic neuritis,Chronic scapular pain,Gait difficulty Take 60 mg by mouth 2 times daily Active fentaNYL (DURAGESIC) 50 MCG/HR patch 1 Patch every 3 days 0 5 Active levothyroxine (SYNTHROID) 300 MCG tablet Take 300 mcg by mouth daily before breakfast 1/2 tab mon-fri, 1 tab sat-sun 1 5 Active Nystatin (NYSTOP) 818582 UNIT/GM POWD Take 100,000 Units by mouth once daily as needed 2 5 Active esomeprazole (NEXIUM) 40 MG capsule Take 40 mg by mouth daily before breakfast Active cyclobenzaprine (FLEXERIL) 10 MG tablet Take 1 Tab by mouth 3 times daily as needed 1 6 Active rosuvastatin (CRESTOR) 5 MG tablet Take 2.5 mg by mouth 2 times daily Active multivitamins (ONE A DAY) capsule Take 1 Cap by mouth once daily Active Ferrous Sulfate (IRON) 325 (65 FE) MG Take 650 mg by mouth once daily Active vitamin D, ergocalciferol, (DRISDOL) 49651 UNITS capsule Take 50,000 Units by mouth every 7 days Active silver sulfADIAZINE (SILVADENE) 1 % creamIndications: Dermal Ulcer Apply 1 g to affected area 2 times daily Reasons: Skin Ulcer Active HYDROcodone-aceta minophen (NORCO) 10-325 MG tabletIndications :Post-operative state TK 1 T PO Q 6 HOURS PRN 0 7 Active betamethasone dipropionate augmented (DIPROLENE) 0.05 % ointment APPLY THIN FILM TO AREA TID FOR 10 DAYS THEN TWICE A DAY UNTIL RASH CLEARS 0 7 Active hydroxychloroquin e (PLAQUENIL) 200 MG tablet TK 1 T PO BID 2 8 Active meloxicam (MOBIC) 15 MG tablet Take 7.5 mg by mouth once daily Active ondansetron, disintegrating, (ZOFRAN ODT) 4 MG tablet Take 1 tablet by mouth every 6 hours as needed for Nausea/Vomitin g Allow tablet to dissolve on the tongue 28 tablet 8 Active Active Problems Problem Noted Date Diagnosed [...] at Not on file Legal Sex Female 1:30 PM CDT Gender Identity Not on file Sexual Orientation [...] 12:39 PM CDT Height 160 cm (5' 3) 04/27/2018 12:39 PM CDT Body Mass Index [...] 1-dose 75+ series) 11/25/2023 COVID-19 VACCINE ( season) 2024 DEPRESSION SCREENING 07/05/2024 DIABETES - URINE PROTEIN SCREENING 07/05/2024 MEDICARE AWV CALENDAR YEAR 2024 INFLUENZA VACCINE (Season Ended) 2025 04/10/2016 HEPATITIS B VACCINE Aged Out No longe [...] this topic Medical Devices Implanted Type Area Shaft Headman Device Identifier Shelf Expiration Date Model / Serial / Lot Fusion Strunk Implanted:Qty: 1 on 06/26/2014 by Cristobal Gage DO at [place] [employer] It [facility] [id number] / / Deshawn Winter 30cc - [id number] Implanted:Qty: 1 on 06/26/2014 by Cristobal Gage DO at [place] [employer] 09/04/2018 [id number] / [id number] / Screw Hdlss 4.3 X 40mm Implanted:Qty: 1 on 10/01/2016 by Cristobal Gage DO at [facility] Right: Foot [employer] [id number] / / Scrw Hdless Comp 6.5 X 85 Implanted:Qty: 1 on 10/01/2016 by Cristobal Gage DO at [facility] Right: Foot [employer] [id number] / / Scrw Hdless Comp 6.5 X 75 Implanted:Qty: 1 on 10/01/2016 by Cristobal Gage DO at [facility] Right: Foot [employer] [id number] / / Screw 6.5mm 80mm Comp Viviana Hdls Arthx Implanted:Qty: 1 on 10/01/2016 by Cristobal Gage DO at [facility] Right: Foot [employer] [id number] / / Screw Hdlss 4.3 X 70mm Screw Implanted:Qty: 2 on 10/01/2016 by Cristobal Gage DO at [facility] Right: Foot [employer] [id number] / / Graft Bone Accell Evo3 Dbm 10ml Ptty - [id number] Implanted:Qty: 1 on 10/01/2016 by Cristobal Gage DO at [facility] Right: Foot [employer] 01/29/2017 [id number] / [id number] / [id number] Graft Bone Canc 30ml Frzdr Crsh 1-4mm Implanted:Qty: 1 on 10/01/2016 by Cristobal Gage DO at [facility] Right: Foot [employer] 03/02/2021 [id number] / / [id number] Explanted Type Area Shaft Headman Device Identifier Shelf Expiration Date Model / Serial / Lot K-Wire 9.0in X .062in Explanted:Qty: 2 on 10/01/2016 by Cristobal Gage DO at [facility] Right: Foot [employer] 05/14/2019 [id number] / / [id number] Procedures Procedure Name Priority Date/Time Associated Diagnosis Comments RENAL FUNCTION PANEL AM Draw 04/30/2018 4:39 AM CDT HEMOGLOBIN A1C Routine 04/28/2018 4:08 AM CDT from Last 3 Months or Most Recently Relevant to Health Maintenance Results * (ABNORMAL) RENAL FUNCTION PANEL (04/30/2018 4:39 AM CDT) [facility] Glucose 104 74 - 106 mg/dL 04/30/2018 7:12 AM [facility] Sodium 142 136 - 145 mmol/L 04/30/2018 7:12 AM [facility] Potassium 3.8 3.5 - 5.1 mmol/L 04/30/2018 7:12 AM [facility] Chloride 109(H) 98 - 107 mmol/L 04/30/2018 7:12 AM [facility] CO2 29 22 - 31 mmol/L 04/30/2018 7:12 AM [facility] Calcium 9.1 8.5 - 10.1 mg/dL 04/30/2018 7:12 AM [facility] Anion Gap 4(L) 8 - 16 mmol/L 04/30/2018 7:12 AM [facility] BUN 10 7 - 21 mg/dL 04/30/2018 7:12 AM [facility] Creatinine 0.87 0.50 - 1.30 mg/dL 04/30/2018 7:12 AM [facility] Albumin 2.7(L) 3.4 - 5.0 gm/dL 04/30/2018 7:12 AM [facility] Phosphorus 3.8 2.5 - 4.9 mg/dL 04/30/2018 7:12 AM [facility] eGFR by MDRD >60 >60 mL/min/1.7 3m2 04/30/2018 7:12 AM [facility] eGFR by MDRD >60 >60 mL/min/1.7 3m2 04/30/2018 7:12 AM [facility] Blood BLOOD SPECIMEN / Unknown Lab Venipuncture / Unknown 04/30/2018 4:39 AM CDT 04/30/2018 4:52 AM CDT us [place] TIP TESTER-GLASS GRINDER LAB - CHEMISTRY ORDERA BLES Final Result [facility] [address] [place] [address] * (ABNORMAL) HEMOGLOBIN A1C (04/28/2018 4:08 AM CDT) [facility] Hemoglobin A1c 6.9(H) 4.2 - 6.3 % 04/28/2018 7:23 AM CDT [facility] Estimated Average Glucose 151 mg/dL 04/28/2018 7:23 AM CDT [facility] Blood BLOOD SPECIMEN / Unknown Lab Venipuncture / Unknown 04/28/2018 4:08 AM CDT 04/28/2018 4:21 AM CDT us Ambar Rodas TIP TESTER-GLASS GR[facility] - CHEMISTRY ORDERA BLES Final Result Performing Organization Address City/[facility]/ZIP Co de Phone Number [facility] [address] [place] [address] from Last 3 Months or Most Recently Relevant to Health Maintenance Insurance [facility] MANAGED MEDICARE ADV [facility] MANAGED MEDICARE ADV SELF PAY NO INSURANCE Member Subscriber Plan / Payer (Ef fective for All Dates) Name:Marta Aleman Member ID:Not on file Relation to Subscriber:Not on file Name:MARTA ALEMAN Subscriber ID:Not on file (Home) Address: [address] [place] [id number] Payer ID:Not on file Group ID:Not on file Type:Self Pay Address: [place], [place] Advance Directives * Full Code (Latest Code [...] 5:47 PM 06/27/2014 3:34 PM Care Teams Chip Loft Worker Relationship Specialty Start Date End Date Vishal Negrete MD PCP - General Internal Medicine 06/08/14 Viola Turpin MD Orthopedic Surgery 01/16/14 Cristobal Gage DO Orthopedic Surgery 01/31/14 Bob Little PA-C [address] [place] [address] [address] Physician Assistant Guest Services Manager Physician Assistant Guest Services Manager 03/04/15
--- OUTSIDE RECORDS SUMMARY | 2024-12-01 15:39 | XMS_ITS | Clinical Summary ---
Author Organization [facility] Address [address] [place] [address] Phone Care Team Providers Care Modeling Manager Name Role Phone Vishal Negrete MD Primary Care Provider + Allergies Active Allergy Reactions Criticality Noted Date Comments Tfxjkar-Qqm-Fnf Reductase Inhibitors Unknown 08/11/2016 Medications fentaNYL (DURAGESIC) [...] tablet Take 300 mcg by mouth daily neuroscientist 1 tab daily mon-fri, 1/2 tab on [...] on file Legal Sex Female 4:56 AM CREAM MAKER Gender Identity Not on file Sexual Orientation Not on file Last Filed Vital Signs Vital Sign Reading Time Taken Comments Blood Pressure 144/85 08/12/2016 7:53 AM CREAM MAKER Pulse 70 08/12/2016 7:53 AM CREAM MAKER Temperature 36.4 C (97.6 F) 08/12/2016 7:53 AM CREAM MAKER Respiratory Rate 20 08/12/2016 7:53 AM CREAM MAKER Oxygen Saturation 98% 08/12/2016 7:53 AM CREAM MAKER Inhaled Oxygen Concentration - - Weight 93.4 kg (206 lb) 08/12/2016 6:42 AM CREAM MAKER Height 160 cm (5' 3) 08/11/2016 2:38 PM CREAM MAKER Body Mass Index 36.49 08/11/2016 2:38 PM CREAM MAKER Plan of Treatment Health Maintenance Due Date Last Done Comments DIABETES ANNUAL FOOT EXAM 1966 DIABETES ANNUAL RETINAL EXAM 1966 DIABETES MICROALBUMIN ANNUAL SCREEN 1966 LDL CHOLESTEROL ANNUAL 1966 DTAP/TDAP/TD VACCINES (1 - Tdap) 11/25/1967 PNEUMOCOCCAL VACCINE 50+ YEARS (1 of 2 - PCV) 11/24/18 68 ZOSTER VACCINE (1 of 2) 1998 OSTEOPOROSIS SCREENING 2013 DIABETES HBA1C Q 6 MONTHS 10/27/2018 04/28/2018 RSV VACCINE (60+ or ) (1 - 1-dose 75+ series) 11/25/2023 INFLUENZA VACCINE (#1) 2024 04/10/2016 Insurance MEDICARE PART A AND B [facility] [place] [id number] Advance Directives For more information, please contact: [phone] * Full Code (Latest Code Status on File) Date Activated Date Inactivated Comments 08/12/2016 5:39 AM 08/12/2016 10:28 AM Care Teams Modeling Manager Relationship Specialty Start Date End Date Vishal Negrete MD [address] [place] [address] PCP - General Internal Medicine 08/12/16
--- OUTSIDE RECORDS SUMMARY | 2024-12-01 15:39 | XMS_ITS | Encounter Summary ---
Author Organization [facility] Address [address] [place] [address] Care Team Providers Care Director Radiation Oncology Name Role Phone Viola Turpin MD Unavailable [phone] Cristobal Gage DO Unavailable [phone] Vishal Negrete MD Primary Care Provider [phone] Bob Little PA-C Unavailable [phone] Encounter Details Date Type Department Care Team (Late st Contact Info) Description 04/20/2018 [facility] Outpatient Visit [facility] Orthopedics - Radiology [address] [place] [address] [place], [place] [id number] Document, Scanned Social History Tobacco Use Types [...] documented as of this encounter Functional Status * Is person deaf or have serious hearing difficulty? Answer Date of Assessment Author No 04/19/2018 1:56 PM CDT Letitia Poon RN * Is person blind or have serious difficulty seeing? Answer Date of Assessment Author No 04/19/2018 1:56 PM CDT Letitia Poon RN * Does person have serious difficulty walking/climbing stairs? Answer Date of Assessment Author Yes 04/19/2018 1:56 PM CDT Letitia Poon RN * Does person have difficulty dressing/bathing? Answer Date of Assessment Author No 04/19/2018 1:56 PM Letitia Nielson RN * Does person have difficulty doing errands alone? Answer Date of Assessment Author Yes 04/19/2018 1:56 PM Letitia Nielson RN documented as of this encounter Mental Status * Does person have difficulty concentrating/remembering/making decisions? Answer Entry Date Author No 04/19/2018 1:56 PM Letitia Nielson RN documented in this encounter Plan of Treatment Not on file documented as of this encounter Visit Diagnoses Not on filedocumented in this encounter Care Teams Director Radiation Oncology Relationship Specialty Start Date End Date Vishal Negrete MD PCP - General Internal Medicine 06/08/14 Viola Turpin MD Orthopedic Surgery 01/16/14 Cristobal Gage DO Orthopedic Surgery 01/31/14 Bob Little PA-C [address] [place] [address] Physician Food Service Supervisor Physician Food Service Supervisor 03/04/15 documented as of this encounter
--- OUTSIDE RECORDS SUMMARY | 2024-12-01 15:39 | XMS_ITS | Encounter Summary ---
Author Organization [facility] Address [address] [place] [address] Care Team Providers Care Office Machine Embossograph Operator Name Role Phone Viola Turpin MD Unavailable [phone] Cristobal Gage DO Unavailable [phone] Vishal Negrete MD Primary Care Provider [phone] Bob LittleC Unavailable [phone] Encounter Details Date Type Department Care Team (Late st Contact Info) Description 03/25/2015 Therapy Visit EXTERNAL NON-[facility] [place] [address] [address] [id number] Social History Tobacco Use Types Packs/Day Years [...] difficulty? Answer Date of Assessment Author No 06/26/2014 10:47 AM Padma Villanueva RN * Is person blind or have serious difficulty seeing? Answer Date of Assessment Author No 06/26/2014 10:47 AM Padma Villanueva RN * Does person have serious difficulty walking/climbing stairs? Answer Date of Assessment Author No 06/26/2014 10:47 AM Padma Villanueva RN * Does person have difficulty dressing/bathing? Answer Date of Assessment Author No 06/26/2014 10:47 AM Padma Villanueva RN * Does person have difficulty doing errands alone? Answer Date of Assessment Author No 06/26/2014 10:47 AM Padma Villanueva RN documented as of this encounter Mental Status * Does person have difficulty concentrating/remembering/making decisions? Answer Entry Date Author No 06/26/2014 10:47 AM Padma Villanueva RN documented in this encounter Plan of Treatment Not on file documented as of this encounter Visit Diagnoses Not on filedocumented in this encounter Care Teams Office Machine Embossograph Operator Relationship Specialty Start Date End Date Vishal Negrete MD PCP - General Internal Medicine 06/08/14 Viola Turpin MD Orthopedic Surgery 01/16/14 Cristobal Gage DO Orthopedic Surgery 01/31/14 Bob Little PA-C [address] [place] [address] Physician Afterschool Physician Afterschool 03/04/15 documented as of this encounter
--- OUTSIDE RECORDS SUMMARY | 2024-12-01 15:39 | XMS_ITS | Encounter Summary ---
Author Organization [facility] Address [address] [place] [address] Care Team Providers Care Guide Dog Instructor Name Role Phone Vishal Negrete MD Primary Care Provider + Encounter Details Date Type Department Care Team (Late st Contact Info) Description 10/19/2000 Outpatient Historical [facility] Emelia Chong MD [address] [facility] [facility] [address] [place] [id number] Social History Tobacco Use Types Packs/Day Years Used Date Smoking Tobacco: Never Assessed Comments Unknown Sex and Gender Information Value Date Recorded Sex Assigned at Not on file Legal Sex Female 4:56 AM INTERNATIONAL ORGANIZER Gender Identity Not on file Sexual Orientation Not on file documented as of this encounter Plan of Treatment Not on file documented as of this encounter Visit Diagnoses Not on filedocumented in this encounter Care Teams Guide Dog Instructor Relationship Specialty Start Date End Date Vishal Negrete MD [address] [place] [address] PCP - General Internal Medicine 08/12/16 documented as of this encounter
--- OUTSIDE RECORDS SUMMARY | 2024-12-01 15:39 | XMS_ITS | Data Portability ---
Author Organization [facility], [address] [place] [address] ([place]) Address [address] [place] [address] Care Team Providers Care Java Core Developer Name Role Phone CHASE CANO Primary Care Provider [phone] Assessment Encounter Date Assessment Date Assessment LastModified [...] a hand orthopedist outside the clinic. 3. Whdb-imq-ipsunlw carpal tunnel splint to be worn at [...] 7. Followup visit in 4 months. [email or web address] Not available 10/15/2023 12:23:24 03/27/2024 03/27/2024 IMPRESSION: [...] as well. linnea Not available 07/27/2024 21:45:19 11/23/2024 11/23/2024 IMPRESSION: 1. Inflammatory polyarthropathy, CIRO associated. 2. Osteoarthritis. 3. Raynaud s phenomenon. PLAN: 1. SLE labs as ordered. 2. Continue current hydroxychloroquine, methotrexate, and folic acid. 3. Cold protection measures for the extremities. 4. Plaquenil screening eye exams at least once yearly. 5. Followup visit in 4 months. linnea Not available 2024 10:32:27 Plan of Treatment Reminders Order Date Submit Date Provider Last Modified By Organization Details Last Modified Time Details Appointments Establish ed Patient 15.EST 2024 01:30P M Dr. Sander Avila Not available Not available Not available Lab CBC 2023 [email or web address] [facility], [address] [place] [address], [id number], 08/04/2024 14:41:48 CMP, serum or plasma 2023 [email or web address] [facility], [address] [place] [address], 68393, 08/04/2024 14:41:49 ESR (erythroc yte sedimenta tion rate), blood 2023 024 [email or web address] [facility], [address] [place] [address], 80760, 08/04/2024 14:41:49 C-reactiv e protein, quantitat nolberto, serum or plasma 2023 024 [email or web address] [facility], [address] [place] [address], [id number], 08/04/2024 14:41:49 Referral None recorded. Procedures None recorded. Surgeries None recorded. Imaging None recorded. Medication Orders Depo-Medr ol 80 mg/mL suspensio n for injection 2023 024 [id number], [address] [place], [place], [id number], 03/27/2024 18:32:04 Depo-Medr ol 80 mg/mL suspensio [...] serum or plasm a CRP Not Available [facility] [address] [place] [address], 46126, 09/14/2023 14:51:50 09/13/19 24 09/14/2023 C-lei ctive prote in, quant itati ve, serum or plasm a CRP <0.4 mg/dL <0.4-0 .5 Not Available [facility] [address] [place] [address], 93794, 09/14/2023 14:51:50 09/13/19 24 09/14/2023 ESR (eryt hrocy te sedim entat ion rate) , blood sed rate 12 mm/HR 0 - 30 Not Available [facility] [address] [place] [address], 98792, 09/14/2023 15:05:17 09/13/19 24 09/14/2023 CMP, serum or plasm a comp. met. panel Not Available [facility] [address] [place] [address], 60378, 09/14/2023 14:51:52 09/13/1909/14/2023 CMP, serum or plasm a sodium 142 mmol/ L 136-14 6 Not Available [facility] [address] [place] [address], 63559, 09/14/2023 14:51:52 09/13/19 24 09/14/2023 CMP, serum or plasm a potassium 4.9 mmol/ L 3.5-5. 1 Not Available [facility] [address] [place] [address], 89730, 09/14/2023 14:51:52 09/13/19 24 09/14/2023 CMP, serum or plasm a chloride 109 mmol/ L 98-110 Not Available [facility] [address] [place] [address], 51682, 09/14/2023 14:51:52 09/13/19 24 09/14/2023 CMP, serum or plasm a CO2 28 mEq/L 20-32 Not Available [facility] [address] [place] [address], 86187, 09/14/2023 14:51:52 09/13/19 24 09/14/2023 CMP, serum or plasm a anion gap 10 mmol/ L 10-22 Not Available [facility] [address] [place] [address], 42307, 09/14/2023 14:51:52 09/13/19 24 09/14/2023 CMP, serum or plasm a glucose 102 mg/dL 70-100 high Not Available [facility] [address] [place] [address], 69495, 09/14/2023 14:51:52 09/13/19 24 09/14/2023 CMP, serum or plasm a calcium 9.7 mg/dL 8.4-10 .4 Not Available [facility] [address] [place] [address], 35285, 09/14/2023 14:51:52 09/13/19 24 09/14/2023 CMP, serum or plasm a total protein 6.3 g/dL 6.4-8. 3 low Not Available [facility] [address] [place] [address], 38960, 09/14/2023 14:51:52 09/13/19 24 09/14/2023 CMP, serum or plasm a albumin 4.3 g/dL 3.5-5. 3 Not Available [facility] [address] [place] [address], 39499, 09/14/2023 14:51:52 09/13/19 24 09/14/2023 CMP, serum or plasm a ALP 118 U/L 44 - 127 Not Available [facility] [address] [place] [address], 91088, 09/14/2023 14:51:52 09/13/19 24 09/14/2023 CMP, serum or plasm a AST (SGOT) 19 U/L 10-40 Not Available [facility] [address] [place] [address], 36260, 09/14/2023 14:51:52 09/13/19 24 09/14/2023 CMP, serum or plasm a total bilirubin 0.3 mg/dL 0.2-1. 0 Not Available [facility] [address] [place] [address], 93066, 09/14/2023 14:51:52 09/13/19 24 09/14/2023 CMP, serum or plasm a ALT (SGPT) 14 U/L 8-35 Not Available [facility] [address] [place] [address], 05770, 09/14/2023 14:51:52 09/13/19 24 09/14/2023 CMP, serum or plasm a BUN 27 mg/dL 7-21 high Not Available [facility] [address] [place] [address], 70431, 09/14/2023 14:51:52 09/13/19 24 09/14/2023 CMP, serum or plasm a creatinine 1.1 mg/dL 0.7-1. 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 ) Not Available [facility] [address] [place] [address], 75311, 09/14/2023 14:51:52 09/13/19 24 09/14/2023 CBC w/ auto diff CBC with differential Not Available [facility] [address] [place] [address], 20863, 09/14/2023 14:27:36 09/13/19 24 09/14/2023 CBC w/ auto diff WBC 7.7 K/uL 3.8-11 .2 Not Available [facility] [address] [place] [address], 71905, 09/14/2023 14:27:36 09/13/19 24 09/14/2023 CBC w/ auto diff RBC 3.81 M/uL 3.92-5 .10 low Not Available [facility] [address] [place] [address], 18412, 09/14/2023 14:27:36 09/13/19 24 09/14/2023 CBC w/ auto diff HGB 11.3 g/dL 11.8-1 5.3 low Not Available [facility] [address] [place] [address], 02653, 09/14/2023 14:27:36 09/13/19 24 09/14/2023 CBC w/ auto diff HCT 35.2 % 36.5-4 4.8 low Not Available [facility] [address] [place] [address], 21644, 09/14/2023 14:27:36 09/13/19 24 09/14/2023 CBC w/ auto diff MCV 92.4 fL 80.0-9 9.0 Not Available [facility] [address] [place] [address], 67661, 09/14/2023 14:27:36 09/13/19 24 09/14/2023 CBC w/ auto diff MCH 29.7 pg 25.5-3 3.6 Not Available [facility] [address] [place] [address], 43966, 09/14/2023 14:27:36 09/13/19 24 09/14/2023 CBC w/ auto diff MCHC 32.1 g/dL 32.0-3 6.0 Not Available [facility] [address] [place] [address], 83978, 09/14/2023 14:27:36 09/13/19 24 09/14/2023 CBC w/ auto diff RDW-SD 49.3 fL 35.1 - 46.3 high Not Available [facility] [address] [place] [address], 12491, 09/14/2023 14:27:36 09/13/19 24 09/14/2023 CBC w/ auto diff plt 243 K/uL 130-40 0 Not Available [facility] [address] [place] [address], 38302, 09/14/2023 14:27:36 09/13/19 24 09/14/2023 CBC w/ auto diff MPV 10.3 fL 9.3-12 .8 Not Available [facility] [address] [place] [address], 64392, 09/14/2023 14:27:36 09/13/19 24 09/14/2023 CBC w/ auto diff brady% 58.5 % 39.8-7 1.3 Not Available [facility] [address] [place] [address], 37826, 09/14/2023 14:27:36 09/13/19 24 09/14/2023 CBC w/ auto diff lym% 32.2 % 19.2-4 7.1 Not Available [facility] [address] [place] [address], 57462, 09/14/2023 14:27:36 09/13/19 24 09/14/2023 CBC w/ auto diff mono% 6.3 % 1.7-12 .0 Not Available [facility] [address] [place] [address], 49295, 09/14/2023 14:27:36 09/13/19 24 09/14/2023 CBC w/ auto diff eos% 1.8 % 0.0-12 .0 Not Available [facility] [address] [place] [address], 05975, 09/14/2023 14:27:36 09/13/19 24 09/14/2023 CBC w/ auto diff baso% 0.9 % 0.0-3. 0 Not Available [facility] [address] [place] [address], 04467, 09/14/2023 14:27:36 09/13/19 24 09/14/2023 CBC w/ auto diff abs brady 4.5 K/uL 1.8-7. 5 Not Available [facility] [address] [place] [address], 88663, 09/14/2023 14:27:36 09/13/19 24 09/14/2023 CBC w/ auto diff abs lym 2.5 K/uL 1.1-3. 3 Not Available [facility] [address] [place] [address], 20401, 09/14/2023 14:27:36 09/13/19 24 09/14/2023 CBC w/ auto diff abs mono 0.5 K/uL 0.1-1. 0 Not Available [facility] [address] [place] [address], 38972, 09/14/2023 14:27:36 09/13/19 24 09/14/2023 CBC w/ auto diff abs eos 0.1 K/uL 0.0-0. 7 Not Available [facility] [address] [place] [address], 69263, 09/14/2023 14:27:36 09/13/19 24 09/14/2023 CBC w/ auto diff abs baso 0.1 K/uL 0.0-0. 2 Not Available [facility] [address] [place] [address], 07951, 09/14/2023 14:27:36 09/13/19 24 09/14/2023 CBC w/ auto diff imm. gran % 0.3 % 0.0-3. 0 Not Available [facility] [address] [place] [address], 22783, 09/14/2023 14:27:36 09/13/19 24 09/14/2023 CBC w/ auto diff NRBC % 0.0 % 0.0-0. 2 Not Available [facility] [address] [place] [address], 80769, 09/14/2023 14:27:36 09/13/19 24 09/13/2023 ESR (eryt hrocy te sedim entat ion rate) , blood sed rate 12 mm/HR 0 - 30 Not Available [facility] - [address], [place], [address], 06/30/2024 21:18:20 09/13/19 24 09/13/2023 C-lei ctive prote in, quant itati ve, serum or plasm a CRP Not Available [facility] [place] [address] [facility] [address], [place], [address], 06/30/2024 21:18:19 09/13/19 24 09/13/2023 C-lei ctive prote in, quant itati ve, serum or plasm a CRP <0.4 mg/dL <0.4-0 .5 Not Available [facility] [place] [address] [facility] [address], [place], [address], 06/30/2024 21:18:19 09/13/19 24 09/13/2023 CBC w/ auto diff WBC 7.7 K/uL 3.8-11 .2 Not Available [facility] [address] [place], [address], 06/30/2024 21:18:14 09/13/19 24 09/13/2023 CBC w/ auto diff RBC 3.81 M/uL 3.92-5 .10 low Not Available [facility] [address] [place], [address], 06/30/2024 21:18:14 09/13/19 24 09/13/2023 CBC w/ auto diff hemoglobin (HGB) 11.3 g/dL 11.8-1 5.3 low Not Available [facility] [address] [place], [address], 06/30/2024 21:18:14 09/13/19 24 09/13/2023 CBC w/ auto diff hematocrit (HCT) 35.2 % 36.5-4 4.8 low Not Available [facility] [address] [place], [address], 06/30/2024 21:18:14 09/13/19 24 09/13/2023 CBC w/ auto diff MCV 92.4 fL 80.0-9 9.0 Not Available [facility] [address] [place], [address], 06/30/2024 21:18:14 09/13/19 24 09/13/2023 CBC w/ auto diff MCH 29.7 pg 25.5-3 3.6 Not Available [facility] [address] [place], [address], 06/30/2024 21:18:14 09/13/19 24 09/13/2023 CBC w/ auto diff MCHC 32.1 g/dL 32.0-3 6.0 Not Available [facility] [address] [place], [address], 06/30/2024 21:18:14 09/13/19 24 09/13/2023 CBC w/ auto diff RDW-SD 49.3 fL 35.1 - 46.3 high Not Available [facility] [address] [place], [address], 06/30/2024 21:18:14 09/13/19 24 09/13/2023 CBC w/ auto diff plt 243 K/uL 130-40 0 Not Available [facility] [address] [place], [address], 06/30/2024 21:18:14 09/13/19 24 09/13/2023 CBC w/ auto diff MPV 10.3 fL 9.3-12 .8 Not Available [facility] [address] [place], [address], 06/30/2024 21:18:14 09/13/19 24 09/13/2023 CBC w/ auto diff brady% 58.5 % 39.8-7 1.3 Not Available [facility] [address] [place], [address], 06/30/2024 21:18:14 09/13/19 24 09/13/2023 CBC w/ auto diff lym% 32.2 % 19.2-4 7.1 Not Available [facility] [address] [place], [address], 06/30/2024 21:18:14 09/13/19 24 09/13/2023 CBC w/ auto diff mono% 6.3 % 1.7-12 .0 Not Available [facility] [address] [place], [address], 06/30/2024 21:18:14 09/13/19 24 09/13/2023 CBC w/ auto diff eos% 1.8 % 0.0-12 .0 Not Available [facility] [address] [place], [address], 06/30/2024 21:18:14 09/13/19 24 09/13/2023 CBC w/ auto diff baso% 0.9 % 0.0-3. 0 Not Available [facility] [address] [place], [address], 06/30/2024 21:18:14 09/13/19 24 09/13/2023 CBC w/ auto diff abs brady 4.5 K/uL 1.8-7. 5 Not Available [facility] [address] [place], [address], 06/30/2024 21:18:14 09/13/19 24 09/13/2023 CBC w/ auto diff abs lym 2.5 K/uL 1.1-3. 3 Not Available [facility] [address] [place], [address], 06/30/2024 21:18:14 09/13/19 24 09/13/2023 CBC w/ auto diff abs mono 0.5 K/uL 0.1-1. 0 Not Available [facility] [address] [place], [address], 06/30/2024 21:18:14 09/13/19 24 09/13/2023 CBC w/ auto diff abs eos 0.1 K/uL 0.0-0. 7 Not Available [facility] [address] [place], [address], 06/30/2024 21:18:14 09/13/19 24 09/13/2023 CBC w/ auto diff abs baso 0.1 K/uL 0.0-0. 2 Not Available [facility] [address] [place], [address], 06/30/2024 21:18:14 09/13/19 24 09/13/2023 CBC w/ auto diff imm. gran % 0.3 % 0.0-3. 0 Not Available [facility] [address] [place], [address], 06/30/2024 21:18:14 09/13/19 24 09/13/2023 CBC w/ auto diff NRBC % 0.0 % 0.0-0. 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 met. panel Not Available [facility] [address] [place] [address], 67587, 03/22/2024 15:31:39 03/22/20 24 03/22/2024 CMP, serum or plasm a sodium 142 mmol/ L 136-14 6 Not Available [facility] [address] [place] [address], 46689, 03/22/2024 15:31:39 03/22/20 24 03/22/2024 CMP, serum or plasm a potassium 4.2 mmol/ L 3.5-5. 1 Not Available [facility] [address] [place] [address], 36496, 03/22/2024 15:31:39 03/22/20 24 03/22/2024 CMP, serum or plasm a chloride 106 mmol/ L 98-110 Not Available [facility] [address] [place] [address], 37661, 03/22/2024 15:31:39 03/22/20 24 03/22/2024 CMP, serum or plasm a CO2 29 mEq/L 20-32 Not Available [facility] [address] [place] [address], 19846, 03/22/2024 15:31:39 03/22/20 24 03/22/2024 CMP, serum or plasm a anion gap 11 mmol/ L 10-22 Not Available [facility] [address] [place] [address], 65136, 03/22/2024 15:31:39 03/22/20 24 03/22/2024 CMP, serum or plasm a glucose 124 mg/dL 70-100 high Not Available [facility] [address] [place] [address], 13372, 03/22/2024 15:31:39 03/22/20 24 03/22/2024 CMP, serum or plasm a calcium 9.6 mg/dL 8.4-10 .4 Not Available [facility] [address] [place] [address], 02403, 03/22/2024 15:31:39 03/22/20 24 03/22/2024 CMP, serum or plasm a total protein 6.0 g/dL 6.4-8. 3 low Not Available [facility] [address] [place] [address], 61410, 03/22/2024 15:31:39 03/22/20 24 03/22/2024 CMP, serum or plasm a albumin 4.0 g/dL 3.5-5. 3 Not Available [facility] [address] [place] [address], 31394, 03/22/2024 15:31:39 03/22/20 24 03/22/2024 CMP, serum or plasm a ALP 113 U/L 44 - 127 Not Available [facility] [address] [place] [address], 65022, 03/22/2024 15:31:39 03/22/20 24 03/22/2024 CMP, serum or plasm a AST (SGOT) 14 U/L 10-40 Not Available [facility] [address] [place] [address], 40743, 03/22/2024 15:31:39 03/22/20 24 03/22/2024 CMP, serum or plasm a total bilirubin 0.2 mg/dL 0.2-1. 0 Not Available [facility] [address] [place] [address], 06660, 03/22/2024 15:31:39 03/22/20 24 03/22/2024 CMP, serum or plasm a ALT (SGPT) 11 U/L 8-35 Not Available [facility] [address] [place] [address], 81172, 03/22/2024 15:31:39 03/22/20 24 03/22/2024 CMP, serum or plasm a BUN 20 mg/dL 7-21 Not Available [facility] [address] [place] [address], 64453, 03/22/2024 15:31:39 03/22/20 24 03/22/2024 CMP, serum or plasm a creatinine 1.0 mg/dL 0.7-1. 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 ) Not Available [facility] [address] [place] [address], 65277, 03/22/2024 15:31:39 03/22/20 24 03/22/2024 CBC CBC Not Available [facility] [address] [place] [address], 81436, 03/22/2024 15:42:17 03/22/20 24 03/22/2024 CBC WBC 4.7 K/uL 3.8-11 .2 Not Available [facility] [address] [place] [address], 79886, 03/22/2024 15:42:17 03/22/20 24 03/22/2024 CBC RBC 3.74 M/uL 3.92-5 .10 low Not Available [facility] [address] [place] [address], 34317, 03/22/2024 15:42:17 03/22/20 24 03/22/2024 CBC HGB 11.7 g/dL 11.8-1 5.3 low Not Available [facility] [address] [place] [address], 69383, 03/22/2024 15:42:17 03/22/20 24 03/22/2024 CBC HCT 34.9 % 36.5-4 4.8 low Not Available [facility] [address] [place] [address], 82391, 03/22/2024 15:42:17 03/22/20 24 03/22/2024 CBC MCV 93.3 fL 80.0-9 9.0 Not Available [facility] [address] [place] [address], 24418, 03/22/2024 15:42:17 03/22/20 24 03/22/2024 CBC MCH 31.3 pg 25.5-3 3.6 Not Available [facility] [address] [place] [address], 64314, 03/22/2024 15:42:17 03/22/20 24 03/22/2024 CBC MCHC 33.5 g/dL 32.0-3 6.0 Not Available [facility] [address] [place] [address], 05170, 03/22/2024 15:42:17 03/22/20 24 03/22/2024 CBC RDW-SD 46.5 fL 35.1 - 46.3 high Not Available [facility] [address] [place] [address], 05134, 03/22/2024 15:42:17 03/22/20 24 03/22/2024 CBC plt 275 K/uL 130-40 0 Not Available [facility] [address] [place] [address], 35139, 03/22/2024 15:42:17 03/22/20 24 03/22/2024 CBC MPV 9.5 fL 9.3-12 .8 Not Available [facility] [address] [place] [address], 63963, 03/22/2024 15:42:17 03/22/20 24 03/22/2024 ESR (eryt hrocy te sedim entat ion rate) , blood sed rate 19 mm/HR 0 - 30 Not Available [facility] [address] [place] [address], 00043, 03/22/2024 17:02:42 04/25/20 24 04/27/2024 C3 (comp lemen t), serum or plasm a complement C3 116 mg/dL 82-167 Not Available [facility] [address] [place] [address], 55697, 04/27/2024 03:40:09 04/25/20 24 04/27/2024 C4 (comp lemen t), serum or plasm a complement C4 32 mg/dL 12-38 Not Available [facility] [address] [place] [address], 07276, 04/27/2024 03:40:10 08/03/19 25 08/04/2024 dangelo Ab + jewelry enameler Ab, serum sm/jewelry enameler antibodies Not Available [facility] [address] [place] [address], 72655, 08/04/2024 11:38:31 08/03/19 25 08/04/2024 dangelo Ab + jewelry enameler Ab, serum sm antibodies <0.2 ai 0.0-0. 9 Not Available [facility] [address] [place] [address], 42156, 08/04/2024 11:38:31 08/03/19 25 08/04/2024 dangelo Ab + jewelry enameler Ab, serum jewelry enameler antibody. <0.2 ai 0.0-0. 9 Not Available [facility] [address] [place] [address], 84146, 08/04/2024 11:38:31 08/03/19 25 08/04/2024 CBC CBC Not Available [facility] [address] [place] [address], 74997, 08/04/2024 15:39:09 08/03/19 25 08/04/2024 CBC WBC 4.3 K/uL 3.8-11 .2 Not Available [facility] [address] [place] [address], 53372, 08/04/2024 15:39:09 08/03/19 25 08/04/2024 CBC RBC 3.91 M/uL 3.92-5 .10 low Not Available [facility] [address] [place] [address], 67475, 08/04/2024 15:39:09 08/03/19 25 08/04/2024 CBC HGB 12.0 g/dL 11.8-1 5.3 Not Available [facility] [address] [place] [address], 84301, 08/04/2024 15:39:09 08/03/1908/04/2024 CBC HCT 36.7 % 36.5-4 4.8 Not Available [facility] [address] [place] [address], 34056, 08/04/2024 15:39:09 08/03/1908/04/2024 CBC MCV 93.9 fL 80.0-9 9.0 Not Available [facility] [address] [place] [address], 11711, 08/04/2024 15:39:09 08/03/1908/04/2024 CBC MCH 30.7 pg 25.5-3 3.6 Not Available [facility] [address] [place] [address], 84994, 08/04/2024 15:39:09 08/03/1908/04/2024 CBC MCHC 32.7 g/dL 32.0-3 6.0 Not Available [facility] [address] [place] [address], 30548, 08/04/2024 15:39:09 08/03/1908/04/2024 CBC RDW-SD 47.3 fL 35.1 - 46.3 high Not Available [facility] [address] [place] [address], [id number], 08/04/2024 15:39:09 08/03/1908/04/2024 CBC plt 219 K/uL 130-40 0 Not Available [facility] [address] [place] [address], [id number], 08/04/2024 15:39:09 08/03/1908/04/2024 CBC MPV 9.8 fL 9.3-12 .8 Not Available [facility] [address] [place] [address], [id number], 08/04/2024 15:39:09 08/03/19 25 08/04/2024 compl ement , total , CH50, serum [...] out of range value s. Not Available [facility] [address] [place] [address], [id number], 08/04/2024 15:39:11 08/03/19 25 08/04/2024 ESR (eryt hrocy te sedim entat ion rate) , blood sed rate 12 mm/HR 0 - 30 Not Available [facility] [address] [place] [address], [id number], 08/04/2024 15:51:14 08/03/19 25 08/04/2024 vitam in D, 25-hy droxy , total , serum vitamin D 25-hydroxy totl 35.0 NG/mL 30.0-8 0.0 Less than 20 ng/mL Defic iency 20-29 ng/mL Insuf ficie ncy 30-80 ng/mL Optim al Great er than 80 ng/mL Possi ble toxic ity Not Available [facility] [address] [place] [address], [id number], 08/04/2024 16:16:45 08/03/1908/04/2024 C-lei ctive prote in, quant itati ve, serum or plasm a CRP high Not Available [facility] [address] [place] [address], [id number], 08/04/2024 16:18:59 08/03/19 25 08/04/2024 C-lei ctive prote in, quant itati ve, serum or plasm a CRP 0.8 mg/dL <0.4-0 .5 high Not Available [facility] [address] [place] [address], [id number], 08/04/2024 16:18:59 08/03/19 25 08/04/2024 CK (crea demetrius kinas e), total , serum CPK- Not Available [facility] [address] [place] [address], [id number], 08/04/2024 16:19:01 08/03/19 25 08/04/2024 CK (crea demetrius kinas e), total , serum CPK 58 U/L 30-200 Not Available [facility] [address] [place] [address], [id number], 08/04/2024 16:19:01 08/03/19 25 08/04/2024 CMP, serum or plasm a comp. met. panel Not Available [facility] [address] [place] [address], [id number], 08/04/2024 16:21:49 08/03/19 25 08/04/2024 CMP, serum or plasm a sodium 144 mmol/ L 136-14 6 Not Available [facility] [address] [place] [address], [id number], 08/04/2024 16:21:49 08/03/19 25 08/04/2024 CMP, serum or plasm a potassium 4.7 mmol/ L 3.5-5. 1 Not Available [facility] [address] [place] [address], [id number], 08/04/2024 16:21:49 08/03/19 25 08/04/2024 CMP, serum or plasm a chloride 109 mmol/ L 98-110 Not Available [facility] [address] [place] [address], [id number], 08/04/2024 16:21:49 08/03/19 25 08/04/2024 CMP, serum or plasm a CO2 28 mEq/L 20-32 Not Available [facility] [address] [place] [address], 95823, 08/04/2024 16:21:49 08/03/19 25 08/04/2024 CMP, serum or plasm a anion gap 12 mmol/ L 10-22 Not Available [facility] [address] [place] [address], 85814, 08/04/2024 16:21:49 08/03/19 25 08/04/2024 CMP, serum or plasm a glucose 95 mg/dL 70-100 Not Available [facility] [address] [place] [address], [id number], 08/04/2024 16:21:49 08/03/19 25 08/04/2024 CMP, serum or plasm a calcium 9.3 mg/dL 8.4-10 .4 Not Available [facility] [address] [place] [address], [id number], 08/04/2024 16:21:49 08/03/19 25 08/04/2024 CMP, serum or plasm a total protein 6.0 g/dL 6.4-8. 3 low Not Available [facility] [address] [place] [address], [id number], 08/04/2024 16:21:49 08/03/19 25 08/04/2024 CMP, serum or plasm a albumin 3.9 g/dL 3.5-5. 3 Not Available [facility] [address] [place] [address], 77687, 08/04/2024 16:21:49 08/03/19 25 08/04/2024 CMP, serum or plasm a ALP 124 U/L 44 - 127 Not Available [facility] [address] [place] [address], [id number], 08/04/2024 16:21:49 08/03/19 25 08/04/2024 CMP, serum or plasm a AST (SGOT) 15 U/L 10-40 Not Available [facility] [address] [place] [address], 12359, 08/04/2024 16:21:49 08/03/19 25 08/04/2024 CMP, serum or plasm a total bilirubin 0.4 mg/dL 0.2-1. 0 Not Available [facility] [address] [place] [address], [id number], 08/04/2024 16:21:49 08/03/19 25 08/04/2024 CMP, serum or plasm a ALT (SGPT) 11 U/L 8-35 Not Available [facility] [address] [place] [address], [id number], 08/04/2024 16:21:49 08/03/19 25 08/04/2024 CMP, serum or plasm a BUN 24 mg/dL 7-21 high Not Available [facility] [address] [place] [address], 50919, 08/04/2024 16:21:49 08/03/19 25 08/04/2024 CMP, serum or plasm a creatinine 1.0 mg/dL 0.7-1. 3 Not Available [facility] [address] [place] [address], 42928, 08/04/2024 16:21:49 08/03/19 25 08/04/2024 CMP, serum or plasm a CKD-epi GFR 58 low eGFR was calcu lated using the 2020 CKD-E PI equat ion. (Training And Development Manager zach Kidne y Disea se has an eGFR less than 60 mL/mi n/1.7 3mm for a perio d of three month s or more. ) This calcu latio n has not been valid ated for patie nt ages <18 or >90 years old. Not Available [facility] [address] [place] [address], 42090, 08/04/2024 16:21:49 08/03/19 25 08/05/2024 C3 (comp lemen t), serum or plasm a complement C3 125 mg/dL 82-167 Not Available [facility] [address] [place] [address], 83264, 08/05/2024 09:37:17 08/03/19 25 08/06/2024 C4 (comp lemen t), serum or plasm a complement C4 33 mg/dL 12-38 Not Available [facility] [address] [place] [address], [id number], 08/06/2024 07:37:15 08/03/19 25 08/07/2024 DNA doubl e stran d Ab, QL, serum DNA Ab; double stranded NEGATI VE negati ve Not Available [facility] [address] [place] [address], 40630, 08/07/2024 15:03:05 08/21/19 25 06/05/2024 XR, shoul dariana No observ ation record ed. BARCODE Not Available 2024 10:37:32 Result Notes None recorded. 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 Active 2023 Shikha Castillo [facility] 4 18:07:02 Pulmonary hypertensio n 04188107 Active 2023 Shikha Castillo [facility] 4 18:07:17 Vitamin D deficiency 00228152 Active 2023 José Luis Curran [facility] 5 11:36:24 Chronic kidney disease stage 3 015797891 Active 2023 Shikha Castillo [facility] 4 18:07:47 Cervical radiculopat hy 45206108 Active 2023 Shikha Castillo [facility] 4 18:08:11 Pain of right shoulder joint 7882471665636 9100 Active 2023 José Luis Curran [facility] 4 10:03:28 Raynaud's phenomenon 419061508 Active 2024 Sander Avila MD [address] [place] [address], [id number] [place] [address] 5 21:48:56 Problem Notes None recorded. Procedures Surgical History Date Name Laterality Status Provider Name and Address Organization Details Recorded Time 06/25/20 Carpal tunnel surgery completed [facility] 10/12/2023 18:10:15 procedure on gallbladder completed [facility] 10/12/2023 18:10:38 Gastric bypass for obesity completed [facility] 10/12/2023 18:10:56 hysterectomy completed [facility] 10/12/2023 18:11:04 Imaging Results None recorded. Procedure Notes None recorded. Medical Equipment None Reported. Allergies Allergen ID Allergen Name Allergen Category Reaction Reaction Severity Criticality Documentation Date Start Date Code Code System Note Provider Name and Address Organization Details Recorded Time 5807296 Product containin g 3-hydroxy -3-methyl glutaryl- coenzyme A reductase inhibitor (product) medicatio n dizziness Not available Not available 08/04/20232014 34166 009 SNOMED React ion: Dizzi ness; Other : falls ; Not Available [facility] 4 04:18:54 541546 pregabali n medicatio n Not available Not available Not available 08/02/20232014 75093 2 RxNorm Not Available [facility] 4 23:40:40 174468 aspirin medicatio n Not available Not available Not available 08/02/20232014 1191 RxNorm Not Available [facility] 4 23:40:40 Medications Name Sig Start Date Stop Date [...] Not Available Not Available No t Available hydrocodo ne 5 mg-acetam inophen 325 mg tablet TAKE 1 TABLET BY MOUTH EVERY 8 HOURS NEEDED FOR PAIN 11/23 completed Not Available Not Available Not Available Nystop 100,000 unit/gram topical powder APPLY [...] 1 TABLET BY MOUTH EVERY 8 HOURS 11/23 completed Not Available Not Available Not Available triamcino lone acetonide 0.1 % topical [...] Available methotrex ate sodium 2.5 mg tablet ONCE WEEKLY TAKE 6 TABLETS BY MOUTH(Ta ke 3 tablets in am and 3 tablets in pm of same day) 2024 active Not Available Not Available Not Avai lable gabapenti n 800 mg tablet TAKE 1 [...] tablet TAKE 1 TABLET BY MOUTH DAILY 2024 active Not Available Not Available Not Avai lable hydroxych loroquine 200 mg tablet Take 1 tablet by mouth twice daily 2024 active Not Available Not Available Not Avai lable fentanyl 25 mcg/hr transderm al patch APPLY 1 PATCH TO INTACT SKIN BY TRANSDER MAL ROUTE EVERY 72 HOURS 11/23 completed Not Available Not Available Not Available methylpre dnisolone 4 mg tablets in a dose pack FOLLOW PACKAGE DIRECTIO NS 03/27 completed Not Available Not Available Not Available ketoconaz ole 2 % topical cream APPLY TO THE AFFECTED AREA(S) BY TOPICAL ROUTE ONCE DAILY active Not Available Not Available No t Available hydroxyzi ne HCl 10 mg tablet TAKE 1 TABLET BY MOUTH EVERY 6 TO 8 HOURS NEEDED FOR ACUTE ANXIETY active Not Available Not Available No t [...] 1 PATCH TO SKIN EVERY 72 HOURS 11/23 completed Not Available Not Available Not Available cholecalc iferol (vitamin D3) 25 mcg (1,000 unit) tablet TAKE 1 TABLET BY MOUTH DAILY active Not Available Not Available No t Available FeroSul 325 mg (65 mg iron) tablet active Not Available Not Available Not Available fentanyl 37.5 mcg/hour transderm al patch APPLY 1 PATCH TO SKIN EVERY 72 HOURS 11/23 completed Not Available Not Available Not Available Praluent Pen 75 mg/mL subcutane ous pen injector 07/27 completed Not Available Not Available Not Available Repatha SureClick 140 mg/mL subcutane ous pen injector INJECT 140MG UNDER THE SKIN EVERY 2 WEEKS active Not Available Not Available No t Available Vitals Date Recorded Body height Body mass index (BMI) Body weight Oxygen saturation Oxygen saturation in Arterial blood by Pulse oximetry Heart rate Systolic blood pressure Diastolic blood pressure Provider Name and Address Organization Details Last Updated DateTime 5 160.02 cm 33.7 kg/m2 05493.5 5 g 100 % 100 % 86 /min 128 mm[Hg] 68 mm[Hg] Pallavi Duffy [facility] 5 11:01:42 Date Recorded Body height Body mass index (BMI) Body weight Heart rate Oxygen saturation Oxygen saturation in Arterial blood by Pulse oximetry Systolic blood pressure Diastolic blood pressure Provider Name and Address Organization Details Last Updated DateTime 4 160.02 cm 35.3 kg/m2 67668.8 8 g 82 /min 98 % 98 % 134 mm[Hg] 76 mm[Hg] Shikha Castillo [facility] 4 09:48:03 Date Recorded Body height Body mass index (BMI) Body weight Heart rate Oxygen saturation Oxygen saturation in Arterial blood by Pulse oximetry Provider Name and Address Organization Details Last Updated DateTime 5 160.02 cm 35.8 kg/m2 19927.3 8 g 82 /min 97 % 97 % Alexi Santos [facility] 5 15:25:58 Date Recorded Body height Body mass index (BMI) Body weight Heart rate Oxygen saturation Oxygen saturation in Arterial blood by Pulse oximetry Systolic blood pressure Diastolic blood pressure Provider Name and Address Organization Details Last Updated DateTime 4 160.02 cm 33 kg/m2 63288.9 g 68 /min 97 % 97 % 112 mm[Hg] 56 mm[Hg] Lian Tillman [facility] 15:13:53 Social History None recorded. Functional Status None recorded. Mental Status None recorded. Family History Relationship Description Onset Age of this Age Resolved Age Notes LastModified by Organization Details LastModified Time Father Heart disease Not available 2023 18:08:29 Father Cerebrovascu lar accident [email or web address] Not available 03/2024 18:08:37 Father Diabetes mellitus Not available 2023 18:08:44 Father Hypertensive disorder Not available 2023 18:08:54 Father Leukemia [email or web address] Not availabl e 10/12/2023 18:09:02 Mother Heart disease Not available 2023 18:08:29 Mother Hypertensive disorder [email or web address] Not available 2023 18:08:54 Mother Multiple congenital cysts of kidney Not available 2023 18:09:49 Maternal Grandmother Multiple congenital cysts of kidney [email or web address] Not available 2023 18:09:49 Sister Multiple congenital cysts of kidney [email or web address] Not available 2023 18:09:49 Medical History No medical history recorded. Gynecological HistoryNo gynecological history recorded. Obstetrics History GPAL:G 0 P 0 0 0 0 Immunizations Vaccine Type Date Status Note Provider Nam e and Address Organization Details Recorded Time Influenza, split virus, quadrivalent, preservative 4 [facility]24 15:26:11 Influenza, split virus, quadrivalent, preservative 7 completed [facility] 11/23/2024 15:26:11 zoster recombinant 9 completed [facility] 11/23/2024 15:26:11 zoster recombinant 8 completed [facility] 11/23/2024 15:26:11 Influenza, high-dose, quadrivalent, PF 0 completed Zoi Dunse [facility] 11/23/2024 15:26:11 Influenza, adjuvanted, quadrivalent, PF 3 completed [facility] 11/23/2024 15:26:11 COVID-19, mRNA, LNP-S, PF, 30 mcg/0.3 mL dose 1 completed [facility] 11/23/2024 15:26:11 COVID-19, mRNA, LNP-S, PF, 30 mcg/0.3 mL dose 1 completed [facility] 11/23/2024 15:26:11 COVID-19, mRNA, LNP-S, PF, 30 mcg/0.3 mL dose 1 completed [facility] 11/23/2024 15:26:11 COVID-19, mRNA, LNP-S, PF, yoshi-sucrose, 30 mcg/0.3 mL 3 completed [facility] 11/23/2024 15:26:11 pneumococcal polysaccharide PPV23 8 completed Zoi Dunse [facility] 11/23/2024 15:26:11 pneumococcal polysaccharide PPV23 2 completed Zoi Dunse [facility] 11/23/2024 15:26:11 tetanus toxoid, unspecified formulation 4 completed [facility] 11/23/2024 15:26:11 Tdap 6 completed Zoi Dunse [facility] 11/23/2024 15:26:11 Pneumococcal conjugate PCV 13 5 completed Zoi Dunse [facility] 11/23/2024 15:26:11 Pneumococcal conjugate PCV 13 5 completed Zoi Dunse [facility] 11/23/2024 15:26:11 zoster live 4 completed [facility] 11/23/2024 15:26:11 zoster live 5 completed [facility] 11/23/2024 15:26:11 Influenza, high-dose, trivalent, PF 8 completed [facility] 11/23/2024 15:26:11 Influenza, high-dose, trivalent, PF 5 completed [facility] 11/23/2024 15:26:11 Influenza, split virus, trivalent, preservative 5 completed [facility] 11/23/2024 15:26:11 Influenza, split virus, trivalent, preservative 3 completed [facility] 11/23/2024 15:26:11 Influenza, split virus, trivalent, preservative 2 completed [facility] 11/23/2024 15:26:11 Influenza, split virus, quadrivalent, PF 2 completed [facility] 11/23/2024 15:26:11 Influenza, split virus, quadrivalent, PF 9 completed [facility] 11/23/2024 15:26:11 Influenza, split virus, quadrivalent, PF 1 completed [facility] 11/23/2024 15:26:11 Influenza, split virus, quadrivalent, PF 6 completed [facility] 11/23/2024 15:26:11 Past Encounters Encounter ID Performer Location Encounter Start Date Encounter Closed Date Diagnosis/Indication Diagnosis SNOMED-CT Code Diagnosis ICD10 Code Diagnosis Note [id number] Sander Avila MD [facility] ([place]) [address] [facility] [address] 10/14/2023 09:39:51 11/19/2023 13:48:46 Pain of right shoulder joint 2931383685 8645086 M25.511 Inflammato ry polyarthropathy 423003681 M06.4 Osteoarthritis 172470810 M19.90 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 3940652667 69929 G56.01 Impingemen t syndrome of right shoulder region 5053544397 43913 M75.41 halfway methotrexate user 6495494316 00 Z79.631 Long-term drug therapy 662945315 Z79.359 [id number] Sander Avila MD [address] [facility] ([place]) [address] [place] [address] 03/27/2024 14:34:00 03/27/2024 18:15:44 Pain of right shoulder joint 6064106991 1570809 M25.511 Inflammato ry polyarthropathy 440452408 M06.4 Impingemen t syndrome of right shoulder region 1331786216 68511 M75.41 [id number] Sander Avila MD [facility] ([place]) [address] [facility] [place] [address] 07/27/2024 10:52:24 07/31/2024 17:37:04 Inflammatory polyarthropathy 435229122 M06.4 Osteoarthritis 281573472 M19.90 Pain of ri ght shoulder joint 6747493875 6208728 M25.511 Vitamin D deficiency 347 77416 E55.9 [id number] Sander Avila MD [facility] ([place]) [address] [facility] [place] [address] 11/23/2024 15:11:53 11/29/2024 08:03:06 Inflammatory polyarthropathy 703634023 M06.4 Anti-nucle ar factor detected 385155582 R76.8 Osteoarthritis 362154594 M19.90 Raynaud's phenomenon 266 758028 I73.00 Health Concerns Section Related Observation LastModified by Organization Detai ls LastModified Time None Recorded Concern Status LastModified by Organization Details LastModified Time None Recorded Advance Directives Directive None Recorded Payers Insurance Date Sequence Insurance Name Policy Number Policy Ramos Covered Member ID Ramos Member ID Guarantor Name 11/29/2024 1 [facility] (MEDICARE REPLACEMENT/A DVANTAGE - PPO) [id number] Priscilla Kurtz Gurvinder [id number] Priscilla A Gurvinder Notes Date Note Type Note Provider Name [...] hand numbness and tingling. She complains of manufacturing engineer chief weakness on the right side. Of note, [...] otherwise normal parameters.lg Avila MD [address] [place] [address], [phone], [facility] 10/15/2023 14:54:27 03/27/2024 text/html The patient is [...] tingling in the hands or loss of manufacturing engineer chief strength. The patient continues to morel some right foot and ankle pain related to indwelling hardware from a Charcot joint surgery previously. She has to wear compression hose as the leg tends to swell. The patient has been seeing an director of construction once a year for routine checkups. She [...] of her underlying health problems.linnea Avila MD [address] [place] [address], [phone], [facility] 03/28/2024 21:56:48 07/27/2024 text/html The [...] Dr. 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 The patient continues on her combination of hydroxychloroquine and methotrexate therapy along with folic acid. She reports overall doing fairly well. She rates her pain level a 3/10 on a scale with 1 hour of morning stiffness. She sees Pain Management for chronic back pain and currently is scheduled also to see Dr. Patten at [facility] for orthopedic evaluation of her right shoulder pain. She has failed cortisone injections and physical therapy with Pain Management. She has difficulties with right shoulder impingement symptoms for quite some time. She had an x-ray of the shoulder in May of last year that showed just some mild acromioclavicular joint osteoarthritis, but no high riding humerus or fractures or significant dislocations. At this time she avoids lying on her right shoulder at night. She is right-handed. She has not noticed any manufacturing engineer chief weakness in the right upper extremity. No numbness or tingling though she does experience intermittent Raynaud s symptoms in the hands. She will keep them warm during cold mornings. She denies any digital ulcers. No fevers or unexplained weight loss. No skin rash, photosensitivity, aphthous ulcers, sicca symptoms, dysphagia, cough, pleurisy, shortness of breath or palpitations. No visual complaints. She does see an director of construction every 6 months for evaluations. She has had no retinal toxicity. She denies any gross hematuria, bleeding from the nares or gums.linnea Avila MD [address] [place] [address], [phone], [facility] 11/28/2024 09:05:14 OBGyn Episode No OBEpisode recorded.
--- OUTSIDE RECORDS SUMMARY | 2024-12-01 15:39 | XMS_ITS | Encounter Summary ---
Author Organization [facility] Address [address] [place] [address] Care Team Providers Care Magnetic Tape Winder Name Role Phone Zen Negrete MD Primary Care Provider Viola Turpin MD Unavailable [phone] Cristobal Gage DO Unavailable [phone] Vishal Negrete MD Primary Care Provider [phone] Bob Little PA-C Unavailable [phone] Encounter Details Date Type Department Care Team (Late st Contact Info) Description 04/02/2014 [facility] Outpatient Visit [facility] Orthopedics - Radiology [address] [place] [address] Cristobal Gage DO [facility] [address] [address] Social History Tobacco Use Types Packs/Day Years Used Date Smoking Tobacco: Never Alcohol Use Standard Drinks/Week Comments Not Asked 0 (1 standard drink = 0.6 oz pur e alcohol) Comments Unknown Sex and Gender Information Value Date Recorded Sex Assigned at Not on file Legal Sex Female 1:30 PM CDT Gender Identity Not on file Sexual Orientation Not on file documented as of this encounter Plan of Treatment Not on file documented as of this encounter Visit Diagnoses Not on filedocumented in this encounter Care Teams Magnetic Tape Winder Relationship Specialty Start Date End Date Zen Negrete MD [address] [place] [address] PCP - General Pediatric Gastroenterology 01/16/14 06/07/14 Vishal Negrete MD [address] [place] [address] 35274 PCP - General Internal Medicine 06/08/14 Viola Turpin MD [address] [place] [address] 22068 Orthopedic Surgery 01/16/14 Cristobal Gage DO [address] [place] [address] 18895 Orthopedic Surgery 01/31/14 Bob Little PAEloC [address] [place] [address] Physician Success[employer] Consultant Physician [employer] Consultant 03/04/15 documented as of this encounter
--- OUTSIDE RECORDS SUMMARY | 2024-12-01 15:39 | XMS_ITS | Encounter Summary ---
Author Organization [facility] Address [address] [facility] [place] [address] Care Team Providers Care Sales Director Name Role Phone Viola Turpin MD Unavailable Cristobal Gage DO Unavailable Vishal Negrete MD Primary Care Provider [phone] Bob Little PA-C Unavailable [phone] Encounter Details Date Type Department Care Team (Late st Contact Info) Description 06/08/2014 [facility] Outpatient Visit [facility] Orthopedics - Radiology [address] [place] [address] Cristobal Gage DO [facility] Medical [address] [address] Social History Tobacco Use Types [...] difficulty? Answer Date of Assessment Author No 04/05/2014 8:30 AM Sabiha Barrios RN * Is person blind or have serious difficulty seeing? Answer Date of Assessment Author No 04/05/2014 8:30 AM Sabiha Barrios RN * Does person have serious difficulty walking/climbing stairs? Answer Date of Assessment Author No 04/05/2014 8:30 AM Sabiha Barrios RN * Does person have difficulty dressing/bathing? Answer Date of Assessment Author No 04/05/2014 8:30 AM Sabiha Barrios RN * Does person have difficulty doing errands alone? Answer Date of Assessment Author No 04/05/2014 8:30 AM Sabiha Barrios RN documented as of this encounter Mental Status * Does person have difficulty concentrating/remembering/making decisions? Answer Entry Date Author No 04/05/2014 8:30 AM Sabiha Barrios RN documented in this encounter Plan of Treatment Not on file documented as of this encounter Visit Diagnoses Not on filedocumented in this encounter Care Teams Sales Director Relationship Specialty Start Date End Date Vishal Negrete MD PCP - General Internal Medicine 06/08/14 Viola Turpin MD Orthopedic Surgery 01/16/14 Cristobal Gage DO Orthopedic Surgery 01/31/14 Bob Little PA-C [address] [address] Physician Blood Tester Fowl Physician Blood Tester Fowl 03/04/15 documented as of this encounter
--- OUTSIDE RECORDS SUMMARY | 2024-12-01 15:39 | XMS_ITS | Encounter Summary ---
Author Organization [facility] Health Address [address] [place] [address] Care Team Providers Care Offline Editor Name Role Phone Viola Turpin MD Unavailable Cristobal Gage DO Unavailable [phone] Vishal Negrete MD Primary Care Provider [phone] Bob LittleC Unavailable [phone] Encounter Details Date Type Department Care Team (Late st Contact Info) Description 02/26/2015 Therapy Visit EXTERNAL NON-[facility] [place] [address] [address] Social History Tobacco Use Types [...] on filedocumented in this encounter Care Teams Offline Editor Relationship Specialty Start Date End Date Vishal Negrete MD PCP - General Internal Medicine 06/08/14 Viola Turpin MD Orthopedic Surgery 01/16/14 Cristobal Gage DO Orthopedic Surgery 01/31/14 Bob Little PA-C [address] [place] [address] Physician Anthropology Professor Physician Anthropology Professor 03/04/15 documented as of this encounter
--- OUTSIDE RECORDS SUMMARY | 2024-12-01 15:39 | XMS_ITS | Encounter Summary ---
Author Organization [facility] Address [address] [facility] [place] [address] Care Team Providers Care Burnisher And Bumper Name Role Phone Viola Turpin MD Unavailable Cristobal Gage DO Unavailable Vishal Negrete MD Primary Care Provider Bob LittleC Unavailable Encounter Details Date Type Department Care Team (Late st Contact Info) Description 09/15/2016 [facility] Outpatient Visit [facility] Orthopedics - Radiology [address] [place] [address] Cristobal Gage DO [facility] Medical [address] [address] Social History Tobacco Use Types [...] difficulty? Answer Date of Assessment Author No 06/23/2016 6:49 AM Sam Morales RN * Is person blind or have serious difficulty seeing? Answer Date of Assessment Author No 06/23/2016 6:49 AM Sam Morales RN * Does person have serious difficulty walking/climbing stairs? Answer Date of Assessment Author No 06/23/2016 6:49 AM Sam Morales RN * Does person have difficulty dressing/bathing? Answer Date of Assessment Author No 06/23/2016 6:49 AM Sam Morales RN * Does person have difficulty doing errands alone? Answer Date of Assessment Author No 06/23/2016 6:49 AM Sam Morales RN documented as of this encounter Mental Status * Does person have difficulty concentrating/remembering/making decisions? Answer Entry Date Author No 06/23/2016 6:49 AM Sam Moraels RN documented in this encounter Plan of Treatment Not on file documented as of this encounter Visit Diagnoses Not on filedocumented in this encounter Care Teams Burnisher And Bumper Relationship Specialty Start Date End Date Vishal Negrete MD PCP - General Internal Medicine 06/08/14 Viola Turpin MD Orthopedic Surgery 01/16/14 Cristobal Gage DO Orthopedic Surgery 01/31/14 Bob Little PA-C [address] [facility] [address] [place] [address] Physician Manager Corporate Physician Manager Corporate 03/04/15 documented as of this encounter
--- OUTSIDE RECORDS SUMMARY | 2024-12-01 15:39 | XMS_ITS | Encounter Summary ---
Author Organization [facility] Address [address] [facility] [place] [address] Care Team Providers Care Certified Health Education Specialist Name Role Phone Vioal Turpin MD Unavailable Cristobal Gage DO Unavailable Vishal Negrete MD Primary Care Provider [phone] Bob LittleC Unavailable Encounter Details Date Type Department Care Team (Late st Contact Info) Description 05/22/2016 [facility] Outpatient Visit [facility] Orthopedics - Radiology [address] [place] [address] Cristobal Gage DO [facility] Medical [address] [address] Social History Tobacco Use Types [...] difficulty? Answer Date of Assessment Author No 05/16/2015 8:55 AM Sabiha Tate RN * Is person blind or have serious difficulty seeing? Answer Date of Assessment Author No 05/16/2015 8:55 AM Sabiha Tate RN * Does person have serious difficulty walking/climbing stairs? Answer Date of Assessment Author No 05/16/2015 8:55 AM Sabiha Tate RN * Does person have difficulty dressing/bathing? Answer Date of Assessment Author No 05/16/2015 8:55 AM Sabiha Tate RN * Does person have difficulty doing errands alone? Answer Date of Assessment Author No 05/16/2015 8:55 AM Sabiha Tate RN documented as of this encounter Mental Status * Does person have difficulty concentrating/remembering/making decisions? Answer Entry Date Author No 05/16/2015 8:55 AM Sabiha Tate RN documented in this encounter Plan of Treatment Not on file documented as of this encounter Visit Diagnoses Not on filedocumented in this encounter Care Teams Certified Health Education Specialist Relationship Specialty Start Date End Date Vishal Negrete MD PCP - General Internal Medicine 06/08/14 Viola Turpin MD Orthopedic Surgery 01/16/14 Cristobal Gage DO Orthopedic Surgery 01/31/14 Bob Little PA-C [address] [address] Physician Bench Manager Physician Bench Manager 03/04/15 documented as of this encounter
--- OUTSIDE RECORDS SUMMARY | 2024-12-01 15:39 | XMS_ITS | Encounter Summary ---
Author Organization [facility] Health Address [address] [facility] [place] [address] Care Team Providers Care Salon Designer Name Role Phone Viola Turpin MD Unavailable [phone] Cristobal Gage DO Unavailable [phone] Vishal Negrete MD Primary Care Provider [phone] Bob LittleC Unavailable [phone] Encounter Details Date Type Department Care Team (Late st Contact Info) Description 04/22/2015 Therapy Visit EXTERNAL NON-[facility] [place] [address] [place] [id number] Social History Tobacco Use Types Packs/Day Years [...] on filedocumented in this encounter Care Teams Salon Designer Relationship Specialty Start Date End Date Vishal Negrete MD PCP - General Internal Medicine 06/08/14 Viola Turpin MD Orthopedic Surgery 01/16/14 Cristobal Gage DO Orthopedic Surgery 01/31/14 Bob Little PA-C [address] [place] [address] Physician Resistor Coater Physician Resistor Coater 03/04/15 documented as of this encounter
--- OUTSIDE RECORDS SUMMARY | 2024-12-01 15:39 | XMS_ITS | Encounter Summary ---
Author Organization [facility] Address [address] [facility] [place] [address] Care Team Providers Care Qa Tech Name Role Phone Viola Turpin MD Unavailable [phone] Cristobal Gage DO Unavailable Vishal Negrete MD Primary Care Provider Bob LittleC Unavailable Encounter Details Date Type Department Care Team (Late st Contact Info) Description 02/13/[address] [facility] Outpatient Visit [facility] Orthopedics - Radiology [address] [place] [address] Cristobal Gage DO [facility] Medical [address] [address] Social History Tobacco Use Types [...] on filedocumented in this encounter Care Teams Qa Tech Relationship Specialty Start Date End Date Vishal Negrete MD PCP - General Internal Medicine 06/08/14 Viola Turpin MD Orthopedic Surgery 01/16/14 Cristobal Gage DO Orthopedic Surgery 01/31/14 Bob Little PA-C [address] [facility] [address] [place] [address] Physician Plastic Outfitter Physician Plastic Outfitter 03/04/15 documented as of this encounter
== END 2024-12-01 15:36 | disposition home or self-care (01) ==
LOC: CHSIMG 15:37
PROVIDERS: PCP Internal Medicine; Visit Provider Internal Medicine
DX: M25.551 Pain in right hip (principal); M19.011 Primary osteoarthritis, right shoulder
CPT/HCPCS: 73030

== ENCOUNTER 2024-12-05 12:54 | Outpatient (RCR) | payer MEDICARE, SELFPAY ==
[2024-12-05 13:01] VITALS: BP_SYST 75
--- NOTE | 2024-12-05 14:14 | OPREHPOC ---
Outpatient Therapy Plan of Care This is a Multidisciplinary Plan of Care that may contain components documented by all disciplines (PT, OT, and ST.) PT Problem 1 PT Problem #1 Knowledge Deficit PT Goal 1 Goal / Goal Update The patient will be independent in a home exercise program. Target Visit 2 PT Problem 2 PT Problem #2 Pain PT Goal 1 Goal / Goal Update The patient will report no greater than 3/10 right shoulder pain with dressing and bathing. Target Visit 12 PT Problem 3 PT Problem #3 Impaired Functional Mobility PT Goal 1 Goal / Goal Update The patient will demonstrate 25% or less self perceived disability per the Quick DASH questionnaire. The patient will demonstrate the ability to lift 1 # overhead to improve daily function of reaching into overhead cabinets. Target Visit 12 PT Problem 4 PT Problem #4 Impaired Range of Motion PT Goal 1 Goal / Goal Update The patient will demonstrate 120 degrees right shoulder flexion to improve overhead reaching. The patient will demonstrate functional IR on the right to L5 to improve dressing ability. Target Visit 12
--- NOTE | 2024-12-05 14:14 | PTOPPROG ---
Assessment and note entered by Mariana Ha, PT Evaluation Information Assessment Status Evaluation ICD-10 Condition Codes (PT) Pain in right shoulder M25.511 Onset 12/01/24 Subjective Information Priscilla Hollins reports she started having right shoulder pain a couple months ago that started out gradually in the shoulder and started going into the upper arm. She notes increased pain with reaching forward. She also notes occasional numbness in her entire right hand. She reports the numbness started prior to the shoulder. She had a x-ray of her shoulder and it showed severe osteoarthritis. 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 Bateman on 12/22/24. She c/o constant right shoulder pain that worsens with reaching forward, reaching behind her back and head, and laying on the right side. She is right hand dominant and used to sleep on her right side so she has limitations with dressing, grooming, and sleeping. She was using OTC tylenol without much relief and she started Tramadol on 12/01/24. She has a history of cervical spondylosis with bulging discs. She has been seeing pain management for that and gets injections. Assessment PT Clinical Summary Priscilla Hollins presents with right shoulder pain and recent x-rays showed severe osteoarthritis. She had a gradual onset of pain a couple months ago and it has worsened. She now has pain with reaching forward, reaching behind her back or head , and laying on the right side. 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 She demonstrates decreased and painful right shoulder AROM, decreased right shoulder strength, tenderness at the supraspinatus and long head of the biceps, and positive special tests indicating shoulder impingement and possible rotator cuff pathology. She will benefit from skilled PT to address these limitations. Plan of Care Interventions Electrical Stimulation,Hot Pack/Cold Pack,Manual Therapy,Neuro Re-education,Patient/Caregiver Education,Therapeutic Activities,Therapeutic Exercise PT Services Indicated Yes Treatment Frequency and 3 times a week for 12 visits Duration These treatments will address the objective and functional deficits as defined above. The patient will be advanced safely and appropriately in order for the patient to progress towards his/her prior level of function. Additional exercises will be introduced and as well as a comprehensive home exercise program upon discharge, if needed, ?to ensure carryover of functional gains achieved in the clinic. This treatment plan has been reviewed and agreement upon by the patient.
[2024-12-27 01:05] VITALS: BP_SYST 75
--- NOTE | 2024-12-27 14:09 | OPREHPOC ---
Outpatient Therapy Plan of Care This is a Multidisciplinary Plan of Care that may contain components documented by all disciplines (PT, OT, and ST.) PT Problem 1 PT Problem #1 Knowledge Deficit PT Goal 1 Goal / Goal Update The patient will be independent in a home exercise program. Target Visit 2 Progress Met PT Goal 2 Goal / Goal Update Continue to progress Target Visit 12 PT Problem 2 PT Problem #2 Pain PT Goal 1 Goal / Goal Update The patient will report no greater than 3/10 right shoulder pain with dressing and bathing. Target Visit 12 Progress Not Met PT Goal 2 Goal / Goal Update Continue PT Problem 3 PT Problem #3 Impaired Functional Mobility PT Goal 1 Goal / Goal Update The patient will demonstrate 25% or less self perceived disability per the Quick DASH questionnaire. The patient will demonstrate the ability to lift 1 # overhead to improve daily function of reaching into overhead cabinets. Target Visit 12 Progress Not Met PT Goal 2 Goal / Goal Update Continue PT Problem 4 PT Problem #4 Impaired Range of Motion PT Goal 1 Goal / Goal Update The patient will demonstrate 120 degrees right shoulder flexion to improve overhead reaching. The patient will demonstrate functional IR on the right to L5 to improve dressing ability. Target Visit 12 Progress Not Met PT Goal 2 Goal / Goal Update continue
--- NOTE | 2024-12-27 14:09 | PTOPPROG ---
Assessment and note entered by Mariana Ha PT Evaluation Information Assessment Status Progress ICD-10 Condition Codes (PT) Pain in right shoulder M25.511 Onset 12/01/24 Subjective Information Priscilla reports that she still has 8/10 pain when lifting her arm up. She reports that as long as she doesn't move her arm the pain isn't so bad. Pt reports that she doesn't see the MD until January 21. Pt reports that she saw her MD and had more imaging. The imaging showed tears and arthritis. Pt reports that the MD is planning on discussing a reverse total shoulder next visit. Assessment PT Clinical Summary Priscilla is on her 10th skilled PT visit for R shoulder pain. Pts reported that her doctor is planning on doing a reverse total shoulder. Pt still has deficits in ROM, strength, and functional mobility of the R shoulder. Her perceived disability on the Quick DASH questionnaire did not improve, and she has not met majority of her goals. While her pain at rest has improved, she still has significant pain with any movement. Skilled PT is needed to continue POC to work towards an independent HEP for pre-operative care to prevent further functional decline until she returns to the MD/ has surgery. Plan of Care Interventions Electrical Stimulation,Hot Pack/Cold Pack,Manual Therapy,Neuro Re-education,Patient/Caregiver Education,Therapeutic Activities,Therapeutic Exercise PT Services Indicated Yes Treatment Frequency and continue POC Duration These treatments will address the objective and functional deficits as defined above. The patient will be advanced safely and appropriately in order for the patient to progress towards his/her prior level of function. Additional exercises will be introduced and as well as a comprehensive home exercise program upon discharge, if needed, ?to ensure carryover of functional gains achieved in the clinic. This treatment plan has been reviewed and agreement upon by the patient.
--- NOTE | 2025-01-01 15:08 | PTOPPROG ---
Assessment and note entered by Stefany Rascon, PT Evaluation Information Assessment Status Progress ICD-10 Condition Codes (PT) Pain in right shoulder M25.511 Onset 12/01/24 Subjective Information Priscilla reports feeling like PT hasn't helped her ROM or strength and that she sees her surgeon on February 16. She would like to continue therapy to try and get her ROM and strength better leading up to surgery. Assessment PT Clinical Summary Mrs. Hollins has attended 12 skilled PT visit for R shoulder pain. She and her surgeon are planning a reverse TSA on the R shoulder and she sees the surgeon on February 16. She continues to demonstrate R shoulder pain, ROM and strength deficits in the R shoulder which interfere with her ability to brush/wash her hair, put on clothing and perform daily household activities. Pt will benefit from continued skilled PT intervention to progress toward goals and maintain ROM leading up to visit with surgeon and pending surgery. Plan of Care Interventions Electrical Stimulation,Hot Pack/Cold Pack,Manual Therapy,Neuro Re-education,Patient/Caregiver Education,Therapeutic Activities,Therapeutic Exercise Other Interventions TPDN PT Services Indicated Yes Treatment Frequency and 1x/week for 8 additional visits Duration These treatments will address the objective and functional deficits as defined above. The patient will be advanced safely and appropriately in order for the patient to progress towards his/her prior level of function. Additional exercises will be introduced and as well as a comprehensive home exercise program upon discharge, if needed, ?to ensure carryover of functional gains achieved in the clinic. This treatment plan has been reviewed and agreement upon by the patient.
--- NOTE | 2025-01-25 13:37 | PTOPDC ---
Assessment and note entered by Stefany Rascon, PT Evaluation Information Assessment Status Discharge - Pt Not Present ICD-10 Condition Codes (PT) Pain in right shoulder M25.511 Onset 12/01/24 Subjective Information See below Assessment PT Clinical Summary Mrs. Hollins attended 12 skilled PT visits for R shoulder pain with planned reverse total shoulder surgery. Pt was re-evaluated on 01/01/25 and verbalized feeling like PT wasn't helping but that she wanted to continue to try and make some progress before surgery. However pt has not attended therapy since that re-evaluation and her authorization expires in 5 days. We will discharge pt from skilled PT this date and will resume as needed with new MD order. Plan of Care PT Services Indicated No
== END 2025-01-01 20:00 | disposition home or self-care (01) ==
LOC: CHSPT 12:54
PROVIDERS: PCP Internal Medicine; Visit Provider Internal Medicine
DX: M25.511 Pain in right shoulder (principal)
CPT/HCPCS: 97014; 97110; 97112; 97161; G0283

== ENCOUNTER 2025-04-19 09:59 | Outpatient (CLI) | payer MEDICARE, SELFPAY ==
--- NOTE | ~2025-04-19 | MR_ITS ---
EXAMINATION: MR foot RT wo/w con DATE: 04/19/2025 16:50 INDICATION: Right foot osteomyelitis TECHNIQUE: Magnetic resonance imaging (MRI) of the right fore/mid foot was performed without and with 20 mL Multihance intravenous contrast. Sequences included axial, sagittal and coronal T1-weighted FSE and T2-weighted FS FSE, axial T1-weighted FS FSE and postcontrast axial, sagittal and coronal T1-we ighted FS FSE. COMPARISON: None FINDINGS: Postoperative changes in the right midfoot. This includes arthrodesis with solid osseous fusion between the base of the first metatarsal and the medial, mid and lateral cuneiforms. Additional hindfoot arthrodesis with solid osseous fusion between the talus, calcaneus, navicula and cuboid. There is metallic magnetic field artifact associated with fixation screws. These include screws spanning the still unfused fifth tarsal metatarsal joint and the unfused but narrowed and irregular articulation between the cuneiforms and the navicula and cuboid. There is an old screw tract extending along the first metatarsal diaphysis. No fractures. Moderate osteoarthritis at the ankle joint, first metatarsophalangeal joint and the second-fifth tarsal metatarsal joints. Mild osteoarthritis at the remaining metatarsophalangeal and interphalangeal joints. No evident osteolysis or other pathologic marrow replacing process. There is peripheral enhancement with heterogeneous central increased T2 signal in the soft tissues plantar to the head of the first metatarsal which measures 2.4 cm proximal to distal, 1.8 cm medial collateral and up to 6 mm thickness which could be related to either bursitis or phlegmonous change progressing towards abscess. No other abnormal fluid collections identified. The collateral ligament complex at the metatarsophalangeal and interphalangeal joints are unremarkable. The flexor and extensor tendons appear intact. There is severe fatty atrophy of the intrinsic musculature of the foot. IMPRESSION: 1. Bursitis versus region of phlegmonous change progressing towards abscess in the soft tissues plantar to the head of the first metatarsal. No osteomyelitis or other acute osseous abnormality. 2. Postoperative changes of instrumented arthrodesis in the mid and hindfoot as detailed above. 3. 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 Reviewed, dictated and finalized at location A. IMPRESSION: 1. Bursitis versus region of phlegmonous change progressing towards abscess in the soft tissues plantar to the head of the first metatarsal. No osteomyelitis or other acute osseous abnormality. 2. Postoperative changes of instrumented arthrodesis in the mid and hindfoot as detailed above. 3. Polyarticular osteoarthritis, moderate severity at the ankle and first metat arsophalangeal joints and mild at many of the remaining joints in the forefoot.
--- OUTSIDE RECORDS SUMMARY | 2025-04-19 11:19 | XMS_ITS | Encounter Summary ---
Author Organization [facility] Address [address] [facility] [place] [address] Care Team Providers Care Textile Machinery Instructor Name Role Phone Zen Negrete MD Primary Care Provider [phone] Viola Turpin MD Unavailable [phone] Cristobal Gage DO Unavailable [phone] Vishal Negrete MD Primary Care Provider [phone] Bob Little PA-C Unavailable [phone] Encounter Details Date Type Department Care Team (Late st Contact Info) Description 04/02/2014 [facility] Outpatient Visit [facility] Orthopedics - Radiology [address] [place] [address] Cristobal Gage DO [facility] Medical [address] [address] Social History Tobacco Use Types [...] as of this encounter Functional Status * Functional and Cognitive Status Question Answer Date of Assessment Author Is person deaf or have serious hearing difficulty? No 04/05/2014 8:30 AM CDT Sabiha Alvarez RN Is person blind or have serious difficulty seeing? No 04/05/2014 8:30 AM Sabiha Barrios RN Does person have serious difficulty walking/climbing stairs? No 04/05/2014 8:30 AM Miguel Barrios RN Does person have difficulty dressing/bathing? No 04/05/2014 8:30 AM Rosalva Barrios RN Does person have difficulty doing errands alone? No 04/05/2014 8:30 AM Rosalva Barrios RN Does person have difficulty concentrating/remembering/tristen ing decisions? No 04/05/2014 8:30 AM Miguel Barrios RN documented as of this encounter Plan of Treatment Not on file documented as of this encounter Visit Diagnoses Not on filedocumented in this encounter Care Teams Textile Machinery Instructor Relationship Specialty Start Date End Date Zen Negrete MD [address] [place] [address] PCP - General Pediatric Gastroenterology 01/16/14 06/07/14 Vishal Negrete MD [address] [place] [address] PCP - General Internal Medicine 06/08/14 Viola Turpin MD [address] [place] [address] Orthopedic Surgery 01/16/14 Cristobal Gage DO [address] [place] [id number] Orthopedic Surgery 01/31/14 Bob Little PA-C [address] [place] [address] Physician Punchboard Filling Machine Operator Physician Punchboard Filling Machine Operator 03/04/15 documented as of this encounter
--- OUTSIDE RECORDS SUMMARY | 2025-04-19 11:19 | XMS_ITS | Encounter Summary ---
Author Organization [facility] Health Address [address] [facility] [address] Care Team Providers Care Tdp Displays Analyst Name Role Phone Viola Turpin MD Unavailable Cristobal Gage DO Unavailable [phone] Vishal Negrete MD Primary Care Provider [phone] Bob LittleC Unavailable [phone] Encounter Details Date Type Department Care Team (Late st Contact Info) Description 03/25/2015 Therapy Visit EXTERNAL NON-[facility] [place] [place] [address] [address] Social History Tobacco Use Types [...] on filedocumented in this encounter Care Teams Tdp Displays Analyst Relationship Specialty Start Date End Date Vishal Negrete MD PCP - General Internal Medicine 06/08/14 Viola Turpin MD Orthopedic Surgery 01/16/14 Cristobal Gage DO Orthopedic Surgery 01/31/14 Bob Little PA-C [address] [place] [address] Physician Wool Classer Physician Wool Classer 03/04/15 documented as of this encounter
--- OUTSIDE RECORDS SUMMARY | 2025-04-19 11:19 | XMS_ITS | Encounter Summary ---
Author Organization [facility] Address [address] [facility] [place] [address] Care Team Providers Care Electrical Integrator Name Role Phone Viola Turpin MD Unavailable Cristobal Gage DO Unavailable Vishal Negrete MD Primary Care Provider Bob LittleC Unavailable Encounter Details Date Type Department Care Team (Late st Contact Info) Description 02/13/2015 [facility] Outpatient Visit [facility] Orthopedics - Radiology [address] [place] [address] Cristobal Gage DO [facility] Medical [address] [address] Social History Tobacco Use Types [...] on filedocumented in this encounter Care Teams Electrical Integrator Relationship Specialty Start Date End Date Vishal Negrete MD PCP - General Internal Medicine 06/08/14 Viola Turpin MD Orthopedic Surgery 01/16/14 Cristobal Gage DO Orthopedic Surgery 01/31/14 Bob Little PA-C [address] [facility] [address] [place] [address] Physician Unindentured Apprentice Physician Unindentured Apprentice 03/04/15 documented as of this encounter
--- OUTSIDE RECORDS SUMMARY | 2025-04-19 11:19 | XMS_ITS | Clinical Summary ---
Author Organization [facility] Address [address] [place] [address] Care Team Providers Care Patient Care Director Name Role Phone Viola Turpin MD Unavailable [phone] Cristobal Gage DO Unavailable [phone] Vishal Negrete MD Primary Care Provider [phone] Bob LittleC Unavailable [phone] Source Comments [facility],non-owned Affiliates and Associated Physician Practices is amultiple site organization consisting of ambulatory clinics and hospital sitesin [place], [place], [place] and [place]. This disclosure is being madepursuant to the Care Everywhere program and may not contain all information available regarding this patient. Last updated 18.[facility] Allergies Active Allergy Reactions Criticality Noted Date Comments Aspirin Other Low 01/16/2014 ulcers Nsaids Other,Dizziness Low 05/16/2015 PUD Hmg-Coa-R Inhibitors Myalgias Low 04/05/2014 Medications * Be aware that medications may not be up to date on this document. Alwaysverify current medications with the patient. Bluefield-3 Fatty Acids (OMEGA 3 PO) Take 1 [...] tab sat-sun 1 5 Active Nystatin (NYSTOP) 768327 UNIT/GM POWD Take 100,000 Units by mouth [...] once daily Active vitamin D, ergocalciferol, (DRISDOL) 20389 UNITS capsule Take 50,000 Units by mouth [...] Last Done Comments BONE DENSITY TESTING 1950 HEPATITIS C SCREENING 11/20/1966 DTAP/TDAP/TD VACCINES [...] yrs (1 - 1-dose 75+ series) 11/25/2023 DEPRESSION SCREENING 07/05/2024 DIABETES - URINE PROTEIN SCREENING 07/05/2024 MEDICARE AWV CALENDAR YEAR 2024 COVID-19 VACCINE ( season) 2025 INFLUENZA VACCINE (#1) 2025 04/10/2016 HEPATITIS B VACCINE Aged Out [...] this topic Medical Devices Implanted Type Area Hardwood Flooring Specialist Device Identifier Shelf Expiration Date Model / Serial / Lot Fusion Milton Implanted:Qty: 1 on 06/26/2014 by Cristobal Gage DO at [facility] Foot [employer] [id number] / / Bone Tramaine Can 30cc - [id number] Implanted:Qty: 1 on 06/26/2014 by Cristobal Gage DO at [facility] Foot [employer] 09/04/2018 [id number] / [id number] / Screw Hdlss 4.3 X 40mm Implanted:Qty: 1 on 10/01/2016 by Cristobal Gage DO at [facility] Right: Foot [employer] [id number] / / Scrw Hdless Comp 6.5 X 85 Implanted:Qty: 1 on 10/01/2016 by Cristobal Gage DO at [facility] Right: Foot [employer] [id number] / / Scrw Hdless Comp 6.5 X 75 Implanted:Qty: 1 on 10/01/2016 by Cristobal Gage DO at [facility] Right: Foot [employer] [id number] / / Screw 6.5mm 80mm Comp Viviana Hdls Arthx Implanted:Qty: 1 on 10/01/2016 by Cristobal Gage DO at [facility] Right: Foot [employer] [id number] / / Screw Hdlss 4.3 X 70mm Screw Implanted:Qty: 2 on 10/01/2016 by Cristobal Gage DO at [facility] Right: Foot [employer] [id number] / / Graft Bone Accell Evo3 Dbm 10ml Ptty - [id number] Implanted:Qty: 1 on 10/01/2016 by Cristobal Gage DO at [facility] Right: Foot [employer] 01/29/2017 [id number] / [id number] / [id number] Graft Bone Canc 30ml Frzdr Crsh 1-4mm Implanted:Qty: 1 on 10/01/2016 by Cristobal Gage DO at [facility] Right: Foot [employer] 03/02/2021 [id number] / / [id number] Explanted Type Area Hardwood Flooring Specialist Device Identifier Shelf Expiration Date Model / Serial / Lot K-Wire 9.0in X .062in Explanted:Qty: 2 on 10/01/2016 by Cristobal Gage DO at [facility] Right: Foot [employer] 05/14/2019 [id number] / / [id number] Procedures Procedure Name Priority Date/Time Associated Diagnosis Comments RENAL FUNCTION PANEL AM Draw 04/30/2018 4:39 AM CDT HEMOGLOBIN A1C Routine 04/28/2018 4:08 AM CDT from Last 3 Months or Most Recently Relevant to Health Maintenance Results * (ABNORMAL) RENAL FUNCTION PANEL (04/30/2018 4:39 AM CDT) [facility] Signature Glucose 104 74 - 106 mg/dL 04/30/2018 7:12 AM [facility] Sodium 142 136 - 145 mmol/L 04/30/2018 7:12 AM [facility] Potassium 3.8 3.5 - 5.1 mmol/L 04/30/2018 7:12 AM [facility] Chloride 109(H) 98 - 107 mmol/L 04/30/2018 7:12 AM [facility] CO2 29 22 - 31 mmol/L 04/30/2018 7:12 AM [facility] Calcium 9.1 8.5 - 10.1 mg/dL 04/30/2018 7:12 AM [facility] Anion Gap 4(L) 8 - 16 mmol/L 04/30/2018 7:12 AM [facility] BUN 10 7 - 21 mg/dL 04/30/2018 7:12 AM [facility] Creatinine 0.87 0.50 - 1.30 mg/dL 04/30/2018 7:12 AM [facility] Albumin 2.7(L) 3.4 - 5.0 gm/dL 04/30/2018 7:12 AM [facility] Phosphorus 3.8 2.5 - 4.9 mg/dL 04/30/2018 7:12 AM [facility] eGFR by MDRD >60 >60 mL/min/1.7 3m2 04/30/2018 7:12 AM [facility] eGFR by MDRD >60 >60 mL/min/1.7 3m2 04/30/2018 7:12 AM [facility] Blood BLOOD SPECIMEN / Unknown Lab Venipuncture / Unknown 04/30/2018 4:39 AM CDT 04/30/2018 4:52 AM CDT Lee De Leon ICT DEVELOPMENT MANAGER-TRAINING INSTRUCTOR LAB - CHEMISTRY ORDERA BLES Final Result [facility] [address] [place] [address] * (ABNORMAL) HEMOGLOBIN A1C (04/28/2018 4:08 AM CDT) Hemoglobin A1c 6.9(H) 4.2 - 6.3 % 04/28/2018 7:23 AM CDT [facility] Estimated Average Glucose 151 mg/dL 04/28/2018 7:23 AM CDT [facility] Blood BLOOD SPECIMEN / Unknown Lab Venipuncture / Unknown 04/28/2018 4:08 AM CDT 04/28/2018 4:21 AM CDT Ambar Rodas ICT DEVELOPMENT MANAGER-TRAINING INSTRUCTOR LAB - CHEMISTRY ORDERA BLES Final Result [facility] [address] [place] [address] from Last 3 Months or Most Recently Relevant to Health Maintenance Insurance [facility] MANAGED MEDICARE ADV [facility] MANAGED MEDICARE ADV SELF PAY NO INSURANCE Member Subscriber Plan / Payer (Ef fective for All Dates) Name:Marta Aleman Member ID:Not on file Relation to Subscriber:Not on file Name:MARTA ALEMAN Subscriber ID:Not on file (Home) Address: [address] [place] [id number] Payer ID:Not on file Group ID:Not on file Type:Self Pay Address: [place], [place] Advance Directives * Full Code (Latest [...] 5:47 PM 06/27/2014 3:34 PM Care Teams Patient Care Director Relationship Specialty Start Date End Date Vishal Negrete MD PCP - General Internal Medicine 06/08/14 Viola Turpin MD Orthopedic Surgery 01/16/14 Cristobal Gage DO Orthopedic Surgery 01/31/14 Bob Little PA-C [address] [place] [address] [address] Physician Producer Arborist Manager Physician Producer Arborist Manager 03/04/15
--- OUTSIDE RECORDS SUMMARY | 2025-04-19 11:19 | XMS_ITS | Encounter Summary ---
Author Organization [facility] Address [address] [place] [address] Care Team Providers Care Kiln Feeder Name Role Phone Viola Turpin MD Unavailable [phone] Cristobal Gage DO Unavailable [phone] Vishal Negrete MD Primary Care Provider [phone] Bob LittleC Unavailable [phone] Encounter Details Date Type Department Care Team (Late st Contact Info) Description 04/22/2015 Therapy Visit EXTERNAL NON-[facility] [place] [address] [place] [id number] Social History Tobacco Use Types Packs/Day Years [...] on filedocumented in this encounter Care Teams Kiln Feeder Relationship Specialty Start Date End Date Vishal Negrete MD PCP - General Internal Medicine 06/08/14 Viola Turpin MD Orthopedic Surgery 01/16/14 Cristobal Gage DO Orthopedic Surgery 01/31/14 Bob Little PA-C [address] [place] [address] Physician Lithographer Helper Physician Lithographer Helper 03/04/15 documented as of this encounter
--- OUTSIDE RECORDS SUMMARY | 2025-04-19 11:19 | XMS_ITS | Encounter Summary ---
Author Organization [facility] Address [address] [facility] [place] [address] Care Team Providers Care Whizzer Name Role Phone Viola Turpin MD Unavailable Cristobal Gage DO Unavailable [phone] Vishal Negrete MD Primary Care Provider [phone] Bob LittleC Unavailable [phone] Encounter Details Date Type Department Care Team (Late st Contact Info) Description 02/26/2015 Therapy Visit EXTERNAL NON-[facility] [place] [address] [address] Social History Tobacco Use Types [...] on filedocumented in this encounter Care Teams Whizzer Relationship Specialty Start Date End Date Vishal Negrete MD PCP - General Internal Medicine 06/08/14 Viola Turpin MD Orthopedic Surgery 01/16/14 Cristobal Gage DO Orthopedic Surgery 01/31/14 Bob Little PA-C [address] [place] [address] Physician Onboarding Specialist Physician Onboarding Specialist 03/04/15 documented as of this encounter
--- OUTSIDE RECORDS SUMMARY | 2025-04-19 11:19 | XMS_ITS | Encounter Summary ---
Author Organization [facility] Address [address] [facility] [place] [address] Care Team Providers Care Iron Miner Name Role Phone Viola Turpin MD Unavailable Cristobal Gage DO Unavailable [phone] Vishal Negrete MD Primary Care Provider Bob LittleC Unavailable Encounter Details Date Type Department Care Team (Late st Contact Info) Description 05/22/2016 [facility] Outpatient Visit [facility] Orthopedics - Radiology [address] [place] [address] Cristobal Gage DO [facility] [address] [address] Social History Tobacco Use Types [...] on filedocumented in this encounter Care Teams Iron Miner Relationship Specialty Start Date End Date Vishal Negrete MD PCP - General Internal Medicine 06/08/14 Viola Turpin MD Orthopedic Surgery 01/16/14 Cristobal Gage DO Orthopedic Surgery 01/31/14 Bob Little PA-C [address] [address] Physician Adjunct Phlebotomy Instructor Physician Adjunct Phlebotomy Instructor 03/04/15 documented as of this encounter
--- OUTSIDE RECORDS SUMMARY | 2025-04-19 11:20 | XMS_ITS | Clinical Summary ---
Author Organization [facility] Address [address] [place] [address] Phone Care Team Providers Care Innersole Fitter Name Role Phone Vishal Negrete MD Primary Care Provider + Allergies Active Allergy Reactions Criticality Noted Date Comments Cmgigru-Fzm-Mlf Reductase Inhibitors Unknown 08/11/2016 Medications fentaNYL (DURAGESIC) [...] tablet Take 300 mcg by mouth daily early years teacher 1 tab daily mon-fri, 1/2 tab on [...] on file Legal Sex Female 4:56 AM CLINICAL PHARMACY COORDINATOR Gender Identity Not on file Sexual Orientation Not on file Last Filed Vital Signs Vital Sign Reading Time Taken Comments Blood Pressure 144/85 08/12/2016 7:53 AM CLINICAL PHARMACY COORDINATOR Pulse 70 08/12/2016 7:53 AM CLINICAL PHARMACY COORDINATOR Temperature 36.4 C (97.6 F) 08/12/2016 7:53 AM CLINICAL PHARMACY COORDINATOR Respiratory Rate 20 08/12/2016 7:53 AM CLINICAL PHARMACY COORDINATOR Oxygen Saturation 98% 08/12/2016 7:53 AM CLINICAL PHARMACY COORDINATOR Inhaled Oxygen Concentration - - Weight 93.4 kg (206 lb) 08/12/2016 6:42 AM CLINICAL PHARMACY COORDINATOR Height 160 cm (5' 3) 08/11/2016 2:38 PM CLINICAL PHARMACY COORDINATOR Body Mass Index 36.49 08/11/2016 2:38 PM CLINICAL PHARMACY COORDINATOR Plan of Treatment Health Maintenance Due Date [...] 1-dose 75+ series) 11/25/2023 INFLUENZA VACCINE (#1) 2025 04/10/2016 Insurance MEDICARE PART A AND B [facility] OPTIONS PPO [id number] Advance Directives For more information, please contact: [phone] * Full Code (Latest Code Status on File) Date Activated Date Inactivated Comments 08/12/2016 5:39 AM 08/12/2016 10:28 AM Care Teams Innersole Fitter Relationship Specialty Start Date End Date Vishal Negrete MD [address] [place] [address] PCP - General Internal Medicine 08/12/16
--- OUTSIDE RECORDS SUMMARY | 2025-04-19 11:20 | XMS_ITS | Patient Health Record ---
Author Organization [facility] Address [address] [place], [place] [address] Care Team Providers Care Rubber Gasket Inspector Trimmer Name Role Phone HERMELINDO LUTZ Unavailable [phone] Vishal Negrete Unavailable Unavailable Reason For Referral No Information Medications Medication SIG (Take, Route, Frequency, Duration) Notes Start Date End Date Status silver sulfadiazine 10 MG/ML Topical Cream [Silvadene] CUTANEOUS silver sulfadiazine 10 MG/ML Topical Cream [Silvadene]Original Medicationsilver sulfadiazine 10 MG/ML Topical Cream [Silvadene] *Reorder from Obsorb for eRx and Interaction Alerts* 04/03/2016 Active Plan Of Treatment No Information Insurance Providers Payer Name Payer Address Payer Phone Subscriber Number Group Number Insured Name Patient Relationship to Insured Coverage Start Date Coverage End Date Medicare Part B [place] [address] [place] [address] [id number] MARTA ALEMAN Self - patient is the insured [facility] [address] [address] [place] [id number] MARTA ALEMAN Self - patient is the insured
--- OUTSIDE RECORDS SUMMARY | 2025-04-19 11:20 | XMS_ITS | Clinical Summary ---
Author Organization [facility] Address [address] [place] [address] Care Team Providers Care Sas Developer Analyst Name Role Phone Non-Staff, Provider Primary Care Provider Wilder machado Social History Tobacco Use Types Packs/Day Years Used Date Smoking Tobacco: Never Assessed Comments Unknown Sex and Gender Information Value Date Recorded Sex Assigned at Not on file Legal Sex Female 5:57 PM PAPER COATER Gender Identity Not on file Sexual Orientation Not on file Plan of Treatment Health Maintenance Due Date Last Done Comments Hepatitis C 1968 Annual Medicare Wellness Visit 2013 Dexa Scan (General) 2013 RSV Immunization or 60+ Years (1 - 1-dose 75+ series) 11/25/2023 COVID-19 Vaccine (2024- season) 2025 05/06/2021, 08/28/2020, 08/07/2020 Influenza Adult (#1) 2025 04/11/2021, 04/11/2019, 04/05/2018, Additional history exists DTaP, Tdap and Td Vaccines (2 - Td or Tdap) 01/21/2026 01/22/2016, 12/06/2013 Pneumococcal Vaccine: 50+ Years Completed 04/06/2018, 04/04/2015, 02/09/2015, Additional history exists Zoster Vaccines Completed 09/20/2018, 08/2017, 03/18/2015, Additional history exists Hepatitis A Vaccines Aged Out No long er eligible based on patient's age to complete this topic Meningococcal B Vaccine Aged Out No l onger eligible based on patient's age to complete this topic Meningococcal Vaccine Aged Out No mukesh shirley eligible based on patient's age to complete this topic RSV Immunizations Under 20 Months Aged Out No longer eligible based on patient's age to complete this topic Insurance UHC MEDICARE Care Teams Sas Developer Analyst Relationship Specialty Start Date End Date Non-Staff, Provider PCP - General 06/22/21
--- OUTSIDE RECORDS SUMMARY | 2025-04-19 11:20 | XMS_ITS | Encounter Summary ---
Author Organization [facility] Address [address] [place] [address] Care Team Providers Care Corporate Safety Coordinator Name Role Phone Viola Turpin MD Unavailable Cristobal Gage DO Unavailable Vishal Negrete MD Primary Care Provider Bob LittleC Unavailable [phone] Encounter Details Date Type Department Care Team (Late st Contact Info) Description 06/08/2014 [facility] Outpatient Visit [facility] Orthopedics - Radiology [address] [place] [address] Cristobal Gage DO [facility] [address] [address] Social History Tobacco Use Types [...] on filedocumented in this encounter Care Teams Corporate Safety Coordinator Relationship Specialty Start Date End Date Vishal Negrete MD PCP - General Internal Medicine 06/08/14 Viola Turpin MD Orthopedic Surgery 01/16/14 Cristobal Gage DO Orthopedic Surgery 01/31/14 Bob Little PA-C [address] [address] Physician Ruby On Rails Engineer Physician Ruby On Rails Engineer 03/04/15 documented as of this encounter
--- OUTSIDE RECORDS SUMMARY | 2025-04-19 11:20 | XMS_ITS | Clinical Summary ---
Author Organization [facility] Address [address] [place] [address] Care Team Providers Care Pipe Caulker Name Role Phone Vishal Negrete MD Primary Care Provider [phone] Allergies Active Allergy Reactions Criticality Noted Date Comments Aspirin Unknown,Other (See comments) Low 01/16/2014 ulcers Nsaids (Non-Steroidal Anti-Inflammatory Drug) Dizziness,Unknown Low 05/16/2015 PUD Pregabalin Unknown 10/17/2014 Cbnyfqh-Saj-Kgj Reductase Inhibitors Dizziness,Unknown Low 04/05/2014 Product containing 0-exzycer-7-methylglu taryl-coenzyme A reductase inhibitor (product) Medications amLODIPine (NORVASC) 5 mg tablet Take 1 tablet (5 mg total) by mouth daily 5 Active betamethasone, augmented, (DIPROLENE) 0.05 % ointment APPLY THIN FILM TO AREA TID FOR 10 DAYS THEN TWICE A DAY UNTIL RASH CLEARS 7 Active cephalexin (KEFLEX) 500 mg capsule Take 1 capsule (500 mg total) by mouth 2 (two) times a day Active cholecalciferol 25 mcg (1,000 unit) tablet Take 1 tablet (1,000 Units total) by mouth daily Active cyanocobalamin (Vitamin B-12) 1,000 mcg sublingual tablet Take 1 tablet (1,000 mcg total) by mouth daily Active diclofenac sodium (VOLTAREN) 1 % gel Apply topically 2 (two) times a day Active DULoxetine DR (CYMBALTA) 60 mg capsule Take 2 capsules (120 mg total) by mouth daily Active ergocalciferol (VITAMIN D) 50,000 unit capsule Take 1 capsule (50,000 Units total) by mouth once a week Active esomeprazole DR (NexIUM) 40 mg capsule Take 1 capsule (40 mg total) by mouth 2 (two) times a day Active Repatha SureClick 140 mg/mL pen injector INJECT 140MG UNDER THE SKIN EVERY 2 WEEKS Active ferrous sulfate 325 mg (65 mg of elemental iron) tablet Active folic acid (FOLVITE) 1 mg tablet Take 1 tablet (1,000 mcg total) by mouth daily Active gabapentin (NEURONTIN) 800 mg tablet Take 1 tablet (800 mg total) by mouth nightly at bedtime. Active hydroxychloroqu ine (PLAQUENIL) 200 mg tablet Take 1 tablet (200 mg total) by mouth 2 (two) times a day 8 Active hydrOXYzine (ATARAX) 10 mg tablet TAKE 1 TABLET BY MOUTH EVERY 6 TO 8 HOURS NEEDED FOR ACUTE ANXIETY Active hyoscyamine (LEVSIN) 0.125 mg tablet TAKE 1 TO 2 TABLETS BY MOUTH EVERY 6 HOURS NEEDED FOR ABDOMINAL PAIN Active ketoconazole (NIZORAL) 2 % cream APPLY TO THE AFFECTED AREA(S) BY TOPICAL ROUTE ONCE DAILY Active levothyroxine (SYNTHROID) 300 mcg tablet Take 1 tablet (300 mcg total) by mouth carpet sewing machine operator before breakfast 5 Active lisinopriL (PRINIVIL,ZESTR IL) 2.5 mg tablet Take 1 tablet (2.5 mg total) by mouth daily Active methylPREDNISol one acetate (DEPO-MedroL) 80 mg/mL injection Take 60 mg by injection route. 4 Active pravastatin (PRAVACHOL) 10 mg tablet Take 1 tablet (10 mg total) by mouth daily 5 Active traMADoL (ULTRAM) 50 mg tablet Take 1 tablet (50 mg total) by mouth 5 Active triamcinolone (KENALOG) 0.1 % cream APPLY THIN LAYER TOPICALLY TO THE AFFECTED AREA TWICE DAILY Active tiZANidine (ZANAFLEX) 4 mg tablet TAKE 2 CAPSULES EVERY 6 - 8 HOURS NEEDED Active magnesium oxide 400 mg magnesium capsule Take by mouth Active multivitamin with minerals tablet Take 1 tablet by mouth daily Active methotrexate 2.5 mg tablet Take by mouth every 7 days Active Active Problems Problem Noted Date Diagnosed Date Rotator cuff arthropathy of right shoulder 02/16 Obesity (BMI 30-39.9) 12/16/2017 Overview (12/16/2017): Added automatically from request for surgery [id number] Encounters Date Type Department Care Team Description 03/27/2025 3:32 PM CDT - 03/27/2025 11:59 PM CDT Hospital Encounter [facility] [address] [place] [id number] Pre-op exam Discharge Disposition: Discharge to home or self care 03/26/[address] [address] [place]ep[place], Sol D. 02/16/2025 10:45 AM CDT Office Visit [facility] Orthopedic and Sports Medicine [address] [place] [phone] Steven Bateman MD Rotator cuff arthropathy of right shoulder (Primary Dx) 02/16/2025 Telephone [facility] Orthopedic and Sports Medicine [address] [place] [phone] Steven Bateman MD Surgical Clearance from Last 3 Months Surgical History Surgery Date Site/Laterality Comments HYSTERECTOMY Total Hysterectomy - (Added by Conv) SC CHOLECYSTECTOMY Cholecystectomy - (Added by Conv) PORT PLACEMENT CHEST >5 YEARS 04/29/2018 N/A Medical History Medical History Date Comments Personal history of other di seases of the musculoskeletal system and connective tissue History of arthritis - (Adde d by TW Conv) Personal history of other di seases of the digestive system History of hiatal hernia - ( Added by TW Conv) Personal history of other en docrine, nutritional and metabolic disease History of diabetes mellitus - (Added by TW Conv) Family History Medical History Relation Name Comments Diabetes Father Family history of diabetes mellitus - (Added by TW Conv) Polycystic kidney disease Mother Jose rich history of polycystic kidney disease - (Added by TW Conv) Relation Name Status Comments Father Mother Social History Tobacco Use Types Packs/Day Years Used Date Smoking Tobacco: Never Tobacco Cessation:Counseling Given: Not Answered Comments Unknown Sex and Gender Information Value Date Recorded Sex Assigned at Not on file Legal Sex Female 12:29 AM SALESPERSON USED CARS Gender Identity Not on file Sexual Orientation Not on file Obstetrics History Last Filed Vital Signs Vital Sign Reading Time Taken Comments Blood Pressure 150/73 02/16/2025 11:09 AM CDT Pulse 79 02/16/2025 11:09 AM CDT Temperature - - Respiratory Rate - - Oxygen Saturation - - Inhaled Oxygen Concentration - - Weight 96.6 kg (213 lb) 02/16/2025 11:09 AM CDT Height 160 cm (5' 3) 02/16/2025 11:09 AM CDT Body Mass Index 37.73 02/16/2025 11:09 AM CDT Plan of Treatment Health Maintenance Due Date Last Done Comments Depression Screening 1948 Fall Risk Assessment 1950 Hepatitis C Screening 1950 Osteoporosis Screening-Bone Density Scan 1948 Hepatitis B Screening 1966 Well Visit 65+ 2013 Covid-19 Vaccine (2024-2 6 season) 2025 05/06/2021, 08/28/2020, 08/07/2020 Influenza Vaccine (#1) 2025 , 04/11/2021, 04/11/2019, Additional history exists DTaP/Tdap/Td Vaccine (2 - Td or Tdap) 01/21/2026 01/22/2016 Pneumococcal vaccine 65+ Completed 018, 04/04/2015, 02/09/2015, Additional history exists Zoster Vaccine Completed 09/20/2018, 08/2017, 03/18/2015, Additional history exists Procedures Procedure Name Priority Date/Time Associated Diagnosis Comments CT SHOULDER RIGHT WO CONTRAST Schedule Routine, Read Routine (OP Routine) 03/27/2025 4:21 PM CDT Pre-op exam from Last 3 Months Results * CT Shoulder Right WO Contrast (03/27/2025 4:21 PM CDT) Anatomical Region Laterality Modality Upper Extremities Right Computed Tomog marissa 03/28/2025 8:40 AM CDT Narrative 03/28/2025 8:55 AM CDT EXAM DESCRIPTION: CT SHOULDER RIGHT WO CONTRAST REASON FOR STUDY: Right shoulder osteoarthritis. Arthrex protocol for surgery 06/06/2025 No injury TECHNIQUE: Multidetector CT scan of the right shoulder was performed. coronal and sagittal images were reconstructed. Dose modulation adjustment of the mA and/or kV has been performed per [facility] protocols according to patient size and indication. COMPARISON: Radiographs 12/22/2024 FINDINGS: Severe right glenohumeral joint osteoarthritis is present. 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 Small shoulder effusion is present. Moderate acromioclavicular joint osteoarthritis. No acute fracture. Erosion of the distal acromion is present. Mild atrophy of the superior subscapularis. The remaining rotator cuff muscle bulk is normal. The deltoid muscle bulk is normal. Thoracic degenerative disc disease is present. Arterial atherosclerosis noted. Limited evaluation of the right lung appears within normal limits. IMPRESSION: 1. Severe right glenohumeral joint osteoarthritis with humeral head osteonecrosis and articular surface collapse. THIS IS AN ELECTRONICALLY VERIFIED FINAL REPORT 03/28/2025 8:55 AM - Electronically signed by Elan Kenney M.D. MF: TERE Report ID: [id number] Reading Location: [id number] Procedure Note Elan Kenney MD - 03/28/2025 EXAM DESCRIPTION: CT SHOULDER RIGHT WO CONTRAST REASON FOR STUDY: Right shoulder osteoarthritis. Arthrex protocol for surgery 06/06/2025 No injury TECHNIQUE: Multidetector CT scan of the right shoulder was performed. coronal and sagittal images were reconstructed. Dose modulation adjustment of the mA and/or kV has been performed per [facility] protocols according to patient size and indication. COMPARISON: Radiographs 12/22/2024 FINDINGS: Severe right glenohumeral joint osteoarthritis is present. 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 Small shoulder effusion is present. Moderate acromioclavicular joint osteoarthritis. No acute fracture.Erosion of the distal acromion is present. Mild atrophy of the superior subscapularis. The remaining rotator cuffmuscle bulk is normal. The deltoid muscle bulk is normal. Thoracic degenerative disc disease is present. Arterial atherosclerosis noted. Limited evaluation of the right lung appears within normal limits. IMPRESSION: 1. Severe right glenohumeral joint osteoarthritis with humeral head osteonecrosis and articular surface collapse. THIS IS AN ELECTRONICALLY VERIFIED FINAL REPORT 03/28/2025 8:55 AM - Electronically signed by Elan Kenney M.D. MF: TERE Report ID: [id number] Reading Location: [place] [address] Steven Bateman MD IMG CT PROCEDURES Final Resu lt from Last 3 Months Insurance [facility] MED[facility] Address: [address] [address] [place] [address] [facility] Address: [address] [address] [place] [address] Care Teams Pipe Caulker Relationship Specialty Start Date End Date Vishal Negrete MD [address] [place], [place] [id number] PCP - General 05/12/17
--- OUTSIDE RECORDS SUMMARY | 2025-04-19 11:20 | XMS_ITS | Encounter Summary ---
Author Organization [facility] Address [address] [place] [address] Care Team Providers Care Cashier Assistant Name Role Phone Viola Turpin MD Unavailable [phone] Cristobal Gage DO Unavailable [phone] Vishal Negrete MD Primary Care Provider [phone] Bob Little PA-C Unavailable [phone] Encounter Details Date Type Department Care Team (Late st Contact Info) Description 04/20/2018 [facility] Outpatient Visit [facility] Orthopedics - Radiology [address] [place] [address] [place], [place] [id number] Document, Scanned Social History Tobacco Use Types [...] on filedocumented in this encounter Care Teams Cashier Assistant Relationship Specialty Start Date End Date Vishal Negrete MD PCP - General Internal Medicine 06/08/14 Viola Turpin MD Orthopedic Surgery 01/16/14 Cristobal Gage DO Orthopedic Surgery 01/31/14 Bob Little PA-C [address] [place] [address] Physician Department Chairperson Physician Department Chairperson 03/04/15 documented as of this encounter
--- OUTSIDE RECORDS SUMMARY | 2025-04-19 11:20 | XMS_ITS | Encounter Summary ---
Author Organization [facility] Address [address] [place] [address] Care Team Providers Care Zumba Instructor Name Role Phone Vishal Negrete MD Primary Care Provider + Encounter Details Date Type Department Care Team (Late st Contact Info) Description 10/19/[address] [facility] Emelia Chong MD [address] [facility] [address] [place] [id number] Social History Tobacco Use Types Packs/Day Years Used Date Smoking Tobacco: Never Assessed Comments Unknown Sex and Gender Information Value Date Recorded Sex Assigned at Not on file Legal Sex Female 4:56 AM MEDICAL AFFAIRS DIRECTOR Gender Identity Not on file Sexual Orientation Not on file documented as of this encounter Plan of Treatment Not on file documented as of this encounter Visit Diagnoses Not on filedocumented in this encounter Care Teams Zumba Instructor Relationship Specialty Start Date End Date Vishal Negrete MD [address] [place] [address] PCP - General Internal Medicine 08/12/16 documented as of this encounter
--- OUTSIDE RECORDS SUMMARY | 2025-04-19 11:20 | XMS_ITS | Encounter Summary ---
Author Organization [facility] Address [address] [facility] [place] [address] Care Team Providers Care Station Cook Name Role Phone Viola Turpin MD Unavailable Cristobal Gage DO Unavailable [phone] Vishal Negrete MD Primary Care Provider [phone] Bob LittleC Unavailable Encounter Details Date Type Department Care Team (Late st Contact Info) Description 09/15/2016 [facility] Outpatient Visit [facility] Orthopedics - Radiology [address] [place] [id number] Cristobal Gage DO [facility] [address] [address] Social History Tobacco Use Types [...] Date Author No 06/23/2016 6:49 AM Sam Morales RN documented in this encounter Plan of Treatment Not on file documented as of this encounter Visit Diagnoses Not on filedocumented in this encounter Care Teams Station Cook Relationship Specialty Start Date End Date Vishal Negrete MD PCP - General Internal Medicine 06/08/14 Viola Turpin MD Orthopedic Surgery 01/16/14 Cristobal Gage DO Orthopedic Surgery 01/31/14 Bob Little PA-C [address] [facility] [address] [place] [address] Physician Financial Services Manager Physician Financial Services Manager 03/04/15 documented as of this encounter
== END 2025-04-19 10:00 | disposition home or self-care (01) ==
LOC: CHSIMG 10:01
PROVIDERS: PCP Internal Medicine; Visit Provider Internal Medicine
DX: M86.8X7 Other osteomyelitis, ankle and foot (principal); Z98.890 Other specified postprocedural states; M19.071 Primary osteoarthritis, right ankle and foot
CPT/HCPCS: 73720